=== PATIENT | female | born 1955 | race Caucasian/White ===

== ENCOUNTER 2022-03-26 10:52 | Outpatient (REF) | payer MEDICARE, SELFPAY ==
--- NOTE | ~2022-03-26 | XR_ITS ---
EXAMINATION: XR LUMBAR SPINE XR HIP, LEFT CLINICAL INFORMATION: Pain low back and left hip. COMPARISON: None TECHNIQUE: Lumbar spine is imaged in 5 views: AP, lateral, bilateral oblique, and lateral view coned to lumbosacral junction. Left hip is imaged in AP and frog-lateral projections for 2 views. FINDINGS: Lumbar spine: There is normal lumbar segmentation with 5 nonrib-bearing lumbar vertebrae of normal height and normal lumbar lordosis. There is mild dextrocurvature lower lumbar spine. There is generalized osteopenia. No destructive process. There are multilevel degenerative disc changes with variable disc narrowing, greatest L5-S1. There is vertebral spurring at all levels. There is also facet degeneration, greatest L4-S1. The oblique view show no spondylolysis. There is borderline retrolisthesis L2-L3, likely related to the degenerative changes. No anterior spondylolisthesis. The SI joints show mild degenerative changes with inferior spurring. No erosive change or subchondral sclerosis or diastases or ankylosis. Left hip: No fracture, dislocation, or destructive process. No focal joint narrowing or erosive change or definite chondrocalcinosis. Soft tissue planes are unremarkable. XR/XR lumbar spine 4V min IMPRESSION: -Multilevel degenerative disc and degenerative facet changes lumbar spine. -Borderline retrolisthesis L2-L3, likely related to the degenerative changes. -No vertebral compression or destructive process. -Unremarkable left hip.
--- NOTE | ~2022-03-26 | XR_ITS ---
EXAMINATION: XR LUMBAR SPINE XR HIP, LEFT CLINICAL INFORMATION: Pain low back and left hip. COMPARISON: None TECHNIQUE: Lumbar spine is imaged in 5 views: AP, lateral, bilateral oblique, and lateral view coned to lumbosacral junction. Left hip is imaged in AP and frog-lateral projections for 2 views. FINDINGS: Lumbar spine: There is normal lumbar segmentation with 5 nonrib-bearing lumbar vertebrae of normal height and normal lumbar lordosis. There is mild dextrocurvature lower lumbar spine. There is generalized osteopenia. No destructive process. There are multilevel degenerative disc changes with variable disc narrowing, greatest L5-S1. There is vertebral spurring at all levels. There is also facet degeneration, greatest L4-S1. The oblique view show no spondylolysis. There is borderline retrolisthesis L2-L3, likely related to the degenerative changes. No anterior spondylolisthesis. The SI joints show mild degenerative changes with inferior spurring. No erosive change or subchondral sclerosis or diastases or ankylosis. Left hip: No fracture, dislocation, or destructive process. No focal joint narrowing or erosive change or definite chondrocalcinosis. Soft tissue planes are unremarkable. XR/XR hip LT min 2V IMPRESSION: -Multilevel degenerative disc and degenerative facet changes lumbar spine. -Borderline retrolisthesis L2-L3, likely related to the degenerative changes. -No vertebral compression or destructive process. -Unremarkable left hip.
[2022-03-26 11:46] LABS: Hematocrit 36.2 % (37.0-47.0); Hemoglobin 11.3 g/dl (12.0-16.0); Mean Corpuscular HGB Conc 31.2 g/dl (31.0-35.0); Mean Corpuscular Hemoglobin 29.1 pg (27.0-33.0); Mean Corpuscular Volume 93.3 fL (80.0-98.0); Mean Platelet Volume 9.6 fL (9.4-12.3); Platelet Count 159 X10*3/uL (160-400); Red Blood Count 3.88 X10*6/uL (4.20-5.50); Red Cell Distribution Width 14.4 % (11.0-16.0); White Blood Count 5.9 X10*3/uL (4.8-10.8)
[2022-03-26 12:00] LABS: D Dimer High Sensitivity 332 NG/ML
[2022-03-26 12:13] LABS: Alanine Aminotransferase 12 U/L (0-31); Albumin Level 4.1 g/dL (3.5-5.0); Alkaline Phosphatase 61 U/L (39-117); Anion Gap 10 (12-20); Aspartate Amino Transferase 24 U/L (5-31); Bilirubin Total 0.3 mg/dL (0.0-1.0); Blood Urea Nitrogen 15 mg/dL (9-16); Carbon Dioxide 28 mmol/L (22-29); Chloride 107 mmol/L (96-108); Estimated Glomerular Filt Rate > 60; Glucose Random 88 mg/dL (60-115); Potassium 4.5 mmol/L (3.3-5.1); Sodium 140 mmol/L (135-145); Total Protein 6.4 g/dL (6.5-8.0)
[2022-03-26 12:34] LABS: TSH reflex Free T4 1.14 uIU/mL (0.32-4.0)
== END 2022-03-26 10:53 | disposition home or self-care (01) ==
LOC: HO.XRAY 10:52
PROVIDERS: PCP General Practice; Visit Provider General Practice
DX: M25.562 Pain in left knee (principal); M79.662 Pain in left lower leg; M25.552 Pain in left hip; M54.50 Low back pain, unspecified
CPT/HCPCS: 36415; 72110; 73502; 80053; 84443; 85027; 85379; 85610

== ENCOUNTER 2022-03-29 13:26 | Outpatient (REF) | payer MEDICARE, SELFPAY ==
--- NOTE | ~2022-03-29 | US_ITS ---
EXAMINATION: US VENOUS ULTRASOUND WITH DOPPLER LOWER EXTREMITY, LEFT CLINICAL INFORMATION: Calf tightness times weeks. Warm to touch. COMPARISON: None TECHNIQUE: Ultrasound of the deep veins is performed from the hip to the calf with compression sonography and color and pulse Doppler assessment. Spectral analysis with color-flow imaging is performed. FINDINGS: There is normal venous compression and respiratory variation and augmented flow. The visualized common femoral vein, superficial femoral vein, profunda femoral vein, popliteal vein, and the trifurcation region shows no evidence of deep venous thrombosis. There is a complex Kearns's cyst in the medial popliteal fossa extending to mid calf region. If the patient's symptoms persist, followup ultrasound in 5 days 7 days might be of value to exclude proximal propagation from a non-visualized calf vein. US/US venous duplex LE IMPRESSION: 1. No DVT demonstrated in the left lower extremity. 2. Complex Kearns's cyst, medial popliteal fossa.
== END 2022-03-29 13:27 | disposition home or self-care (01) ==
LOC: HO.US 13:26
PROVIDERS: Visit Provider General Practice
DX: M79.662 Pain in left lower leg (principal); R79.89 Other specified abnormal findings of blood chemistry
CPT/HCPCS: 93971

== ENCOUNTER 2022-04-14 09:11 | Outpatient (REF) | payer MEDICARE, SELFPAY ==
--- NOTE | ~2022-04-14 | MM_ITS ---
EXAMINATION: MM SCREENING DIGITAL BREAST TOMOSYNTHESIS, BILATERAL CLINICAL INFORMATION: Screening. Asymptomatic. Prior [id number] mammography currently unavailable. No known family history breast cancer. The lifetime risk of breast cancer based on the Tyrer-Cuzick Model is 7%. COMPARISON: None. TECHNIQUE: Digital breast tomosynthesis is performed in both the craniocaudal and mediolateral oblique views along with computer-aided detection (CAD). Synthesized 2D images are generated from the tomosynthesis. Additional right CC view is provided. FINDINGS: The breasts are heterogeneously dense, which may obscure small masses (ACR BI-RADS breast composition Category c). There are no significant masses, abnormal calcifications, or other abnormalities. No architectural abnormality or abnormal calcifications. There are punctate densities overlying the skin bilateral axilla consistent with deodorant artifact. No skin thickening or retraction. Radiology department staff will attempt to retrieve prior [id number] mammography to allow for comparison in an addendum report. MM/MM tomosynthesis screening BI IMPRESSION: No mammographic evidence of malignancy. ASSESSMENT: BI-RADS 2: Benign RECOMMENDATION: Routine annual mammography screening. This patient's information was entered into a reminder system with a target due date for their next mammogram.
== END 2022-04-14 09:12 | disposition home or self-care (01) ==
LOC: HO.MAMMO 09:11
PROVIDERS: Visit Provider General Practice
DX: Z12.31 Encounter for screening mammogram for malignant neoplasm of breast (principal)
CPT/HCPCS: 77063; 77067

== ENCOUNTER → 2022-04-21 13:00 | Outpatient (BNVA) | payer MEDICARE, SELFPAY | PROVIDERS: PCP General Practice; Visit Provider Nurse Practitioner Family | DX: M96.1 Postlaminectomy syndrome, not elsewhere classified (principal); M79.18 Myalgia, other site | CPT/HCPCS: 99202 ==

== ENCOUNTER 2022-05-19 14:01 | Outpatient (REF) | payer MEDICARE, SELFPAY ==
--- NOTE | ~2022-05-19 | XR_ITS ---
EXAMINATION: XR CERVICAL SPINE CLINICAL INFORMATION: Post laminectomy syndrome. COMPARISON: None TECHNIQUE: 3 views of the cervical spine were obtained. FINDINGS: There are postsurgical changes to the cervical spine. There is anterior fusion with plate and screw at C3-C4. There is anterior fusion with screws at C6-C7. There are interbody disc interspacers and fusion from C3-C4 to C6-C7. There are post laminotomy changes from C3 to C6. There is bilateral multilevel facet arthritis. Prevertebral soft tissues are normal. XR/XR cervical spine 3V IMPRESSION: Extensive postsurgical changes.
== END 2022-05-19 14:02 | disposition home or self-care (01) ==
LOC: HO.XRAY 14:01
PROVIDERS: PCP General Practice; Visit Provider Nurse Practitioner Family
DX: M96.1 Postlaminectomy syndrome, not elsewhere classified (principal); M79.18 Myalgia, other site
CPT/HCPCS: 72040; 99212

== ENCOUNTER → 2022-05-25 12:46 | Outpatient (BNVA) | payer MEDICARE, SELFPAY | PROVIDERS: PCP General Practice; Referring Provider General Practice; Visit Provider Nurse Practitioner Family | DX: R13.12 Dysphagia, oropharyngeal phase (principal); K21.9 Gastro-esophageal reflux disease without esophagitis; R14.0 Abdominal distension (gaseous); E55.9 Vitamin D deficiency, unspecified | CPT/HCPCS: 99202 ==

== ENCOUNTER 2022-06-23 13:19 | Outpatient (REF) | payer MEDICARE, OTHER, SELFPAY ==
[2022-06-23 14:33] LABS: Amylase 111 U/L (28-100); Lipase 61 U/L (8-78)
[2022-06-24 13:08] LABS: Transglutaminase Ab IgG <1.0 U/mL; Transglutaminase IgA 2.7 U/mL
[2022-06-25 11:18] LABS: H Pylori Breath Test Negative (Negative)
[2022-06-27 15:57] LABS: Vitamin D 25-OH, D2 <4 ng/mL; Vitamin D 25-OH, D3 30 ng/mL; Vitamin D 25-OH, Total 30 ng/mL (30-100)
== END 2022-06-23 13:20 | disposition home or self-care (01) ==
LOC: HO.LAB 13:19
PROVIDERS: PCP General Practice; Visit Provider Nurse Practitioner Family
DX: R13.12 Dysphagia, oropharyngeal phase (principal); K21.9 Gastro-esophageal reflux disease without esophagitis; R14.0 Abdominal distension (gaseous); R10.9 Unspecified abdominal pain; E55.9 Vitamin D deficiency, unspecified
CPT/HCPCS: 36415; 82150; 82306; 83013; 83690; 86364; 99212

== ENCOUNTER 2022-07-09 07:21 | Day surgery (SDC) | payer MEDICARE, OTHER, SELFPAY ==
[2022-07-09 07:28] VITALS: BMI 18.2
[2022-07-09 07:38] VITALS: BP 127/77; PULSE 77; RESP 16; TEMP 36.6; O2SAT 98
--- NOTE | 2022-07-09 07:58 | MHC.SHP ---
Pre-Procedural Eval Section A Date of Service: 07/09/22 The patient is an INPATIENT: No Changes since office visit: Yes Patient answered all questions; No Cold of Flu in the past 2 weeks, No New Medical Problems and No Changes in Medication The History & Physical has been completed within 30 days and I have reviewed it.: Yes Section B Chief Complaint: dysphasia,reflux,gaseous Allergies: Allergies Allergy/AdvReac Type Severity Reaction Status Date / Time bupropion Allergy Unknown Verified 07/09/22 07:48 clonidine Allergy Unknown Verified 07/09/22 07:48 gabapentin Allergy Unknown Verified 07/09/22 07:48 meloxicam Allergy Unknown Verified 07/09/22 07:48 pregabalin Allergy Unknown Verified 07/09/22 07:48 Sulfa (Sulfonamide Allergy Unknown Verified 07/09/22 07:48 Antibiotics) zolpidem Allergy Unknown Verified 07/09/22 07:48 prasozin Allergy Unknown Uncoded 05/19/22 13:10 Plan I have reviewed the history and physical and performed a pertinent physical examination on my patient. No changes have occurred unless specified.
--- NOTE | 2022-07-09 08:02 | PC.NURSE ---
right hand puffy, bruised from first iv attempt. pt does not complain of any pain. ice applied
--- NOTE | 2022-07-09 08:04 | P.BOP_ITS ---
Brief Operative Note Date of Service: 07/09/22 Pre-op diagnosis: upper abdominal pain, dysphagia abdominal bloating Post-op diagnosis: other ( dysphagia, gastritis, gastric polyps) Procedure: FLEXIBLE TRANSORAL UPPER GASTROINTESTINAL ENDOSCOPY WITH BIOPSIES AND ESOPHAGEAL BALLOON DILATION Consent: Indications for the procedure and potential complications of bleeding, perforation, reaction to medications and missed diagnosis were discussed with the patient and informed consent was obtained. Instrument: Olympus GIF H 190 mid size upper endoscope Monitoring: Vital signs and clinical assessment, continuous EKG monitoring, Pulse oximetry, Carbon Dioxide monitoring and blood pressure monitoring were done throughout the procedure. Procedure: The patient was placed in the left lateral decubitis position and pre-procedure medications were administered and a bite block was placed. The endoscope was inserted into the mouth and advanced under direct vision to the third part of duodenum. A careful inspection was made as the upper endoscope was withdrawn including a retroflexed examination of the proximal stomach; Findings and interventions are described below. Findings: Larynx: Normal Esophagus: Tortuous esophagus with increased tertiary contractions without stricture or ring - biopsies were obtained from proximal esophagus to check for EOE. GE junction at 40 cms. No esophagitis or Mejia's. Esophageal balloon dilation of LES was performed with a 19 mm (57 F) CRE balloon x 60 seconds Esophageal balloon dilation of proximal esophagus was performed with the an 18 mm (54 F) CRE balloon x 60 seconds Stomach: Multiple 5 to 10 mm benign appearing polyps in the gastric body and fundus - biopsied. Mild gastric antral erythema. Biopsies were obtained. Grade 2 flap valve on retroflexed examination of the cardia. Duodenum: Normal bulb and descending duodenum. Biopsies were obtained from 3rd part of the duodenum to check for celiac sprue Intervention: Biopsies and esophageal balloon dilation as noted above Impression and Post Procedure Diagnosis: Endoscopy Findings: ESOPHAGUS: Tortuous esophagus with increased tertiary contractions without stricture or ring - biopsies were obtained from proximal esophagus to check for EOE. GE junction at 40 cms. No esophagitis or Mejia's. Esophageal balloon dilation of LES was performed with a 19 mm (57 F) CRE balloon x 60 seconds Esophageal balloon dilation of proximal esophagus was performed with the an 18 mm (54 F) CRE balloon x 60 seconds STOMACH: Multiple 5 to 10 mm benign appearing polyps in the gastric body and fundus - biopsied. Mild gastric antral erythema. Biopsies were obtained. DUODENUM: Normal - biopsied to check for celiac sprue Plan: Await pathology results Patient has an appointment on 08/13/22 in the GI Clinic with Dyana Ramos FNP- [facility]. Above findings were reviewed with the patient and Gastric Polyps and Gas and Bloating handouts were given in the discharge area Surgeon: Ollie De León MD Anesthesia: MAC Was an Director Of Events used for this Procedure?: Yes Director Of Events: Neela Zacarias Estimated blood loss (mL): 0 Pathology: other (A. small bowel bxs, R/O celiac B. gastric antrum bxs, R/O H. pylori C. gastric polyps D. distal esophagus bxs, R/O EoE) Condition: stable Disposition: PACU
--- NOTE | 2022-07-09 08:05 | W.PM.OPN ---
Operative Note Operative Note Date of Service: 07/09/22 Narrative: Pre-op diagnosis: upper abdominal pain, dysphagia abdominal bloating Post-op diagnosis:?other ( dysphagia, gastritis, gastric polyps) Procedure: FLEXIBLE TRANSORAL UPPER GASTROINTESTINAL ENDOSCOPY WITH BIOPSIES AND ESOPHAGEAL BALLOON DILATION Consent:?Indications for the procedure and potential complications of bleeding, perforation, reaction to medications and missed diagnosis were discussed with the patient and informed consent was obtained. Instrument:?Olympus GIF H 190 mid size upper endoscope Monitoring: Vital signs and clinical assessment, continuous EKG monitoring, Pulse oximetry, Carbon Dioxide monitoring and blood pressure monitoring were done throughout the procedure. Procedure:?The patient was placed in the left lateral decubitis position and pre-procedure medications were administered and a bite block was placed. The endoscope was inserted into the mouth and advanced under direct vision to the third part of duodenum. A careful inspection was made as the upper endoscope was withdrawn including a retroflexed examination of the proximal stomach; Findings and interventions are described below. Findings: Larynx:? Normal Esophagus: Tortuous? esophagus with increased tertiary contractions without stricture or ring -? biopsies were obtained from proximal esophagus to check for EOE.? GE junction at 40 cms. No esophagitis or Mejia's. Esophageal balloon dilation of LES was performed with a 19 mm (57 F) CRE balloon x 60 seconds Esophageal balloon dilation of proximal esophagus was performed with the an 18 mm (54 F) CRE balloon x 60 seconds Stomach: Multiple 5 to 10 mm benign appearing polyps in the gastric body and fundus -? biopsied.? Mild gastric antral erythema. Biopsies were obtained. Grade 2 flap valve on retroflexed examination of the cardia. Duodenum: Normal bulb and descending duodenum.? ? Biopsies were obtained from 3rd part of the duodenum to check for celiac sprue Intervention: Biopsies? and esophageal balloon dilation as noted above Impression and Post Procedure Diagnosis: Endoscopy Findings: ESOPHAGUS: Tortuous? esophagus with increased tertiary contractions without stricture or ring -? biopsies were obtained from proximal esophagus to check for EOE.? GE junction at 40 cms. No esophagitis or Mejia's. Esophageal balloon dilation of LES was performed with a 19 mm (57 F) CRE balloon x 60 seconds Esophageal balloon dilation of proximal esophagus was performed with the an 18 mm (54 F) CRE balloon x 60 seconds STOMACH: Multiple 5 to 10 mm benign appearing polyps in the gastric body and fundus -? biopsied.? Mild gastric antral erythema. Biopsies were obtained. DUODENUM: Normal -? biopsied to check for celiac sprue Plan: Await pathology results Patient has an appointment on 08/13/22 in the GI Clinic with Dyana Ramos FNP-BC. Above findings were reviewed with the patient and Gastric Polyps and Gas and Bloating handouts were given in the discharge area Surgeon: Ollie De León MD Anesthesia:?MAC Was an Oil Well Gun Perforator Operator used for this Procedure?:?Yes Oil Well Gun Perforator Operator:?Neela Zacarias Estimated blood loss (mL):?0 Pathology:?other (A. small bowel bxs, R/O celiac? B. gastric antrum bxs, R/O H. pylori? C. gastric polyps? D. distal esophagus bxs, R/O EoE) Condition:?stable Disposition:?PACU
[2022-07-09] MEDS: Lactated Ringers 1,000 ML 100 ML IVCONT (08:06)
--- NOTE | 2022-07-09 08:08 | HO.ANESPROP2 ---
HPI - Anesthesia Eval Consult details Narrative: 67 yo female patient for EGD PMFSH Active Problems Active Problems: All Active Problems (Updated 07/09/22 @ 07:32 by Krista Weiss RN) Postlaminectomy syndrome, cervical (Acute) Myofascial pain (Acute) Pruritic erythematous rash (Acute) Frequent falls- no cause found yet Asthma- Controlled. Inhalers prn PETER- Not using CPAP. Unable to find mask that fits Past Medical History Medical History Allergies Anxiety Asthma Chronic neck pain Depression History of COVID-19 History of post traumatic stress disorder Hypothyroidism Neuropathy PETER (obstructive sleep apnea) Family History Family history of problems with anesthesia: No Surgical History Surgical History (Updated 07/09/22 @ 07:32 by Krista Weiss RN) Hx of appendectomy Hx of section Hx of colonoscopy Hx of esophagogastroduodenoscopy Hx of tonsillectomy Previous back surgery Surgical history unknown History of Problems with Anesthesia: No Social History Social History Patient Tobacco Use Status: Never used Tobacco Substance Use Type Other:: cbd smoke Are you DNR?: No Advance Directives: No Advance Directives Information Provided: Yes Meds Allergies Allergy/AdvReac Type Severity Reaction Status Date / Time bupropion Allergy Unknown Verified 07/09/22 07:48 clonidine Allergy Unknown Verified 07/09/22 07:48 gabapentin Allergy Unknown Verified 07/09/22 07:48 meloxicam Allergy Unknown Verified 07/09/22 07:48 pregabalin Allergy Unknown Verified 07/09/22 07:48 Sulfa (Sulfonamide Allergy Unknown Verified 07/09/22 07:48 Antibiotics) zolpidem Allergy Unknown Verified 07/09/22 07:48 prasozin Allergy Unknown Uncoded 05/19/22 13:10 Active Medications: Current Medications Albuterol Sulfate (Albuterol Sulfate (0.083%) 2.5 Mg/3 Ml Vial.Neb) 2.5 mg INHALE ONCE PRN PRN Reason: Shortness of Breath/Wheezing Lactated Ringer's (Lr) 1,000 mls @ 100 mls/hr IVCONT .Q10H BEATA Last Admin: 07/09/22 08:06 Dose: 100 mls/hr Home Medications Medication Instructions Recorded Confirmed Last Taken Type buprenorphine 15 mcg/hour weekly 1 patch topical QWEEK 04/21/22 07/09/22 Unknown History transdermal patch diphenhydramine HCl 25 mg capsule 25 mg PO Q8H PRN Itching 04/21/22 07/09/22 Unknown History (Banophen) docusate sodium 100 mg capsule 100 - 200 mg PO DAILY PRN 04/21/22 07/09/22 Unknown History Constipation levothyroxine 75 mcg tablet 75 mcg PO DAILY 04/21/22 07/09/22 07/09/22 06:00 History magnesium oxide 400 mg (241.3 mg 400 mg PO DAILY 04/21/22 07/09/22 Unknown History magnesium) tablet omeprazole 40 mg capsule,delayed 40 mg PO DAILY 04/21/22 07/09/22 Unknown History release sennosides 8.6 mg tablet (senna) 8.6 mg PO DAILY PRN constipation 04/21/22 07/09/22 Unknown History sertraline 100 mg tablet 200 mg PO BID 04/21/22 07/09/22 07/09/22 06:00 History trazodone 50 mg tablet 100 mg PO BEDTIME PRN Insomnia 04/21/22 07/09/22 Unknown History mupirocin 2 % topical ointment 1 appl topical BID-TID 05/19/22 07/09/22 Unknown History Exam Exam Date and Time: July 09, 2022 0808 Height,Weight and Vital Signs: Height 5 ft 8 in Weight 54.431 kg Last Vital Signs Temp 97.8 F 07/09/22 07:38 Pulse 77 07/09/22 07:38 Resp 16 07/09/22 07:38 BP 127/77 07/09/22 07:38 Pulse Ox 98 07/09/22 07:38 O2 Del Method 07/09/22 07:38 Airway Mallampati Class: II TM Dist: >3cm Neck ROM: Limited (S/p C3-7 fusion) Loose/Missing/Broken Teeth: Yes (2 teeth missing- crowns fell off) Heart: RRR Lungs: CTAB Assessment and Plan Assessment Anesthesia Assessment: Anesthesia Plan Discussed and Chart Reviewed Final Anesthetic Review Family History of Problems with Anesthesia: No History of Problems with Anesthesia: No NPO: Yes ASA Class: III Final Preanesthetic Review: No Changes in Pt Med Stat, Meds/Allgs Chart Reviewed, Consent Obtained/Reviewed and Anes Risks/Benef Reviewed Patient Risk: Intermediate Procedure Risk: Low Assessment/Block/Sedation in SS: Assess/Block/Sedation-SS Anesthetic Plan Anesthetic Plan: MAC: Disposition: Standard PACU
[2022-07-09 08:44] VITALS: BP 85/41; PULSE 71; RESP 16; TEMP 36.7; O2SAT 99
[2022-07-09 08:59] VITALS: BP 116/74; PULSE 84; RESP 18; O2SAT 99
[2022-07-09] MEDS: Mag&Al/Sim/Diphenhyd/Lidocaine 10 ML ORAL.SUSP PO (09:05)
[2022-07-09 09:14] VITALS: BP 133/74; PULSE 71; RESP 18; TEMP 36.7; O2SAT 100
== END 2022-07-09 10:38 | disposition home or self-care (01) ==
PROVIDERS: PCP General Practice; Visit Provider Internal Medicine Gastroenterology
PROC: 0DJ08ZZ Inspection of Upper Intestinal Tract, Via Natural or Artificial Opening Endoscopic (ICD-10-PCS; CPT 43235; principal; 2022-07-09 08:30)
DX: R13.12 Dysphagia, oropharyngeal phase (principal); K22.89 Other specified disease of esophagus; K21.9 Gastro-esophageal reflux disease without esophagitis; R14.0 Abdominal distension (gaseous); K29.50 Unspecified chronic gastritis without bleeding; K31.7 Polyp of stomach and duodenum; J45.909 Unspecified asthma, uncomplicated; M54.2 Cervicalgia; G62.9 Polyneuropathy, unspecified; G89.29 Other chronic pain; E03.9 Hypothyroidism, unspecified; G47.33 Obstructive sleep apnea (adult) (pediatric); F41.1 Generalized anxiety disorder; Z79.899 Other long term (current) drug therapy; Z88.2 Allergy status to sulfonamides; Z88.8 Allergy status to other drugs, medicaments and biological substances; Z98.890 Other specified postprocedural states
CPT/HCPCS: 43249; 43239; 88305; 88342; C1726

== ENCOUNTER 2022-07-23 15:05 | Emergency (ER) | payer MEDICARE, OTHER, SELFPAY ==
--- NOTE | ~2022-07-23 | XR_ITS ---
EXAMINATION: XR CHEST CLINICAL INFORMATION: Chest pain COMPARISON: None TECHNIQUE: Frontal view of the chest was obtained. FINDINGS: The lungs are clear. No airspace consolidation, pleural effusion, or pneumothorax. The cardiomediastinal silhouette is within normal limits. No acute osseous injury. Fixation screws project over the lower cervical spine. XR/XR chest 1V IMPRESSION: No acute pulmonary process.
--- NOTE | ~2022-07-23 | CT_ITS ---
EXAMINATION: CT ANGIOGRAM OF THE CHEST WITH AND WITHOUT CONTRAST (CT PULMONARY ANGIOGRAM FOR PE) CLINICAL INFORMATION: Reason for Exam chest pain elevated d-dimer rule out PE COMPARISON: Chest x-ray 08/02/2022 TECHNIQUE: Prior to contrast administration, noncontrast localization images were obtained. Subsequently, multidetector volumetric imaging was performed from the thoracic inlet to below the diaphragms following the administration of 65 mL Omnipaque 350 intravenous contrast. No contrast reaction reported Sagittal, coronal, and MIP oblique sagittal reformatted images were obtained on the CT workstation, uploaded to PACS, and reviewed. This CT examination was performed using dose optimization techniques as appropriate, variously including the following: *Automated exposure control *Adjustment of mA and/or kV according to patient size (this includes techniques or standardized protocols for targeted exams where dose is matched to indication/reason for exam; i.e. extremities or head) *Use of iterative reconstruction technique Total exam dose-length product 167 mGy-cm FINDINGS: QUALITY OF STUDY/CONTRAST BOLUS: Satisfactory. PULMONARY ARTERIES: No central or segmental pulmonary emboli. THORACIC AORTA: No aneurysm or dissection. LUNG: No focal consolidation, nodules or masses. PLEURA: No pleural effusion or pneumothorax. MEDIASTINUM: Normal heart size. No pericardial effusion. No hilar or mediastinal lymphadenopathy. No evidence of septal bowing or right heart strain. CHEST WALL/AXILLA: No axillary or internal mammary lymphadenopathy. OSSEOUS STRUCTURES: No acute or suspicious osseous abnormality. Orthopedic plate and screw at cervical spine. UPPER ABDOMEN: Unremarkable. No reflux of contrast into the hepatic veins to suggest elevated right heart pressures. CT/CT angio chest PE protocol IMPRESSION: Normal CT of chest. No evidence of pulmonary embolism. VTE: negative
[2022-07-23 15:11] VITALS: BP 115/72; PULSE 95; RESP 18; TEMP 36.2; O2SAT 96
--- NOTE | 2022-07-23 15:16 | ECG_ITS ---
Test Reason : chest pain Blood Pressure : / mmHG Vent. Rate : 082 BPM Atrial Rate : 082 BPM P-R Int : 128 ms QRS Dur : 076 ms QT Int : 348 ms P-R-T Axes : 004 023 014 degrees QTc Int : 406 ms Normal sinus rhythm Nonspecific T wave abnormality Abnormal ECG No previous ECGs available Referred By: Generic ED Physician Electronically Signed By:LIZET MUHAMMAD
[2022-07-23 15:29] LABS: MANUAL DIFF FLAG NO
[2022-07-23 15:31] LABS: Basophils Absolute Auto 0.1 X10*3/uL (0.0-0.2); Basophils Percent Auto 0.6 % (0-2); Eosinophils Percent Auto 0.1 % (0-4); Hematocrit 33.6 % (37.0-47.0); Hemoglobin 11.1 g/dl (12.0-16.0); Imm Gran Abs Auto 0.02 X10*3/uL (0.00-0.03); Imm Gran Pct Auto 0.2 % (0.0-0.4); Lymphocytes Absolute Auto 1.2 X10*3/uL (1.2-4.9); Lymphocytes Percent Auto 13.5 % (20-40); Mean Corpuscular Hemoglobin 29.5 pg (27.0-33.0); Mean Corpuscular Volume 89.4 fL (80.0-98.0); Mean Platelet Volume 9.4 fL (9.4-12.3); Monocytes Absolute Auto 1.1 X10*3/uL (0.1-1.2); Monocytes Percent Auto 12.9 % (2-11); Neutrophils Absolute Auto 6.4 x10*3/uL (2.0-8.3); Neutrophils Percent Auto 72.7 % (45-73); Platelet Count 176 X10*3/uL (160-400); Red Blood Count 3.76 X10*6/uL (4.20-5.50); Red Cell Distribution Width 13.1 % (11.0-16.0); White Blood Count 8.8 X10*3/uL (4.8-10.8)
[2022-07-23 15:51] LABS: Alanine Aminotransferase 15 U/L (0-31); Alkaline Phosphatase 63 U/L (39-117); Anion Gap 17 (12-20); Aspartate Amino Transferase 26 U/L (5-31); Bilirubin Total 0.7 mg/dL (0.0-1.0); Blood Urea Nitrogen 15 mg/dL (9-16); Calcium 8.9 mg/dL (8.4-10.2); Carbon Dioxide 23 mmol/L (22-29); Chloride 103 mmol/L (96-108); Creatinine Clr Calc Pharmacy 58.6; Estimated Glomerular Filt Rate > 60; Glucose Random 100 mg/dL (60-115); Potassium 4.2 mmol/L (3.3-5.1); Sodium 139 mmol/L (135-145); Total Protein 6.6 g/dL (6.5-8.0)
[2022-07-23 15:58] LABS: Troponin-I High Sensitivity < 3.5 ng/L (<3.5-17.0)
[2022-07-23 18:50] VITALS: BP 122/67; PULSE 90; RESP 18; TEMP 36.5; O2SAT 96
--- NOTE | 2022-07-23 21:02 | ED_ITS ---
HPI - Chest Pain General Chief Complaint: Chest Pain Stated Complaint: chest pain Time Seen by Provider: 07/23/22 21:01 Source: patient Mode of arrival: ambulatory Limitations: no limitations History of Present Illness HPI narrative: 67 yo female with hx of chronic pain, hypothyroidism, GERD, reports chest pain substernal tightness that she thinks is related to her chronic back pain since Tuesday. She notes it hurts to breathe at times. She is trying to see her spine doctor - has had xrays and appointment 08/02. She notes no recent URI. MD complaint: chest pain Onset (ago): day(s) (5) Timing of current episode: constant Prior episodes: No Onset: during rest Pain location: substernal Pain radiation: back Severity: moderate Quality: tightness Relieving factors: nothing Exacerbating factors: inspiration Context: other (chronic back pain) Associated symptoms: dyspnea Treatment prior to arrival: none Related Data Home Medications Medication Instructions Recorded Confirmed buprenorphine 15 mcg/hour weekly 1 patch topical QWEEK 04/21/22 07/09/22 transdermal patch diphenhydramine HCl 25 mg capsule 25 mg PO Q8H PRN Itching 04/21/22 07/09/22 (Banophen) docusate sodium 100 mg capsule 100 - 200 mg PO DAILY PRN 04/21/22 07/09/22 Constipation levothyroxine 75 mcg tablet 75 mcg PO DAILY 04/21/22 07/09/22 magnesium oxide 400 mg (241.3 mg 400 mg PO DAILY 04/21/22 07/09/22 magnesium) tablet omeprazole 40 mg capsule,delayed 40 mg PO DAILY 04/21/22 07/09/22 release sennosides 8.6 mg tablet (senna) 8.6 mg PO DAILY PRN constipation 04/21/22 07/09/22 sertraline 100 mg tablet 200 mg PO BID 04/21/22 07/09/22 trazodone 50 mg tablet 100 mg PO BEDTIME PRN Insomnia 04/21/22 07/09/22 mupirocin 2 % topical ointment 1 appl topical BID-TID 05/19/22 07/09/22 Previous Rx's Medication Instructions Recorded simethicone 125 mg capsule (Gas 125 mg PO TID-QID PRN abdominal 06/23/22 Relief (simethicone)) distention #120 caps cyclobenzaprine 10 mg tablet 10 mg PO TID PRN muscle spasm #15 07/23/22 tabs Allergies Allergy/AdvReac Type Severity Reaction Status Date / Time bupropion Allergy Unknown Verified 07/09/22 07:48 clonidine Allergy Unknown Verified 07/09/22 07:48 gabapentin Allergy Unknown Verified 07/09/22 07:48 meloxicam Allergy Unknown Verified 07/09/22 07:48 pregabalin Allergy Unknown Verified 07/09/22 07:48 Sulfa (Sulfonamide Allergy Unknown Verified 07/09/22 07:48 Antibiotics) zolpidem Allergy Unknown Verified 07/09/22 07:48 prasozin Allergy Unknown Uncoded 05/19/22 13:10 Review of Systems Review of Systems: Constitutional : No Weight loss, No Fever, No Chills ENT/Mouth : No sore throat, No Rhinorrhea Eyes: No Eye Pain, No Swelling Cardiovascular : pos Chest Pain, pos SOB, no Dyspnea on Exertion, No Orthopnea, No Edema, No Palpitations Respiratory : No Cough, No Sputum Gastrointestinal : no Nausea, No Vomiting, No Diarrhea, No abdominal Pain, No Hematochezia, No Melena Genitourinary : No Dysuria, No Urinary Frequency Musculoskeletal : No joint pain, No Myalgias, No Joint Swelling, pos back pain Skin : No Skin Lesions, No rash Neuro : No Weakness, No Numbness, No Dizziness, No Headache Psych : No Anxiety/Panic, No Depression Heme/Lymph: No Bruising, No Lymphadenopathy Endocrine : No Polyuria, No Polydipsia All other systems reviewed and are negative PMFSH Past Medical History Attestation statement: The following information was validated with the patient. Medical History Allergies Anxiety Asthma Chronic neck pain Depression History of COVID-19 History of post traumatic stress disorder Hypothyroidism Neuropathy PETER (obstructive sleep apnea) Surgical History Hx of appendectomy Hx of section Hx of colonoscopy Hx of esophagogastroduodenoscopy Hx of tonsillectomy Previous back surgery Surgical history unknown Social History Social History Patient Tobacco Use Status: Never used Tobacco Advance Directives: No Advance Directives Information Provided: No Physical Exam Vital Signs: Vital Signs: Last Vital Signs Temp 99.5 F 07/23/22 21:36 Pulse 82 07/23/22 21:36 Resp 17 07/23/22 21:36 BP 110/65 07/23/22 21:36 Pulse Ox 95 07/23/22 21:36 O2 Del Method 07/23/22 21:36 BMI result Body Mass Index 20.0 Appearance: Alert. Oriented X3. No acute distress. Anxious Eyes: Pupils equal, round and reactive to light. ENT: Pharynx normal. Neck: Normal inspection. Neck supple. CVS: Normal heart rate and rhythm. Pulses normal. Respiratory: No respiratory distress. Breath sounds normal. Abdomen: Soft and non-tender. Skin: Skin warm and dry. Normal skin color. Normal skin turgor. Extremities: No lower extremity edema. No calf ttp Neuro: Oriented X 3. No motor deficit. No sensory deficit. Course Course Course Narrative: ddimer above VTE threshold CTA ordered trop flat x 2, EKG negative, CTA PE negative stable for DC MDM - Chest Pain MDM Narrative Medical decision making narrative: 67 yo female with hx of chronic pain, hypothyroidism, GERD, here with c/o atypical chest pain since Tuesday at this time has nonspecific EKG changes - no sig ACS risk factors, will need EKG, troponin x 2. Given pleuritic component will obtain ddimer as well. Patient is anxious - PO ativan ordered. Possibly MSK related to her chronic back pain for which she does have a specialist. Lab Data Result diagrams: 07/23/22 15:24 07/23/22 15:24 Labs: Lab Results 07/23/22 07/23/22 07/23/22 Range/Units 15:24 15:24 15:24 WBC 8.8 (4.8-10.8) X10*3/uL RBC 3.76 L (4.20-5.50) X10*6/uL Hgb 11.1 L (12.0-16.0) g/dl Hct 33.6 L (37.0-47.0) % MCV 89.4 (80.0-98.0) fL MCH 29.5 (27.0-33.0) pg MCHC 33.0 (31.0-35.0) g/dl RDW 13.1 (11.0-16.0) % Plt Count 176 (160-400) X10*3/uL MPV 9.4 (9.4-12.3) fL Immature Gran % (Auto) 0.2 (0.0-0.4) % Neut % (Auto) 72.7 (45-73) % Lymph % (Auto) 13.5 L (20-40) % [place] % (Auto) 12.9 H (2-11) % Eos % (Auto) 0.1 (0-4) % Baso % (Auto) 0.6 (0-2) % Lymph # (Auto) 1.2 (1.2-4.9) X10*3/uL [place] # (Auto) 1.1 (0.1-1.2) X10*3/uL Eos # (Auto) 0.0 (0.0-0.4) X10*3/uL Baso # (Auto) 0.1 (0.0-0.2) X10*3/uL Abs Immat Gran (auto) 0.02 (0.00-0.03) X10*3/uL Absolute Neuts (auto) 6.4 (2.0-8.3) x10*3/uL Absolute Nucleated RBC 0.000 (0.0-0.012) X10*3/uL Nucleated RBC % (auto) 0.0 (0.0-0.2) /100WBC D-Dimer High Sensitivty NG/ML Sodium 139 (135-145) mmol/L Potassium 4.2 (3.3-5.1) mmol/L Chloride 103 (96-108) mmol/L Carbon Dioxide 23 (22-29) mmol/L Anion Gap 17 (12-20) BUN 15 (9-16) mg/dL Creatinine 0.79 (0.5-1.4) mg/dL Estim Creat Clear Calc 58.6 Estimated GFR > 60 Random Glucose 100 (60-115) mg/dL Calcium 8.9 (8.4-10.2) mg/dL Total Bilirubin 0.7 (0.0-1.0) mg/dL AST 26 (5-31) U/L ALT 15 (0-31) U/L Alkaline Phosphatase 63 (39-117) U/L Troponin I High Sens < 3.5 (<3.5-17.0) ng/L Total Protein 6.6 (6.5-8.0) g/dL Albumin 4.0 (3.5-5.0) g/dL Lipase 29 (8-78) U/L COVID-19 ([facility]) (Negative) COVID-19 Clin Com 07/23/22 07/23/22 07/23/22 Range/Units 21:34 21:34 22:13 WBC (4.8-10.8) X10*3/uL RBC (4.20-5.50) X10*6/uL Hgb (12.0-16.0) g/dl Hct (37.0-47.0) % MCV (80.0-98.0) fL MCH (27.0-33.0) pg MCHC (31.0-35.0) g/dl RDW (11.0-16.0) % Plt Count (160-400) X10*3/uL MPV (9.4-12.3) fL Immature Gran % (Auto) (0.0-0.4) % Neut % (Auto) (45-73) % Lymph % (Auto) (20-40) % [place] % (Auto) (2-11) % Eos % (Auto) (0-4) % Baso % (Auto) (0-2) % Lymph # (Auto) (1.2-4.9) X10*3/uL [place] # (Auto) (0.1-1.2) X10*3/uL Eos # (Auto) (0.0-0.4) X10*3/uL Baso # (Auto) (0.0-0.2) X10*3/uL Abs Immat Gran (auto) (0.00-0.03) X10*3/uL Absolute Neuts (auto) (2.0-8.3) x10*3/uL Absolute Nucleated RBC (0.0-0.012) X10*3/uL Nucleated RBC % (auto) (0.0-0.2) /100WBC D-Dimer High Sensitivty 387 NG/ML Sodium (135-145) mmol/L Potassium (3.3-5.1) mmol/L Chloride (96-108) mmol/L Carbon Dioxide (22-29) mmol/L Anion Gap (12-20) BUN (9-16) mg/dL Creatinine (0.5-1.4) mg/dL Estim Creat Clear Calc Estimated GFR Random Glucose (60-115) mg/dL Calcium (8.4-10.2) mg/dL Total Bilirubin (0.0-1.0) mg/dL AST (5-31) U/L ALT (0-31) U/L Alkaline Phosphatase (39-117) U/L Troponin I High Sens < 3.5 (<3.5-17.0) ng/L Total Protein (6.5-8.0) g/dL Albumin (3.5-5.0) g/dL Lipase (8-78) U/L COVID-19 ([facility]) Negative (Negative) COVID-19 Clin Com See Note ECG Data ECG #1: Attestation: I personally reviewed and interpreted this ECG as follows: ECG interpretation date: 07/23/22 ECG interpretation time: 21:03 Interpretation: Rate: 82 Rhythm: NSR [place]: normal Normal P waves. Normal CAR. Normal QRS complex. ST T wave : no KAILEY, nonspecific qTC: normal prior studies: no available The study has been interpreted contemporaneously by me. . Discharge Plan Discharge Clinical Impression: Atypical chest pain Patient Disposition: Home, Self-Care Instructions: Chest Pain (ED) Additional Instructions: return to ED for any worsening symptoms or concerns please follow up with your doctor two negative blood tests for heart EKG no acute findings CTA of chest FINDINGS: QUALITY OF STUDY/CONTRAST BOLUS: Satisfactory. PULMONARY ARTERIES: No central or segmental pulmonary emboli.? THORACIC AORTA: No aneurysm or dissection. LUNG: No focal consolidation, nodules or masses. PLEURA: No pleural effusion or pneumothorax. MEDIASTINUM: Normal heart size.? No pericardial effusion.? No hilar or mediastinal lymphadenopathy.? No evidence of septal bowing or right heart strain. CHEST WALL/AXILLA: No axillary or internal mammary lymphadenopathy. OSSEOUS STRUCTURES: No acute or suspicious osseous abnormality. Orthopedic plate and screw at cervical spine. UPPER ABDOMEN: Unremarkable.? No reflux of contrast into the hepatic veins to suggest elevated right heart pressures. CT/CT angio chest PE protocol IMPRESSION: Normal CT of chest. No evidence of pulmonary embolism. ? VTE: negative Prescriptions: New cyclobenzaprine 10 mg tablet 10 mg PO TID PRN (Reason: muscle spasm) Qty: 15 0RF No Action sertraline 100 mg tablet 200 mg PO BID omeprazole 40 mg capsule,delayed release(DR/EC) 40 mg PO DAILY levothyroxine 75 mcg tablet 75 mcg PO DAILY buprenorphine 15 mcg/hour patch weekly 1 patch topical QWEEK docusate sodium 100 mg capsule 100 - 200 mg PO DAILY PRN (Reason: Constipation) diphenhydramine HCl [Banophen] 25 mg capsule 25 mg PO Q8H PRN (Reason: Itching) sennosides [senna] 8.6 mg tablet 8.6 mg PO DAILY PRN (Reason: constipation) magnesium oxide 400 mg (241.3 mg magnesium) tablet 400 mg PO DAILY trazodone 50 mg tablet 100 mg PO BEDTIME PRN (Reason: Insomnia) mupirocin 2 % ointment 1 appl topical BID-TID simethicone [Gas Relief (simethicone)] 125 mg capsule 125 mg PO TID-QID PRN (Reason: abdominal distention) Qty: 120 2RF Referrals: Jae Rodriguez MD [Primary Care Provider] - 3 days
[2022-07-23 21:35] LABS: Lipase 29 U/L (8-78)
[2022-07-23 21:36] VITALS: BP 110/65; PULSE 82; RESP 17; TEMP 37.5; O2SAT 95
[2022-07-23 21:53] LABS: D Dimer High Sensitivity 387 NG/ML
[2022-07-23 22:05] LABS: Troponin-I High Sensitivity < 3.5 ng/L (<3.5-17.0)
[2022-07-23] MEDS: iohexoL 350 MG/ML 100 ML INFUS..BTL IV (22:33)
[2022-07-23] MEDS: LORazepam 0.5 MG TABLET PO (22:37)
[2022-07-23 22:44] LABS: COVID-19 Test Negative (Negative); IDNOW Serial# 55D5AD1C
--- NOTE | 2022-07-23 23:38 | PC.NURSE ---
I assumed nursing care of Sivan on her arrival to bed 4. SHe has remained alert, orineted x 3, flat affect but calm and cooperative. SHe state she has had epigastric area chest pain with associated back pain (unsure if it is her chronic back pain, she states) x 6 days. SHe is tearful on arrival, very soft spoken. She denies SI/HI. Respirations are spontaneous and non-labored. RR WNL. NO cyanosis. SHe speaks in full sentences. DIscharged at this time. SHe verbalized an understanding of all DC orders and ambulated out of the ED independently and with steady gait .
== END 2022-07-24 00:04 | disposition home or self-care (01) ==
PROVIDERS: Emergency Provider Emergency Medicine; PCP Internal Medicine
DX: R07.89 Other chest pain (principal); E03.9 Hypothyroidism, unspecified; Z20.822 Contact with and (suspected) exposure to COVID-19; Z79.899 Other long term (current) drug therapy
CPT/HCPCS: 36415; 71045; 71275; 80053; 83690; 84484; 85025; 85379; 87635; 93005; 99284; Q9967

== ENCOUNTER 2022-07-25 09:26 | Emergency (ER) | payer MEDICARE, OTHER, SELFPAY ==
--- NOTE | ~2022-07-25 | XR_ITS ---
EXAMINATION: XR CHEST CLINICAL INFORMATION: Fever and tachycardia COMPARISON: Chest radiograph 07/23/2022 TECHNIQUE: Frontal view of the chest was obtained. FINDINGS: Lungs are mildly hypoinflated compared to the prior study which accounts for the slightly increased size of the cardiac silhouette. No infiltrates, effusions or lung masses are seen a trace right pleural effusion is present. Cervical spine fixation hardware again noted. XR/XR chest 1V IMPRESSION: No acute intrathoracic disease. A cause for the patient's fever is not found
--- NOTE | ~2022-07-25 | CT_ITS ---
EXAMINATION: CT ABDOMEN AND PELVIS WITH CONTRAST CLINICAL INFORMATION: Severe epigastric pain COMPARISON: CT angiogram chest 07/23/2022 TECHNIQUE: Multidetector volumetric images were obtained from the superior aspect of the liver through the pubic symphysis following administration 85 mL of Omnipaque 350 intravenous contrast. Sagittal and coronal reformatted images were obtained on the technologist's workstation. Oral contrast: No This CT examination was performed using dose optimization techniques as appropriate, variously including the following: *Automated exposure control *Adjustment of mA and/or kV according to patient size (this includes techniques or standardized protocols for targeted exams where dose is matched to indication/reason for exam; i.e. extremities or head) *Use of iterative reconstruction technique DLP: 335 mGy-cm FINDINGS: LUNG BASES: There has been increase in size of a pericardial effusion with higher density fluid measuring 32 Hounsfield units, possibly blood/inflammation/pericarditis. Heart size is normal. No pleural effusions. Basilar atelectasis is seen, right greater than left. LIVER, GALLBLADDER, AND BILIARY TREE: The liver is mildly enlarged at 19 cm in cephalocaudad dimension. Periportal edema is present. No focal hepatic lesion or biliary ductal dilatation is present. The gallbladder is unremarkable with no evidence of radiopaque gallstones, gallbladder wall thickening, or obvious pericholecystic inflammatory changes. PANCREAS: Unremarkable. SPLEEN: Unremarkable. ADRENAL GLANDS: Unremarkable. KIDNEYS AND URETERS: The kidneys are normal in size, shape, and attenuation. No hydronephrosis, hydroureter, or calculi seen. No perinephric stranding. BLADDER: Unremarkable. GASTROINTESTINAL TRACT: The small and large bowel are unremarkable. The appendix is unremarkable. ABDOMINAL WALL: No significant hernia is appreciated. LYMPH NODES: No retroperitoneal lymphadenopathy. VASCULAR: Calcific aorto iliofemoral plaque is present without aneurysm. PELVIC VISCERA: Unremarkable. OSSEOUS STRUCTURES: Degenerative changes are present spine most marked at L1-L2 as well as L4-S1. No bony destructive lesions. CT/CT abdomen pelvis w IV con IMPRESSION: 1. Increased size of pericardial effusion/hemopericardium which is moderate. 2. Hepatomegaly and periportal edema may be secondary to elevated right heart pressure This critical result was discussed with Dr. Mayo at 6:30 PM on the day of the exam and it was ascertained that the content and urgency of the report was understood at the time of direct communication. Fleischner guidelines were followed.
--- NOTE | ~2022-07-25 | CT_ITS ---
EXAMINATION: CT ANGIOGRAM CHEST CLINICAL INFORMATION: Chest pain. Pericardial effusion. COMPARISON: Chest radiograph done earlier the same day and CTA of the chest dated 07/23/2022. TECHNIQUE: Multiple axial images were obtained through the chest after the administration of 70 mL of Omnipaque 350 intravenous contrast. Extensive vascular post-processing including two-dimensional and three-dimensional reformatted images were created and reviewed on an independent workstation. This CT examination was performed using dose optimization techniques as appropriate, variously including the following: *Automated exposure control *Adjustment of mA and/or kV according to patient size (this includes techniques or standardized protocols for targeted exams where dose is matched to indication/reason for exam; i.e. extremities or head) *Use of iterative reconstruction technique DLP: 217 mGy-cm FINDINGS: QUALITY OF STUDY/CONTRAST BOLUS: Intermediate. PULMONARY ARTERIES: No central or segmental pulmonary emboli. THORACIC AORTA: No thoracic aortic dilatation or dissection. Atherosclerotic calcifications. No active extravasation of contrast. LUNG: No new focal airspace consolidation. No large pulmonary nodule or mass. The central airways are patent. PLEURA: No pleural effusion or pneumothorax. MEDIASTINUM: Normal heart size. Ilhii-rm-gzwiupok pericardial effusion, slightly increased when compared to the prior CT. This measures approximately 38 Hounsfield units and could represent blood or blood products versus complex fluid. No active extravasation of contrast into the pericardium. Stable, mildly prominent right precarinal lymph node measuring 1.5 x 1.0 cm. No additional mediastinal or hilar lymphadenopathy. No evidence of septal bowing or right heart strain. CHEST WALL/AXILLA: No axillary or internal mammary lymphadenopathy. OSSEOUS STRUCTURES: No acute or suspicious osseous abnormality. UPPER ABDOMEN: Unremarkable. No reflux of contrast into the hepatic veins to suggest elevated right heart pressures. CT/CT angio chest aorta IMPRESSION: 1. No central or segmental pulmonary embolism. 2. Lmhoc-is-vcphxemm pericardial effusion, increased when compared to the CT dated 07/23/2022. The effusion measures approximately 38 Hounsfield units and could represent blood or blood products versus complex fluid. No active extravasation of contrast in the pericardium. 3. Stable, mildly prominent superior mediastinal lymph node. 4. No new airspace consolidation. VTE: negative. Fleischner guidelines were followed.
[2022-07-25 09:34] VITALS: BP 127/91; PULSE 111; RESP 22; TEMP 37.1; O2SAT 96
--- NOTE | 2022-07-25 09:36 | ECG_ITS ---
Test Reason : EPIGASTRIC PAIN Blood Pressure : / mmHG Vent. Rate : 102 BPM Atrial Rate : 102 BPM P-R Int : 124 ms QRS Dur : 070 ms QT Int : 354 ms P-R-T Axes : 032 036 020 degrees QTc Int : 461 ms Sinus tachycardia Nonspecific ST and T wave abnormality Abnormal ECG When compared with ECG of 23-JUL-2022 15:18, Nonspecific T wave abnormality now evident in Anterior leads QT has lengthened Referred By: Generic ED Physician Electronically Signed By:LIZET MUHAMMAD
[2022-07-25] MEDS: Ondansetron ODT 4 MG TAB.RAPDIS TRANSLINGU (09:49)
--- NOTE | 2022-07-25 09:50 | PC.NURSE ---
Nikoay to give Zofran per Dr Shaikh
[2022-07-25 12:33] LABS: MANUAL DIFF FLAG NO
[2022-07-25 12:34] LABS: Basophils Absolute Auto 0.1 X10*3/uL (0.0-0.2); Basophils Percent Auto 0.4 % (0-2); Hematocrit 36.3 % (37.0-47.0); Imm Gran Abs Auto 0.05 X10*3/uL (0.00-0.03); Imm Gran Pct Auto 0.4 % (0.0-0.4); Lymphocytes Absolute Auto 0.6 X10*3/uL (1.2-4.9); Lymphocytes Percent Auto 5.3 % (20-40); Mean Corpuscular HGB Conc 33.1 g/dl (31.0-35.0); Mean Corpuscular Hemoglobin 29.3 pg (27.0-33.0); Mean Corpuscular Volume 88.5 fL (80.0-98.0); Mean Platelet Volume 9.4 fL (9.4-12.3); Monocytes Absolute Auto 1.5 X10*3/uL (0.1-1.2); Monocytes Percent Auto 12.8 % (2-11); Neutrophils Absolute Auto 9.3 x10*3/uL (2.0-8.3); Neutrophils Percent Auto 81.1 % (45-73); Platelet Count 187 X10*3/uL (160-400); Red Cell Distribution Width 13.2 % (11.0-16.0); White Blood Count 11.5 X10*3/uL (4.8-10.8)
[2022-07-25 12:56] LABS: Troponin-I High Sensitivity < 3.5 ng/L (<3.5-17.0)
[2022-07-25 13:06] LABS: Alanine Aminotransferase 46 U/L (0-31); Albumin Level 4.2 g/dL (3.5-5.0); Alkaline Phosphatase 67 U/L (39-117); Anion Gap 18 (12-20); Aspartate Amino Transferase 70 U/L (5-31); Bilirubin Direct 0.5 mg/dL (0.0-0.5); Bilirubin Total 0.9 mg/dL (0.0-1.0); Blood Urea Nitrogen 16 mg/dL (9-16); Calcium 9.1 mg/dL (8.4-10.2); Carbon Dioxide 25 mmol/L (22-29); Chloride 100 mmol/L (96-108); Estimated Glomerular Filt Rate > 60; Glucose Random 108 mg/dL (60-115); Lipase 16 U/L (8-78); Potassium 4.3 mmol/L (3.3-5.1); Sodium 139 mmol/L (135-145); Total Protein 7.1 g/dL (6.5-8.0)
--- NOTE | 2022-07-25 16:04 | ED.GENADULT ---
HPI - General Adult General Chief complaint: General Medical <SULEMA Luong - Last Filed: 07/25/22 20:54> Stated complaint: Difficulty breathing/Vomiting <SULEMA Luong - Last Filed: 07/25/22 20:54> Time Seen by Provider: 07/25/22 16:03 <SULEMA Luong - Last Filed: 07/25/22 20:54> Source: patient <SULEMA Luong Last Filed: 07/25/22 20:54> Mode of arrival: ambulatory <SULEMA Luong Last Filed: 07/25/22 20:54> Limitations: no limitations <SULEMA Luong Last Filed: 07/25/22 20:54> History of Present Illness HPI narrative: 67-year-old female with a history of chronic pain, hypothyroidism, GERD presenting to the emergency department with complaints of back pain, chest pain,abdominal pain, nausea and vomiting. The patient reports that she has chronic neck and back pain and has had surgery on her cervical spine in the past. She states that this pain has been present for years and her PCP has not been able to give her an explanation for her pain. She takes Tylenol and cyclobenzaprine for pain at home, wit little to no relief. She states that for the past week her pain has been worsening and she has also developed central chest pain, non radiating, worse with deep breathing and movement better at rest. Her pain is unrelieved by her home medications. She also reports that she feels short of breath secondary to the pain and that she has been vomiting all day at home today. Also complains of severe abdominal pain in the epigasatric region with radiation to her back. The patient denies any dizziness, headaches, vision changes, abdominal pain, or additional complaints at this time. Denies red flag signs for back pain including saddle anesthesias, sensory changes, loss of urine/bowel control. <SULEMA Luong Last Filed: 07/25/22 20:54> Related Data Home medications: Home Medications Medication Instructions Recorded Confirmed buprenorphine 15 mcg/hour weekly 1 patch topical QWEEK 04/21/22 07/09/22 transdermal patch diphenhydramine HCl 25 mg capsule 25 mg PO Q8H PRN Itching 04/21/22 07/09/22 (Banophen) docusate sodium 100 mg capsule 100 - 200 mg PO DAILY PRN 04/21/22 07/09/22 Constipation levothyroxine 75 mcg tablet 75 mcg PO DAILY 04/21/22 07/09/22 magnesium oxide 400 mg (241.3 mg 400 mg PO DAILY 04/21/22 07/09/22 magnesium) tablet omeprazole 40 mg capsule,delayed 40 mg PO DAILY 04/21/22 07/09/22 release sennosides 8.6 mg tablet (senna) 8.6 mg PO DAILY PRN constipation 04/21/22 07/09/22 sertraline 100 mg tablet 200 mg PO BID 04/21/22 07/09/22 trazodone 50 mg tablet 100 mg PO BEDTIME PRN Insomnia 04/21/22 07/09/22 mupirocin 2 % topical ointment 1 appl topical BID-TID 05/19/22 07/09/22 Previous Rx's Medication Instructions Recorded simethicone 125 mg capsule (Gas 125 mg PO TID-QID PRN abdominal 06/23/22 Relief (simethicone)) distention #120 caps cyclobenzaprine 10 mg tablet 10 mg PO TID PRN muscle spasm #15 07/23/22 tabs <SULEMA Luong - Last Filed: 07/25/22 20:54> Allergies/adverse reactions: Allergies Allergy/AdvReac Type Severity Reaction Status Date / Time bupropion Allergy Unknown Verified 07/09/22 07:48 clonidine Allergy Unknown Verified 07/09/22 07:48 gabapentin Allergy Unknown Verified 07/09/22 07:48 meloxicam Allergy Unknown Verified 07/09/22 07:48 pregabalin Allergy Unknown Verified 07/09/22 07:48 Sulfa (Sulfonamide Allergy Unknown Verified 07/09/22 07:48 Antibiotics) zolpidem Allergy Unknown Verified 07/09/22 07:48 prasozin Allergy Unknown Uncoded 05/19/22 13:10 <SULEMA Luong - Last Filed: 07/25/22 20:54> Review of Systems Review of Systems: Constitutional : No Weight loss, No Fever, No Chills, + Fatigue, + Malaise ENT/Mouth : No sore throat, No Rhinorrhea Eyes: No Eye Pain, No Swelling, No Redness Cardiovascular : + Chest Pain, + SOB, No Dyspnea on Exertion, No Orthopnea, No Edema, No Palpitations Respiratory : No Cough, No Sputum, No Wheezing Gastrointestinal : + Nausea, + Vomiting, No Diarrhea, No Constipation, No abdominal Pain, No Hematochezia, No Melena Genitourinary : No Dysuria, No Urinary Frequency, No Hematuria, Musculoskeletal : + neck pain, + Myalgias, + back pain No Joint Swelling Skin : No Skin Lesions, No rash Neuro : No Weakness, No Numbness, No Dizziness, No Headache Psych : No Anxiety/Panic, No Depression All other systems reviewed and are negative <SULEMA Luong - Last Filed: 07/25/22 20:54> Yes all other systems are reviewed and are negative <SULEMA Luong - Last Filed: 07/25/22 20:54> [facility] Past Medical History Attestation statement: The following information was validated with the patient. <SULEMA Luong - Last Filed: 07/25/22 20:54> Source: old records reviewed and nursing notes reviewed <SULEMA Luong - Last Filed: 07/25/22 20:54> Medical History: Medical History Allergies Anxiety Asthma Chronic neck pain Depression History of COVID-19 History of post traumatic stress disorder Hypothyroidism Neuropathy PETER (obstructive sleep apnea) <SULEMA Luong - Last Filed: 07/25/22 20:54> Surgical History: Surgical History Hx of appendectomy Hx of section Hx of colonoscopy Hx of esophagogastroduodenoscopy Hx of tonsillectomy Previous back surgery Surgical history unknown <SULEMA Luong - Last Filed: 07/25/22 20:54> Social History Social History: Social History Alcohol intake: never Patient Tobacco Use Status: Never used Tobacco Use of substances other than those prescribed or required for medical reasons: No Advance Directives: No Advance Directives Information Provided: No <SULEMA Luong - Last Filed: 07/25/22 20:54> Physical Exam ED Vital Signs: Vital Signs - 24 hr 07/25/22 09:34 07/25/22 16:27 07/25/22 18:38 Temperature 98.8 F 100.9 F H Pulse Rate 111 H 111 H 100 Respiratory Rate 22 H 22 H 18 Blood Pressure 127/91 H 150/87 H 135/85 Pulse Oximetry 96 94 95 Oxygen Delivery Method Room Air Room Air Room Air 07/25/22 18:43 07/25/22 20:09 07/25/22 20:54 Temperature 100 F 98.7 F Pulse Rate 102 H 98 90 Respiratory Rate 24 H 24 H 20 Blood Pressure 140/80 H 125/67 110/72 Pulse Oximetry 95 96 95 Oxygen Delivery Method Room Air Room Air Room Air BMI result Body Mass Index 20.0 vss <SULEMA Luong - Last Filed: 07/25/22 20:54> Vital Signs - 24 hr 07/25/22 09:34 07/25/22 16:27 07/25/22 18:38 Temperature 98.8 F 100.9 F H Pulse Rate 111 H 111 H 100 Respiratory Rate 22 H 22 H 18 Blood Pressure 127/91 H 150/87 H 135/85 Pulse Oximetry 96 94 95 Oxygen Delivery Method Room Air Room Air Room Air 07/25/22 18:43 07/25/22 20:09 07/25/22 20:54 Temperature 100 F 98.7 F Pulse Rate 102 H 98 90 Respiratory Rate 24 H 24 H 20 Blood Pressure 140/80 H 125/67 110/72 Pulse Oximetry 95 96 95 Oxygen Delivery Method Room Air Room Air Room Air BMI result Body Mass Index 20.0 <Frank Camacho MD - Last Filed: 07/25/22 21:23> Appearance: Alert.? Oriented X3.? Uncomfortable appearing, slightly tremulous, seems anxious. No acute distress.? Slightly diaphoretic Head: Normocephalic, atraumatic, no step-offs or deformities Eyes: Pupils equal, round and reactive to light.? Neck: Normal inspection.? Neck supple.? CVS: Normal heart rate and rhythm.? Pulses normal.?Mild tenderness to palpation over the sternum. Respiratory: No respiratory distress.? Breath sounds normal.? Abdomen: Soft and nontender.?+BS Skin: Skin warm and dry.? Normal skin color.? Normal skin turgor.? Extremities: No lower extremity edema.? No calf ttp. 5/5 strength to bilateral upper and lower extremities Back: + midline tenderness around T3-T4, no midline C-spine tenderness, tender to palpation in the paraspinal musculature of the cervical and thoracic regions, full range of motion, no CVA tenderness bilaterally Neuro: Oriented X 3.? No motor deficit.? No sensory deficit. CN 2-12 intact <SULEMA Luong Last Filed: 07/25/22 20:54> Course Reevaluation(s) Reevaluation #1: Patient now noted to be febrile, diaphoretic, tachycardic and tachypneic. At this time infection is suspected sepsis protocol initiated, fluids, antibiotics, lactic acid and blood cultures have been ordered. I have also ordered inflammatory markers. <SULEMA Luong Last Filed: 07/25/22 20:54> Time: 16:42 <SULEMA Luong - Last Filed: 07/25/22 20:54> Reevaluation #2: CT of the abdomen and pelvis with an increased size of pericardial effusion/ hemopericardium, at this time concerns for dissection, dissection protocol initiated, will order coags, and type and screen. Spoke to cardiology, Dr. Loya regarding patient's pericardial effusion found on CT abd/pelvis. Suspects likely pericarditis recommending broad spectrum antibiotics and colchicine 0.6 mg BID. Sent EKG which has MA depressions, concerning again for pericarditis. Unfortunately at this time our facility has no open in intensive care unit beds. This patient is not appropriate for intermediate care as she will require frequent cardiac monitoring, and possibly further intervention if pericardial effusion turns in to tamponade. At this time I do not feel comfortable keeping this patient in our facility, also reached out to the hospitalist who agrees that patient needs higher level of care. At this time [facility] is being reached out to. <SULEMA Luong Last Filed: 07/25/22 20:54> Time: 18:49 <Basilio Mayo PA - Last Filed: 07/25/22 20:54> Reevaluation #3: at [facility] reqesting to speak to Dr. Potts. <Basilio Mayo PA - Last Filed: 07/25/22 20:54> Time: 19:00 <Basilio Mayo PA - Last Filed: 07/25/22 20:54> Additional Reevaluation(s): 1938 Call out to [place] for STAT read of CTA - no answer. Patient now complaing of 05/23 substernal CP- Morphine ordered. Dr. Camacho to take over this case. <SULEMA Luong - Last Filed: 07/25/22 20:54> Consultations Consultation #1: Bedside echo done and images sent to Dr. Potts flag signalman patient has moderate size of pericardial effusion without any tamponade at this time Dr. potts will come and evaluate the patient in the ER <Frank Camacho MD - Last Filed: 07/25/22 21:23> Time: 20:16 <Frank Camacho MD - Last Filed: 07/25/22 21:23> Consultation #2: Case discussed Dr. Potts again advised Tums patient to [facility] as we do not have high IR tonight in case we needed case discussed with Dr. Pearson at [facility] who accepted the patient, patient with stable vitals at this time CTA chest negative for fistula or dissection CT/CT angio chest aorta IMPRESSION: 1. No central or segmental pulmonary embolism. ? 2. [id number] pericardial effusion, increased when compared to the CT dated 07/23/2022. The effusion measures approximately 38 Hounsfield units and could represent blood or blood products versus complex fluid. No active extravasation of contrast in the pericardium. ? 3. Stable, mildly prominent superior mediastinal lymph node. ? 4. No new airspace consolidation. ? VTE: negative. ? <Basilio Mayo PA - Last Filed: 07/25/22 20:54> Case discussed Dr. Potts again advised Tums patient to [facility] as we do not have high IR tonight in case we needed case discussed with Dr. Pearson at [facility] who accepted the patient, patient with stable vitals at this time CTA chest negative for fistula or dissection CT/CT angio chest aorta IMPRESSION: 1. No central or segmental pulmonary embolism. ? 2. Hjbsn-qx-[id number] pericardial effusion, increased when compared to the CT dated 07/23/2022. The effusion measures approximately 38 Hounsfield units and could represent blood or blood products versus complex fluid. No active extravasation of contrast in the pericardium. ? 3. Stable, mildly prominent superior mediastinal lymph node. ? 4. No new airspace consolidation. ? VTE: negative. ? <Frank Camacho MD - Last Filed: 07/25/22 21:23> Time: 20:57 <Frank Camacho MD - Last Filed: 07/25/22 21:23> Consultation #3: EMS here to take the patient patient blood pressure 110/70 pulse rate 94 beats per minute saturating 95% at room air denies any chest pain at this time <Frank Camacho MD - Last Filed: 07/25/22 21:23> Medical Decision Making [facility] Narrative Medical decision making narrative: [id number] 67-year-old female with a PMHx of chronic pain, hypothyroidism, and myofascial pain syndrome presenting with vomiting, chest pain, neck pain, and back pain. Chronic pain increased over the past week. Not responsive to home tylenol & cyclobenzaprine. Upon chart review it is noted that patient was seen here on 07/23/2022 where she presented with substernal chest tightness which she contributed to her chronic back pain, she reported that the pain it is increased with breathing. She is trying to get in with her spine doctor at the time, she reports that she has x-rays and an appointment on 08/02/2022. And denied any respiratory symptoms at that time. Her cardiac workup and CTA chest were negative for any acute pathology at that time. PE remarkable for paraspinal tenderness of the c-spine, thoracic spine, and TTP over the sternum/anterior chest wall. Some midline tenderness to thoracic spine. Patient slightly tremulous, appears anxious. Hemodynamically stable at this time. Plan to obtain basic labs, d-dimer, EKG, troponin. Likely exacerbation of chronic musculoskeletal pain. Concerns for pericarditis. Less likley endocarditis, myocarditis, or disection. Low suspicion for ACS, or PE due to patient's presentation, low risk factors, and recent negative workup. <SULEMA Luong - Last Filed: 07/25/22 20:54> Medical Records Medical records reviewed: Yes I reviewed the patient's medical records. <SULEMA Luong - Last Filed: 07/25/22 20:54> Lab Data Lab results reviewed: Yes I reviewed the patient's lab results. <SULEMA Luong - Last Filed: 07/25/22 20:54> Result diagrams: : 07/25/22 12:30 07/25/22 12:30 <SULEMA Luong - Last Filed: 07/25/22 20:54> Labs: Lab Results 07/25/22 07/25/22 07/25/22 Range/Units 11:36 12:30 12:30 WBC 11.5 H (4.8-10.8) X10*3/uL RBC 4.10 L (4.20-5.50) X10*6/uL Hgb 12.0 (12.0-16.0) g/dl Hct 36.3 L (37.0-47.0) % MCV 88.5 (80.0-98.0) fL MCH 29.3 (27.0-33.0) pg MCHC 33.1 (31.0-35.0) g/dl RDW 13.2 (11.0-16.0) % Plt Count 187 (160-400) X10*3/uL MPV 9.4 (9.4-12.3) fL Immature Gran % (Auto) 0.4 (0.0-0.4) % Neut % (Auto) 81.1 H (45-73) % Lymph % (Auto) 5.3 L (20-40) % [place] % (Auto) 12.8 H (2-11) % Eos % (Auto) 0.0 (0-4) % Baso % (Auto) 0.4 (0-2) % Lymph # (Auto) 0.6 L (1.2-4.9) X10*3/uL [place] # (Auto) 1.5 H (0.1-1.2) X10*3/uL Eos # (Auto) 0.0 (0.0-0.4) X10*3/uL Baso # (Auto) 0.1 (0.0-0.2) X10*3/uL Abs Immat Gran (auto) 0.05 H (0.00-0.03) X10*3/uL Absolute Neuts (auto) 9.3 H (2.0-8.3) x10*3/uL Absolute Nucleated RBC 0.000 (0.0-0.012) X10*3/uL Nucleated RBC % (auto) 0.0 (0.0-0.2) /100WBC ESR 72 H (0-20) MM/HR PT (10.0-13.1) SEC INR (0.9-1.1) D-Dimer High Sensitivty NG/ML Sodium 139 (135-145) mmol/L Potassium 4.3 (3.3-5.1) mmol/L Chloride 100 (96-108) mmol/L Carbon Dioxide 25 (22-29) mmol/L Anion Gap 18 (12-20) BUN 16 (9-16) mg/dL Creatinine 0.77 (0.5-1.4) mg/dL Estim Creat Clear Calc 60.0 Estimated GFR > 60 Random Glucose 108 (60-115) mg/dL Lactic Acid (0.5-2.0) mmol/L Calcium 9.1 (8.4-10.2) mg/dL Total Bilirubin 0.9 (0.0-1.0) mg/dL Direct Bilirubin 0.5 (0.0-0.5) mg/dL AST 70 H (5-31) U/L ALT 46 H (0-31) U/L Alkaline Phosphatase 67 (39-117) U/L Troponin I High Sens (<3.5-17.0) ng/L C-Reactive Protein 20.32 H (< or = 0.50) mg/dL Total Protein 7.1 (6.5-8.0) g/dL Albumin 4.2 (3.5-5.0) g/dL Lipase 16 (8-78) U/L TSH 1.39 (0.32-4.0) uIU/mL Urine Color Urine Appearance Urine pH (5.0-9.0) Ur Specific [place] (1.005-1.025) Urine Protein (Neg-Trace) mg/dL Urine Glucose (UA) (Negative) mg/dL Urine Ketones (Negative) mg/dL Urine Blood (Negative) Urine Nitrite (Negative) Ur Leukocyte Esterase (Negative) COVID-19 ([facility]) (Negative) COVID-19 Clin Com Blood Type Antibody Screen 07/25/22 07/25/22 07/25/22 Range/Units 12:30 12:30 16:42 WBC (4.8-10.8) X10*3/uL RBC (4.20-5.50) X10*6/uL Hgb (12.0-16.0) g/dl Hct (37.0-47.0) % MCV (80.0-98.0) fL MCH (27.0-33.0) pg MCHC (31.0-35.0) g/dl RDW (11.0-16.0) % Plt Count (160-400) X10*3/uL MPV (9.4-12.3) fL Immature Gran % (Auto) (0.0-0.4) % Neut % (Auto) (45-73) % Lymph % (Auto) (20-40) % [place] % (Auto) (2-11) % Eos % (Auto) (0-4) % Baso % (Auto) (0-2) % Lymph # (Auto) (1.2-4.9) X10*3/uL [place] # (Auto) (0.1-1.2) X10*3/uL Eos # (Auto) (0.0-0.4) X10*3/uL Baso # (Auto) (0.0-0.2) X10*3/uL Abs Immat Gran (auto) (0.00-0.03) X10*3/uL Absolute Neuts (auto) (2.0-8.3) x10*3/uL Absolute Nucleated RBC (0.0-0.012) X10*3/uL Nucleated RBC % (auto) (0.0-0.2) /100WBC ESR (0-20) MM/HR PT (10.0-13.1) SEC INR (0.9-1.1) D-Dimer High Sensitivty 538 NG/ML Sodium (135-145) mmol/L Potassium (3.3-5.1) mmol/L Chloride (96-108) mmol/L Carbon Dioxide (22-29) mmol/L Anion Gap (12-20) BUN (9-16) mg/dL Creatinine (0.5-1.4) mg/dL Estim Creat Clear Calc Estimated GFR Random Glucose (60-115) mg/dL Lactic Acid (0.5-2.0) mmol/L Calcium (8.4-10.2) mg/dL Total Bilirubin (0.0-1.0) mg/dL Direct Bilirubin (0.0-0.5) mg/dL AST (5-31) U/L ALT (0-31) U/L Alkaline Phosphatase (39-117) U/L Troponin I High Sens < 3.5 < 3.5 (<3.5-17.0) ng/L C-Reactive Protein (< or = 0.50) mg/dL Total Protein (6.5-8.0) g/dL Albumin (3.5-5.0) g/dL Lipase (8-78) U/L TSH (0.32-4.0) uIU/mL Urine Color Urine Appearance Urine pH (5.0-9.0) Ur Specific [place] (1.005-1.025) Urine Protein (Neg-Trace) mg/dL Urine Glucose (UA) (Negative) mg/dL Urine Ketones (Negative) mg/dL Urine Blood (Negative) Urine Nitrite (Negative) Ur Leukocyte Esterase (Negative) COVID-19 ([facility]) (Negative) COVID-19 Clin Com Blood Type Antibody Screen 07/25/22 07/25/22 07/25/22 Range/Units 16:59 16:59 17:39 WBC (4.8-10.8) X10*3/uL RBC (4.20-5.50) X10*6/uL Hgb (12.0-16.0) g/dl Hct (37.0-47.0) % MCV (80.0-98.0) fL MCH (27.0-33.0) pg MCHC (31.0-35.0) g/dl RDW (11.0-16.0) % Plt Count (160-400) X10*3/uL MPV (9.4-12.3) fL Immature Gran % (Auto) (0.0-0.4) % Neut % (Auto) (45-73) % Lymph % (Auto) (20-40) % [place] % (Auto) (2-11) % Eos % (Auto) (0-4) % Baso % (Auto) (0-2) % Lymph # (Auto) (1.2-4.9) X10*3/uL [place] # (Auto) (0.1-1.2) X10*3/uL Eos # (Auto) (0.0-0.4) X10*3/uL Baso # (Auto) (0.0-0.2) X10*3/uL Abs Immat Gran (auto) (0.00-0.03) X10*3/uL Absolute Neuts (auto) (2.0-8.3) x10*3/uL Absolute Nucleated RBC (0.0-0.012) X10*3/uL Nucleated RBC % (auto) (0.0-0.2) /100WBC ESR (0-20) MM/HR PT (10.0-13.1) SEC INR (0.9-1.1) D-Dimer High Sensitivty NG/ML Sodium (135-145) mmol/L Potassium (3.3-5.1) mmol/L Chloride (96-108) mmol/L Carbon Dioxide (22-29) mmol/L Anion Gap (12-20) BUN (9-16) mg/dL Creatinine (0.5-1.4) mg/dL Estim Creat Clear Calc Estimated GFR Random Glucose (60-115) mg/dL Lactic Acid 1.1 (0.5-2.0) mmol/L Calcium (8.4-10.2) mg/dL Total Bilirubin (0.0-1.0) mg/dL Direct Bilirubin (0.0-0.5) mg/dL AST (5-31) U/L ALT (0-31) U/L Alkaline Phosphatase (39-117) U/L Troponin I High Sens (<3.5-17.0) ng/L C-Reactive Protein (< or = 0.50) mg/dL Total Protein (6.5-8.0) g/dL Albumin (3.5-5.0) g/dL Lipase (8-78) U/L TSH (0.32-4.0) uIU/mL Urine Color Yellow Urine Appearance Clear Urine pH 5.5 (5.0-9.0) Ur Specific [place] >= 1.030 H (1.005-1.025) Urine Protein Negative (Neg-Trace) mg/dL Urine Glucose (UA) Negative (Negative) mg/dL Urine Ketones 15 (Negative) mg/dL Urine Blood Negative (Negative) Urine Nitrite Negative (Negative) Ur Leukocyte Esterase Negative (Negative) COVID-19 ([facility]) Negative (Negative) COVID-19 Clin Com See Note Blood Type Antibody Screen 07/25/22 07/25/22 Range/Units 19:40 19:40 WBC (4.8-10.8) X10*3/uL RBC (4.20-5.50) X10*6/uL Hgb (12.0-16.0) g/dl Hct (37.0-47.0) % MCV (80.0-98.0) fL MCH (27.0-33.0) pg MCHC (31.0-35.0) g/dl RDW (11.0-16.0) % Plt Count (160-400) X10*3/uL MPV (9.4-12.3) fL Immature Gran % (Auto) (0.0-0.4) % Neut % (Auto) (45-73) % Lymph % (Auto) (20-40) % [place] % (Auto) (2-11) % Eos % (Auto) (0-4) % Baso % (Auto) (0-2) % Lymph # (Auto) (1.2-4.9) X10*3/uL [place] # (Auto) (0.1-1.2) X10*3/uL Eos # (Auto) (0.0-0.4) X10*3/uL Baso # (Auto) (0.0-0.2) X10*3/uL Abs Immat Gran (auto) (0.00-0.03) X10*3/uL Absolute Neuts (auto) (2.0-8.3) x10*3/uL Absolute Nucleated RBC (0.0-0.012) X10*3/uL Nucleated RBC % (auto) (0.0-0.2) /100WBC ESR (0-20) MM/HR PT 14.4 H (10.0-13.1) SEC INR 1.2 H (0.9-1.1) D-Dimer High Sensitivty NG/ML Sodium (135-145) mmol/L Potassium (3.3-5.1) mmol/L Chloride (96-108) mmol/L Carbon Dioxide (22-29) mmol/L Anion Gap (12-20) BUN (9-16) mg/dL Creatinine (0.5-1.4) mg/dL Estim Creat Clear Calc Estimated GFR Random Glucose (60-115) mg/dL Lactic Acid (0.5-2.0) mmol/L Calcium (8.4-10.2) mg/dL Total Bilirubin (0.0-1.0) mg/dL Direct Bilirubin (0.0-0.5) mg/dL AST (5-31) U/L ALT (0-31) U/L Alkaline Phosphatase (39-117) U/L Troponin I High Sens (<3.5-17.0) ng/L C-Reactive Protein (< or = 0.50) mg/dL Total Protein (6.5-8.0) g/dL Albumin (3.5-5.0) g/dL Lipase (8-78) U/L TSH (0.32-4.0) uIU/mL Urine Color Urine Appearance Urine pH (5.0-9.0) Ur Specific [place] (1.005-1.025) Urine Protein (Neg-Trace) mg/dL Urine Glucose (UA) (Negative) mg/dL Urine Ketones (Negative) mg/dL Urine Blood (Negative) Urine Nitrite (Negative) Ur Leukocyte Esterase (Negative) COVID-19 ([facility]) (Negative) COVID-19 Clin Com Blood Type A Positive Antibody Screen NEGATIVE <SULEMA Luong - Last Filed: 07/25/22 20:54> Lab Results 09/11/22 09/11/22 09/11/22 Range/Units 11:36 12:30 12:30 WBC 11.5 H (4.8-10.8) X10*3/uL RBC 4.10 L (4.20-5.50) X10*6/uL Hgb 12.0 (12.0-16.0) g/dl Hct 36.3 L (37.0-47.0) % MCV 88.5 (80.0-98.0) fL MCH 29.3 (27.0-33.0) pg MCHC 33.1 (31.0-35.0) g/dl RDW 13.2 (11.0-16.0) % Plt Count 187 (160-400) X10*3/uL MPV 9.4 (9.4-12.3) fL Immature Gran % (Auto) 0.4 (0.0-0.4) % Neut % (Auto) 81.1 H (45-73) % Lymph % (Auto) 5.3 L (20-40) % [place] % (Auto) 12.8 H (2-11) % Eos % (Auto) 0.0 (0-4) % Baso % (Auto) 0.4 (0-2) % Lymph # (Auto) 0.6 L (1.2-4.9) X10*3/uL [place] # (Auto) 1.5 H (0.1-1.2) X10*3/uL Eos # (Auto) 0.0 (0.0-0.4) X10*3/uL Baso # (Auto) 0.1 (0.0-0.2) X10*3/uL Abs Immat Gran (auto) 0.05 H (0.00-0.03) X10*3/uL Absolute Neuts (auto) 9.3 H (2.0-8.3) x10*3/uL Absolute Nucleated RBC 0.000 (0.0-0.012) X10*3/uL Nucleated RBC % (auto) 0.0 (0.0-0.2) /100WBC ESR 72 H (0-20) MM/HR PT (10.0-13.1) SEC INR (0.9-1.1) D-Dimer High Sensitivty NG/ML Sodium 139 (135-145) mmol/L Potassium 4.3 (3.3-5.1) mmol/L Chloride 100 (96-108) mmol/L Carbon Dioxide 25 (22-29) mmol/L Anion Gap 18 (12-20) BUN 16 (9-16) mg/dL Creatinine 0.77 (0.5-1.4) mg/dL Estim Creat Clear Calc 60.0 Estimated GFR > 60 Random Glucose 108 (60-115) mg/dL Lactic Acid (0.5-2.0) mmol/L Calcium 9.1 (8.4-10.2) mg/dL Total Bilirubin 0.9 (0.0-1.0) mg/dL Direct Bilirubin 0.5 (0.0-0.5) mg/dL AST 70 H (5-31) U/L ALT 46 H (0-31) U/L Alkaline Phosphatase 67 (39-117) U/L Troponin I High Sens (<3.5-17.0) ng/L C-Reactive Protein 20.32 H (< or = 0.50) mg/dL Total Protein 7.1 (6.5-8.0) g/dL Albumin 4.2 (3.5-5.0) g/dL Lipase 16 (8-78) U/L TSH 1.39 (0.32-4.0) uIU/mL Urine Color Urine Appearance Urine pH (5.0-9.0) Ur Specific [place] (1.005-1.025) Urine Protein (Neg-Trace) mg/dL Urine Glucose (UA) (Negative) mg/dL Urine Ketones (Negative) mg/dL Urine Blood (Negative) Urine Nitrite (Negative) Ur Leukocyte Esterase (Negative) COVID-19 ([facility]) (Negative) COVID-19 Clin Com Blood Type Antibody Screen 07/25/22 07/25/22 07/25/22 Range/Units 12:30 12:30 16:42 WBC (4.8-10.8) X10*3/uL RBC (4.20-5.50) X10*6/uL Hgb (12.0-16.0) g/dl Hct (37.0-47.0) % MCV (80.0-98.0) fL MCH (27.0-33.0) pg MCHC (31.0-35.0) g/dl RDW (11.0-16.0) % Plt Count (160-400) X10*3/uL MPV (9.4-12.3) fL Immature Gran % (Auto) (0.0-0.4) % Neut % (Auto) (45-73) % Lymph % (Auto) (20-40) % [place] % (Auto) (2-11) % Eos % (Auto) (0-4) % Baso % (Auto) (0-2) % Lymph # (Auto) (1.2-4.9) X10*3/uL [place] # (Auto) (0.1-1.2) X10*3/uL Eos # (Auto) (0.0-0.4) X10*3/uL Baso # (Auto) (0.0-0.2) X10*3/uL Abs Immat Gran (auto) (0.00-0.03) X10*3/uL Absolute Neuts (auto) (2.0-8.3) x10*3/uL Absolute Nucleated RBC (0.0-0.012) X10*3/uL Nucleated RBC % (auto) (0.0-0.2) /100WBC ESR (0-20) MM/HR PT (10.0-13.1) SEC INR (0.9-1.1) D-Dimer High Sensitivty 538 NG/ML Sodium (135-145) mmol/L Potassium (3.3-5.1) mmol/L Chloride (96-108) mmol/L Carbon Dioxide (22-29) mmol/L Anion Gap (12-20) BUN (9-16) mg/dL Creatinine (0.5-1.4) mg/dL Estim Creat Clear Calc Estimated GFR Random Glucose (60-115) mg/dL Lactic Acid (0.5-2.0) mmol/L Calcium (8.4-10.2) mg/dL Total Bilirubin (0.0-1.0) mg/dL Direct Bilirubin (0.0-0.5) mg/dL AST (5-31) U/L ALT (0-31) U/L Alkaline Phosphatase (39-117) U/L Troponin I High Sens < 3.5 < 3.5 (<3.5-17.0) ng/L C-Reactive Protein (< or = 0.50) mg/dL Total Protein (6.5-8.0) g/dL Albumin (3.5-5.0) g/dL Lipase (8-78) U/L TSH (0.32-4.0) uIU/mL Urine Color Urine Appearance Urine pH (5.0-9.0) Ur Specific [place] (1.005-1.025) Urine Protein (Neg-Trace) mg/dL Urine Glucose (UA) (Negative) mg/dL Urine Ketones (Negative) mg/dL Urine Blood (Negative) Urine Nitrite (Negative) Ur Leukocyte Esterase (Negative) COVID-19 ([facility]) (Negative) COVID-19 Clin Com Blood Type Antibody Screen 07/25/22 07/25/22 07/25/22 Range/Units 16:59 16:59 17:39 WBC (4.8-10.8) X10*3/uL RBC (4.20-5.50) X10*6/uL Hgb (12.0-16.0) g/dl Hct (37.0-47.0) % MCV (80.0-98.0) fL MCH (27.0-33.0) pg MCHC (31.0-35.0) g/dl RDW (11.0-16.0) % Plt Count (160-400) X10*3/uL MPV (9.4-12.3) fL Immature Gran % (Auto) (0.0-0.4) % Neut % (Auto) (45-73) % Lymph % (Auto) (20-40) % [place] % (Auto) (2-11) % Eos % (Auto) (0-4) % Baso % (Auto) (0-2) % Lymph # (Auto) (1.2-4.9) X10*3/uL [place] # (Auto) (0.1-1.2) X10*3/uL Eos # (Auto) (0.0-0.4) X10*3/uL Baso # (Auto) (0.0-0.2) X10*3/uL Abs Immat Gran (auto) (0.00-0.03) X10*3/uL Absolute Neuts (auto) (2.0-8.3) x10*3/uL Absolute Nucleated RBC (0.0-0.012) X10*3/uL Nucleated RBC % (auto) (0.0-0.2) /100WBC ESR (0-20) MM/HR PT (10.0-13.1) SEC INR (0.9-1.1) D-Dimer High Sensitivty NG/ML Sodium (135-145) mmol/L Potassium (3.3-5.1) mmol/L Chloride (96-108) mmol/L Carbon Dioxide (22-29) mmol/L Anion Gap (12-20) BUN (9-16) mg/dL Creatinine (0.5-1.4) mg/dL Estim Creat Clear Calc Estimated GFR Random Glucose (60-115) mg/dL Lactic Acid 1.1 (0.5-2.0) mmol/L Calcium (8.4-10.2) mg/dL Total Bilirubin (0.0-1.0) mg/dL Direct Bilirubin (0.0-0.5) mg/dL AST (5-31) U/L ALT (0-31) U/L Alkaline Phosphatase (39-117) U/L Troponin I High Sens (<3.5-17.0) ng/L C-Reactive Protein (< or = 0.50) mg/dL Total Protein (6.5-8.0) g/dL Albumin (3.5-5.0) g/dL Lipase (8-78) U/L TSH (0.32-4.0) uIU/mL Urine Color Yellow Urine Appearance Clear Urine pH 5.5 (5.0-9.0) Ur Specific [place] >= 1.030 H (1.005-1.025) Urine Protein Negative (Neg-Trace) mg/dL Urine Glucose (UA) Negative (Negative) mg/dL Urine Ketones 15 (Negative) mg/dL Urine Blood Negative (Negative) Urine Nitrite Negative (Negative) Ur Leukocyte Esterase Negative (Negative) COVID-19 ([facility]) Negative (Negative) COVID-19 Clin Com See Note Blood Type Antibody Screen 07/25/22 07/25/22 Range/Units 19:40 19:40 WBC (4.8-10.8) X10*3/uL RBC (4.20-5.50) X10*6/uL Hgb (12.0-16.0) g/dl Hct (37.0-47.0) % MCV (80.0-98.0) fL MCH (27.0-33.0) pg MCHC (31.0-35.0) g/dl RDW (11.0-16.0) % Plt Count (160-400) X10*3/uL MPV (9.4-12.3) fL Immature Gran % (Auto) (0.0-0.4) % Neut % (Auto) (45-73) % Lymph % (Auto) (20-40) % [place] % (Auto) (2-11) % Eos % (Auto) (0-4) % Baso % (Auto) (0-2) % Lymph # (Auto) (1.2-4.9) X10*3/uL [place] # (Auto) (0.1-1.2) X10*3/uL Eos # (Auto) (0.0-0.4) X10*3/uL Baso # (Auto) (0.0-0.2) X10*3/uL Abs Immat Gran (auto) (0.00-0.03) X10*3/uL Absolute Neuts (auto) (2.0-8.3) x10*3/uL Absolute Nucleated RBC (0.0-0.012) X10*3/uL Nucleated RBC % (auto) (0.0-0.2) /100WBC ESR (0-20) MM/HR PT 14.4 H (10.0-13.1) SEC INR 1.2 H (0.9-1.1) D-Dimer High Sensitivty NG/ML Sodium (135-145) mmol/L Potassium (3.3-5.1) mmol/L Chloride (96-108) mmol/L Carbon Dioxide (22-29) mmol/L Anion Gap (12-20) BUN (9-16) mg/dL Creatinine (0.5-1.4) mg/dL Estim Creat Clear Calc Estimated GFR Random Glucose (60-115) mg/dL Lactic Acid (0.5-2.0) mmol/L Calcium (8.4-10.2) mg/dL Total Bilirubin (0.0-1.0) mg/dL Direct Bilirubin (0.0-0.5) mg/dL AST (5-31) U/L ALT (0-31) U/L Alkaline Phosphatase (39-117) U/L Troponin I High Sens (<3.5-17.0) ng/L C-Reactive Protein (< or = 0.50) mg/dL Total Protein (6.5-8.0) g/dL Albumin (3.5-5.0) g/dL Lipase (8-78) U/L TSH (0.32-4.0) uIU/mL Urine Color Urine Appearance Urine pH (5.0-9.0) Ur Specific [place] (1.005-1.025) Urine Protein (Neg-Trace) mg/dL Urine Glucose (UA) (Negative) mg/dL Urine Ketones (Negative) mg/dL Urine Blood (Negative) Urine Nitrite (Negative) Ur Leukocyte Esterase (Negative) COVID-19 ([facility]) (Negative) COVID-19 Clin Com Blood Type A Positive Antibody Screen NEGATIVE <Frank Camacho MD - Last Filed: 07/25/22 21:23> Critical Care Time Critical Care Time Critical Care Time: Yes <SULEMA Luong - Last Filed: 07/25/22 20:54> Total Critical Care Time: 90 <SULEMA Luong - Last Filed: 07/25/22 20:54> Attestation: I attest to this time spent taking care of the patient, obtaining history, physical, reviewing labs, imaging, speaking to my attending, speaking to specialist. <SULEMA Luong - Last Filed: 07/25/22 20:54> Discharge Plan Discharge Clinical Impression: Pericardial effusion, Chest pain, Shortness of breath, Fever <SULEMA Luong - Last Filed: 07/25/22 20:54> Patient Disposition: [facility] <SULEMA Luong - Last Filed: 07/25/22 20:54> [facility] <SULEMA Luong - Last Filed: 07/25/22 20:54> Dr. [facility] Bed 1 <Frank Camacho MD - Last Filed: 07/25/22 21:23> Prescriptions: No Action cyclobenzaprine 10 mg tablet 10 mg PO TID PRN (Reason: muscle spasm) Qty: 15 0RF sertraline 100 mg tablet 200 mg PO BID omeprazole 40 mg capsule,delayed release(DR/EC) 40 mg PO DAILY levothyroxine 75 mcg tablet 75 mcg PO DAILY buprenorphine 15 mcg/hour patch weekly 1 patch topical QWEEK docusate sodium 100 mg capsule 100 - 200 mg PO DAILY PRN (Reason: Constipation) diphenhydramine HCl [Banophen] 25 mg capsule 25 mg PO Q8H PRN (Reason: Itching) sennosides [senna] 8.6 mg tablet 8.6 mg PO DAILY PRN (Reason: constipation) magnesium oxide 400 mg (241.3 mg magnesium) tablet 400 mg PO DAILY trazodone 50 mg tablet 100 mg PO BEDTIME PRN (Reason: Insomnia) mupirocin 2 % ointment 1 appl topical BID-TID simethicone [Gas Relief (simethicone)] 125 mg capsule 125 mg PO TID-QID PRN (Reason: abdominal distention) Qty: 120 2RF <SULEMA Luong - Last Filed: 07/25/22 20:54>
[2022-07-25 16:27] VITALS: BP 150/87; PULSE 111; RESP 22; TEMP 38.3; O2SAT 94
[2022-07-25] MEDS: ondansetron HCL 4 MG/2 ML VIAL IVPUSH (16:49)
[2022-07-25] MEDS: Acetaminophen 325 MG TABLET 650 MG PO (16:49)
[2022-07-25 16:55] LABS: D Dimer High Sensitivity 538 NG/ML
[2022-07-25] MEDS: 0.9 % Sodium Chloride 1,000 ML 999 ML IV (16:55)
[2022-07-25] MEDS: cefTRIAXone sodium 1 GM in 0.9 % Sodium Chloride 50 ML IV (17:11)
[2022-07-25 17:17] LABS: Lactic Acid 1.1 mmol/L (0.5-2.0)
[2022-07-25 17:22] LABS: IDNOW Serial# 9DB6401D
[2022-07-25 17:23] LABS: COVID-19 Test Negative (Negative)
[2022-07-25 17:30] LABS: C Reactive Protein 20.32 mg/dL (< or = 0.50)
[2022-07-25 17:46] LABS: Appearance Urine Clear; Color Urine Yellow; Glucose Urine UA Negative (Negative); Leukocyte Esterase Urine Negative (Negative); Nitrite Urine Negative (Negative); PH 5.5 (5.0-9.0); Specific Gravity - Urine >= 1.030 (1.005-1.025); Urine Blood Negative (Negative); Urine Ketones 15 mg/dL (Negative); Urine Protein Negative (Neg-Trace)
[2022-07-25] MEDS: iohexoL 350 MG/ML 100 ML INFUS..BTL IV ×2 (18:01→19:28)
[2022-07-25 18:03] LABS: Erythrocyte Sedimentation Rate 72 MM/HR (0-20)
--- NOTE | 2022-07-25 18:36 | ECG_ITS ---
Test Reason : REPEAT Blood Pressure : / mmHG Vent. Rate : 094 BPM Atrial Rate : 094 BPM P-R Int : 148 ms QRS Dur : 076 ms QT Int : 326 ms P-R-T Axes : 040 027 015 degrees QTc Int : 407 ms Normal sinus rhythm Nonspecific ST and T wave abnormality Abnormal ECG When compared with ECG of 25-JUL-2022 09:41, T wave inversion more evident in Anterior leads Referred By: Basilio Mayo Electronically Signed By:LIZET MUHAMMAD
[2022-07-25 18:38] VITALS: BP 135/85; PULSE 100; RESP 18; O2SAT 95
[2022-07-25 18:43] VITALS: BP 140/80; PULSE 102; RESP 24; TEMP 37.7; O2SAT 95
--- NOTE | 2022-07-25 19:10 | PM.EVENT ---
Event Note Date of Service: 07/25/22 Event Note: I received a call in regards to this pt admission to the floor. CT pelvis/abdomen shows that pt has a moderate size hemopericadium/pericardial effusion. Pti s tachycardic, tachypneic, Given the significant risk of this pt developing further copmplications including temponade, pt is not appropriate for medical floor level care and reuires higher level of care. this was discussed with ED PA
[2022-07-25 19:32] LABS: Troponin-I High Sensitivity < 3.5 ng/L (<3.5-17.0)
--- NOTE | 2022-07-25 19:48 | PC.NURSE ---
pt returned from CT still endorsing mid sternal chest heaviness adding that it hurts. PA made aware nad new orders obtained. 2nd IV line initiated, MD Duron to bedside for US with imaging sent/shared with cards. Pt appears NSR on the quality assurance monitor with HR in the high 90s, BP stable. Pt with call santos in reach, RN to medicate per JAN. Per PA staff to hold off on additional zofran for nausea due to prolonged QTc
[2022-07-25 19:59] LABS: Thyroid Stimulating Hormone 1.39 uIU/mL (0.32-4.0)
[2022-07-25 20:06] LABS: INTERNATIONAL NORM RATIO 1.2 (0.9-1.1); Prothrombin Time 14.4 SEC (10.0-13.1)
[2022-07-25] MEDS: Morphine Sulfate 4 MG/ML CARTRIDGE IVPUSH (20:07)
[2022-07-25] MEDS: Colchicine 0.6 MG TABLET PO (20:08)
[2022-07-25 20:09] VITALS: BP 125/67; PULSE 98; RESP 24; TEMP 37.1; O2SAT 96
--- NOTE | 2022-07-25 20:21 | PC.NURSE ---
Pt medicated per MAR, aware of plan for transfer to [facility] due to required higher level of care (CICU vs ER transfer). PA made aware and to bedside to provide additional education and rationale as pt is concerned as to whether or not [facility] is in network . RN will continue to monitor. Updates to be provided once received
--- NOTE | 2022-07-25 20:52 | PC.NURSE ---
pt aware and agreeable to plan for transport to [facility] 5th floor bed 1 with nurse to nurse report to be called to [phone]
[2022-07-25 20:54] VITALS: BP 110/72; PULSE 90; RESP 20; O2SAT 95
--- NOTE | 2022-07-25 20:59 | PC.NURSE ---
This [place] called [facility] Transfer line at 1910 for a transfer per Ankita LEONE. At 2008 [facility] accepted patient,awaiting a room assignment.At 2024 accepted patient to [place] [address] Bed 1. Action called at 2026 for a stat ALS transfer per , spoke to Clive from dispatch ETA 30mins. RN and aware.
--- NOTE | 2022-07-25 21:05 | PC.NURSE ---
EMS arrived at 2056 for transport.
--- NOTE | 2022-07-25 21:15 | PC.NURSE ---
RN provided verbal report to EMS team, pt conversing on phone with family to provide updates. Pt reports that she feels some improvement in pain s/p previous medical field representative.
--- NOTE | 2022-07-25 22:01 | PC.NURSE ---
Nurse to Nurse report provided to Kerwin from [facility] [employer] 5th floor.
== END 2022-07-25 21:20 | disposition short-term general hospital (02) ==
PROVIDERS: Physician Assistant; Emergency Provider Internal Medicine; PCP General Practice
DX: I31.3 Pericardial effusion (noninflammatory) (principal); R07.89 Other chest pain; R50.9 Fever, unspecified; R06.02 Shortness of breath; R00.0 Tachycardia, unspecified; R11.10 Vomiting, unspecified; Z20.822 Contact with and (suspected) exposure to COVID-19; Z79.899 Other long term (current) drug therapy
CPT/HCPCS: 36415; 71045; 71275; 74177; 80053; 81003; 82248; 83605; 83690; 84443; 84484; 85025; 85379; 85610; 85652; 86140; 86850; 86900; 86901; 87040; 87635; 93005; 99285; J0696; J2270; J2405; Q9967

== ENCOUNTER 2022-10-20 11:59 | Outpatient (REF) | payer MEDICARE, OTHER, SELFPAY ==
--- NOTE | ~2022-10-20 | XR_ITS ---
EXAMINATION: XR CHEST CLINICAL INFORMATION: Cough. COMPARISON: Chest 07/25/[address] chest 07/25/2022. TECHNIQUE: 2 views of the chest were obtained. FINDINGS: The lungs are well expanded with minimal atelectatic changes in the right middle lobe. There is a small lucency overlying the right lower lobe which could be within the right breast or chest wall. The rest of the lungs are clear. The heart size and pulmonary vascularity is normal. No gross bony abnormality is seen. XR/XR chest 2V IMPRESSION: Suspect atelectasis right lung base. Small lucency in the right lung base could represent artifact or gas within the right chest wall/breast. Correlate with clinical exam. Consolidation is considered less likely as no abnormality is seen on the lateral view.
== END 2022-10-20 12:00 | disposition home or self-care (01) ==
LOC: HO.XRAY 11:59
PROVIDERS: PCP General Practice; Visit Provider Registered Nurse
DX: R05.9 Cough, unspecified (principal)
CPT/HCPCS: 71046

== ENCOUNTER 2023-01-25 14:49 | Outpatient (REF) | payer MEDICARE, OTHER, SELFPAY ==
--- NOTE | ~2023-01-25 | XR_ITS ---
EXAMINATION: XR HIP, LEFT CLINICAL INFORMATION: Left hip pain. COMPARISON: None available. TECHNIQUE: Two views of the left hip. AP pelvis. FINDINGS: AP Pelvis: There is normal symmetry of bilateral hip joints and SI joints. No visible acute fracture, dislocation or subluxation seen. The soft tissues are normal. AP and frog-leg views left hip reveal no acute fracture or dislocation. The hip joint space is maintained normal. No lytic or sclerotic process seen. There is small osteochondromatosis along the greater trochanter. XR/XR hip LT min 2V IMPRESSION: Unremarkable AP pelvis exam. There is a small osteochondroma along the inferior greater trochanter. No visible acute fracture or dislocation seen.
== END 2023-01-25 14:50 | disposition home or self-care (01) ==
LOC: HO.XRAY 14:49
PROVIDERS: PCP General Practice; Visit Provider General Practice
DX: M25.552 Pain in left hip (principal)
CPT/HCPCS: 73502

== ENCOUNTER → 2023-03-07 14:01 | Outpatient (BNVA) | payer MEDICARE, OTHER, SELFPAY | PROVIDERS: PCP General Practice; Visit Provider Physician Assistant | DX: M54.16 Radiculopathy, lumbar region (principal) | CPT/HCPCS: 99202 ==

== ENCOUNTER → 2023-03-14 09:48 | Outpatient (BNVA) | payer MEDICARE, OTHER, SELFPAY | PROVIDERS: PCP General Practice; Visit Provider Internal Medicine | DX: M54.16 Radiculopathy, lumbar region (principal); M96.1 Postlaminectomy syndrome, not elsewhere classified | CPT/HCPCS: 99212 ==

== ENCOUNTER 2023-04-20 12:46 | Outpatient (REF) | payer MEDICARE, SELFPAY ==
--- NOTE | ~2023-04-20 | XR_ITS ---
EXAMINATION: XR FINGER, RIGHT CLINICAL INFORMATION: Fall, trauma, pain right thumb. COMPARISON: None available. TECHNIQUE: Right thumb is imaged in 3 views. FINDINGS: There is no visible fracture or dislocation. Prominent osteoarthritic changes involve the first carpometacarpal joint and there are also degenerative changes of lesser severity involving the triscaphe joint. There is hardware in the distal radius extending beyond field of view. XR/XR finger RT min 2V IMPRESSION: - No visible fracture or dislocation. - Osteoarthritis first carpometacarpal joint and triscaphe joint.
== END 2023-04-20 12:47 | disposition home or self-care (01) ==
LOC: HO.HHCX 12:46
PROVIDERS: Visit Provider General Practice
DX: M79.644 Pain in right finger(s) (principal)
CPT/HCPCS: 73140

== ENCOUNTER 2023-05-05 14:09 | Outpatient (REF) | payer MEDICARE, SELFPAY ==
--- NOTE | ~2023-05-05 | MM_ITS ---
EXAMINATION: MM SCREENING DIGITAL BREAST TOMOSYNTHESIS, BILATERAL CLINICAL INFORMATION: Screening. Asymptomatic. The lifetime risk of breast cancer based on the Tyrer-Cuzick Model is 5%. COMPARISON: Mammography: 04/14/2022; outside mammography (2D images):11/12/2020, 10/25/2020 ([facility], [place], [place]). TECHNIQUE: Digital breast tomosynthesis is performed in both the craniocaudal and mediolateral oblique views along with computer-aided detection (CAD). Synthesized 2D images are generated from the tomosynthesis. FINDINGS: The breasts are heterogeneously dense, which may obscure small masses (ACR BI-RADS breast composition Category c). Right breast parenchymal pattern is similar to prior studies. No developing density or architectural abnormality. Neither breast shows abnormal calcifications. The axilla and skin contours are unremarkable. Left MLO view has oval asymmetric density just inferior to posterior nipple line 7 cm from nipple, suspect shifting fibroglandular tissue related to positioning and compression. Patient will be recalled for additional imaging. MM/MM tomosynthesis screening BI IMPRESSION: Left: -Parenchymal asymmetry 7 cm from nipple inferior to posterior nipple line on MLO view. Suspect shifting fibroglandular tissue related to positioning and compression. Right: -No mammographic evidence of malignancy. ASSESSMENT: BI-RADS 0: Incomplete - Need Additional Imaging Evaluation RECOMMENDATION: 1. Additional views left breast: MLO, greater depth; spot MLO. 2. Targeted ultrasound if warranted after review of the additional views. 3. Radiology department staff will contact the patient for additional imaging. This patient's information was entered into a reminder system with a target due date for their next mammogram.
--- NOTE | ~2023-05-05 | MM_ITS ---
EXAMINATION: BONE DENSITOMETRY CLINICAL INDICATION: Screening for osteoporosis. COMPARISON: This is the patient's baseline examination. TECHNIQUE: Using a [employer] DXA System (software version: 13.1) manufactured by [employer], dual-energy x-ray absorptiometry was performed of the lumbar spine and left hip. The images are of good technical quality. Summary results are attached. FINDINGS: AP SPINE L1-L4: BMD 1.035 g/cm2, Z-score 0.9, T-score -1.2, osteopenia. LEFT FEMUR, NECK: BMD 0.734 g/cm2, Z-score -0.3, T-score -2.2, osteopenia. LEFT FEMUR, TOTAL: BMD 0.686 g/cm2, Z-score -0.8, T-score -2.6, osteoporosis. IDENTIFIED RISK FACTORS: Menopause, height loss, history of fracture (adult), low body weight, low calcium intake, recurrent falls, secondary osteoporosis. HISTORY OF FRACTURE: Wrist. MEDICATIONS: None listed. MM/XR DEXA axial skeleton IMPRESSION: 1. DIAGNOSIS: Severe osteoporosis based on the lowest T-score value of -2.6 in the total femur and history of fracture wrist applying World Health Organization criteria. 2. 10-YEAR FRACTURE RISK PREDICTION, FRAX: According to the guidelines, FRAX calculation should only be performed on patients in the osteopenia bone density category. Therefore, FRAX was not performed on this patient. 3. Treatment Recommendations: NOF guidelines recommend consideration for treatment in postmenopausal women and men age 50 and older presenting with the following: -A hip or vertebral (clinical or morphometric) fracture. -T-score less than or equal to -2.5 at the femoral neck or spine after appropriate evaluation to exclude secondary causes. -Low bone mass at the hip or spine and a 10-year fracture probability by FRAX of greater than or equal to 3% for hip fracture or greater than or equal to 20% for major osteoporotic fracture based on the [place] adapted WHO algorithm. 4. Other Recommendations: All treatment decisions require clinical judgment and consideration of individual patient factors, including patient preferences, comorbidities, previous drug use, risk factors not captured in the FRAX model (e.g. frailty, falls, vitamin D deficiency, increased bone turnover, interval significant decline in bone density) and possible under or overestimation of fracture risk by FRAX. Additional medical evaluation for secondary cause of low bone mineral density may be appropriate. FUTURE SCAN RECOMMENDATION: People with diagnosed cases of osteoporosis or at high risk for fracture should have regular bone mineral density tests. For patients eligible for Medicare, routine testing is allowed once every 2 years. The testing frequency can be increased to one year for patients who have rapidly progressing disease, those who are receiving or discontinuing medical therapy to restore bone mass, or have additional risk factors.
== END 2023-05-05 14:10 | disposition home or self-care (01) ==
LOC: HO.MAMMO 14:09
PROVIDERS: PCP General Practice; Visit Provider General Practice
DX: Z12.31 Encounter for screening mammogram for malignant neoplasm of breast (principal); Z13.820 Encounter for screening for osteoporosis; Z78.0 Asymptomatic menopausal state
CPT/HCPCS: 77063; 77067; 77080

== ENCOUNTER 2023-05-31 13:00 | Outpatient (AMB) | payer MEDICARE, SELFPAY ==
--- NOTE | 2023-05-31 13:04 | MHC.OFFVIS ---
Intake Intake Visit Reasons: Stress & Urge Urinary Incontinence Intake Note: Patient presents for initial visit stress and urge urinary incontinence Urology Medications: none Blood Thinner: none PVR: 0ml's Drug Room Clerk Required: No Accompanied by: Self / Same As Patient Allergies bupropion Allergy (Verified 06/02/23 07:30) Unknown clonidine Allergy (Verified 06/02/23 07:30) Unknown gabapentin Allergy (Verified 06/02/23 07:30) Unknown meloxicam Allergy (Verified 06/02/23 07:30) Unknown pregabalin Allergy (Verified 06/02/23 07:30) Unknown Sulfa (Sulfonamide Antibiotics) Allergy (Verified 06/02/23 07:30) Unknown zolpidem Allergy (Verified 06/02/23 07:30) Unknown prasozin Allergy (Uncoded 06/02/23 07:30) Unknown Medication List - Last Reconciled 06/02/23 by VAZQUEZ Aiken buprenorphine 20 mcg/hour (Butrans) 1 patch transdermal Q7D docusate sodium 100 - 200 mg PO DAILY PRN levothyroxine 75 mcg PO DAILY magnesium oxide 400 mg PO DAILY mupirocin 2% 1 appl topical BID-TID omeprazole 40 mg PO DAILY sertraline 200 mg PO BID tolterodine ER 2 mg PO DAILY 30 days trazodone 100 mg PO BEDTIME PRN HPI HPI Comments History of Present Illness Details Sivan Meza is a very pleasant 68-year-old female patient of Dr. Sigala. She has a past medical history of anxiety, asthma, chronic neck/back pain, depression, PTSD, hypothyroidism, neuropathy, and obstructive sleep apnea. She presents to the office today as a new patient for stress incontinence. When asked patient reports to be doing and feeling well. She reports noting stress incontinence to have started within the last few months. She reports experiencing urinary urgency and frequency with episodes of incontinence if not near a bathroom. She reports wearing 1-2 pads daily. When asked she does report having had one child via with no complicating issues She reports her son to have been a smaller sized baby at and undergoing fertility treatments. Her son is 17 years old. She otherwise denies nocturia, hematuria, dysuria, foul smelling urine, changes to urinary stream, flank pain, fever, and or chills. In office urinalysis results reviewed with the patient today. PVR 0 mL. Discussed at length potential causes for stress incontinence. Discussed obtaining retroperitoneal ultrasound for further assessment evaluation. Discussed pelvic floor therapy and or medications. Discussed the many treatment options of stress incontinence. 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 Review of Systems Const All systems reviewed & are unremarkable except as noted in HPI and below Reports as per HPI Eyes Reports no additional complaints ENT Reports no additional complaints Card Reports no additional complaints Resp Reports as per HPI GI Reports no additional complaints Reports as per HPI Musc Reports as per HPI Neuro Reports as per HPI Psych Reports as per HPI Endo Reports no additional complaints Physical Exam Const General: cooperative, healthy appearing, comfortable, no acute distress, well developed, alert and awake Orientation/consciousness: patient oriented x3 Limitations: no limitations HEENT Head: Yes normal to inspection, Yes normocephalic and Yes atraumatic Ears: hearing grossly normal bilaterally Eyes General: appearance normal, both eyes and all related structures Neck Neck: Yes normal visual inspection and Yes trachea midline Chest Chest palpation & inspection: normal inspection of the chest Resp Effort & Inspection: normal respiratory effort and able to speak in complete sentences Cardio Rate: regular rate GI Inspection: Yes normal to inspection General: Yes no CVA tenderness Back/Spine/Pelvis Back: no CVA tenderness Skin General skin exam: no rashes or lesions noted Neuro General: patient oriented x3 Extrem General: Yes normal to inspection Psych Appearance: grossly normal and well kempt Mental Status: mental status grossly normal Speech and movement: Normal speech and movement present and Clear speech present Affect: normal affect Attitude: cooperative Thought process: Normal thought process present Thought content: Normal thought content present Insight: Fair insight present (Psych) Judgement: Fair judgement present (Psych) Office Procedures Post Void Residual Post Residual Void Post Void Residual (PVR): 0 [id number] Void Residual by ultrasound Results AMB Urinalysis, Automated UA Leukoctes 0 Jeaneth/uL Last Edit by Ortiz Thomas on 05/31/23 13:23 UA Nitrite Last Edit by Ortiz Thomas on 05/31/23 13:23 UA Urobilinogen 0.2 mg/dL Last Edit by Ortiz Thomas on 05/31/23 13:23 UA Protein 15 mg/dL Last Edit by Ortiz Thomas on 05/31/23 13:23 UA pH 5.5 Last Edit by Ortiz Thomas on 05/31/23 13:23 UA Blood 0 Dk/uL Last Edit by Ortiz Thomas on 05/31/23 13:23 UA Specific Jenks 1.025 Last Edit by Ortiz Thomas on 05/31/23 13:23 UA Ketone Negative Last Edit by Ortiz Thomas on 05/31/23 13:23 UA Bilirubin 0 mg/dL Last Edit by Ortiz Thomas on 05/31/23 13:23 UA Glucose 0 mg/dL Last Edit by Ortiz Thomas on 05/31/23 13:23 Results Reviewed Results Reviewed: Laboratory Last Values Urine pH (Auto) 5.5 05/31/23 13:11 Specific Jenks (Auto) 1.025 05/31/23 13:11 Urine Protein (Auto) 15 mg/dL 05/31/23 13:11 Glucose (UA)(Auto) 0 mg/dL 05/31/23 13:11 Urine Ketones (Auto) Negative 05/31/23 13:11 Urine Blood (Auto) 0 Dk/uL 05/31/23 13:11 Urine Bilirubin (Auto) 0 mg/dL 05/31/23 13:11 Urine Urobilinogen (Auto) 0.2 mg/dL 05/31/23 13:11 Leukocyte Esterase (Auto) 0 Jeaneth/uL 05/31/23 13:11 Assessment & Plan Assessment & Plan (1) Urinary incontinence: Code(s): R32 - Unspecified urinary incontinence Plan In office urinalysis results reviewed with the patient today; as noted above. PVR 0 mL. Discussed bladder triggers/irritants. Discuss treatment options for stress incontinence. Start tolterodine 2 mg daily as discussed and prescribed. Will obtain retroperitoneal ultrasound for further assessment evaluation. Discussed near future in office cystoscopy if symptoms persist and/or worsen. Discussed, educated, and encouraged on the importance of drinking plenty of water daily. Follow-up in 6-8 weeks with imaging to be completed prior; or sooner with any issues, concerns, and or questions for Orders: Orders US retroperitoneal comp 05/31/23 R32 - Unspecified urinary incontinence AMB Urinalysis Automated 05/31/23 Z13.9 - Encounter for screening, unspecified AMB Post Void Residual by ultrasound 05/31/23 Z13.9 - Encounter for screening, unspecified Medications: New tolterodine ER 2 mg PO DAILY 30 days 30 caps 1RF R39.15 - Urgency of urination Patient Instructions: The patient had an opportunity to ask questions regarding the treatment plan. All questions were answered. Physical exam, labs, and imaging were discussed and reviewed in detail. As well as risks, benefits, and discussion of treatment choices. No major barriers to understanding were identified. The patient expressed understanding and agreement with the above treatment plan. The patient was made aware they should contact our office by phone for worsening of their current condition, the appearance of new symptoms, or with any questions or concerns. Compliance is encouraged with any medications and follow up testing that is ordered. It is a privilege to be allowed the opportunity to participate in? your urological care.? Again, if you have any questions or concerns If you have any questions or concerns please do not hesitate to contact me. The office is [phone]. This note is constructed using voice recognition software. While every effort has been made to ensure accuracy [employer] errors may have been included. Yours sincerely, NILE Aiken-ELE Coding Level of Care Code New Pt Level 4 (32452) Diagnoses Urinary incontinence R32 CPT Codes Post Residual Void - PVR CPT Code: 15525-Dbcu Void Residual by ultrasound ([id number])
== END 2023-05-31 13:55 | disposition home or self-care (01) ==
PROVIDERS: PCP General Practice; Visit Provider Nurse Practitioner Family
DX: R32 Unspecified urinary incontinence (principal)
CPT/HCPCS: 99204

== ENCOUNTER → 2023-05-31 13:00 | Outpatient (BNVA) | payer MEDICARE, SELFPAY | PROVIDERS: PCP General Practice; Visit Provider Nurse Practitioner Family | DX: R32 Unspecified urinary incontinence (principal) | CPT/HCPCS: 51798; 99202 ==

== ENCOUNTER 2023-06-23 10:59 | Outpatient (REF) | payer MEDICARE, SELFPAY ==
[2023-06-23 12:48] LABS: Anion Gap 9 (12-20); Blood Urea Nitrogen 11 mg/dL (9-16); Carbon Dioxide 27 mmol/L (22-29); Chloride 109 mmol/L (96-108); Estimated Glomerular Filt Rate > 60; Glucose Random 94 mg/dL (60-115); Phosphorus 3.2 mg/dL (2.7-4.5); Potassium 4.4 mmol/L (3.3-5.1); Sodium 141 mmol/L (135-145)
== END 2023-06-23 11:00 | disposition home or self-care (01) ==
LOC: HO.LAB 10:59
PROVIDERS: Visit Provider General Practice
DX: R89.2 Abnormal level of other drugs, medicaments and biological substances in specimens from other organs, systems and tissues (principal)
CPT/HCPCS: 36415; 80048; 84100

== ENCOUNTER 2023-07-04 12:56 | Outpatient (AMB) | payer MEDICARE, SELFPAY ==
--- NOTE | 2023-07-04 13:01 | A.OFFVIS_ITS ---
Intake Vital Signs 07/04/23 13:04 Height 5 ft 5 in Weight 114 lb 10.246 oz BMI 19.1 BP 132/66 Blood Pressure Location Lt brachial Position Sitting Pulse 69 Intake Visit Reasons: pt req appointment for colon screening Intake Note: Sivan presents in the office as a follow up requested for a screening. CC: She never feels empty and states that she feels like she can always push some out but she always feels like there is something left inside. Emergency Medicine Medical Director Required: No Allergies bupropion Allergy (Verified 07/04/23 13:04) Unknown clonidine Allergy (Verified 07/04/23 13:04) Unknown gabapentin Allergy (Verified 07/04/23 13:04) Unknown meloxicam Allergy (Verified 07/04/23 13:04) Unknown pregabalin Allergy (Verified 07/04/23 13:04) Unknown Sulfa (Sulfonamide Antibiotics) Allergy (Verified 07/04/23 13:04) Unknown zolpidem Allergy (Verified 07/04/23 13:04) Unknown prasozin Allergy (Uncoded 07/04/23 13:04) Unknown Medication List - Last Reconciled 07/04/23 by Dyana Ramos, [employer]PERATIONS SUPERINTENDENT-BC apixaban (Eliquis) 5 mg PO BID buprenorphine 20 mcg/hour (Butrans) 1 patch transdermal Q7D docusate sodium 100 - 200 mg PO DAILY PRN levothyroxine 75 mcg PO DAILY magnesium oxide 400 mg PO DAILY mupirocin 2% 1 appl topical BID-TID omeprazole 40 mg PO DAILY sertraline 100 mg PO BID tolterodine ER 2 mg PO DAILY 30 days trazodone 100 mg PO BEDTIME PRN HPI pt req appointment for colon screening HPI Details LAST VISIT Dysphagia No change, awaiting to go for barium swallow. Discussed with patient avoiding large meals. Patient will be eating small bites. GERD (gastroesophageal reflux disease) One episode of severe epigastric discomfort. Patient reports that it was crampy like pain. Patient also feels very gassy. Will do H pylori testing in the office today. Patient unable to come sooner for the testing. Discussed with patient avoiding dietary triggers in late night snacking caring staying upright for minimum 3 hours after meals. Abdominal bloating Postprandial abdominal bloating with almost any meal that she has. Discussed with patient FODMAP diet. List of food to avoid and food recommended given to her. Will give patient simethicone so she can take it 3 to 4 times a day. Blood work will be done today. Will add transglutaminase. I will see her after the procedure. Patient is agreeable to this plan and verbalizes understanding of instructions. She was given the opportunity to ask questions all questions answered. ? Thank you for allowing me to participate in her care Plan Orders Orders Transglutaminase Ab IgG Today R10.9 Transglutaminase IgA Today R10.9 Medications New simethicone (Gas Relief (simethicone)) 125 mg PO TID-QID PRN 120 caps 2RF abdominal distention UPPER ENDOSCOPY Findings: Larynx:? Normal Esophagus: Tortuous? esophagus with increased tertiary contractions without stricture or ring -? biopsies were obtained from proximal esophagus to check for EOE.? GE junction at 40 cms. No esophagitis or Mejia's. Esophageal balloon dilation of LES was performed with a 19 mm (57 F) CRE balloon x 60 seconds Esophageal balloon dilation of proximal esophagus was performed with the an 18 mm (54 F) CRE balloon x 60 seconds Stomach: Multiple 5 to 10 mm benign appearing polyps in the gastric body and fundus -? biopsied.? Mild gastric antral erythema. Biopsies were obtained. Grade 2 flap valve on retroflexed examination of the cardia. Duodenum: Normal bulb and descending duodenum.? ? Biopsies were obtained from 3rd part of the duodenum to check for celiac sprue Intervention: Biopsies? and esophageal balloon dilation as noted above Impression and Post Procedure Diagnosis: Endoscopy Findings: ESOPHAGUS: Tortuous? esophagus with increased tertiary contractions without stricture or ring -? biopsies were obtained from proximal esophagus to check for EOE.? GE junction at 40 cms. No esophagitis or Mejia's. Esophageal balloon dilation of LES was performed with a 19 mm (57 F) CRE balloon x 60 seconds Esophageal balloon dilation of proximal esophagus was performed with the an 18 mm (54 F) CRE balloon x 60 seconds STOMACH: Multiple 5 to 10 mm benign appearing polyps in the gastric body and fundus -? biopsied.? Mild gastric antral erythema. Biopsies were obtained. DUODENUM: Normal -? biopsied to check for celiac sprue Plan: Above findings were reviewed with the patient and Gastric Polyps and Gas and Bloating handouts were given in the discharge area PATHOLOGY RESULTS Diagnosis A.? Small bowel, biopsy:? Small intestinal mucosa within normal limits; negative for celiac disease. B.? Stomach, antrum, biopsy:? Antral-type mucosa with mild chronic inactive inflammation; no Helicobacter organisms seen. C.? Stomach, polyps:? Fundic gland polyps with background mild chronic inactive inflammation; no Helicobacter organisms seen. D.? Esophagus, distal, biopsy:? Squamous epithelium within normal limits; no inflammation seen; negative for eosinophilic esophagitis. TODAY'S VISIT Patient is here today for requested visit to discuss going for colonoscopy. Patient reports that she had a colonoscopy about 5 years ago or so in [place]. Patient has a positive family history of colorectal cancer. Patient believes that her mother had colon cancer as well as as her cousins on her mother side. Patient was seen last year and sent for upper endoscopy. History of dysphagia in the past and epigastric discomfort. Last seen in this of his back in June of 2022. Patient had upper endoscopy in June. Esophageal balloon dilation was performed and patient has been feeling better since then. No dysphagia, dyspepsia, odynophagia. Patient denies any issues with anesthesia in the past. States that she has a sleep apnea, however unable to wear CPAP machine. Patient had chest pain, diagnosed with pericardial effusion back in July. After patient had PE. Under care of a thoracic surgeon at [facility]. Patient will be going back to see him and of this month and will ask him for risk stratification before going for procedure. Patient is currently on Eliquis. Patient reports occasional constipation. States that she takes stool softeners, however she still continues to be constipated. Patient diagnosed with osteoarthritis of her spine awaiting to see neurosurgery. Patient is also going to see a neurologist due to her frequent falls. Patient will get MRI of her brain. Patient denies dizziness, presyncope or syncope. Patient denies any cardiac or respiratory symptoms at this time. Denies any shortness of breath with or without exertion. 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 Review of Systems Const Denies weight gain and Denies weight loss ENT Reports no additional complaints, Denies dysphagia and Denies odynophagia Card Reports no additional complaints Resp Reports no additional complaints GI Denies abdominal pain, Denies belching, Denies melena, Denies bloating, Denies change in bowel habits, Reports constipation, Denies dysphagia, Denies excessive flatus, Denies dyspepsia, Denies heartburn, Denies diarrhea, Denies loose stools, Denies nausea, Denies odynophagia and Denies vomiting Reports no additional complaints Musc Reports no additional complaints Neuro Reports no additional complaints Psych Reports no additional complaints Endo Reports no additional complaints Physical Exam Vital Signs: Last Vital Signs Pulse 69 07/04/23 13:04 BP 132/66 07/04/23 13:04 BMI result Body Mass Index 19.1 Const General: healthy appearing, no acute distress and well developed Nutritional Appearance: well nourished Orientation/consciousness: patient oriented x3 HEENT Head: Yes normal to inspection, Yes normocephalic and Yes atraumatic Face and sinus: Yes normal facial exam Mouth: Normal oral and palatal mucosa present Throat: Yes posterior oropharynx normal, Yes tonsils normal and Yes uvula midline Eyes General: appearance normal, both eyes and all related structures Neck Neck: Yes normal visual inspection, Yes full ROM and Yes trachea midline Thyroid: Thyroid normal Resp Effort & Inspection: normal respiratory effort, able to speak in complete sentences, no tracheal deviation and symmetric chest movement Auscultation: clear to auscultation bilaterally Cardio Jugular venous distension: no JVD Rate: regular rate Heart sounds: S1 normal heart sound present, S2 normal heart sound present, no gallops and no murmurs GI Inspection: Yes normal to inspection and No distended Palpation (GI): Soft to palpation, not firm, nontender and No hepatosplenomegaly present Auscultation: normal bowel sounds General: Yes no CVA tenderness Back/Spine/Pelvis Back: no CVA tenderness Skin General skin exam: elasticity normal, turgor normal and dry skin Neuro General: patient oriented x3 Psych Appearance: grossly normal Mental Status: mental status grossly normal Speech and movement: Normal speech and movement present Affect: normal affect Assessment & Plan Assessment & Plan (1) Screen for colon cancer: Code(s): Z12.11 - Encounter for screening for malignant neoplasm of colon Plan: Patient denies any melena, hematochezia, unintentional weight loss or ribbon like stools. As mentioned above in HPI patient does have a history of sleep apnea, however unable to use CPAP machine as the mask that she was sent home with was not fitting well and was uncomfortable. Patient is on Eliquis for history of PE. Patient will be going to see her thoracic surgeon and will have pulmonary thromboendarterectomy end of this month. Will ask to clear the patient for the procedure. Patient denies any issues with anesthesia in the past. (2) Constipation: Code(s): K59.00 - Constipation, unspecified Qualifiers: Constipation type: slow transit constipation Qualified Code(s): K59.01 - Slow transit constipation Plan: Patient can continue take Colace daily. Patient will start taking MiraLax on a daily basis to help her move her bowels better. I will see her in 5-6 weeks, sooner on as needed basis. Patient is agreeable to this plan and verbalizes understanding of instructions. She was given the opportunity to ask questions and all questions answered. Thank you for allowing me to participate in her care Medications: New bisacodyl (Dulcolax (bisacodyl)) take 2 tabs at noon the day before your colonoscopy 10 mg (2 x 5 mg) PO ONCE 1 day 2 tabs 0RF Z12.11 - Encounter for screening for malignant neoplasm of colon polyethylene glycol 3350 (Miralax) As directed by gastroenterology department at [facility] 238 grams PO ONCE 238 grams 0RF Z12.11 - Encounter for screening for malignant neoplasm of colon polyethylene glycol 3350 (Miralax) 17 grams PO DAILY 510 grams 2RF Coding Level of Care Code Est Pt Level 4 (63724) Diagnoses Screen for colon cancer Z12.11 Constipation K59.01 Constipation type: slow transit constipation Time Spent (min) 40 Comment 25 minutes spent with patient and additional 15 minutes spent reviewing her records
[2023-07-04 13:04] VITALS: BP 132/66; PULSE 69; BMI 19.1
== END 2023-07-04 13:46 | disposition home or self-care (01) ==
PROVIDERS: PCP General Practice; Visit Provider Nurse Practitioner Family
DX: Z01.818 Encounter for other preprocedural examination (principal); Z12.11 Encounter for screening for malignant neoplasm of colon; K59.01 Slow transit constipation
CPT/HCPCS: 99214

== ENCOUNTER → 2023-07-04 12:56 | Outpatient (BNVA) | payer MEDICARE, SELFPAY | PROVIDERS: PCP General Practice; Visit Provider Nurse Practitioner Family | DX: Z12.11 Encounter for screening for malignant neoplasm of colon (principal); K59.01 Slow transit constipation | CPT/HCPCS: 99212 ==

== ENCOUNTER 2023-07-13 13:49 | Outpatient (REF) | payer MEDICARE, SELFPAY ==
--- NOTE | ~2023-07-13 | MM_ITS ---
EXAMINATION: MM DIAGNOSTIC DIGITAL BREAST TOMOSYNTHESIS, LEFT US BREAST LIMITED, LEFT MAMMOGRAPHY: CLINICAL INFORMATION: 6 month follow-up for one view parenchymal asymmetry without ultrasonographic correlate (felt to represent shifting glandular tissue) previously seen on left MLO projection only, 05/05/2023 screening exam. Assess for stability. COMPARISON: Mammography: 05/05/2023, 04/14/2022. Dating back to 2019. TECHNIQUE: Digital breast tomosynthesis is performed utilizing left full-field 3-D digital mediolateral view, as well as 3-D left spot MLO compression view along with computer-aided detection (CAD). Synthesized 2D images are generated from the tomosynthesis. FINDINGS: The breasts are heterogeneously dense, which may obscure small masses (ACR BI-RADS breast composition Category c). There are few stable benign scattered calcifications in the left breast. There is no persistent focal asymmetry on diagnostic views within the left breast. Only normal appearing islands of breast parenchyma are identified. No suspicious masses, suspicious calcifications, or regions of architectural distortion are identified on today's examination. The previously seen 1 view asymmetry is again noted on the MLO and ML projections although has a more classic appearance of a normal island of dense glandular tissue. ULTRASOUND: CLINICAL INFORMATION: 6 month follow-up for one view parenchymal asymmetry without ultrasonographic correlate is seen on left MLO projection only. Assess stability. COMPARISON: None TECHNIQUE: Targeted sonographic evaluation was performed of the left breast spanning the 3:00 to 6:00 axes, using a high frequency linear transducer. Selected archived documentation. FINDINGS: LEFT BREAST: There is a mixture of fatty and fibroglandular tissue. No suspicious mass is seen. There is no pathologic acoustic shadowing. There is no ultrasonographic correlate to the previously seen 1 view asymmetry in the slightly inferior left breast. MM/MM tomosynthesis diagnostic LT IMPRESSION: No persistent findings suspicious for malignancy. One view asymmetry does not persist on today's examinations, and is consistent with normal islands of dense glandular tissue. Recommend the patient resume routine annual screening to include both breasts. OVERALL ASSESSMENT: Mammography: BI-RADS 1 - Negative Ultrasound: BI-RADS 1 - Negative RECOMMENDATION: 1 year F/U Results were provided to the patient at time of visit by the technologist. This patient's information was entered into a reminder system with a target due date for their next mammogram.
== END 2023-07-13 13:50 | disposition home or self-care (01) ==
LOC: HO.MAMMO 13:49
PROVIDERS: PCP General Practice; Visit Provider General Practice
DX: R92.2 Inconclusive mammogram (principal)
CPT/HCPCS: 76642; 77061; 77065

== ENCOUNTER → 2023-07-13 14:00 | Outpatient (BNV) | payer MEDICARE, SELFPAY | PROVIDERS: PCP General Practice; Visit Provider Radiology Diagnostic Radiology | DX: N64.1 Fat necrosis of breast (principal) | CPT/HCPCS: 76642; 77061; 77065 ==

== ENCOUNTER 2023-07-28 12:10 | Outpatient (REF) | payer MEDICARE, SELFPAY ==
--- NOTE | ~2023-07-28 | US_ITS ---
EXAMINATION: US RETROPERITONEAL COMPLETE (RENAL) CLINICAL INFORMATION: Unspecified urinary incontinence. COMPARISON: CT abdomen and pelvis with contrast 07/25/2022. TECHNIQUE: Real-time imaging of the kidneys and bladder. FINDINGS: RIGHT KIDNEY: 9.6 x 3.1 x 4.8 cm (SAG x AP x TRV). The kidney is normal in size, contour, and echogenicity. Renal cortical thickness is normal. No calculi or focal parenchymal lesions. No hydronephrosis. LEFT KIDNEY: 9.4 x 3.9 x 4.1 cm (SAG x AP x TRV). The kidney is normal in size, contour, and echogenicity. Renal cortical thickness is normal. No calculi or focal parenchymal lesions. No hydronephrosis. BLADDER: Well distended and normal. Bilateral ureteral jets are demonstrated. Prevoid bladder volume is 285 mL. Postvoid bladder volume is 11 mL. US/US retroperitoneal comp IMPRESSION: Unremarkable examination..
== END 2023-07-28 12:11 | disposition home or self-care (01) ==
LOC: HO.US 12:10
PROVIDERS: PCP General Practice; Visit Provider Nurse Practitioner Family
DX: R32 Unspecified urinary incontinence (principal)
CPT/HCPCS: 76770

== ENCOUNTER 2023-08-08 13:11 | Outpatient (AMB) | payer MEDICARE, SELFPAY ==
--- NOTE | 2023-08-08 13:19 | MHC.OFFVIS ---
Intake Vital Signs 08/08/23 13:20 Height 5 ft 5 in Weight 112 lb 6.972 oz BMI 18.7 BP 128/63 Blood Pressure Location Lt brachial Position Sitting Intake Visit Reasons: 5 week follow up Intake Note: Patient presents to in office visit today in 5 weeks follow up of constipation. CC: Patient reports she continues working on that referring to constipation. Patient brought her medications today as she is confused about medications received for bowel prep for colonoscopy. Mixing Machine Feeder Required: No Accompanied by: Self / Same As Patient Allergies bupropion Allergy (Verified 08/16/23 22:53) Unknown clonidine Allergy (Verified 08/16/23 22:53) Unknown gabapentin Allergy (Verified 08/16/23 22:53) Unknown meloxicam Allergy (Verified 08/16/23 22:53) Unknown pregabalin Allergy (Verified 08/16/23 22:53) Unknown Sulfa (Sulfonamide Antibiotics) Allergy (Verified 08/16/23 22:53) Unknown zolpidem Allergy (Verified 08/16/23 22:53) Unknown prasozin Allergy (Uncoded 08/16/23 22:53) Unknown HPI 5 week follow up HPI Details LAST VISIT Screen for colon cancer Patient denies any melena, hematochezia, unintentional weight loss or ribbon like stools. As mentioned above in HPI patient does have a history of sleep apnea, however unable to use CPAP machine as the mask that she was sent home with was not fitting well and was uncomfortable. Patient is on Eliquis for history of PE. Patient will be going to see her thoracic surgeon and will have pulmonary thromboendarterectomy end of this month. Will ask to clear the patient for the procedure. Patient denies any issues with anesthesia in the past. Constipation Patient can continue take Colace daily. Patient will start taking MiraLax on a daily basis to help her move her bowels better. I will see her in 5-6 weeks, sooner on as needed basis. Patient is agreeable to this plan and verbalizes understanding of instructions. She was given the opportunity to ask questions and all questions answered. ? TODAY'S VISIT Patient is here today for follow-up and to go over colonoscopy prep and what to expect before during and after the procedure. Patient is not taking her MiraLax as she is confused on which 1 she should be taking. Patient received 2 different bottles from the pharmacy, however both bottles are large and not appropriate for the prep. Patient continues to have constipation, occasional diarrhea. Patient reports that she has been seen by thoracic surgeon. Patient also has been seeing chip loft worker. Patient is developing multiple skin abscesses. Unsure what is causing that. Patient reports that the rash is on her back and her upper arms and it is weeping. Patient denies any changes in her diet detergent or soap. Patient reports frequent abdominal bloating, constipation and cramping. Patient is not having any appetite. Has been losing weight. Tried protein shakes. Patient feels discouraged. Patient has good family support. 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 Review of Systems Const Denies weight gain and Denies weight loss ENT Reports no additional complaints, Denies dysphagia and Denies odynophagia Card Reports no additional complaints Resp Reports no additional complaints GI Denies abdominal pain, Denies belching, Denies melena, Denies bloating, Denies change in bowel habits, Reports constipation, Denies dysphagia, Denies excessive flatus, Denies dyspepsia, Denies heartburn, Denies diarrhea, Denies loose stools, Denies nausea, Denies odynophagia and Denies vomiting Reports no additional complaints Musc Reports no additional complaints Neuro Reports no additional complaints Psych Reports anxiety Endo Reports no additional complaints Physical Exam Vital Signs: Last Vital Signs BP 128/63 08/08/23 13:20 BMI result Body Mass Index 18.7 Const General: no acute distress, anxious and well groomed Nutritional Appearance: underweight Orientation/consciousness: patient oriented x3 HEENT Head: Yes normal to inspection, Yes normocephalic and Yes atraumatic Face and sinus: Yes normal facial exam Mouth: Normal oral and palatal mucosa present Throat: Yes posterior oropharynx normal, Yes tonsils normal and Yes uvula midline Eyes General: appearance normal, both eyes and all related structures Neck Neck: Yes normal visual inspection, Yes full ROM and Yes trachea midline Thyroid: Thyroid normal Resp Effort & Inspection: normal respiratory effort, able to speak in complete sentences, no tracheal deviation and symmetric chest movement Auscultation: clear to auscultation bilaterally Cardio Rate: regular rate Heart sounds: S1 normal heart sound present and S2 normal heart sound present GI Inspection: Yes normal to inspection and No distended Palpation (GI): Soft to palpation, not firm, nontender and No hepatosplenomegaly present Auscultation: normal bowel sounds General: Yes no CVA tenderness Back/Spine/Pelvis Back: no CVA tenderness Neuro General: patient oriented x3 Psych Appearance: grossly normal Mental Status: mental status grossly normal Speech and movement: Normal speech and movement present Affect: Anxious affect present Assessment & Plan Assessment & Plan (1) Constipation: Code(s): K59.00 - Constipation, unspecified Qualifiers: Constipation type: drug induced constipation Qualified Code(s): K59.03 - Drug induced constipation (2) IBS (irritable bowel syndrome): Code(s): K58.9 - Irritable bowel syndrome without diarrhea Qualifiers: Irritable bowel syndrome type: with constipation Qualified Code(s): K58.1 - Irritable bowel syndrome with constipation (3) Abdominal pain: Code(s): R10.9 - Unspecified abdominal pain Qualifiers: Abdominal location: generalized Qualified Code(s): R10.84 - Generalized abdominal pain (4) Postprandial abdominal bloating: Code(s): R14.0 - Abdominal distension (gaseous) Plan Patient was encouraged to take MiraLax daily. Patient can also take senna if she continues to have constipation. Low FODMAP diet discussed with patient. Will check lipase, thyroid study, vitamin-D, B12 and folate. Patient will return in 5 weeks so we can discuss colonoscopy. Patient is very frustrated today. Has multiple appointments with chip loft worker, urologist and thoracic surgeon. Patient is agreeable to this plan and verbalizes understanding of instructions. She was given the opportunity to ask questions all questions answered. We will schedule patient for colonoscopy today Thank you for allowing me to participate in her care Orders: Orders Lipase 08/08/23 R10.9 - Unspecified abdominal pain TSH reflex Free T4 08/08/23 K59.00 - Constipation, unspecified Vitamin D 25-OH (D2 and D3) 08/08/23 E55.9 - Vitamin D deficiency, unspecified Vitamin B12 and Folate 08/08/23 R19.7 - Diarrhea, unspecified Medications: Changed From polyethylene glycol 3350 As directed by gastroenterology department at [facility] 238 grams PO ONCE 238 grams 0RF Z12.11 - Encounter for screening for malignant neoplasm of colon To polyethylene glycol 3350 (Miralax) As directed by gastroenterology department at [facility] 238 grams PO ONCE 238 grams 0RF Z12.11 - Encounter for screening for malignant neoplasm of colon Coding Level of Care Code Est Pt Level 4 (67888) Diagnoses Drug-induced constipation K59.03 Constipation type: drug induced constipation Irritable bowel syndrome with constipation K58.1 Irritable bowel syndrome type: with constipation Generalized abdominal pain R10.84 Abdominal location: generalized Postprandial abdominal bloating R14.0 Time Spent (min) 35 Comment 25 minutes spent with patient and additional 10 minutes spent reviewing her records.
[2023-08-08 13:20] VITALS: BP 128/63; BMI 18.7
== END 2023-08-08 14:14 | disposition home or self-care (01) ==
PROVIDERS: PCP General Practice; Visit Provider Nurse Practitioner Family
DX: K59.03 Drug induced constipation (principal); K58.1 Irritable bowel syndrome with constipation; R10.84 Generalized abdominal pain; R14.0 Abdominal distension (gaseous)
CPT/HCPCS: 99214

== ENCOUNTER 2023-08-08 13:11 | Outpatient (REF) | payer MEDICARE, SELFPAY ==
[2023-08-08 16:08] LABS: Lipase 27 U/L (8-78)
[2023-08-08 16:40] LABS: Folate 7.7 ng/mL (> or = 4.0); Vitamin B12 496 pg/mL (200-900)
[2023-08-12 16:38] LABS: Vitamin D 25-OH, D2 <4 ng/mL; Vitamin D 25-OH, D3 21 ng/mL; Vitamin D 25-OH, Total 21 ng/mL (30-100)
== END 2023-08-08 13:12 | disposition home or self-care (01) ==
LOC: HO.LAB 13:11
PROVIDERS: PCP General Practice; Visit Provider Nurse Practitioner Family
DX: E55.9 Vitamin D deficiency, unspecified (principal); R19.7 Diarrhea, unspecified; K59.03 Drug induced constipation; K58.1 Irritable bowel syndrome with constipation; R10.84 Generalized abdominal pain
CPT/HCPCS: 36415; 82306; 82607; 82746; 83690; 84443; 99212

== ENCOUNTER 2023-08-16 13:44 | Outpatient (AMB) | payer MEDICARE, SELFPAY ==
--- NOTE | 2023-08-16 13:49 | MHC.OFFVIS ---
Intake Intake Visit Reasons: 6w/PVR/US(set) Intake Note: Patient presents for initial visit stress and urge urinary incontinence Urology Medications: Tolterodine (patient stated that she was taking prescribed medication incorrect and d/c) Blood Thinner: Eliquis PVR: 0ml's Transmitter Engineer In Charge Required: No Accompanied by: Self / Same As Patient Allergies bupropion Allergy (Verified 08/16/23 22:53) Unknown clonidine Allergy (Verified 08/16/23 22:53) Unknown gabapentin Allergy (Verified 08/16/23 22:53) Unknown meloxicam Allergy (Verified 08/16/23 22:53) Unknown pregabalin Allergy (Verified 08/16/23 22:53) Unknown Sulfa (Sulfonamide Antibiotics) Allergy (Verified 08/16/23 22:53) Unknown zolpidem Allergy (Verified 08/16/23 22:53) Unknown prasozin Allergy (Uncoded 08/16/23 22:53) Unknown Medication List - Last Reconciled 08/16/23 by NILE Aiken-ELE apixaban (Eliquis) 5 mg PO BID bisacodyl (Dulcolax (bisacodyl)) 10 mg (2 x 5 mg) PO ONCE 1 day buprenorphine 20 mcg/hour (Butrans) 1 patch transdermal Q7D calcium carbonate 500 mg PO cholecalciferol (vitamin D3) 50 mcg PO DAILY docusate sodium 100 - 200 mg PO DAILY PRN levothyroxine 75 mcg PO DAILY magnesium oxide 400 mg PO DAILY mirabegron ER (Myrbetriq) 25 mg PO DAILY 30 days mupirocin 2% 1 appl topical BID-TID omeprazole 40 mg PO DAILY polyethylene glycol 3350 (Miralax) 17 grams PO DAILY polyethylene glycol 3350 (Miralax) 238 grams PO ONCE sertraline 100 mg PO BID trazodone 100 mg PO BEDTIME PRN HPI HPI Comments History of Present Illness Details Sivan Meza is a very pleasant 68-year-old female patient of Dr. Sigala. She has a past medical history of anxiety, asthma, chronic neck/back pain, depression, PTSD, hypothyroidism, neuropathy, and obstructive sleep apnea. She presents to the office today for follow-up. Of note, patient was seen approximately 6 weeks ago as a new patient for stress incontinence at which time a retroperitoneal ultrasound was ordered for further assessment evaluation in the patient was started on tolterodine 2 mg daily. Recent retroperitoneal ultrasound results reviewed with the patient today. Bilateral kidneys with no calculi, lesions, and or hydronephrosis noted. The bladder is well distended and normal. Bilateral ureteral jets are demonstrated. Pre void bladder volume is approximately 285 mL. Postvoid bladder volume is approximately 11 mLs. Unremarkable examination. When asked patient reports noting no improvement in lower urinary tract symptoms of urinary urgency, frequency, and episodes of incontinence if not near a bathroom on tolterodine 2 mg daily. Discussed at length potential causes for these urinary symptoms. Patient reports having had one child via with no complicating issues. She reports her son to have been a smaller sized baby at and undergoing fertility treatments. Her son is currently 17 years old. She otherwise denies nocturia, hematuria, dysuria, foul smelling urine, changes to urinary stream, flank pain, fever, and or chills. In office urinalysis results reviewed with the patient today. PVR 0 mL. Discussed pelvic floor therapy at length. Discussed the many treatment options of stress incontinence. 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 Review of Systems Const All systems reviewed & are unremarkable except as noted in HPI and below Reports as per HPI Eyes Reports no additional complaints ENT Reports no additional complaints Card Reports no additional complaints Resp Reports as per HPI GI Reports no additional complaints Reports as per HPI Musc Reports as per HPI Neuro Reports as per HPI Psych Reports as per HPI Endo Reports no additional complaints Physical Exam Const General: cooperative, healthy appearing, comfortable, no acute distress, well developed, alert and awake Orientation/consciousness: patient oriented x3 Limitations: no limitations HEENT Head: Yes normal to inspection, Yes normocephalic and Yes atraumatic Ears: hearing grossly normal bilaterally Eyes General: appearance normal, both eyes and all related structures Neck Neck: Yes normal visual inspection and Yes trachea midline Chest Chest palpation & inspection: normal inspection of the chest Resp Effort & Inspection: normal respiratory effort and able to speak in complete sentences Cardio Rate: regular rate GI Inspection: Yes normal to inspection General: Yes no CVA tenderness Back/Spine/Pelvis Back: no CVA tenderness Skin General skin exam: no rashes or lesions noted Neuro General: patient oriented x3 Extrem General: Yes normal to inspection Psych Appearance: grossly normal and well kempt Mental Status: mental status grossly normal Speech and movement: Normal speech and movement present and Clear speech present Affect: normal affect Attitude: cooperative Thought process: Normal thought process present Thought content: Normal thought content present Insight: Fair insight present (Psych) Judgement: Fair judgement present (Psych) Office Procedures Post Void Residual Post Residual Void Post Void Residual (PVR): 0 [id number] Void Residual by ultrasound Results AMB Urinalysis, Automated UA Leukoctes 0 Jeaneth/uL Last Edit by [employer] on 08/16/23 14:15 UA Nitrite Negative Last Edit by [employer] on 08/16/23 14:15 UA Urobilinogen 0.2 mg/dL Last Edit by [employer] on 08/16/23 14:15 UA Protein 15 mg/dL Last Edit by [employer] on 08/16/23 14:15 UA pH 5.5 Last Edit by [employer] on 08/16/23 14:15 UA Blood 0 Dk/uL Last Edit by [employer] on 08/16/23 14:15 UA Specific [place] 1.025 Last Edit by [employer] on 08/16/23 14:15 UA Ketone Negative Last Edit by [employer] on 08/16/23 14:15 UA Bilirubin 0 mg/dL Last Edit by [employer] on 08/16/23 14:15 UA Glucose 0 mg/dL Last Edit by [employer] on 08/16/23 14:15 Results Reviewed Results Reviewed: Laboratory Last Values Urine pH (Auto) 5.5 08/16/23 13:51 Specific [place] (Auto) 1.025 08/16/23 13:51 Urine Protein (Auto) 15 mg/dL 08/16/23 13:51 Glucose (UA)(Auto) 0 mg/dL 08/16/23 13:51 Urine Ketones (Auto) Negative 08/16/23 13:51 Urine Blood (Auto) 0 Dk/uL 08/16/23 13:51 Urine Nitrite (Auto) Negative 08/16/23 13:51 Urine Bilirubin (Auto) 0 mg/dL 08/16/23 13:51 Urine Urobilinogen (Auto) 0.2 mg/dL 08/16/23 13:51 Leukocyte Esterase (Auto) 0 Jeaneth/uL 08/16/23 13:51 Date of Service: 07/28/23 EXAMINATION: US RETROPERITONEAL COMPLETE (RENAL) FINDINGS: RIGHT KIDNEY: 9.6 x 3.1 x 4.8 cm (SAG x AP x TRV). The kidney is normal in size, contour, and echogenicity. Renal cortical thickness is normal. No calculi or focal parenchymal lesions. No hydronephrosis. LEFT KIDNEY: 9.4 x 3.9 x 4.1 cm (SAG x AP x TRV). The kidney is normal in size, contour, and echogenicity. Renal cortical thickness is normal. No calculi or focal parenchymal lesions. No hydronephrosis. BLADDER: Well distended and normal. Bilateral ureteral jets are demonstrated. Prevoid bladder volume is 285 mL. Postvoid bladder volume is 11 mL. IMPRESSION: Unremarkable examination. Assessment & Plan Assessment & Plan (1) Urinary incontinence: Code(s): R32 - Unspecified urinary incontinence (2) Urinary frequency: Code(s): R35.0 - Frequency of micturition (3) Urinary urgency: Code(s): R39.15 - Urgency of urination Plan In office urinalysis results reviewed with the patient today; as noted above. PVR 0 mL. Discussed recent retroperitoneal ultrasound results with the patient today; as noted above. Stop tolterodine 2 mg as discussed. Start Myrbetriq 25 mg daily as discussed and prescribed. Discussed at length pelvic floor therapy and vaginal weight to assist with urinary symptoms. Discussed possible near future in office cystoscopy versus urodynamics if symptoms persist and/or worsen Follow-up in 6 weeks with PVR; or sooner with any issues, concerns, and or questions. Orders: Orders AMB Urinalysis Automated Today Z13.9 - Encounter for screening, unspecified AMB Post Void Residual by ultrasound Today R32 - Unspecified urinary incontinence Medications: New mirabegron ER (Myrbetriq) 25 mg PO DAILY 30 days 30 tabs 1RF N30.10 - Interstitial cystitis (chronic) without hematuria, N32.81 - Overactive bladder, R35.1 - Nocturia, R39.15 - Urgency of urination Patient Instructions: The patient had an opportunity to ask questions regarding the treatment plan. All questions were answered. Physical exam, labs, and imaging were discussed and reviewed in detail. As well as risks, benefits, and discussion of treatment choices. No major barriers to understanding were identified. The patient expressed understanding and agreement with the above treatment plan. The patient was made aware they should contact our office by phone for worsening of their current condition, the appearance of new symptoms, or with any questions or concerns. Compliance is encouraged with any medications and follow up testing that is ordered. It is a privilege to be allowed the opportunity to participate in? your urological care.? Again, if you have any questions or concerns If you have any questions or concerns please do not hesitate to contact me. The office is [phone]. This note is constructed using voice recognition software. While every effort has been made to ensure accuracy equipment operator/laborer/supervisor errors may have been included. Yours sincerely, VAZQUEZ Aiken Coding Level of Care Code Est Pt Level 4 (30804) Diagnoses Urinary incontinence R32 Urinary frequency R35.0 Urinary urgency R39.15 CPT Codes Post Residual Void - PVR CPT Code: 85181-Codm Void Residual by ultrasound ([id number])
== END 2023-08-16 14:47 | disposition home or self-care (01) ==
PROVIDERS: PCP General Practice; Visit Provider Nurse Practitioner Family
DX: R32 Unspecified urinary incontinence (principal); R35.0 Frequency of micturition; R39.15 Urgency of urination
CPT/HCPCS: 99214

== ENCOUNTER → 2023-08-16 13:44 | Outpatient (BNVA) | payer MEDICARE, SELFPAY | PROVIDERS: PCP General Practice; Visit Provider Nurse Practitioner Family | DX: R32 Unspecified urinary incontinence (principal); R35.0 Frequency of micturition; R39.15 Urgency of urination | CPT/HCPCS: 51798; 81003; 99212 ==

== ENCOUNTER 2023-09-15 13:43 | Outpatient (AMB) | payer MEDICARE, MEDICAID, SELFPAY ==
--- NOTE | 2023-09-15 13:57 | A.OFFVIS_ITS ---
Intake Vital Signs 09/15/23 13:58 Height 5 ft 5 in Weight 121 lb 4.068 oz BMI 20.2 BP 125/65 Blood Pressure Location Rt brachial Position Sitting Pulse 64 Pulse Source Pulse Oximeter Pulse Oximetry (%) 95 Oxygen Delivery Method Room Air Intake Visit Reasons: 4 week follow up Intake Note: Pt presents to the office today for a 4 week follow up. Pt states she is feeling well and believes the medications are helping to make the stools more regular. Pt denies any N/V/D. Allergies bupropion Allergy (Verified 09/27/23 21:32) Unknown clonidine Allergy (Verified 09/27/23 21:32) Unknown gabapentin Allergy (Verified 09/27/23 21:32) Unknown meloxicam Allergy (Verified 09/27/23 21:32) Unknown pregabalin Allergy (Verified 09/27/23 21:32) Unknown Sulfa (Sulfonamide Antibiotics) Allergy (Verified 09/27/23 21:32) Unknown zolpidem Allergy (Verified 09/27/23 21:32) Unknown prasozin Allergy (Uncoded 09/27/23 21:32) Unknown HPI 4 week follow up HPI Details LAST VISIT; Constipation IBS (irritable bowel syndrome) Abdominal pain Postprandial abdominal bloating Plan Patient was encouraged to take MiraLax daily. Patient can also take senna if she continues to have constipation. Low FODMAP diet discussed with patient. Will check lipase, thyroid study, vitamin-D, B12 and folate. Patient will return in 5 weeks so we can discuss colonoscopy. Patient is very frustrated today. Has multiple appointments with netsuite developer, urologist and thoracic surgeon. Patient is agreeable to this plan and verbalizes understanding of instructions. She was given the opportunity to ask questions all questions answered. We will schedule patient for colonoscopy today ? Thank you for allowing me to participate in her care Orders Orders Lipase 08/08/23 R10.9 TSH reflex Free T4 08/08/23 K59.00 Vitamin D 25-OH (D2 and D3) 08/08/23 E55.9 Vitamin B12 and Folate 08/08/23 R19.7 Medications Changed Changed From polyethylene glycol 3350 As directed by gastroenterology department at [facility] 238 grams PO ONCE 238 grams 0RF Z12.11 Changed To polyethylene glycol 3350 (Miralax) As directed by gastroenterology department at [facility] 238 grams PO ONCE 238 grams 0RF Z12.11 TODAY'S VISIT Patient is here today for follow-up. Patient reports that she has been moving her bowels better now that she is taking MiraLax daily. Patient denies any melena, hematochezia, unintentional weight loss or ribbon like stools. Patient reports that her acid reflux is controlled right now patient has colonoscopy scheduled for October 24 and follow-up appointment in the office in November. We discussed the importance of good bowel prep last visit patient denies any chest pain or shortness of breath. Denies any issues with anesthesia in the past. Patient reports that she has chronic neck pain and might have issues with laying on her left side. 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 Review of Systems Const Denies weight gain and Denies weight loss ENT Reports no additional complaints, Denies dysphagia and Denies odynophagia Card Reports no additional complaints Resp Reports no additional complaints GI Denies abdominal pain, Denies belching, Denies melena, Denies bloating, Denies change in bowel habits, Denies dysphagia, Denies excessive flatus, Denies dyspepsia, Denies heartburn, Denies diarrhea, Denies loose stools, Denies nausea, Denies odynophagia and Denies vomiting Musc Reports no additional complaints Neuro Reports no additional complaints Psych Reports no additional complaints Endo Reports no additional complaints Physical Exam Vital Signs: Last Vital Signs Pulse 64 09/15/23 13:58 BP 125/65 09/15/23 13:58 Pulse Ox 95 09/15/23 13:58 Oxygen Delivery Method Room Air 09/15/23 13:58 BMI result Body Mass Index 20.2 Const General: healthy appearing, no acute distress and well developed Nutritional Appearance: well nourished Orientation/consciousness: patient oriented x3 HEENT Head: Yes normal to inspection, Yes normocephalic and Yes atraumatic Face and sinus: Yes normal facial exam Mouth: Normal oral and palatal mucosa present Throat: Yes posterior oropharynx normal, Yes tonsils normal and Yes uvula midline Eyes General: appearance normal, both eyes and all related structures Neck Neck: Yes normal visual inspection, Yes full ROM and Yes trachea midline Thyroid: Thyroid normal Resp Effort & Inspection: normal respiratory effort, able to speak in complete sentences, no tracheal deviation and symmetric chest movement Auscultation: clear to auscultation bilaterally Cardio Rate: regular rate Heart sounds: S1 normal heart sound present and S2 normal heart sound present GI Inspection: Yes normal to inspection and No distended Palpation (GI): Soft to palpation, not firm, nontender and No hepatosplenomegaly present Auscultation: normal bowel sounds General: Yes no CVA tenderness Back/Spine/Pelvis Back: no CVA tenderness Neuro General: patient oriented x3 Psych Appearance: grossly normal Mental Status: mental status grossly normal Thought process: Normal thought process present Assessment & Plan Assessment & Plan (1) Constipation: Code(s): K59.00 - Constipation, unspecified Qualifiers: Constipation type: slow transit constipation Qualified Code(s): K59.01 - Slow transit constipation (2) IBS (irritable bowel syndrome): Code(s): K58.9 - Irritable bowel syndrome without diarrhea Qualifiers: Irritable bowel syndrome type: with constipation Qualified Code(s): K58.1 - Irritable bowel syndrome with constipation (3) Screen for colon cancer: Code(s): Z12.11 - Encounter for screening for malignant neoplasm of colon Plan Patient will go for colonoscopy on October 24. What to expect before during and after procedure discussed with patient. Stressed the importance of good bowel prep as well as clear liquid diet day before procedure. Patient is moving her bowels better now that she is taking MiraLax daily. Patient is status post cervical laminectomy and reports pain when laying on her left side. Patient believes that she will be okay if we can wedge pillow under her neck when laying on her side. I will see patient after the procedure, sooner on as needed basis. Patient is agreeable to this plan and verbalizes understanding of instructions. She was given the opportunity to ask questions and all questions answered. Thank you for allowing me to participate in her care Coding Level of Care Code Est Pt Level 3 (20278) Diagnoses Slow transit constipation K59.01 Constipation type: slow transit constipation Irritable bowel syndrome with constipation K58.1 Irritable bowel syndrome type: with constipation Screen for colon cancer Z12.11 Time Spent (min) 25 Comment 15 minutes spent with patient and additional 10 minutes spent reviewing her records
[2023-09-15 13:58] VITALS: BP 125/65; PULSE 64; O2SAT 95; BMI 20.2
== END 2023-09-15 14:38 | disposition home or self-care (01) ==
PROVIDERS: PCP General Practice; Visit Provider Nurse Practitioner Family
DX: K59.01 Slow transit constipation (principal); K58.1 Irritable bowel syndrome with constipation; Z12.11 Encounter for screening for malignant neoplasm of colon
CPT/HCPCS: 99213

== ENCOUNTER → 2023-09-15 13:43 | Outpatient (BNVA) | payer MEDICARE, SELFPAY | PROVIDERS: PCP General Practice; Visit Provider Nurse Practitioner Family | DX: Z12.11 Encounter for screening for malignant neoplasm of colon (principal); K58.1 Irritable bowel syndrome with constipation | CPT/HCPCS: 99212 ==

== ENCOUNTER 2023-09-27 12:49 | Outpatient (AMB) | payer MEDICARE, MEDICAID, SELFPAY ==
--- NOTE | 2023-09-27 13:28 | MHC.OFFVIS ---
Intake Intake Visit Reasons: 6w/PVR Intake Note: Patient presents for follow up visit stress and urge urinary incontinence Urology Medications: myrbetriq Blood Thinner: none PVR: 0ml's Pipe Straightener Required: No Accompanied by: Self / Same As Patient Allergies bupropion Allergy (Verified 09/27/23 21:32) Unknown clonidine Allergy (Verified 09/27/23 21:32) Unknown gabapentin Allergy (Verified 09/27/23 21:32) Unknown meloxicam Allergy (Verified 09/27/23 21:32) Unknown pregabalin Allergy (Verified 09/27/23 21:32) Unknown Sulfa (Sulfonamide Antibiotics) Allergy (Verified 09/27/23 21:32) Unknown zolpidem Allergy (Verified 09/27/23 21:32) Unknown prasozin Allergy (Uncoded 09/27/23 21:32) Unknown Medication List - Last Reconciled 09/27/23 by NILE Aiken- alendronate 70 mg PO QWEEK apixaban (Eliquis) 5 mg PO BID bisacodyl (Dulcolax (bisacodyl)) 10 mg (2 x 5 mg) PO ONCE 1 day buprenorphine 20 mcg/hour (Butrans) 1 patch transdermal Q7D calcium carbonate 500 mg PO cholecalciferol (vitamin D3) 50 mcg PO DAILY docusate sodium 100 - 200 mg PO DAILY PRN levothyroxine 75 mcg PO DAILY magnesium oxide 400 mg PO DAILY mirabegron ER (Myrbetriq) 25 mg PO DAILY 90 days mupirocin 2% 1 appl topical BID-TID omeprazole 40 mg PO DAILY polyethylene glycol 3350 (Miralax) 17 grams PO DAILY polyethylene glycol 3350 (Miralax) 238 grams PO ONCE sertraline 100 mg PO BID trazodone 100 mg PO BEDTIME PRN HPI HPI Comments History of Present Illness Details Sivan Meza is a very pleasant 68-year-old female patient of Dr. Sigala. She has a past medical history of anxiety, asthma, chronic neck/back pain, depression, PTSD, hypothyroidism, neuropathy, and obstructive sleep apnea. She presents to the office today for follow-up of her stress incontinence. In discussion with the patient today she reports noting a significant improvement in her urinary symptoms (urinary urgency, frequency, and episodes of incontinence if not near a bathroom) since being on Myrbertriq 25 mg daily. Previous workup has included a retroperitoneal ultrasound noting bilateral kidneys with no calculi, lesions, and or hydronephrosis noted. The bladder is well distended and normal. Bilateral ureteral jets are demonstrated. Pre void bladder volume is approximately 285 mL. Postvoid bladder volume is approximately 11 mLs. Unremarkable examination. She had previously trialed tolterodine with no improvement. Discussed at length potential causes for these urinary symptoms. In office urinalysis results reviewed with the patient today. PVR 0 mL. Discussed pelvic floor therapy at length. Discussed the many treatment options of stress incontinence. She reports being happy with current voiding parameters on 25 mg of Myrbetriq. She otherwise denies any bothersome urinary issues or concerns at this time. 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 Review of Systems Const All systems reviewed & are unremarkable except as noted in HPI and below Reports as per HPI Eyes Reports no additional complaints ENT Reports no additional complaints Card Reports no additional complaints Resp Reports as per HPI GI Reports no additional complaints Reports as per HPI Musc Reports as per HPI Neuro Reports as per HPI Psych Reports as per HPI Endo Reports no additional complaints Physical Exam Const General: cooperative, healthy appearing, comfortable, no acute distress, well developed, alert and awake Orientation/consciousness: patient oriented x3 Limitations: no limitations HEENT Head: Yes normal to inspection, Yes normocephalic and Yes atraumatic Ears: hearing grossly normal bilaterally Eyes General: appearance normal, both eyes and all related structures Neck Neck: Yes normal visual inspection and Yes trachea midline Chest Chest palpation & inspection: normal inspection of the chest Resp Effort & Inspection: normal respiratory effort and able to speak in complete sentences Cardio Rate: regular rate GI Inspection: Yes normal to inspection General: Yes no CVA tenderness Back/Spine/Pelvis Back: no CVA tenderness Skin General skin exam: no rashes or lesions noted Neuro General: patient oriented x3 Extrem General: Yes normal to inspection Psych Appearance: grossly normal and well kempt Mental Status: mental status grossly normal Speech and movement: Normal speech and movement present and Clear speech present Affect: normal affect Attitude: cooperative Thought process: Normal thought process present Thought content: Normal thought content present Insight: Fair insight present (Psych) Judgement: Fair judgement present (Psych) Office Procedures Post Void Residual Post Residual Void Post Void Residual (PVR): 0 [id number] Void Residual by ultrasound Results AMB Urinalysis, Automated UA Leukoctes 0 Jeaneth/uL Last Edit by [email or web address] on 09/27/23 14:00 UA Nitrite Negative Last Edit by [email or web address] on 09/27/23 14:00 UA Urobilinogen 0.2 mg/dL Last Edit by [email or web address] on 09/27/23 14:00 UA Protein 0 mg/dL Last Edit by [email or web address] on 09/27/23 14:00 UA pH 6.0 Last Edit by [email or web address] on 09/27/23 14:00 UA Blood 0 Dk/uL Last Edit by [email or web address] on 09/27/23 14:00 UA Specific [place] 1.025 Last Edit by [email or web address] on 09/27/23 14:00 UA Ketone Negative Last Edit by [email or web address] on 09/27/23 14:00 UA Bilirubin 0 mg/dL Last Edit by [email or web address] on 09/27/23 14:00 UA Glucose 0 mg/dL Last Edit by [email or web address] on 09/27/23 14:00 Results Reviewed Results Reviewed: Laboratory Last Values Urine pH (Auto) 6.0 09/27/23 13:59 Specific [place] (Auto) 1.025 09/27/23 13:59 Urine Protein (Auto) 0 mg/dL 09/27/23 13:59 Glucose (UA)(Auto) 0 mg/dL 09/27/23 13:59 Urine Ketones (Auto) Negative 09/27/23 13:59 Urine Blood (Auto) 0 Dk/uL 09/27/23 13:59 Urine Nitrite (Auto) Negative 09/27/23 13:59 Urine Bilirubin (Auto) 0 mg/dL 09/27/23 13:59 Urine Urobilinogen (Auto) 0.2 mg/dL 09/27/23 13:59 Leukocyte Esterase (Auto) 0 Jeaneth/uL 09/27/23 13:59 Assessment & Plan Assessment & Plan (1) Urinary urgency: Code(s): R39.15 - Urgency of urination (2) Urinary frequency: Code(s): R35.0 - Frequency of micturition (3) Urinary incontinence: Code(s): R32 - Unspecified urinary incontinence Plan In office urinalysis results reviewed with the patient today; as noted above. PVR 0 mL. Patient reports be happy with current voiding parameters on 25 mg of Myrbetriq daily. Continue with Myrbetriq as discussed and prescribed; refill provided. Discussed at length potential causes for lower urinary tract symptoms patient is experiencing. Discussed pelvic floor therapy at length. Patient otherwise denies any bothersome urinary issues or concerns at this time. Follow-up in 1 year with PVR; or sooner with any issues, concerns, and or questions. Orders: Orders AMB Urinalysis Automated Today Z13.9 - Encounter for screening, unspecified AMB Post Void Residual by ultrasound Today R39.15 - Urgency of urination Medications: Changed From mirabegron ER (Myrbetriq) 25 mg PO DAILY 30 days 30 tabs 1RF N30.10 - Interstitial cystitis (chronic) without hematuria, N32.81 - Overactive bladder, R35.1 - Nocturia, R39.15 - Urgency of urination To mirabegron ER (Myrbetriq) 25 mg PO DAILY 90 days 90 tabs 4RF N30.10 - Interstitial cystitis (chronic) without hematuria, N32.81 - Overactive bladder, R35.1 - Nocturia, R39.15 - Urgency of urination Patient Instructions: The patient had an opportunity to ask questions regarding the treatment plan. All questions were answered. Physical exam, labs, and imaging were discussed and reviewed in detail. As well as risks, benefits, and discussion of treatment choices. No major barriers to understanding were identified. The patient expressed understanding and agreement with the above treatment plan. The patient was made aware they should contact our office by phone for worsening of their current condition, the appearance of new symptoms, or with any questions or concerns. Compliance is encouraged with any medications and follow up testing that is ordered. It is a privilege to be allowed the opportunity to participate in? your urological care.? Again, if you have any questions or concerns If you have any questions or concerns please do not hesitate to contact me. The office is [phone]. This note is constructed using voice recognition software. While every effort has been made to ensure accuracy punching machine operator errors may have been included. Yours sincerely, VAZQUEZ Aiken Coding Level of Care Code Est Pt Level 3 (38965) Diagnoses Urinary urgency R39.15 Urinary frequency R35.0 Urinary incontinence R32 CPT Codes Post Residual Void - PVR CPT Code: 90159-Soye Void Residual by ultrasound ([id number])
== END 2023-09-27 14:21 | disposition home or self-care (01) ==
PROVIDERS: PCP General Practice; Visit Provider Nurse Practitioner Family
DX: R39.15 Urgency of urination (principal); R35.0 Frequency of micturition; R32 Unspecified urinary incontinence
CPT/HCPCS: 99213

== ENCOUNTER → 2023-09-27 12:49 | Outpatient (BNVA) | payer MEDICARE, SELFPAY | PROVIDERS: PCP General Practice; Visit Provider Nurse Practitioner Family | DX: R39.15 Urgency of urination (principal); R35.0 Frequency of micturition; R32 Unspecified urinary incontinence | CPT/HCPCS: 51798; 81003; 99212 ==

== ENCOUNTER 2023-10-24 11:11 | Day surgery (SDC) | payer MEDICARE, MEDICAID, SELFPAY ==
[2023-10-20 14:56] VITALS: BMI 20.1
--- NOTE | 2023-10-21 09:57 | HO.ANESPROP2 ---
Documented by User: Cece Van NP 10/21/23 09:59 HPI - Anesthesia Eval Consult details Narrative: 68yo F for Colonoscopy Buprenorphine patch for back pain PMFSH Active Problems Active Problems: All Active Problems (Updated 08/16/23 @ 23:00 by Margarita Oviedo [facility]) Urinary urgency (Acute) Urinary frequency (Acute) Urinary incontinence (Acute) Lumbar radiculopathy (Acute) Pruritic erythematous rash (Acute) Myofascial pain (Acute) Postlaminectomy syndrome, cervical (Acute) Past Medical History Medical History Allergies History of COVID-19 PETER (obstructive sleep apnea) Neuropathy Hypothyroidism Chronic neck pain History of post traumatic stress disorder Depression Anxiety Asthma Family History Family History Mother Colon cancer Family/Other Colon cancer Family history of problems with anesthesia: No Surgical History Surgical History Hx of colonoscopy Hx of esophagogastroduodenoscopy Hx of appendectomy Hx of section Hx of tonsillectomy Previous back surgery History of Problems with Anesthesia: No Social History Social History Alcohol intake: current Alcohol intake frequency: a few times a week Patient Tobacco Use Status: Never used 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 Meds Allergies Allergy/AdvReac Type Severity Reaction Status Date / Time bupropion Allergy Unknown Verified 10/24/23 11:30 clonidine Allergy Unknown Verified 10/24/23 11:30 gabapentin Allergy Unknown Verified 10/24/23 11:30 meloxicam Allergy Unknown Verified 10/24/23 11:30 pregabalin Allergy Unknown Verified 10/24/23 11:30 Sulfa (Sulfonamide Allergy Unknown Verified 10/24/23 11:30 Antibiotics) zolpidem Allergy Unknown Verified 10/24/23 11:30 prasozin Allergy Unknown Uncoded 10/24/23 11:30 Home Medications Medication Instructions Recorded Confirmed Last Taken Type docusate sodium 100 mg capsule 100 - 200 mg PO DAILY PRN 04/21/22 10/20/23 Unknown History Constipation levothyroxine 75 mcg tablet 75 mcg PO DAILY 0610/20/23 10/24/23 07:30 History magnesium oxide 400 mg (241.3 mg 400 mg PO DAILY 04/21/22 10/20/23 Unknown History magnesium) tablet omeprazole 40 mg capsule,delayed 40 mg PO DAILY 04/21/22 10/20/23 Unknown History release trazodone 50 mg tablet 100 mg PO BEDTIME PRN Insomnia 04/21/22 10/20/23 Unknown History mupirocin 2 % topical ointment 1 appl topical BID-TID 05/19/22 10/20/23 Unknown History buprenorphine 20 mcg/hour weekly 1 patch transdermal Q7D 03/14/23 10/20/23 Unknown History transdermal patch (Butrans) sertraline 100 mg tablet 100 mg PO BID 07/04/23 10/20/23 10/24/23 07:30 History calcium carbonate 500 mg calcium 500 mg PO DAILY 08/08/23 10/20/23 Unknown History (1,250 mg) tablet alendronate 70 mg tablet 70 mg PO QWEEK 09/27/23 10/20/23 Unknown History Exam Height,Weight and Vital Signs: Height 5 ft 5 in Weight 54.885 kg Pertinent Lab Results Pertinent Lab Results: Laboratory Tests 07/25/22 07/25/22 06/23/23 12:30 12:30 11:21 WBC 11.5 H Hgb 12.0 Hct 36.3 L Plt Count 187 Sodium 141 Potassium 4.4 Chloride 109 H Carbon Dioxide BUN 11 Creatinine 0.77 06/23/23 11:21 WBC Hgb Hct Plt Count Sodium Potassium Chloride Carbon Dioxide 27 BUN Creatinine Assessment and Plan Assessment Anesthesia Assessment: Chart Reviewed Final Anesthetic Review Family History of Problems with Anesthesia: No History of Problems with Anesthesia: No Documented by User: Jeanna Veliz MD 10/24/23 13:26 PMFSH Active Problems Active Problems: All Active Problems (Updated 10/24/23 @ 12:07 by Jeanna Veliz MD) Urinary urgency (Acute) Urinary frequency (Acute) Urinary incontinence (Acute) Lumbar radiculopathy (Acute) Pruritic erythematous rash (Acute) Myofascial pain (Acute) Postlaminectomy syndrome, cervical (Acute) PETER- not using CPAP machine. States mask does not fit C/o pain all over Past Medical History Medical History Allergies History of COVID-19 PETER (obstructive sleep apnea) Neuropathy Hypothyroidism Chronic neck pain History of post traumatic stress disorder Depression Anxiety Asthma Family History Family History Mother Colon cancer Family/Other Colon cancer Surgical History Surgical History Hx of colonoscopy Hx of esophagogastroduodenoscopy Hx of appendectomy Hx of section Hx of tonsillectomy Previous back surgery Social History Social History Alcohol intake: current Alcohol intake frequency: a few times a week Patient Tobacco Use Status: Never used 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 Meds Allergies Allergy/AdvReac Type Severity Reaction Status Date / Time bupropion Allergy Unknown Verified 10/24/23 11:30 clonidine Allergy Unknown Verified 10/24/23 11:30 gabapentin Allergy Unknown Verified 10/24/23 11:30 meloxicam Allergy Unknown Verified 10/24/23 11:30 pregabalin Allergy Unknown Verified 10/24/23 11:30 Sulfa (Sulfonamide Allergy Unknown Verified 10/24/23 11:30 Antibiotics) zolpidem Allergy Unknown Verified 10/24/23 11:30 prasozin Allergy Unknown Uncoded 10/24/23 11:30 Home Medications Medication Instructions Recorded Confirmed Last Taken Type docusate sodium 100 mg capsule 100 - 200 mg PO DAILY PRN 04/21/22 10/20/23 Unknown History Constipation levothyroxine 75 mcg tablet 75 mcg PO DAILY 04/21/22 10/20/23 10/24/23 07:30 History magnesium oxide 400 mg (241.3 mg 400 mg PO DAILY 04/21/22 10/20/23 Unknown History magnesium) tablet omeprazole 40 mg capsule,delayed 40 mg PO DAILY 04/21/22 10/20/23 Unknown History release trazodone 50 mg tablet 100 mg PO BEDTIME PRN Insomnia 04/21/22 10/20/23 Unknown History mupirocin 2 % topical ointment 1 appl topical BID-TID 05/19/22 10/20/23 Unknown History buprenorphine 20 mcg/hour weekly 1 patch transdermal Q7D 03/14/23 10/20/23 Unknown History transdermal patch (Butrans) sertraline 100 mg tablet 100 mg PO BID 07/04/23 10/20/23 10/24/23 07:30 History calcium carbonate 500 mg calcium 500 mg PO DAILY 08/08/23 10/20/23 Unknown History (1,250 mg) tablet alendronate 70 mg tablet 70 mg PO QWEEK 09/27/23 10/20/23 Unknown History Exam Height,Weight and Vital Signs: Height 5 ft 5 in Weight 54.885 kg Vital Signs Temp Pulse Resp BP Pulse Ox O2 Del Method 98.3 F 63 16 130/63 97 Room Air 10/24/23 11:43 10/24/23 11:43 10/24/23 11:43 10/24/23 11:43 10/24/23 11:43 10/24/23 11:43 Airway Mallampati Class: III (small mouth opening) TM Dist: >3cm Neck ROM: Limited (H/o cervical disc surgery) Loose/Missing/Broken Teeth: No (Denies broken, loose, missing teeth) Heart: RRR Lungs: CTAB Assessment and Plan Assessment Anesthesia Assessment: Anesthesia Plan Discussed Final Anesthetic Review NPO: Yes ASA Class: III Final Preanesthetic Review: No Changes in Pt Med Stat, Meds/Allgs Chart Reviewed, Consent Obtained/Reviewed and Anes Risks/Benef Reviewed Patient Risk: Intermediate Procedure Risk: Low Assessment/Block/Sedation in SS: Assess/Block/Sedation-SS Anesthetic Plan Anesthetic Plan: MAC: Disposition: Standard PACU
[2023-10-24 11:33] VITALS: BMI 19.6
[2023-10-24 11:43] VITALS: BP 130/63; PULSE 63; RESP 16; TEMP 36.8; O2SAT 97
[2023-10-24] MEDS: Lactated Ringers 1,000 ML 100 ML IVCONT (12:04)
--- NOTE | 2023-10-24 12:08 | MHC.SHP ---
Pre-Procedural Eval Section A Date of Service: 10/24/23 Section B Chief Complaint: Surveillance for colon polyps, constipation Relevant Family History (Specify if Yes): Yes Relevant Social History: None Present Medications: see Short Stay Collaborative assessment Medical History: Significant History (History of COVID-19 PETER (obstructive sleep apnea) Neuropathy Hypothyroidism Chronic neck pain History of post traumatic stress disorder Depression Anxiety Asthma) History of Previous Operations: Relevant previous surgery/procedure and date(s) (Hx of colonoscopy Hx of esophagogastroduodenoscopy Hx of appendectomy Hx of section Hx of tonsillectomy Previous back surgery Surgical history unknown) Allergies: Allergies Allergy/AdvReac Type Severity Reaction Status Date / Time bupropion Allergy Unknown Verified 10/24/23 11:30 clonidine Allergy Unknown Verified 10/24/23 11:30 gabapentin Allergy Unknown Verified 10/24/23 11:30 meloxicam Allergy Unknown Verified 10/24/23 11:30 pregabalin Allergy Unknown Verified 10/24/23 11:30 Sulfa (Sulfonamide Allergy Unknown Verified 10/24/23 11:30 Antibiotics) zolpidem Allergy Unknown Verified 10/24/23 11:30 prasozin Allergy Unknown Uncoded 10/24/23 11:30 Review of Systems Sugical H&P ROS: Negative: Constitution, Cardiovascular and Respiratory and Yes, Specify: Gastrointestinal (constipation) Exam Surgical H&P Exam: Normal: Heart, Normal: Lungs, Normal: Extremities and Normal: Abdomen Plan Diagnosis/Plan: Unchanged I have reviewed the history and physical and performed a pertinent physical examination on my patient. No changes have occurred unless specified. Time Spent With Patient Time: Total time managing care of this patient today ____ minutes.
--- NOTE | 2023-10-24 12:15 | P.OP_ITS ---
Operative Note Operative Note Date of Service: 10/24/23 Narrative: COLONOSCOPY TILL CECUM WITH SNARE POLYPECTOMY Pre-op diagnosis: Surveillance for colon polyps Post-op diagnosis:? Colon polyps, diverticulosis Endoscopist:? Ollie De León MD Anesthesia:?MAC Consent: Indications for the procedure and potential complications of bleeding, perforation, reaction to medications and missed diagnosis were discussed with the patient and informed consent was obtained. Instrument: Olympus PCF H 190 L variable stiffness pediatric colonoscope Monitoring: Vital signs and clinical assessment, intermittent blood pressure monitoring, continuous EKG monitoring, Pulse oximetry and Carbon Dioxide monitoring were done throughout the procedure. Please see anesthesia flowsheet. Colon withdrawl time was 34 minutes. Procedure: The patient was placed in the left lateral decubitis position and pre-procedure medications were administered. After a digital rectal examination of the ano-rectum, the video colonoscope was inserted into the rectum and advanced through the colon to the cecum. The colonoscope was slowly withdrawn in a retrograde panoramic fashion and the colon mucosa was carefully examined including a retroflexed view of the rectum. Findings and interventions are described below. Procedure Difficulty: Colon was long and tortuous and there was excessive spasm. Findings: Terminal Ileum: Not evaluated Cecum: Normal Ascending Colon: A 9-10 mm sessile polyp (overlying a fold) in mid AC - removed with a hot snare Scattered moderate diverticulosis throughout the entire colon Transverse Colon: A 7-8 mm sessile polyp - removed with a cold snare. Scattered moderate diverticulosis throughout the entire colon Descending Colon: Moderate diverticulosis Sigmoid Colon: A 10-12 mm sessile polyp - removed with a hot snare Severe diverticulosis with luminal narrowing. Rectum: Normal Ano-rectum: Normal Colon preparation: Good after copious irrigation Impression and Post Procedure Diagnosis: Colonoscopy Findings: One small and two medium sized polyps removed Moderate diverticulosis seen in the entire colon Plan: Await pathology results Patient has an appointment on 11/18/22 in the [facility] with Dyana Ramos FNP- [facility]. Repeat Colonoscopy interval based on path results - in 3-5 years if polyps are adenomatous and due to a history of adenomatous colon polyps. (needs extra laxatives for colon prep prior to next colonoscopy) Above findings were reviewed with the patient and colon polyps and diverticulosi s handouts were given in the discharge area
[2023-10-24 13:11] VITALS: BP 146/56; PULSE 65; RESP 18; TEMP 36.9; O2SAT 100
[2023-10-24 13:26] VITALS: BP 151/72; PULSE 60; RESP 18; O2SAT 99
[2023-10-24] MEDS: ondansetron HCL 4 MG/2 ML VIAL IVPUSH (13:35)
[2023-10-24 13:41] VITALS: BP 165/51; PULSE 60; RESP 18; TEMP 37.1; O2SAT 99
== END 2023-10-24 14:22 | disposition home or self-care (01) ==
PROVIDERS: PCP Internal Medicine; Visit Provider Internal Medicine Gastroenterology
PROC: 0DJD8ZZ Inspection of Lower Intestinal Tract, Via Natural or Artificial Opening Endoscopic (ICD-10-PCS; CPT 45378; principal; 2023-10-24 13:20)
DX: Z12.11 Encounter for screening for malignant neoplasm of colon (principal); D12.2 Benign neoplasm of ascending colon; D12.3 Benign neoplasm of transverse colon; K56.2 Volvulus; K57.30 Diverticulosis of large intestine without perforation or abscess without bleeding; K58.9 Irritable bowel syndrome, unspecified; K59.00 Constipation, unspecified; G47.33 Obstructive sleep apnea (adult) (pediatric); Z79.899 Other long term (current) drug therapy
CPT/HCPCS: 45385; 88305; J2405; J2704; J2765

== ENCOUNTER → 2023-10-24 11:11 | Outpatient (BNV) | payer MEDICARE, MEDICAID, SELFPAY | PROVIDERS: PCP Internal Medicine; Visit Provider Internal Medicine Gastroenterology | DX: Z12.11 Encounter for screening for malignant neoplasm of colon (principal); K57.30 Diverticulosis of large intestine without perforation or abscess without bleeding; D12.2 Benign neoplasm of ascending colon; D12.3 Benign neoplasm of transverse colon; D12.5 Benign neoplasm of sigmoid colon | CPT/HCPCS: 45385 ==

== ENCOUNTER 2023-11-18 14:49 | Outpatient (AMB) | payer MEDICARE, SELFPAY ==
--- NOTE | 2023-11-18 14:58 | MHC.OFFVIS ---
Intake Vital Signs 11/18/23 15:01 Height 5 ft 5 in Weight 117 lb BMI 19.5 BP 132/85 Blood Pressure Location Lt brachial Position Sitting Pulse 66 Intake Visit Reasons: s/p colon Sarthak Intake Note: Patient follow up for Constipation and colonoscopy results Patient cc: Upper abdominal pain, no a good appetite and she is doing much better with her BM. 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: No Accompanied by: Self / Same As Patient Allergies bupropion Allergy (Verified 11/18/23 14:56) Unknown clonidine Allergy (Verified 11/18/23 14:56) Unknown gabapentin Allergy (Verified 11/18/23 14:56) Unknown meloxicam Allergy (Verified 11/18/23 14:56) Unknown pregabalin Allergy (Verified 11/18/23 14:56) Unknown Sulfa (Sulfonamide Antibiotics) Allergy (Verified 11/18/23 14:56) Unknown zolpidem Allergy (Verified 11/18/23 14:56) Unknown prasozin Allergy (Uncoded 10/24/23 11:30) Unknown HPI s/p colon Sarthak HPI Details LAST VISIT: Constipation IBS (irritable bowel syndrome) Screen for colon cancer Plan Patient will go for colonoscopy on October 24. What to expect before during and after procedure discussed with patient. Stressed the importance of good bowel prep as well as clear liquid diet day before procedure. Patient is moving her bowels better now that she is taking MiraLax daily. Patient is status post cervical laminectomy and reports pain when laying on her left side. Patient believes that she will be okay if we can wedge pillow under her neck when laying on her side. I will see patient after the procedure, sooner on as needed basis. Patient is agreeable to this plan and verbalizes understanding of instructions. She was given the opportunity to ask questions and all questions answered. COLONOSCOPY: Findings: Terminal Ileum: Not evaluated Cecum: Normal Ascending Colon: A 9-10 mm sessile polyp (overlying a fold) in mid AC - removed with a hot snare Scattered moderate diverticulosis throughout the entire colon Transverse Colon: A 7-8 mm sessile polyp - removed with a cold snare. Scattered moderate diverticulosis throughout the entire colon Descending Colon: Moderate diverticulosis Sigmoid Colon: A 10-12 mm sessile polyp - removed with a hot snare Severe diverticulosis with luminal narrowing. Rectum: Normal Ano-rectum: Normal Colon preparation: Good after copious irrigation Impression and Post Procedure Diagnosis: Colonoscopy Findings: One small and two medium sized polyps removed Moderate diverticulosis seen in the entire colon Plan: Repeat Colonoscopy interval based on path results - in 3-5 years if polyps are adenomatous and due to a history of adenomatous colon polyps. (needs extra laxatives for colon prep prior to next colonoscopy) PATHOLOGY Diagnosis A. Colon, ascending, polypectomy: Tubular adenoma; negative for high-grade dysplasia or carcinoma. B. Colon, transverse, polypectomy: Fragments of tubular adenoma; negative for high-grade dysplasia or carcinoma. C. Colon, sigmoid, polypectomy: Hyperplastic mucosal polyp TODAY'S VISIT Patient is here today for follow-up and to discuss colonoscopy results. Patient denies any ill effects from the prep, anesthesia or procedure itself patient however had suboptimal prep and will need to return for colonoscopy in 3 years. Ascending colon and transfer colon tubular adenoma found. Patient denies any abdominal pain or discomfort. Reports of epigastric discomfort postprandially. Feels like omeprazole is not really working. Patient states that she took Nexium before and that was helpful. Patient reports occasional dyspepsia without dysphagia or odynophagia. Reports to have fair appetite but she believes that is because of the epigastric discomfort. Patient denies any nausea or vomiting. Denies any other GI concerning symptoms. Reports to be moving her bowels better now, taking MiraLax daily ? [facility] Medical History (Updated 11/26/23 @ 21:12 by Dyana Ramos, [facility]-) Tubular adenoma of colon Allergies History of COVID-19 PETER (obstructive sleep apnea) Neuropathy Hypothyroidism Chronic neck pain History of post traumatic stress disorder Depression Anxiety Asthma Surgical History Hx of colonoscopy Hx of esophagogastroduodenoscopy Hx of appendectomy Hx of section Hx of tonsillectomy Previous back surgery Family History Mother Colon cancer Family/Other Colon cancer Social History Alcohol intake: current Alcohol intake frequency: a few times a week Patient Tobacco Use Status: Never used 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 Review of Systems Const Denies weight gain and Denies weight loss ENT Reports no additional complaints, Denies dysphagia and Denies odynophagia Card Reports no additional complaints Resp Reports no additional complaints GI Denies abdominal pain, Denies belching, Denies melena, Denies bloating, Denies change in bowel habits, Denies dysphagia, Denies excessive flatus, Denies dyspepsia, Denies heartburn, Denies diarrhea, Denies loose stools, Denies nausea, Denies odynophagia and Denies vomiting Reports no additional complaints Musc Reports no additional complaints Neuro Reports no additional complaints Psych Reports no additional complaints Endo Reports no additional complaints Physical Exam Vital Signs: Last Vital Signs Pulse 66 11/18/23 15:01 BP 132/85 11/18/23 15:01 BMI result Body Mass Index 19.5 Const General: healthy appearing and no acute distress Nutritional Appearance: underweight Orientation/consciousness: patient oriented x3 HEENT Head: Yes normal to inspection, Yes normocephalic and Yes atraumatic Face and sinus: Yes normal facial exam Mouth: Normal oral and palatal mucosa present Throat: Yes posterior oropharynx normal, Yes tonsils normal and Yes uvula midline Eyes General: appearance normal, both eyes and all related structures Neck Neck: Yes normal visual inspection, Yes full ROM and Yes trachea midline Thyroid: Thyroid normal Resp Effort & Inspection: normal respiratory effort, able to speak in complete sentences, no tracheal deviation and symmetric chest movement Auscultation: clear to auscultation bilaterally Cardio Rate: regular rate GI Inspection: Yes normal to inspection and No distended Palpation (GI): Soft to palpation, not firm, nontender and No hepatosplenomegaly present Auscultation: normal bowel sounds General: Yes no CVA tenderness Back/Spine/Pelvis Back: no CVA tenderness Skin General skin exam: elasticity normal, turgor normal and dry skin Neuro General: patient oriented x3 Psych Appearance: grossly normal Mental Status: mental status grossly normal Assessment & Plan Assessment & Plan (1) Tubular adenoma of colon: Code(s): D12.6 - Benign neoplasm of colon, unspecified (2) IBS (irritable bowel syndrome): Code(s): K58.9 - Irritable bowel syndrome without diarrhea Qualifiers: Irritable bowel syndrome type: without diarrhea Qualified Code(s): K58.9 - Irritable bowel syndrome without diarrhea (3) Constipation: Code(s): K59.00 - Constipation, unspecified Qualifiers: Constipation type: slow transit constipation Qualified Code(s): K59.01 - Slow transit constipation Plan Patient can continue taking MiraLax daily. Patient will return for colonoscopy in 3 years, sooner if clinically necessary. Patient reports to have epigastric discomfort postprandially, will change PPI to Nexium. Patient will eat smaller meals and more often. Discussed with her avoiding dietary triggers and late night snacking. Staying upright for minimum 3 hours after meals discussed with patient. Patient will return in 3 months, sooner on as needed basis. She is agreeable to this plan and verbalizes understanding of instructions. She was given the opportunity to ask questions and all questions answered. Thank you for allowing me to participate in her care Medications: New esomeprazole magnesium (Nexium) 40 mg PO DAILY 30 caps 5RF K21.9 - Gastro-esophageal reflux disease without esophagitis Coding Level of Care Code Est Pt Level 3 (90133) Diagnoses Tubular adenoma of colon D12.6 Irritable bowel syndrome without diarrhea K58.9 Irritable bowel syndrome type: without diarrhea Slow transit constipation K59.01 Constipation type: slow transit constipation Time Spent (min) 30 Comment 20 minutes spent with patient and additional 10 minutes spent reviewing her records
[2023-11-18 15:01] VITALS: BP 132/85; PULSE 66; BMI 19.5
== END 2023-11-18 15:33 | disposition home or self-care (01) ==
PROVIDERS: PCP General Practice; Visit Provider Nurse Practitioner Family
DX: D12.6 Benign neoplasm of colon, unspecified (principal); K58.9 Irritable bowel syndrome, unspecified; K59.01 Slow transit constipation
CPT/HCPCS: 99213

== ENCOUNTER → 2023-11-18 14:49 | Outpatient (BNVA) | payer MEDICARE, SELFPAY | PROVIDERS: PCP General Practice; Visit Provider Nurse Practitioner Family | DX: K59.01 Slow transit constipation (principal); K58.9 Irritable bowel syndrome, unspecified; D12.6 Benign neoplasm of colon, unspecified | CPT/HCPCS: 99212 ==

== ENCOUNTER 2024-02-24 14:42 | Outpatient (AMB) | payer MEDICARE, SELFPAY ==
[2024-02-24 14:49] VITALS: BP 131/70; PULSE 64; BMI 19.1
--- NOTE | 2024-02-24 14:49 | A.OFFVIS_ITS ---
Vital Signs 02/24/24 14:49 Height 5 ft 5 in Weight 114 lb 10.246 oz BMI 19.1 BP 131/70 Blood Pressure Location Lt brachial Position Sitting Pulse 64 Intake Visit Reasons: 3 month follow up Intake Note: Patient in office today in 3 months follow up of abdominal pain. CC: Patient states she does not have much of an appetite. Denies other GI symptoms. She mentions that she recently had a fall and feels like her right sided ribs are bruised. Nurse Case Management Required: No Accompanied by: Self / Same As Patient Allergies bupropion Allergy (Verified 02/24/24 15:03) Unknown clonidine Allergy (Verified 02/24/24 15:03) Unknown gabapentin Allergy (Verified 02/24/24 15:03) Unknown meloxicam Allergy (Verified 02/24/24 15:03) Unknown pregabalin Allergy (Verified 02/24/24 15:03) Unknown Sulfa (Sulfonamide Antibiotics) Allergy (Verified 02/24/24 15:03) Unknown zolpidem Allergy (Verified 02/24/24 15:03) Unknown prasozin Allergy (Uncoded 10/24/23 11:30) Unknown HPI HPI 3 month follow up: Details: LAST VISIT Tubular adenoma of colon IBS (irritable bowel syndrome) Constipation Plan Patient can continue taking MiraLax daily. Patient will return for colonoscopy in 3 years, sooner if clinically necessary. Patient reports to have epigastric discomfort postprandially, will change PPI to Nexium. Patient will eat smaller meals and more often. Discussed with her avoiding dietary triggers and late night snacking. Staying upright for minimum 3 hours after meals discussed with patient. Patient will return in 3 months, sooner on as needed basis. She is agreeable to this plan and verbalizes understanding of instructions. She was given the opportunity to ask questions and all questions answered. ? Thank you for allowing me to participate in her care Medications New esomeprazole magnesium (Nexium) 40 mg PO DAILY 30 caps 5RF K21.9 TODAY'S VISIT Patient is here today for follow-up. Patient reports that she has been taking Nexium and has been helpful. Patient denies any epigastric pain, dyspepsia, dysphagia or odynophagia. Patient reports that she does not have a appetite. Patient reports feeling dizzy lately and reports that she has fallen couple times. Patient is on buprenorphine patch and reports that she was without it for 3 days as her pharmacy did not have refills [facility] Patient reports that she fell just couple weeks ago and bruised her ribs. Patient has not gone to the hospital to get x-rays. Patient denies any shortness of breath or chest pain. Patient reports that she did not notice any bruising. Patient reports that she is moving her bowels well now, taking MiraLax daily [facility] Medical History (Updated 11/26/23 @ 21:12 by Dyana Ramos, [facility]) Tubular adenoma of colon Allergies History of COVID-19 PETER (obstructive sleep apnea) Neuropathy Hypothyroidism Chronic neck pain History of post traumatic stress disorder Depression Anxiety Asthma Surgical History Hx of colonoscopy Hx of esophagogastroduodenoscopy Hx of appendectomy Hx of section Hx of tonsillectomy Previous back surgery Family History Mother Colon cancer Family/Other Colon cancer Social History Alcohol intake: current Alcohol intake frequency: a few times a week Patient Tobacco Use Status: Never used 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 Review of Systems Const Denies weight gain and Denies weight loss ENT Reports no additional complaints, Denies dysphagia and Denies odynophagia Card Reports no additional complaints Resp Reports no additional complaints GI Details: Decreased appetite Denies abdominal pain, Denies belching, Denies melena, Denies bloating, Denies change in bowel habits, Denies dysphagia, Denies excessive flatus, Denies dyspepsia, Denies heartburn, Denies diarrhea, Denies loose stools, Denies nausea, Denies odynophagia and Denies vomiting Reports no additional complaints Musc Reports no additional complaints Neuro Reports no additional complaints Psych Reports no additional complaints Endo Reports no additional complaints Physical Exam Vital Signs: Last Vital Signs Pulse 64 02/24/24 14:49 BP 131/70 02/24/24 14:49 BMI result Body Mass Index 19.1 Const General: healthy appearing and no acute distress Nutritional Appearance: underweight Orientation/consciousness: patient oriented x3 Resp Effort & Inspection: normal respiratory effort, able to speak in complete sentences, no tracheal deviation and symmetric chest movement Auscultation: clear to auscultation bilaterally Cardio Rate: regular rate GI Inspection: Yes normal to inspection and No distended Palpation (GI): Soft to palpation, not firm, nontender and No hepatosplenomegaly present Auscultation: normal bowel sounds General: Yes no CVA tenderness Back/Spine/Pelvis Back: no CVA tenderness Skin General skin exam: elasticity normal, turgor normal and dry skin Neuro General: patient oriented x3 Psych Appearance: grossly normal Mental Status: mental status grossly normal Assessment & Plan Assessment & Plan (1) IBS (irritable bowel syndrome): Code(s): K58.9 - Irritable bowel syndrome without diarrhea Qualifiers: Irritable bowel syndrome type: without diarrhea Qualified Code(s): K58.9 - Irritable bowel syndrome without diarrhea (2) Constipation: Code(s): K59.00 - Constipation, unspecified Qualifiers: Constipation type: drug induced constipation Qualified Code(s): K59.03 - Drug induced constipation (3) GERD (gastroesophageal reflux disease): Code(s): K21.9 - Gastro-esophageal reflux disease without esophagitis Qualifiers: Esophagitis presence: esophagitis presence not specified Qualified Code(s): K21.9 - Gastro-esophageal reflux disease without esophagitis (4) History of fall: Code(s): Z91.81 - History of falling (5) Dizziness: Code(s): R42 - Dizziness and giddiness Plan We will refer patient to dietitian. Patient reports poor appetite. Patient was encouraged to try protein shakes couple times a day. Increase her calorie intake. Eat more frequent meals. Referal to neurology, patient reports dizziness. Patient denies any chest pain or shortness of breath with or without activity. Continue MiraLax daily. Increase fluid intake and activity to promote better bowel motility. Continue Nexium in the morning half an hour before breakfast. I will see patient in 4 months, sooner on as needed basis. Patient is agreeable to this plan and verbalizes understanding of instructions. She was given the opportunity to ask questions and all questions answered. Thank you for allowing me to participate in her care Orders: Referrals [employer] Nutrition Referral R63.4 - Abnormal weight loss Neurology Referral R42 - Dizziness and giddiness, R29.6 - Repeated falls Medications: Refilled esomeprazole magnesium (Nexium) 40 mg PO DAILY 30 caps 5RF K21.9 - Gastro- esophageal reflux disease without esophagitis Coding Level of Care Code Est Pt Level 4 (38705) Diagnoses Irritable bowel syndrome without diarrhea K58.9 Irritable bowel syndrome type: without diarrhea Drug-induced constipation K59.03 Constipation type: drug induced constipation Gastroesophageal reflux disease, unspecified whether esophagitis present K21.9 Esophagitis presence: esophagitis presence not specified History of fall Z91.81 Dizziness R42 Time Spent (min) 35 Comment 25 minutes spent with patient and additional 10 minutes spent reviewing her records
== END 2024-02-24 15:38 | disposition home or self-care (01) ==
PROVIDERS: PCP General Practice; Visit Provider Nurse Practitioner Family
DX: K58.9 Irritable bowel syndrome, unspecified (principal); K59.03 Drug induced constipation; K21.9 Gastro-esophageal reflux disease without esophagitis; Z91.81 History of falling; R42 Dizziness and giddiness
CPT/HCPCS: 99214

== ENCOUNTER → 2024-02-24 14:42 | Outpatient (BNVA) | payer MEDICARE, SELFPAY | PROVIDERS: PCP General Practice; Visit Provider Nurse Practitioner Family | DX: K58.9 Irritable bowel syndrome, unspecified (principal); K59.03 Drug induced constipation; K21.9 Gastro-esophageal reflux disease without esophagitis; R42 Dizziness and giddiness; Z91.81 History of falling | CPT/HCPCS: 99212 ==

== ENCOUNTER 2024-05-09 08:38 | Outpatient (REF) | payer MEDICARE, OTHER, SELFPAY ==
--- NOTE | ~2024-05-09 | MR_ITS ---
EXAMINATION: MR BRAIN WITHOUT CONTRAST CLINICAL INFORMATION: Encephalopathy. COMPARISON: None available. TECHNIQUE: MRI of the brain was obtained using routine sequences without contrast. FINDINGS: No focal restricted diffusion is demonstrated to suggest acute or subacute cerebral ischemia. No evidence of acute or chronic hemorrhagic products on heme-sensitive imaging. Scattered and partially confluent periventricular, deep white matter, and brainstem T2 FLAIR hyperintensities consistent with moderate underlying microangiopathy. Proportional prominence of the ventricles and sulcal spaces without evidence of obstructive hydrocephalus. No abnormal mass effect. No midline shift. Normal appearance of the pituitary gland. Normal positioning of the cerebellar tonsils. Normal arterial and venous vascular flow voids are present. Normal, homogeneous marrow signal. Instrumented anterior fusion of the cervical spine. Mild mucosal thickening of the paranasal sinuses. Atelectasis of the right maxillary sinus. No signal abnormalities within the mastoids. MR/MR head/brain wo con IMPRESSION: 1. No acute intracranial abnormalities. 2. Moderate underlying microangiopathy and generalized cerebral volume loss.
== END 2024-05-09 08:39 | disposition home or self-care (01) ==
LOC: HO.MRI 08:38
PROVIDERS: PCP General Practice; Visit Provider Psychiatry & Neurology Neurology
DX: G93.40 Encephalopathy, unspecified (principal)
CPT/HCPCS: 70551

== ENCOUNTER 2024-05-10 14:14 | Outpatient (REF) | payer MEDICARE, MEDICAID, SELFPAY | END 2024-05-10 14:15 | disposition home or self-care (01) | LOC: HO.MAMMO 14:14 | PROVIDERS: PCP General Practice; Visit Provider General Practice | DX: Z12.31 Encounter for screening mammogram for malignant neoplasm of breast (principal) | CPT/HCPCS: 77063; 77067 ==

== ENCOUNTER → 2024-05-10 14:30 | Outpatient (BNV) | payer MEDICARE, MEDICAID, SELFPAY | PROVIDERS: PCP General Practice; Visit Provider Radiology Diagnostic Radiology | DX: Z12.31 Encounter for screening mammogram for malignant neoplasm of breast (principal) | CPT/HCPCS: 77063; 77067 ==

== ENCOUNTER 2024-06-18 14:55 | Outpatient (REF) | payer MEDICARE, MEDICAID, SELFPAY ==
[2024-06-18 16:41] LABS: D Dimer High Sensitivity < 150 NG/ML
== END 2024-06-18 14:56 | disposition home or self-care (01) ==
LOC: HO.HHCL 14:55
PROVIDERS: Visit Provider General Practice
DX: Z13.89 Encounter for screening for other disorder (principal)
CPT/HCPCS: 36415; 85379

== ENCOUNTER 2024-06-26 11:36 | Outpatient (AMB) | payer MEDICARE, SELFPAY ==
--- NOTE | 2024-06-26 11:47 | A.OFFVIS_ITS ---
Vital Signs 06/26/24 11:49 Height 5 ft 5 in Weight 122 lb 9.232 oz BMI 20.4 BP 150/74 H Blood Pressure Location Lt brachial Position Sitting Pulse 66 Pulse Source Pulse Oximeter Pulse Oximetry (%) 97 Oxygen Delivery Method Room Air Intake Visit Reasons: 4 month follow up Intake Note: Susana presents in office today for a scheduled 4 mos FUV. CC; Pt reports that they have been doing well with their sx management since their last visit. Pt has been having some cardiovascular issues which they are being seen for. Pt is concerned regarding their ability to be able to be seen here in the future due to the cost of the specialist copays. Pt would also like to revisit the results of their most recent colo s/p. Pt cannot recall the details. Supervisor Personnel Clerks Required: No Allergies bupropion Allergy (Verified 06/26/24 11:48) Unknown clonidine Allergy (Verified 06/26/24 11:48) Unknown gabapentin Allergy (Verified 06/26/24 11:48) Unknown meloxicam Allergy (Verified 06/26/24 11:48) Unknown pregabalin Allergy (Verified 06/26/24 11:48) Unknown Sulfa (Sulfonamide Antibiotics) Allergy (Verified 06/26/24 11:48) Unknown zolpidem Allergy (Verified 06/26/24 11:48) Unknown prasozin Allergy (Uncoded 10/24/23 11:30) Unknown HPI HPI 4 month follow up: Details: LAST VISIT: IBS (irritable bowel syndrome) Constipation GERD (gastroesophageal reflux disease) History of fall Dizziness Plan We will refer patient to dietitian. Patient reports poor appetite. Patient was encouraged to try protein shakes couple times a day. Increase her calorie intake. Eat more frequent meals. Referal to neurology, patient reports dizziness. Patient denies any chest pain or shortness of breath with or without activity. Continue MiraLax daily. Increase fluid intake and activity to promote better bowel motility. Continue Nexium in the morning half an hour before breakfast. I will see patient in 4 months, sooner on as needed basis. Patient is agreeable to this plan and verbalizes understanding of instructions. She was given the opportunity to ask questions and all questions answered. ? Thank you for allowing me to participate in her care Orders Referrals Lift Team Technician Nutrition Referral R63.4 Neurology Referral R42, R29.6 Medications Refilled esomeprazole magnesium (Nexium) 40 mg PO DAILY 30 caps 5RF K21.9 TODAY'S VISIT: Patient is here today for follow-up. Patient son urologist and was told that she has many strokes. Still dealing with balance. Currently has seen erisa attorney in [place]. Patient reports that her GI symptoms has got much better. She is taking Nexium daily and her symptoms of acid reflux has suppres sed. Patient is also moving her bowels daily. Occasionally using MiraLax. Denies melena, hematochezia, unintentional weight loss or ribbon like stools. Denies dyspepsia, dysphagia or odynophagia. Last colonoscopy in October of 2023 and recommendation was made for repeat colonoscopy in 3 years. Patient is worry about her health and she is quite upset that she has to have frequent appointments at different specialists and pay high co-pay. 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 Review of Systems Const Denies weight gain and Denies weight loss ENT Reports no additional complaints, Denies dysphagia and Denies odynophagia Card Reports no additional complaints Resp Reports no additional complaints GI Denies abdominal pain, Denies belching, Denies melena, Denies bloating, Denies change in bowel habits, Denies dysphagia, Denies excessive flatus, Denies dyspepsia, Denies heartburn, Denies diarrhea, Denies loose stools, Denies nausea, Denies odynophagia and Denies vomiting Reports no additional complaints Musc Reports no additional complaints Neuro Reports no additional complaints Psych Reports no additional complaints Endo Reports no additional complaints Physical Exam Vital Signs: Last Vital Signs Pulse 66 06/26/24 11:49 BP 150/74 H 06/26/24 11:49 Pulse Ox 97 06/26/24 11:49 Oxygen Delivery Method Room Air 06/26/24 11:49 BMI result Body Mass Index 20.4 Const General: healthy appearing and no acute distress Nutritional Appearance: underweight Orientation/consciousness: patient oriented x3 Resp Effort & Inspection: normal respiratory effort, able to speak in complete sentences, no tracheal deviation and symmetric chest movement Auscultation: clear to auscultation bilaterally Cardio Rate: regular rate GI Inspection: Yes normal to inspection and No distended Palpation (GI): Soft to palpation, not firm, nontender and No hepatosplenomegaly present Auscultation: normal bowel sounds General: Yes no CVA tenderness Back/Spine/Pelvis Back: no CVA tenderness Skin General skin exam: elasticity normal, turgor normal and dry skin Neuro General: patient oriented x3 Psych Appearance: grossly normal Mental Status: mental status grossly normal Assessment & Plan Assessment & Plan (1) Tubular adenoma of colon: Code(s): D12.6 - Benign neoplasm of colon, unspecified Category: Medical (2) IBS (irritable bowel syndrome): Code(s): K58.9 - Irritable bowel syndrome without diarrhea Qualifiers: Irritable bowel syndrome type: without diarrhea Qualified Code(s): K58.9 - Irritable bowel syndrome without diarrhea (3) Constipation: Code(s): K59.00 - Constipation, unspecified Qualifiers: Constipation type: slow transit constipation Qualified Code(s): K59.01 - Slow transit constipation (4) GERD (gastroesophageal reflux disease): Code(s): K21.9 - Gastro-esophageal reflux disease without esophagitis Qualifiers: Esophagitis presence: without esophagitis Qualified Code(s): K21.9 - Gastro-esophageal reflux disease without esophagitis (5) History of fall: Code(s): Z91.81 - History of falling (6) Dizziness: Code(s): R42 - Dizziness and giddiness Plan Continue Nexium. Patient will follow-up in this office on as-needed basis. Currently her symptoms are suppressed patient can continue avoiding dietary triggers and late night snacking. May use MiraLax on as needed basis. Next colonoscopy in October of 2026, sooner if clinically necessary. Patient is agreeable to current plan of care and verbalizes understanding of instructions. She was given the opportunity to ask questions and all questions answered. Thank you for allowing me to care Medications: Refilled esomeprazole magnesium (Nexium) 40 mg PO DAILY 30 caps 5RF K21.9 - Gastro- esophageal reflux disease without esophagitis Coding Level of Care Code Est Pt Level 3 (77238) Diagnoses Tubular adenoma of colon D12.6 Irritable bowel syndrome without diarrhea K58.9 Irritable bowel syndrome type: without diarrhea Slow transit constipation K59.01 Constipation type: slow transit constipation Gastroesophageal reflux disease without esophagitis K21.9 Esophagitis presence: without esophagitis History of fall Z91.81 Dizziness R42 Time Spent (min) 25 Comment 15 minutes spent with patient and additional 10 minutes spent reviewing her records
[2024-06-26 11:49] VITALS: BP 150/74; PULSE 66; O2SAT 97; BMI 20.4
== END 2024-06-26 13:11 | disposition home or self-care (01) ==
PROVIDERS: PCP General Practice; Visit Provider Nurse Practitioner Family
DX: D12.6 Benign neoplasm of colon, unspecified (principal); K58.9 Irritable bowel syndrome, unspecified; K59.01 Slow transit constipation; K21.9 Gastro-esophageal reflux disease without esophagitis; Z91.81 History of falling; R42 Dizziness and giddiness
CPT/HCPCS: 99213

== ENCOUNTER → 2024-06-26 11:36 | Outpatient (BNVA) | payer MEDICARE, SELFPAY | PROVIDERS: PCP General Practice; Visit Provider Nurse Practitioner Family | DX: D12.6 Benign neoplasm of colon, unspecified (principal); K58.9 Irritable bowel syndrome, unspecified; K59.01 Slow transit constipation; K21.9 Gastro-esophageal reflux disease without esophagitis; R42 Dizziness and giddiness; Z91.81 History of falling | CPT/HCPCS: 99212 ==

== ENCOUNTER 2024-08-07 16:21 | Outpatient (REF) | payer MEDICARE, SELFPAY ==
--- NOTE | ~2024-08-07 | MR_ITS ---
EXAMINATION: MR LUMBAR SPINE WITHOUT CONTRAST CLINICAL INFORMATION: Chronic low back pain. Recent fall. COMPARISON: No priors. Correlated to x-ray dated March 26, 2022. TECHNIQUE: MRI of the lumbar spine was obtained using routine sequences without contrast. FINDINGS: Last rib-bearing vertebra labeled T12. Bone marrow in homogeneity. Multilevel marginal osteophyte formation and disc desiccation, T12-L1 to L5-S1. Bone marrow STIR signal within the endplates of L1 to, T12-L1 and T11-12. Multilevel Schmorl nodes. Grade 1 retrolisthesis, L1-2, L3-4 and to a lesser extent L4-5 and L5-S1 on a degenerative basis. Conus medullaris ends at the pedicle of L1 with normal signal. T12-L1: Central and right subarticular disc herniation resulting in ventral deformity of the thecal sac. No neuroforamina stenosis. L1-2: Broad-based disc bulging. Facet joint and ligamentum flavum hypertrophy. Reduced AP diameter of the thecal sac and the neural foramen encroaching the neural elements. L2-3: Broad-based disc bulging. Facet joint and ligamentum flavum hypertrophy. Reduced AP diameter of the thecal sac and the neuroforamina. L3-4: Broad-based disc bulging. Facet joint and ligamentum flavum hypertrophy. Reduced AP diameter of the thecal sac and the neural foramen encroaching the neural elements. L4-5: Broad-based disc bulging. Facet joint and ligamentum flavum hypertrophy. Reduced AP diameter of the thecal sac and the neural foramen encroaching the neural elements more conspicuous on the left neuroforamen. L5-S1: Broad-based disc bulging. Facet joint hypertrophy. Bilateral neuroforamina stenosis encroaching the exiting nerve roots. No gross central spinal canal stenosis. Fatty atrophy of the lower lumbar muscles. No prevertebral compartment hematoma, mass or fluid collection. MR/MR lumbar spine wo con IMPRESSION: Multilevel spondylosis, T12-L1 to L5-S1 more conspicuous at L1-2 compressing the neural elements of the thecal sac and to a lesser extent L3-4-2 L4-5 levels and encroaching the exiting nerve roots at multiple levels. Electronically signed by: Pasquale Bergeron MD 09/10/2024 10:58 AM EDT
== END 2024-08-07 16:22 | disposition home or self-care (01) ==
LOC: HO.MRI 16:21
PROVIDERS: PCP General Practice; Visit Provider General Practice
DX: M54.50 Low back pain, unspecified (principal)
CPT/HCPCS: 72148

== ENCOUNTER → 2024-08-07 16:31 | Outpatient (BNV) | payer MEDICARE, SELFPAY | PROVIDERS: PCP General Practice; Visit Provider Radiology Diagnostic Radiology | DX: M54.50 Low back pain, unspecified (principal) | CPT/HCPCS: 72148 ==

== ENCOUNTER 2025-01-10 09:30 | Outpatient (REF) | payer MEDICARE, SELFPAY ==
--- OUTSIDE RECORDS SUMMARY | 2025-01-10 10:44 | XMS_ITS | Encounter Summary ---
Author Organization [employer] Address [address] [facility] 7t [place] [address] Care Team Providers Care Rustic Terrazzo Setter Name Role Phone Izzy Sigala MD Primary Care Provider [phone] Encounter Details Date Type Department Care Team ([facility] st Contact Info) Description 12/17/2024 Telephone [facility] [address] [place], [place] [phone] Izzy Sigala MD [address] [place], [place] [phone] Social History Tobacco Use Types Packs/Day Years Used Date Smoking Tobacco: Former Cigarettes Passive Smoke Exposure: Past Smokeless Tobacco: Never Alcohol Use Standard Drinks/Week Comments Never 0 (1 standard drink = 0.6 oz pur e alcohol) Depression Answer Date Recorded Patient Health Questionnaire-9 Score 16 11/20/2024 Patient Health Questionnaire-9 Score 16 11/20/2024 Last PHQ-9: Questionnaire Data Not on file 0 11/20/2024 Housing Stability Answer Date Recorded What is your housing situation today? I have kalpana jeff 03/16/[address] you li ve. Do you have problems with any of the following? Oven or stove not working 03/16/2024 Food Insecurity Answer Date Recorded Within the past 12 months, y ou worried that your food would run out before you got money to buy more: Sometimes True 2023 Within the past 12 months,th e food you bought just didn't last and you didn't have enough money to get more: Never True 03/16/2024 Transportation Answer Date Recorded In the past 12 months, has l ack of transportation kept you from medical appts, meetings, work or from getting things needed for daily living? No 03/16/2024 Utilities Answer Date Recorded In the past 12 months, has t he electric, gas, oil or water company threatened to shut off services in your home? No 03/16/2024 Depression Answer Date Recorded Patient Health Questionnaire-2 Score 2 11/20/2024 Internet Access Answer Date Recorded Internet Access Q1 Yes 08/13/2024 Internet Access Q2 Not on file 08/13/2024 Comments Unknown Sex and Gender Information Value Date Recorded Sex Assigned at Female 09/13/2022 10:39 AM EDT Legal Sex Female 10:39 AM EDT Gender Identity Female 09/13/2022 10:39 AM EDT Sexual Orientation Straight 09/13/2022 10 :39 AM EDT documented as of this encounter Miscellaneous Notes * Telephone Encounter - Merline Staton - 12/18/2024 1:42 PM EST PA was sent to [facility] and denied. Review questionnaire was sent along with denial. Provider reviewed and answered, form was sent via faxed back to [facility] for reply and decision. Fax confirmation was uploaded into Media. * Telephone Encounter - Ruma Boles - 12/17/2024 3:18 PM EST TC from pt calling stating still need a PA for medication buprenorphine (Butrans) 20 MCG/HR . Pt is been waiting for a PA since 12/11 want to see if PCP can send a alternative until PA is done. Pt calling crying due to her pain. PCP DR. Sigala documented in this encounter Plan of Treatment Upcoming Encounters Date Type Department Care Team (Late st Contact Info) Description 02/01/2025 11:00 AM EDT Telemedicine [facility] [address] [place] [address] Divya Neil RN 02/05/2025 9:45 AM EDT Office Visit [facility] [address] [place] [address] 02/22/2025 4:00 PM EDT Office Visit [facility] [address] [place] [address] Izzy Sigala MD [address] [place] [address] documented as of this encounter Visit Diagnoses Not on filedocumented in this encounter Additional Health Concerns Assessment Noted Time PHQ-9 Depression Total Score: 16 025 9:39 AM EST documented as of this encounter Care Teams Rustic Terrazzo Setter Relationship Specialty Start Date End Date Izzy Sigala MD [address] [place], [place] [phone] PCP - General Family Medicine 10/30/21 documented as of this encounter
--- OUTSIDE RECORDS SUMMARY | 2025-01-10 10:44 | XMS_ITS | Encounter Summary ---
Author Organization [employer] Address [address] [facility] 7t [place] [address] Care Team Providers Care Fisher Lampara Net Name Role Phone Izzy Sigala MD Primary Care Provider [phone] Encounter Details Date Type Department Care Team (Late Contact Info) Description 02/02/2023 Orders Only [facility] [address] [place], [place] [phone] Izzy Sigala MD [address] [place] [address] Left hip pain (Primary Dx) Social History Tobacco Use Types Packs/Day Years Used Date Smoking Tobacco: Never Smokeless Tobacco: Never Alcohol Use Standard Drinks/Week Comments Never 0 (1 standard drink = 0.6 oz pur e alcohol) PHQ-2 Answer Date Recorded Patient Health Questionnaire-2 Score 0 11/19/2022 Depression Answer Date Recorded Patient Health Questionnaire-2 Score 0 11/19/2022 Comments Unknown Sex and Gender Information Value Date Recorded Sex Assigned at Female 09/13/2022 10:39 AM EDT Legal Sex Female 10:39 AM EDT Gender Identity Female 09/13/2022 10:39 AM EDT Sexual Orientation Straight 09/13/2022 10 :39 AM EDT COVID-19 Exposure Response Date Recorded In the last 10 days, have yo u been in contact with someone who was confirmed or suspected to have Coronavirus/COVID-19? No / Unsure 01/24/2023 3:45 PM EDT documented as of this encounter Plan of Treatment Upcoming Encounters Date Type Department Care Team (Late Contact Info) Description 02/01/2025 11:00 AM EDT Telemedicine [address] [address] Divya Neil, RN 02/05/2025 9:45 AM EDT Office Visit [address] [address] 02/22/2025 4:00 PM EDT Office Visit [address] [address] Izzy Sigala MD [address] [place] [address] documented as of this encounter Visit Diagnoses Diagnosis Left hip pain- Primary Pain in joint, pelvic region and thigh documented in this encounter Care Teams Fisher Lampara Net Relationship Specialty Start Date End Date Izzy Sigala MD [address] [place] [address] PCP - General Family Medicine 10/30/21 documented as of this encounter
--- OUTSIDE RECORDS SUMMARY | 2025-01-10 10:44 | XMS_ITS | Encounter Summary ---
Author Organization [employer] Address [address] [facility] 7t [place] [address] Care Team Providers Care Winder Tender Name Role Phone Izzy Sigala MD Primary Care Provider [phone] Reason for Referral * Consultation (Routine) - Closed Specialty Diagnoses / Procedures Referred By Contac t Referred To Contact Behavioral Health Diagnoses Anxiety Izzy Sigala MD [address] [place] [address] Phone: tel: fax: Referral ID Status Reason Start Date Expiration Date V isits Requested Visits Authorized [id number] Closed Specialty Services Required 11/20/2024 11/20/2025 1 1 Encounter Details Date Type Department Care Team (Late st Contact Info) Description 11/20/2024 Orders Only [facility] [address] [place], [place] [phone] Izzy Sigala MD [address] [place], [place] [phone] Anxiety (Primary Dx) Social History Tobacco Use Types [...] AM EDT documented as of this encounter Plan of Treatment Upcoming Encounters Date Type Department Care Team (Late st Contact Info) Description 02/01/2025 11:00 AM EDT Telemedicine [facility] [address] [place] [address] Divya Neil RN 02/05/2025 9:45 AM EDT Office Visit [address] [address] 02/22/2025 4:00 PM EDT Office Visit [address] [address] Izzy Sigala MD [address] [place] [address] Scheduled Referrals Name Type Priority Associated Diagnoses Order Schedule Referral to Behavioral Health Outpatient Referral Routine Anxiety Expected: 11/20/2024 (Approximate), Expires: 11/20/2025 documented as of this encounter Visit Diagnoses Diagnosis Anxiety- Primary Anxiety state, unspecified documented in this encounter Additional Health Concerns Assessment Noted Time PHQ-9 Depression Total Score: 16 025 9:39 AM EST documented as of this encounter Care Teams Winder Tender Relationship Specialty Start Date End Date Izzy Sigala MD [address] [place] [address] PCP - General Family Medicine 10/30/21 documented as of this encounter
--- OUTSIDE RECORDS SUMMARY | 2025-01-10 10:44 | XMS_ITS | Encounter Summary ---
Author Organization [employer] Address [address] [facility] 7 [place] [address] Care Team Providers Care Fairing Worker Name Role Phone Izzy Sigala MD Primary Care Provider [phone] Reason for Visit * Reason Onset Date Comments Nurse Triage 12/26/2024 Encounter Details Date Type Department Care Team ([facility] st Contact Info) Description 12/26/2024 Telephone [facility] [address] [place], [place] [phone] Izzy Sigala MD [address] [place], [place] [phone] Nurse Triage Social History Tobacco Use Types Packs/Day Years [...] your housing situation today? I have kalpana sing 03/16/[address] you li [...] encounter Miscellaneous Notes * Telephone Encounter - Ayla Wahl RN - 12/26/2024 12:47 PM EST Call returned to Sivan Orosco to triage below. Spoke with son who is Emergency Contact. Person onset of lump on right shoulder blade 2 days ago. No injury or fall. Denies any redness, bruising or rash. Area is tender to touch. Not warm. About the size of a tennis ball. Having difficulty with ROM. Advised of disposition, agrees to sick on site tomorrow for exam. Reviewed home care advise,ER precautions and reasons to call back. Protocol Used: Skin Lump or Localized Swelling (Adult) Protocol-Based Disposition: See in Office or Video Visit Today Override (Final) Disposition: See in Office or Video Visit Today or Tomorrow Override Reason: No appointments available Future Appointments Date Time Provider Department Center 12/27/2024 9:15 AM MARCE Amaya [facility] 02/01/2025 11:00 AM Divya Neil RN [facility] 02/05/2025 9:45 AM [facility] 02/22/2025 4:00 PM Izzy Sigala MD [facility] Insurance verified as active per Real Time Eligibility in [facility]. Video visit offer not recorded Positive Triage Question: * Swelling is painful to touch and no fever * All higher-acuity triage questions were negative Care Advice Discussed: * Reasons To Call Back - Fever occurs - Spreading redness occurs - Swelling becomes painful - You become worse * Telephone Encounter - Flako Becerra - 12/26/2024 12:38 PM EST Symptom: Back Pain - Not From Injury Outcome: Transfer to a nurse or provider NOW! Reason: Age over 30: sudden AND severe upper back pain The caller accepted this outcome. documented in this encounter Plan of Treatment Upcoming Encounters Date Type Department Care Team (Late st Contact Info) Description 02/01/2025 11:00 AM EDT Telemedicine [address] [address] Divya Neil RN 02/05/2025 9:45 AM EDT Office Visit [address] [address] 02/22/2025 4:00 PM EDT Office Visit [address] [address] Izzy Sigala MD [address] [place] [address] documented as of this encounter Visit Diagnoses Not on filedocumented in this encounter Additional Health Concerns Assessment Noted Time PHQ-9 Depression Total Score: 16 025 9:39 AM EST documented as of this encounter Care Teams Fairing Worker Relationship Specialty Start Date End Date Izzy Sigala MD [address] [place] [address] PCP - General Family Medicine 10/30/21 documented as of this encounter
--- OUTSIDE RECORDS SUMMARY | 2025-01-10 10:44 | XMS_ITS | Encounter Summary ---
Author Organization [employer] Address [address] [facility] 7t [place] [address] Care Team Providers Care Mass Spectrometry Specialist Name Role Phone Izzy Sigala MD Primary Care Provider [phone] Encounter Details Date Type Department Care Team ([facility] st Contact Info) Description 11/04/2023 Orders Only [facility] [address] [place], [place] [phone] Izzy Sigala MD [address] [place] [address] Other cervical disc degeneration, unspecified cervical region Social History Tobacco Use Types Packs/Day Years Used Date Smoking Tobacco: Former Cigarettes Passive Smoke Exposure: Past Smokeless Tobacco: Never Alcohol Use Standard Drinks/Week Comments Never 0 (1 standard drink = 0.6 oz pur e alcohol) PHQ-2 Answer Date Recorded Patient Health Questionnaire-2 Score 0 11/19/2022 Housing Stability Answer Date Recorded What is your housing situation today? I have kalpana jeff 08/31/[address] you li ve. Do you have problems with any of the following? None of the above 08/31/2023 Food Insecurity Answer Date Recorded Within the past 12 months, y ou worried that your food would run out before you got money to buy more: Never True 08/31/2023 Within the past 12 months,th e food you bought just didn't last and you didn't have enough money to get more: Never True Transportation Answer Date Recorded In the past 12 months, has l ack of transportation kept you from medical appts, meetings, work or from getting things needed for daily living? Yes, it has kept me from medical appointments or getting medications. 08/25/2023 Utilities Answer Date Recorded In the past 12 months, has t he electric, gas, oil or water company threatened to shut off services in your home? No 08/31/2023 Depression Answer Date Recorded Patient Health Questionnaire-2 [...] Info) Description 02/01/2025 11:00 AM EDT Telemedicine [facility] [address] [place] [address] Divya Neil RN 02/05/2025 9:45 AM EDT Office Visit [address] [address] 02/22/2025 4:00 PM EDT Office Visit [address] [address] Izzy Sigala MD [address] [place] [address] documented as of this encounter Visit Diagnoses Diagnosis Other cervical disc degeneration, unspecified cervical region documented in this encounter Care Teams Mass Spectrometry Specialist Relationship Specialty Start Date End Date Izzy Sigala MD [address] [place] [address] PCP - General Family Medicine 10/30/21 documented as of this encounter
--- OUTSIDE RECORDS SUMMARY | 2025-01-10 10:44 | XMS_ITS | Clinical Summary ---
Author Organization [employer] Address [address] [address] 7 [place] [address] Care Team Providers Care Calendar Control Clerk Blood Bank Name Role Phone Izzy Sigala MD Primary Care Provider [phone] Allergies Active Allergy Reactions Criticality Noted Date Comments Bupropion 12/16/2021 Clonidine 12/16/2021 Clonidine Hcl Dizziness 03/18/2021 Falls Gabapentin 12/16/2021 Meloxicam 12/16/2021 Prazosin 12/16/2021 Pregabalin 12/16/2021 Sulfa Antibiotics Unknown 03/18/2021 Zolpidem Hallucinations High 03/18/2021 Auditory Medications * This document contains information received from the source organization and may not represent a complete record from that organization. sennosides (Senokot) 8.6 MG tablet Take 1 tablet by mouth 1 (one) time each day. 12/21/19 22 Active Emollient (CeraVe Moisturizing) cream APPLY TO ENTIRE BODY 2-4 TIMES A DAY 12/03/19 23 Active hydrocortisone 2.5 % cream 01/06/20 23 Active triamcinolone (Kenalog) 0.1 % creamIndications :Impetigo Apply topically every 12 (twelve) hours. apply by topical route 2 times every day a thin layer to the affected area(s) 80 g 1 04/20/20 23 Active mometasone (Elocon) 0.1 % cream APPLY TO ITCHY AREAS ON UPPER BACK TWICE DAILY, THEN ONCE DAILY, THEN EVERY OTHER UPON IMPROVEMENT 05/10/20 23 Active triamcinolone (Kenalog) 0.025 % cream APPLY TO ITCHY AREA ON RIGHT EYEBROW TWICE DAILY FOR FLARES. DECREASE USE SYMPTOMS IMPROVE 05/10/20 23 Active tacrolimus (Protopic) 0.1 % ointment APPLY TO THE ITCHIEST AREAS TWICE A DAY WHEN NEEDED 06/27/20 23 Active GaviLAX 17 GM/SCOOP powder TAKE 17 GRAMS (1 CAPFUL) MIXED IN LIQUID AND TAKE DAILY 07/04/20 23 Active Myrbetriq 25 MG 24 hr tablet TAKE 1 TABLET BY MOUTH EVERY DAY FOR 30 DAYS 08/18/20 23 Active betamethasone, augmented, (Diprolene AF) 0.05 % cream APPLY TO ITCHY AREAS ON UPPER BACK 2 TIMES DAILY NEEDED FOR FLARES 09/29/20 23 Active calcium 500 MG tablet Take 1 tablet (500 mg) by mouth with breakfast and with evening meal. 180 tablet 3 10/14/20 23 Active magnesium oxide (Mag-Ox) 400 (240 Mg) MG tablet TAKE 1 TABLET BY MOUTH EVERY DAY 90 tablet 3 01/31/20 24 Active esomeprazole (NexIUM) [address] capsule Take 40 mg by mouth Once per day. 01/31/20 24 Active Oyster Shell Calcium 500 MG tablet TAKE 1 TABLET (500 MG) BY MOUTH WITH BREAKFAST AND WITH EVENING MEAL 10/31/20 23 Active levothyroxine (Synthroid, Levoxyl) 75 MCG tablet Take 1 tablet (75 mcg) by mouth Once per day. 90 tablet 3 03/16/20 24 025 Active sertraline (Zoloft) 100 MG tablet TAKE 2 TABLETS BY MOUTH EVERY DAY 180 tablet 3 03/16/20 24 Active docusate sodium (Colace) 100 MG capsule TAKE 1-2 CAPSULES BY MOUTH EVERY DAY NEEDED 180 capsule 3 04/23/20 24 Active memantine (Namenda) 5 MG tablet Take 5 mg by mouth 2 times daily. 06/12/20 24 Active buPROPion (Wellbutrin) 75 MG tablet 08/14/20 24 Active naloxone (Narcan) 4 mg/0.1 mL nasal sprayIndications :Chronic neck pain with history of 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 Administer 1 spray (4 mg) into affected nostril(s) if needed for opioid reversal. May repeat every 2-3 minutes if needed, alternating nostrils, until medical assistance becomes available. 2 each 3 08/23/20 24 025 Active alendronate (Fosamax) 70 MG tabletIndication s:Localized osteoporosis without current pathological fracture TAKE 1 TABLET BY MOUTH EVERY 7 DAYS. TAKE IN THE MORNING WITH A FULL GLASS OF WATER ON AN EMPTY STOMACH AND DO NOT TAKE ANYTHING ELSE BY MOUTH OR LIE DOWN FOR THE NEXT 30 MINUTES. 12 tablet 3 09/11/20 24 Active traZODone (Desyrel) 50 MG tablet TAKE 1 TABLET BY MOUTH AT BEDTIME 90 tablet 3 09/28/20 24 Active buprenorphine (Butrans) 20 MCG/HRIndication s:Cervicalgia Place 1 patch on the skin 1 (one) time per week. Do not start before December 11, 2024. 4 patch 5 12/11/19 25 Active clindamycin (Clindagel) 1 % gelIndications:F olliculitis Apply topically Once per day. 60 g 2 01/09/20 25 026 Active Chlorhexidine Gluconate (Hibiclens) 4 % solution Apply 1 Application topically Once per day. 118 mL 01/09/20 25 Active sodium chloride (Broncho Saline) 0.9 % aerosol solution Inhale 1 spray every 4 (four) hours if needed for wheezing. 90 mL 01/09/20 25 026 Active omeprazole (PriLOSEC) [address] capsuleIndicatio ns:Gastroesophag eal reflux disease without esophagitis TAKE 1 CAPSULE BY MOUTH EVERY DAY BEFORE A MEAL 90 capsule 3 01/18/20 23 025 Discontin ued(Ineff ective) Active Problems Problem Noted Date Diagnosed Date Vitreous hemorrhage, unspecified laterality 11/14 Moderately severe major depression 11/28/2024 Cortical senile cataract 11/28/2024 Tear film insufficiency 11/28/2024 Protein-calorie malnutrition, unspecified severi ty 08/23/2024 Assessment & Plan (11/28/2024 10:13 AM EST): Start Ensure supplementation 1can/day per GI and nylon mender recommendations Single subsegmental thrombot ic pulmonary embolism without acute cor pulmonale 08/23/2024 jail (current) use of opiate analgesic 08/14 Overview (08/23/2024): Dx: chronic neck pain Tx: butrans patch 20mcg/hr Tier II (q 3 months screening) Additional considerations: > 3 neck fusion surgeries Low back pain at multiple sites 06/22/2024 Assessment & Plan (06/22/2024 8:34 AM EDT): Patient has not improved with 3 months of physician directed therapy, including Tylenol/Butrans, heating pads, stretching, and chair exercise Concern with falls/lower extremity weakness/decreased muscle tone for cord compression MRI lumbar spine ordered Assessment & Plan (06/22/2024 8:18 AM EDT): Unclear if frequent falls is related to worsening back pain and instability. Will continue Butrans for pain as less sedating than other opioids - Tylenol prn up to 3 times daily - heat compresses - recommend gentle stretching and chair exercises - aqua therapy if possible - followup in 8-12 weeks to evaluate efficacy of these therapies and impact on falls Social isolation 10/17/2023 Assessment & Plan (10/17/2023 6:34 AM EST): Consider ways to create community or connection Vertigo 07/14/2023 Nasal discharge 07/14/2023 Age-related osteoporosis wit hout current pathological fracture 05/11/2023 Assessment & Plan (09/01/2023 6:00 AM EDT): DEXA done 05/05/23 Lowest T score -2.6 at L hip Continue Alendronate WEEKLY, stay upright for two hours afterwards Repeat DEXA in 2-3 years Assessment & Plan (07/14/2023 2:59 PM EDT): DEXA done 05/05/23 Lowest T score -2.6 at L hip Re-start Alendronate WEEKLY, stay upright for two hours afterwards Assessment & Plan (05/31/2023 8:49 PM EDT): DEXA done 05/05/23 Lowest T score -2.6 at L hip Start Alendronate weekly, stay upright for two hours afterwards followup with me in 6 weeks to see if she can tolerate it (has had problems with swallowing in the past) and if not we will consider other therapeutic options Pain of right thumb 04/20/2023 Assessment & Plan (04/20/2023 11:32 AM EDT): Fell on her hand in the garage two weeks ago, landed on concrete Mild swelling, pain with ROM Encounter for osteoporosis s creening in asymptomatic postmenopausal patient 04/20/2023 Assessment & Plan (04/20/2023 11:51 AM EDT): Pt does not think she has had a DEXA scan ever Needs this as high risk for fragility fracture Mixed stress and urge urinary incontinence 04/20 Assessment & Plan (04/20/2023 11:53 AM EDT): This has been occurring for many years Doing Kegels and limiting fluid intake Anemia 04/20/2023 Chronic tension-type headache, not intractable 0 04/20/2023 Assessment & Plan (04/20/2023 1:02 PM EDT): Will re-refer to neurology, Dr Oseguera regarding BALBUENA, + mini-cog, possible MS dx Chronic neck pain with history of cervical spina l surgery 01/27/2023 Assessment & Plan (06/22/2024 8:30 AM EDT): Discussed her recent Butrans withdrawal, 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, also she wants to switch pickup of patches to [facility] - called pharmacy to confirm that they continue to stock SOPHIE patches, and 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 Assessment & Plan (06/22/2024 8:23 AM EDT): Discussed her recent Butrans withdrawal, 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, also she wants to switch pickup of patches to [facility] - called pharmacy to confirm that they continue to stock SOPHIE patches, and that she will pick them up here Assessment & Plan (04/20/2023 1:00 PM EDT): Continue Butran 20mcg every 72 hours, refills placed for next due date 05/02/23 at [facility] in [place], [place] Dronabinol [facility]MA submitted to help with both neck pain and neurogeneic prutitis, continue OTC gummies for now Decide about spinal stimulator with pain mgmt Assessment & Plan (01/27/2023 2:46 PM EDT): Continue Butran 20mcg every 72 hours Dronabinol [facility]LEMA submitted to help with both neck pain and neurogeneic prutitis Acute idiopathic pericarditis 11/23/2022 Assessment & Plan (01/27/2023 2:46 PM EDT): Presumed viral Resolving, breathing is returning to baseline Impetigo 11/23/2022 Degenerative disc disease, cervical 11/18/2022 Insomnia 11/18/2022 Overview (11/18/2022): 03/2021 - Managed on Trazodone 50mg QHS PRN. Last Assessment & Plan: Stable on current regimen. Constipation 11/18/2022 History of pulmonary embolus (PE) 10/19/2022 Assessment & Plan (06/22/2024 8:31 AM EDT): Normal D dimer today Assessment & Plan (04/20/2023 1:01 PM EDT): continue Eliquis 5mg Pericardial effusion 08/09/2022 Assessment & Plan (09/01/2023 5:59 AM EDT): Resolved Has f/u with cardiology Took colchicine and long steroid taper Most recent Echo 08/19/23 with EF 55-60% and no effusion CB, relaxation, continue to monitor her symtpoms Assessment & Plan (01/27/2023 2:46 PM EDT): Resolved Has f/u with cardiology Took colchicine and long steroid taper History of falling 08/09/2022 Assessment & Plan (06/22/2024 8:32 AM EDT): Saw Dr Oseguera for neuro follow-up, MRI with global volume loss and microangiopathic disease Trial Memantine Also recommend exercise for brain and light muscular exercise that does not involve falling risk Assessment & Plan (06/22/2024 8:21 AM EDT): Home PT ordered 10/2023, not implemented yet Meds for sedating culprits- Butrans, Atarax, Benadryl, Trazodone. Discontinued Atarax and Benadryl Neuro consult for dizziness Gentle seated exercise Safety precautions in the home Possibly related to lower extremity weakness/nerve compression Assessment & Plan (10/17/2023 6:36 AM EST): Home PT ordered Review meds for sedating culprits- Butrans, Atarax, Benadryl, Trazodone 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 03/29/2022 Assessment & Plan (05/31/2023 8:48 PM EDT): Dermatology [facility] [place] evaluated the patient with me in the past Recommended chronic antihistamine for neurogenic pruritis continue with marijuana gummies if helpful Saw derm INSTRUCTION ASSISTANT PRINCIPAL at [facility] few weeks ago, they recommend mometasone, eucerin, added hydroxyzine after we called today Assessment & Plan (04/20/2023 12:59 PM EDT): Dermatology [facility] [place] evaluated the patient with me in the past Recommended chronic antihistamine for neurogenic pruritis continue with marijuana gummies if helpful Assessment & Plan (01/27/2023 2:47 PM EDT): Dermatology [facility] [place] evaluated the patient with me, Recommended chronic antihistamine for neurogenic pruritis and agrees with Dronabinol PA Asthma 12/21/2021 Acquired hypothyroidism 12/16/2021 Chronic anxiety 12/16/2021 Chronic thoracic back pain 12/16/2021 Chronic post-traumatic stress disorder Depressive disorder 12/16/2021 Neuropathy 12/16/2021 Assessment & Plan (04/20/2023 12:58 PM EDT): Cannot tolerate Gabapentin or Lyrica Obstructive sleep apnea of adult 12/16/2021 Assessment & Plan (04/20/2023 12:58 PM EDT): Cannot tolerate masks Gastroesophageal reflux disease without esophagi tis 07/21/2021 Overview (11/18/2022): 07/2021 - Managed on Omeprazole 40mg daily. Last Assessment & Plan: Stable on current regimen. Left-sided low back pain with left-sided sciatic a 06/12/2015 Resolved Problems Problem Noted Date Diagnosed Date Resolved Date Anxiety 11/18/2022 11/28/2024 Overview (06/22/2024): 03/2021 - Managed on Sertraline 200mg daily. Assessment & Plan (06/22/2024 8:31 AM EDT): Declines BH referral for therapy, will continue to offer and would benefit from increased coping strategies Encounters * This document contains information received from the source organization and may not represent a complete record from that organization. Date Type Department Care Team Description 01/10/[address] [address] Izzy Sigala MD 01/09/2025 11:30 AM EST Office Visit [address] [address] Izzy Sigala MD Chest pain, unspecified type (Primary Dx); Cervicalgia; Folliculitis 01/09/2025 Travel 12/27/2024 9:15 AM EST Office Visit [address] [address] Sania Cruz ANP Chronic right shoulder pain (Primary Dx); Chronic bilateral thoracic back pain; jail (current) use of opiate analgesic 12/27/2024 Travel 12/26/[address] [address] Izzy Sigala MD Nurse Triage 12/18/[address] [address] Gisselle Gutierrez, FREDO Robbins 12/18/[address] [address] Izzy Sigala MD telephone call 12/17/[address] [address] Izzy Sigala MD 12/12/[address] [address] Izzy Sigala MD Nurse Triage 12/11/[address] [address] Izzy Sigala MD Prior Authorization 12/03/[address] [address] Izzy Sigala MD Cervicalgia 11/29/2024 Telephone [facility] [address] [place] [address] Ryanne Bradley RN 11/29/2024 Travel 11/27/2024 9:00 AM EST Office Visit [address] [address] Izzy Sigala MD Moderately severe major depression (CMS/HCC) (Primary Dx); Encounter for immunization; Vitreous hemorrhage, unspecified laterality (CMS/HCC); Protein-calorie malnutrition, unspecified severity (CMS/HCC); Single subsegmental thrombotic pulmonary embolism without acute cor pulmonale (CMS/HCC); 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; Chronic neck pain with history of 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; Chronic anxiety; Chronic post-traumatic stress disorder; History of falling; jail (current) use of opiate analgesic; Social isolation; Acquired hypothyroidism 11/27/2024 Travel 11/20/2024 Orders Only [address] [address] Izzy Sigala MD Anxiety (Primary Dx) 11/16/2024 1:30 PM EST Telemedicine [address] [address] 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 of 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 11/16/[address] [address] Divya Neil, RN BH referral 11/16/2024 Travel 11/16/2024 Telephone [facility] [address] [place] [address] Divya Neil RN Recommend LOAD CHECKER Tele Tier 2 11/15/[address] [address] Adilia Mishra [place] recall 10/25/2024 Patient Outreach [address] [phone] Izzy Sigala MD Pre-visit Planning ([facility] screening completed on 03/16/2024) from Last 3 Months Immunizations Name Administration Dates Next Due Influenza High-dose Quadriva lent Preservative Free 08/26/2023,08/05/2022,10/26/2021 Influenza, High Dose Seasona l, Preservative Free 11/27/2024 Moderna Covid-19 Vaccine 12+ 12/16/2021, 04/29/2021,04/19/2021,2020,03/28/2021 Pneumococcal Conjugate PCV 20 04/20/2023 Tdap 11/27/2024 Zoster, Recombinant 06/23/2023,04/20/2023 Social History Tobacco Use Types Packs/Day Years Used Date Smoking Tobacco: Former Cigarettes Passive Smoke Exposure: Past Smokeless Tobacco: Never Tobacco Cessation:Counseling Given: Not Answered Alcohol Use Standard Drinks/Week Comments Never 0 (1 standard drink = 0.6 oz pur e alcohol) Depression Answer Date Recorded Patient Health Questionnaire-9 Score 16 11/20/2024 Patient Health Questionnaire-9 Score 16 11/20/2024 Last PHQ-9: Questionnaire Data Not on file 0 11/20/2024 Housing Stability Answer Date Recorded What is your housing situation today? I have [place]al[place] jeff 03/16/[address] you [...] Orientation Straight 09/13/2022 10 :39 AM EDT Last Filed Vital Signs Vital Sign Reading Time Taken Comments Blood Pressure 161/92 01/09/2025 11:30 AM EST Pulse 72 01/09/2025 11:30 AM EST Temperature 36.9 ??C (98.4 ??F) 01/09/2025 11:[address] Respiratory Rate 15 01/09/2025 11:30 AM EST Oxygen Saturation 98% 01/09/2025 11:30 AM EST Inhaled Oxygen Concentration - - Weight 54.4 kg (120 lb) 01/09/2025 11:30 AM EST Height 165.1 cm (5' 5 ) 01/09/2025 11:30 AM EST Body Mass Index 19.97 01/09/2025 11:30 AM EST Plan of Treatment Upcoming Encounters Date Type Department Care Team (Late st Contact Info) Description 02/01/2025 11:00 AM EDT Telemedicine [facility] [address] [place] [id number] Divya Neil RN 02/05/2025 9:45 AM EDT Office Visit [facility] [address] [place] [phone] 02/22/2025 4:00 PM EDT Office Visit [facility] [address] [facility] [place] [address] Izzy Sigala MD [address] [facility] [place] [address] Health Maintenance Due Date Last Done Comments CT Colonography 1955 FIT DNA/Cologuard 1955 FIT 1955 FOBT 1955 Sigmoidoscopy 1955 Alcohol/Substance Use Screening 1966 Hepatitis C Screening 01/14/1972 RSV Patients and Patients Aged 60 years or older (1 - Risk 60-74 years 1-dose series) 2014 COVID-19 Vaccine ( season) 2024 12/16/2021, 04/29/2021, 04/19/2021, Additional history exists SDOH Screening 03/16/2025 03/16/2024 Mammogram 05/10/2025 05/10/2024, 08, 07/13/2023, Additional history exists Depression Monitoring (PHQ-9) 05/20/2025 11/20/2024, 11/20/2024 Depression Screening 11/20/2025 11/20/2024, 11/20/19 25 Tobacco Screening 01/09/2026 01/09/2025 Colonoscopy 11/14/2026 Colorectal Cancer Screening 11/14/2026 DTaP/Tdap/Td Vaccines (2 - Td or Tdap) 11/27/2034 11/27/2024 Pneumococcal Vaccine: 50+ Years Completed 04/20/2023 Zoster Vaccines Completed 06/23/2023, 04/20/2023 Influenza Vaccine Completed 11/27/2024, , 08/05/2022, Additional history exists HIB Vaccines Aged Out No longer eligi ble based on patient's age to complete this topic HPV Vaccines Aged Out No longer eligi ble based on patient's age to complete this topic Hepatitis A Vaccines Aged Out No long er eligible based on patient's age to complete this topic Hepatitis B Vaccines Aged Out No long er eligible based on patient's age to complete this topic IPV Vaccines Aged Out No longer eligi ble based on patient's age to complete this topic Meningococcal Vaccine Aged Out No dakota sarmad eligible based on patient's age to complete this topic RSV under 20 months Aged Out No longe r eligible based on patient's age to complete this topic Rotavirus Vaccines Aged Out No longer eligible based on patient's age to complete this topic Procedures Procedure Name Priority Date/Time Associated Diagnosis Comments BI MAMMOGRAM SCREENING TOMOSYNTHESIS BILATERAL Routine 05/10/2024 2:55 PM EDT from Last 3 Months or Most Recently Relevant to Health Maintenance Results * BI Mammogram Screening Tomosynthesis Bilateral (05/10/2024 2:55 PM EDT) Anatomical Region Laterality Modality Breast Bilateral Mammography 05/10/2024 2:55 PM EDT Narrative 06/08/2024 9:16 AM EDT ? [facility] [place] ? [address] ?[place] [address] ? Mammography Report ? Signed ? Patient: Kwesi,Sivan Meza ?MR#: MM ?? [id number] ? : 1955 ?Acct:[id number] ? Age/Sex: 69 / F ?ADM Date: //24 ? Loc: HO.MAMMO ? Attending Dr: Izzy Sigala MD ? Ordering Physician: Izzy Sigala ?Results: 1Negative ? Date of Service: //24 ?Follow Up: 1 Year From Orig ?? inal Mammogram ? Procedure(s): MM tomosynthesis screening BI ?? Accession Number(s): [id number] ? cc: Izzy Sigala ? EXAMINATION: ?? MM SCREENING DIGITAL BREAST TOMOSYNTHESIS, BILATERAL ? CLINICAL INFORMATION: ? Screening. Asymptomatic. ? COMPARISON: ?? Mammography: This study is compared with prior exams dating back to ?? 2019. ? TECHNIQUE: ?? Digital breast tomosynthesis is performed in both the craniocaudal and ?? mediolateral oblique views along with computer-aided detection (CAD). ?? Synthesized 2D images are generated from the tomosynthesis. ? FINDINGS: ?? The breasts are heterogeneously dense, which may obscure small masses ?? (ACR BI-RADS breast composition Category c). ? There are no significant masses, abnormal calcifications, or other ?? abnormalities. ? MM/MM tomosynthesis screening BI ?? IMPRESSION: ?? No mammographic evidence of malignancy. ? ASSESSMENT: ? BI-RADS BI-RADS 1 - Negative ? RECOMMENDATION: ?? Routine annual mammography screening. ? 1 year F/U ? This examination should not preclude the clinical evaluation of a ?? suspicious palpable abnormality. ? This patient's information was entered into a reminder system with a ?? target due date for their next mammogram. ? Dictated By: ?Marion Parsons MD ? Signed By: ?<Electronically signed by Marion Parsons MD in OV> ? 06/08/24 0912 ? DD/ 1455 ? TD/TT: ? Irrigationist Designer: ? Procedure Note Abhilash, Image - 06/08/2024 [facility] [address] [place] [address] [place] [address] Mammography Report Signed Patient: Sivan Orosco#: [id number] : 4Acct:[id number] Age/Sex: 69 / FADM Date: 05/10/24 Loc: ANTIONE Attending Dr: Izzy Sigala MD Ordering Physician: Caitie Sigalaults: 1Negative Date of Service: 05/10/24Follow Up: 1 Year From Orig inal Mammogram Procedure(s): MM tomosynthesis screening BI Accession Number(s): [id number] cc: Izzy Sigala EXAMINATION: MM SCREENING DIGITAL BREAST TOMOSYNTHESIS, BILATERAL CLINICAL INFORMATION: Screening. Asymptomatic. COMPARISON: Mammography: This study is compared with prior exams dating back to 2019. TECHNIQUE: Digital breast tomosynthesis is performed in both the craniocaudal and mediolateral oblique views along with computer-aided detection (CAD). Synthesized 2D images are generated from the tomosynthesis. FINDINGS: The breasts are heterogeneously dense, which may obscure small masses (ACR BI-RADS breast composition Category c). There are no significant masses, abnormal calcifications, or other abnormalities. MM/MM tomosynthesis screening BI IMPRESSION: No mammographic evidence of malignancy. ASSESSMENT: BI-RADS BI-RADS 1 - Negative RECOMMENDATION: Routine annual mammography screening. 1 year F/U This examination should not preclude the clinical evaluation of a suspicious palpable abnormality. This patient's information was entered into a reminder system with a target due date for their next mammogram. Dictated By: Marion Parsons MD Signed By: <Electronically signed by Marion Parsons MD in OV> 06/08/24 0912 DD/ 1455 TD/TT: Irrigationist Designer: Izzy Sigala MD IMG BI PROCEDURES Final Result from Last 3 Months or Most Recently Relevant to Health Maintenance Insurance [employer] MEDICARE REPLACEMENT HSN PARTIAL Care Teams Calendar Control Clerk Blood Bank Relationship Specialty Start Date End Date Izzy Sigala MD [address] [place] [id number] PCP - General Family Medicine 10/30/21
--- OUTSIDE RECORDS SUMMARY | 2025-01-10 10:44 | XMS_ITS | Encounter Summary ---
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 [address] [place], [place] [phone] Brionna Locke MD 230 [place] [address] Appointment Request Social History Tobacco Use Types Packs/Day Years [...] Date Recorded Patient Health Questionnaire-2 Score 2 03/16/2024 Internet Access Answer Date Recorded Internet Access [...] encounter Miscellaneous Notes * Telephone Encounter - Reymundo Elizalde - 08/29/2024 12:06 PM EDT TC from pt canceled 08/31 Derm Visit due to being sick . Advised pt if cancels provider is booking far . Pt understood . documented in this encounter Plan of Treatment Upcoming Encounters Date Type Department Care Team (Late st Contact Info) Description 02/01/2025 11:[address] [facility] [address] [place] [address] Divya Neil RN 02/05/2025 9:45 AM EDT Office Visit [facility] [address] [place] [address] 02/22/2025 4:00 PM EDT Office Visit [facility] [address] [place] [address] Izzy Sigala MD [address] [place] [address] documented as of this encounter Visit Diagnoses Not on filedocumented in this encounter Care Teams High Lift Mule Operator Relationship Specialty Start Date End Date Izzy Sigala MD [address] [place] [address] PCP - General Family Medicine 10/30/21 documented as of this encounter
--- OUTSIDE RECORDS SUMMARY | 2025-01-10 10:44 | XMS_ITS | Encounter Summary ---
Author Organization [employer] Address 75 [facility] 7 [place] [address] Care Team Providers Care Rn Psych Name Role Phone Izzy Sigala MD Primary Care Provider [phone] Reason for Visit * Reason Onset Date Comments telephone call 12/18/2024 Encounter Details Date Type Department Care Team ([facility] st Contact Info) Description 12/18/2024 Telephone [facility] MEDICINE 230 [place], [place] [phone] Izzy Sigala MD 230 [place], [place] [phone] telephone call Social History Tobacco Use Types Packs/Day Years [...] Telephone Encounter - Merline Staton - 12/18/2024 1:08 PM EST PA was sent to [facility] and denied. Review questionnaire was sent along with denial. Provider reviewed and answered, form was sent via faxed back to [facility] for reply and decision. Fax confirmation was uploaded into Media. * Telephone Encounter - Malika Mcdonald - 12/18/2024 12:46 PM EST TC from pt calling stating still need a PA for medication buprenorphine (Butrans) 20 MCG/HR . Pt is been waiting for a PA since 12/11 want to see if PCP can send a alternative until PA is done. Pt calling crying due to her pain. PCP DR. Sigala Pt son walked in today requesting a update on it. documented in this encounter Plan of Treatment Upcoming Encounters Date Type Department Care Team (Late st Contact Info) Description 02/01/2025 11:00 AM EDT Telemedicine [address] [address] Divya Neil, RN 02/05/2025 9:45 AM EDT Office Visit [facility] [address] [place] [address] [phone] 02/22/2025 4:00 PM EDT Office Visit [address] [address] Izzy Sigala MD [address] [place] [address] [phone] documented as of this encounter Visit Diagnoses Not on filedocumented in this encounter Additional Health Concerns Assessment Noted Time PHQ-9 Depression Total Score: 16 025 9:39 AM EST documented as of this encounter Care Teams Rn Psych Relationship Specialty Start Date End Date Izzy Sigala MD [address] [place] [address] PCP - General Family Medicine 10/30/21 documented as of this encounter
--- OUTSIDE RECORDS SUMMARY | 2025-01-10 10:44 | XMS_ITS | Encounter Summary ---
Author Organization [employer] Address 75 [facility] 7 [place] [address] Care Team Providers Care Senior Software Project Manager Name Role Phone Izzy Sigala MD Primary Care Provider [phone] Reason for Visit * Reason Comments Pain All over Encounter Details Date Type Department Care Team (Late st Contact Info) Description 01/09/2025 11:30 AM EST Office Visit [facility] MED[facility]INE 230 [place], [place] [phone] Izzy Sigala MD 230 [place], [place] [phone] Chest pain, unspecified type (Primary Dx); Cervicalgia; Folliculitis Social History Tobacco Use Types Packs/Day Years [...] AM EDT documented as of this encounter Last Filed Vital Signs Vital Sign Reading [...] Mass Index 19.97 01/09/2025 11:30 AM EST documented in this encounter Plan of Treatment Upcoming Encounters Date Type Department Care Team (Late st Contact Info) Description 02/01/2025 11:00 AM EDT Telemedicine [facility] [address] [place] [address] Divya Neil RN 02/05/2025 9:45 AM EDT Office Visit [address] [address] 02/22/2025 4:00 PM EDT Office Visit [address] [place] [address] Izzy Sigala MD 230 [place] [address] Scheduled Orders Name Type Priority Associated Diagnoses Orde r Schedule D-Dimer, Quantitative Lab Routine Chest pain, unspecified type Expected: 01/09/2025 (Approximate), Expires: 01/09/2026 documented as of this encounter Visit Diagnoses Diagnosis Chest pain, unspecified type- Primary Cervicalgia Folliculitis Other specified disease of hair and hair follicles documented in this encounter Additional Health Concerns Assessment Noted Time PHQ-9 Depression Total Score: 16 025 9:39 AM EST documented as of this encounter Care Teams Senior Software Project Manager Relationship Specialty Start Date End Date Izzy Sigala MD [address] [place] [address] PCP - General Family Medicine 10/30/21 documented as of this encounter
--- OUTSIDE RECORDS SUMMARY | 2025-01-10 10:44 | XMS_ITS | Encounter Summary ---
Author Organization [employer] Address 75 [facility] 7t [place] [address] Care Team Providers Care Barrel Inspector Tight Name Role Phone Izzy Sigala MD Primary Care Provider [phone] Reason for Referral * Medications - Closed Specialty Diagnoses / Procedures Referred By Contac t Referred To Contact Diagnoses Degenerative disc disease, cervical Chronic bilateral thoracic back pain Izzy Sigala MD 230 [place] [address] Phone: tel: fax: Referral ID Status Reason Start Date Expiration Date Visits Re quested Visits Authorized [id number] Closed 1 1 Encounter Details Date Type Department Care Team (Late st Contact Info) Description 12/03/2022 Orders Only [facility] MEDICINE 230 [place], [place] [phone] Izzy Sigala MD 230 [place], [place] [phone] Degenerative disc disease, cervical (Primary Dx); Chronic bilateral thoracic back pain Social History Tobacco Use Types Packs/Day Years [...] Recorded In the last 10 days, have lizzette u been in contact with someone who was confirmed or suspected to have Coronavirus/COVID-19? No / Unsure 11/19/2022 1:12 PM EST documented as of this encounter Plan of Treatment Upcoming Encounters Date Type Department Care Team (Late st Contact Info) Description 02/01/2025 11:00 AM EDT Telemedicine [facility] MEDICINE [address] [place] [address] Divya Neil RN 02/05/2025 9:45 AM EDT Office Visit [address] [address] 02/22/2025 4:00 PM EDT Office Visit [address] [address] Izzy Sigala MD [address] [place] [address] documented as of this encounter Visit Diagnoses Diagnosis Degenerative disc disease, cervical- Primary Chronic bilateral thoracic back pain documented in this encounter Care Teams Barrel Inspector Tight Relationship Specialty Start Date End Date Izzy Sigala MD [address] [place] [address] PCP - General Family Medicine 10/30/21 documented as of this encounter
--- OUTSIDE RECORDS SUMMARY | 2025-01-10 10:44 | XMS_ITS | Encounter Summary ---
Author Organization [employer] Address 75 [facility] 7 [place] [address] Care Team Providers Care District Branch Manager Name Role Phone Izzy Sigala MD Primary Care Provider [phone] Reason for Visit * Reason Onset Date Comments SULEMA Robbins 12/18/2024 Encounter Details Date Type Department Care Team ([facility] st Contact Info) Description 12/18/2024 Telephone [facility] MEDICINE 230 [place], [place] [phone] Gisselle Gutierrez, RN 230 [place] [address] SULEMA Robbins Social History Tobacco Use Types Packs/Day Years [...] * Telephone Encounter - Merline Staton - 12/19/2024 9:22 AM EST [facility] [place] was received today and completed by provider and sent back via Fax. Fax Confirmation was uploaded to Media. Provider will be reaching out to [facility] for additional Peer to Peer. * Telephone Encounter - Gisselle Gutierrez RN - 12/18/2024 4:06 PM EST Patients sister walked into red team in regards to butrans PA. Sister reports the patient urgently needs the butrans patches. RN called Merline to inquire on PA status. RN was informed [facility] requesting further information from PCP. Merline reports the PCP completed the questionnaire today and the documents were faxed to [facility] at 12:53pm (in social media assistant) however they take about 72 hours to review documents. RN inquired if there is a way to call them to expedite request however RN was informed the patient/family can call the back of the insurance card to the prescription drug number and inform them of the situation to see if they can expedite it. Sister called insurance company in the waiting room and was provided with the PA claim number however was informed the PA is still pending. RN called [facility] pharmacy to inquire on out of pocket cost for butrans patches for family to receive acouple while we await PA approval. RN was informed a box of 4 (cannot be broken up) is $19 OOP. RN was informed this can only be completed ONCE and pharmacy needs PCP approval. RN was able to speak to PCP who provided approval. Padmini ([place] manager of manufacturing) will continue to f/u with PA process. documented in this encounter Plan of Treatment Upcoming Encounters Date Type Department Care Team (Late st Contact Info) Description 02/01/2025 11:00 AM EDT Telemedicine [address] [address] Divya Neil RN 02/05/2025 9:45 AM EDT Office Visit [address] [address] 02/22/2025 4:00 PM EDT Office Visit [address] [address] Izzy Sigala MD [address] [place] [address] documented as of this encounter Visit Diagnoses Not on filedocumented in this encounter Additional Health Concerns Assessment Noted Time PHQ-9 Depression Total Score: 16 11/20/ 025 9:39 AM EST documented as of this encounter Care Teams District Branch Manager Relationship Specialty Start Date End Date Izzy Sigala MD [address] [place] [address] PCP - General Family Medicine 10/30/21 documented as of this encounter
--- OUTSIDE RECORDS SUMMARY | 2025-01-10 10:44 | XMS_ITS | Encounter Summary ---
Author Organization [employer] Address 75 [facility] 7 [place] [address] Care Team Providers Care Salesperson Floor Coverings Name Role Phone Izzy Sigala MD Primary Care Provider [phone] Reason for Visit * Reason Comments Med Refill Encounter Details Date Type Department Care Team (Late st Contact Info) Description 06/30/2023 Refill [facility] MED[facility]INE [address] [place] [address] [phone] Izzy Sigala MD [address] [place] [address] [phone] History of pulmonary embolus (PE) Social History Tobacco Use Types Packs/Day Years [...] 02/01/2025 11:00 AM EDT Telemedicine [facility] MED[facility]INE [address] [place] [address] [phone] Divya Neil RN 02/05/2025 9:45 AM EDT Office Visit [facility] [address] [place] [address] 02/22/2025 4:00 PM EDT Office Visit [facility] [address] [place] [address] Izzy Sigala MD 230 [place] [address] documented as of this encounter Visit Diagnoses Diagnosis History of pulmonary embolus (PE) documented in this encounter Care Teams Salesperson Floor Coverings Relationship Specialty Start Date End Date Izzy Sigala MD 230 [place] [address] PCP - General Family Medicine 10/30/21 documented as of this encounter
--- OUTSIDE RECORDS SUMMARY | 2025-01-10 10:44 | XMS_ITS | Encounter Summary ---
Author Organization [employer] Address 75 [facility] 7 [place] [address] Care Team Providers Care Propeller Layout Worker Name Role Phone Izzy Sigala MD Primary Care Provider [phone] Reason for Visit * Reason Comments Back Pain Encounter Details Date Type Department Care Team ([facility] st Contact Info) Description 12/27/2024 9:15 AM EST Office Visit [facility] MED[facility] 230 [place], [place] [phone] Sania Cruz, ANP 230 [place] [address] Chronic right shoulder pain (Primary Dx); Chronic bilateral thoracic back pain; 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 Social History Tobacco Use Types Packs/Day Years [...] Sign Reading Time Taken Comments Blood Pressure 150/80 12/27/2024 9:17 AM EST Pulse 68 12/27/2024 9:17 AM EST Temperature 36.9 ??C (98.4 ??F) 12/27/2024 9:17 AM ES T Respiratory Rate 21 12/27/2024 9:17 AM EST Oxygen Saturation - - Inhaled Oxygen Concentration - - Weight 53.1 kg (117 lb 2 oz) 12/27/2024 9:17 AM EST Height 165.1 cm (5' 5 ) 12/27/2024 9:17 AM EST Body Mass Index 19.49 12/27/2024 9:17 AM EST documented in this encounter Plan of Treatment Upcoming Encounters Date Type Department Care Team (Late st Contact Info) Description 02/01/2025 11:00 AM EDT Telemedicine [facility] MEDICINE [address] [place] [address] Divya Neil RN 02/05/2025 9:45 AM EDT Office Visit [facility] MEDICINE [address] [place] [address] 02/22/2025 4:00 PM EDT Office Visit [address] [address] Izzy Sigala MD 230 [place] [address] documented as of this encounter Visit Diagnoses Diagnosis Chronic right shoulder pain- Primary Pain in joint, shoulder region Chronic bilateral thoracic back pain 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
--- OUTSIDE RECORDS SUMMARY | 2025-01-10 10:44 | XMS_ITS | Encounter Summary ---
Author Organization [employer] Address 75 [facility] 7t [place] [address] Care Team Providers Care Sales Assoc Name Role Phone Izzy Sigala MD Primary Care Provider [phone] Encounter Details Date Type Department Care Team (Late st Contact Info) Description 04/08/2023 [facility] [employer] Information Management [address] [place] [address] Izzy Sigala MD [address] [place] [address] Social History Tobacco Use Types Packs/Day Years [...] Info) Description 02/01/2025 11:00 AM EDT Telemedicine [address] [address] Divya Neil RN 02/05/2025 9:45 AM EDT Office Visit [facility] MEDICINE [address] [place] [address] 02/22/2025 4:00 PM EDT Office Visit [facility] MEDICINE 230 [place], [place] [phone] Izzy Sigala MD 230 [place] [address] documented as of this encounter Visit Diagnoses Not on filedocumented in this encounter Care Teams Sales Assoc Relationship Specialty Start Date End Date Izzy Sigala MD [address] [place] [address] PCP - General Family Medicine 10/30/21 documented as of this encounter
--- OUTSIDE RECORDS SUMMARY | 2025-01-10 10:44 | XMS_ITS | Encounter Summary ---
Author Organization [employer] Address 75 [facility] 7t [place] [address] Care Team Providers Care Typewriter Mechanic Name Role Phone Izzy Sigala MD Primary Care Provider [phone] Encounter Details Date Type Department Care Team ([facility] st Contact Info) Description 01/10/2025 Telephone [facility] MEDICINE 230 [place], [place] [phone] Izzy Sigala MD 230 [place], [place] [phone] Social History Tobacco Use Types Packs/Day Years [...] encounter Miscellaneous Notes * Telephone Encounter - Malika Mcdonald - 01/10/2025 9:41 AM EST Error documented in this encounter Plan of Treatment Upcoming Encounters Date Type Department Care Team (Late st Contact Info) Description 02/01/2025 11:00 AM EDT Telemedicine [facility] MEDICINE [address] [place] [address] Divya Neil RN 02/05/2025 9:45 AM EDT Office Visit [address] [address] 02/22/2025 4:00 PM EDT Office Visit [address] [address] Izzy Sigala MD [address] [place] [address] documented as of this encounter Visit Diagnoses Not on filedocumented in this encounter Additional Health Concerns Assessment Noted Time PHQ-9 Depression Total Score: 16 025 9:39 AM EST documented as of this encounter Care Teams Typewriter Mechanic Relationship Specialty Start Date End Date Izzy Sigala MD [address] [place] [address] PCP - General Family Medicine 10/30/21 documented as of this encounter
--- OUTSIDE RECORDS SUMMARY | 2025-01-10 10:44 | XMS_ITS | Encounter Summary ---
Author Organization [employer] Address 75 [facility] 7 [place] [address] Care Team Providers Care Commercial Credit Officer Name Role Phone Izzy Sigala MD Primary Care Provider [phone] Reason for Visit * Reason Onset Date Comments Nurse Triage 12/12/2024 Encounter Details Date Type Department Care Team ([facility] st Contact Info) Description 12/12/2024 Telephone [facility] MEDICINE 230 [place], [place] [phone] Izzy Sigala MD 230 [place], [place] [phone] Nurse Triage Social History Tobacco Use Types [...] encounter Miscellaneous Notes * Telephone Encounter - Kandace Knapp LPN - 12/12/2024 4:16 PM EST Triage call returned to patient and spoke with patient Son Darnell. Per Son and conversations for med request for buprenorphine patch. Medication is still not available as it is pending prior authorization from Insurance company. Patient has been on medication for some time and is running into issue with refills each time. Pharmacy Rep checked this morning and PA not completed and called again now at time of call and is still not available. RX contacted and suggests family contact Insurance company to have them approve PA and fax it to RX now for med to be made available. Explained to Son Darnell who is in agreement with plan. FAx number to RX given at time of call. Protocol Used: Medication Question Call (Adult) Protocol-Based Disposition: Discuss with PCP and Callback by Nurse within 1 Hour Override (Final) Disposition: Go to ED Now Override Reason: Other Override Notes: Son advised if medication not available to seek ED for pain control. Video visit not offered Positive Triage Question: * Caller has URGENT medicine question about med that PCP or specialist prescribed and triager unable to answer question * All higher-acuity triage questions were negative * Telephone Encounter - Tcvivien CampRodríguez - 12/12/2024 4:00 PM EST Tc from pt returning call regarding prior message. Contact pt at [phone] * Telephone Encounter - Ramiro Shemar - 12/12/2024 1:44 PM EST Symptom: Pain - Severe Outcome: Talk to a nurse or provider within 15 minutes Reason: Abdominal pain Please contact pt at [phone] documented in this encounter Plan of Treatment Upcoming Encounters Date Type Department Care Team (Late st Contact Info) Description 02/01/2025 11:00 AM EDT Telemedicine [address] [address] Divya Neil RN 02/05/2025 9:45 AM EDT Office Visit [address] [address] 02/22/2025 4:00 PM EDT Office Visit [address] [address] Izzy Sigala MD [address] [place] [address] documented as of this encounter Visit Diagnoses Not on filedocumented in this encounter Additional Health Concerns Assessment Noted Time PHQ-9 Depression Total Score: 16 025 9:39 AM EST documented as of this encounter Care Teams Commercial Credit Officer Relationship Specialty Start Date End Date Izzy Sigala MD [address] [place] [address] PCP - General Family Medicine 10/30/21 documented as of this encounter
--- OUTSIDE RECORDS SUMMARY | 2025-01-10 10:44 | XMS_ITS | Encounter Summary ---
Author Organization [employer] Address 75 [facility] 7t [place] [address] Care Team Providers Care Undercover Cop Name Role Phone Izzy Sigala MD Primary Care Provider [phone] Encounter Details Date Type Department Care Team (Late st Contact Info) Description 10/22/2022 Orders Only [facility] MEDICINE [address] [place] [address] [phone] Izzy Sigala MD [address] [place] [address] [phone] Skin infection (Primary Dx); Bronchitis Social History Tobacco Use Types Packs/Day Years Used Date Smoking Tobacco: Never Assessed Comments Unknown Sex and Gender Information Value [...] suspected to have Coronavirus/COVID-19? No / Unsure 10/19/2022 2:33 PM EST documented as of this encounter Plan of Treatment Upcoming Encounters Date Type Department Care Team (Late st Contact Info) Description 02/01/2025 11:00 AM EDT Telemedicine [facility] MEDICINE [address] [place] [address] [phone] Divya Neil RN 02/05/2025 9:45 AM EDT Office Visit [address] [address] 02/22/2025 4:00 PM EDT Office Visit [facility] MEDICINE 230 [facility] [place] [address] Izzy Sigala MD 230 [place] [address] documented as of this encounter Visit Diagnoses Diagnosis Skin infection- Primary Unspecified local infection of skin and subcutaneous tissue Bronchitis Bronchitis, not specified as acute or chronic documented in this encounter Care Teams Undercover Cop Relationship Specialty Start Date End Date Izzy Sigala MD 230 [place] [address] PCP - General Family Medicine 10/30/21 documented as of this encounter
--- OUTSIDE RECORDS SUMMARY | 2025-01-10 10:44 | XMS_ITS | Encounter Summary ---
Author Organization [employer] Address [address] [facility] 7t [place] [address] Care Team Providers Care Four H Agent Name Role Phone Izzy Sigala MD Primary Care Provider [phone] Encounter Details Date Type Department Care Team ([facility] st Contact Info) Description 12/22/2023 Orders Only [facility] [address] [place], [place] [phone] Izzy Sigala MD [address] [place], [place] [phone] Chronic neck pain with history of 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 (Primary Dx) Social History Tobacco Use Types [...] Info) Description 02/01/2025 11:00 AM EDT Telemedicine [address] [address] Divya Neil RN 02/05/2025 9:45 AM EDT Office Visit [address] [address] 02/22/2025 4:00 PM EDT Office Visit [address] [address] Izzy Sigala MD [address] [place] [phone] documented as of this encounter Visit Diagnoses Diagnosis Chronic neck pain with history of 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- Primary documented in this encounter Care Teams Four H Agent Relationship Specialty Start Date End Date Izzy Sigala MD [address] [place] [phone] PCP - General Family Medicine 10/30/21 documented as of this encounter
--- OUTSIDE RECORDS SUMMARY | 2025-01-10 10:44 | XMS_ITS | Encounter Summary ---
Author Organization [employer] Address [address] [facility] 7t [place] [address] Care Team Providers Care Machine Cage Maker Name Role Phone Izzy Sigala MD Primary Care Provider Encounter Details Date Type Department Care Team (Latest Contact Info) Description 01/09/2025 Travel Social History Tobacco Use Types Packs/Day Years [...] Info) Description 02/01/2025 11:00 AM EDT Telemedicine [address] [address] Divya Neil, RN 02/05/2025 9:45 AM EDT Office Visit [address] [address] 02/22/2025 4:00 PM EDT Office Visit [address] [address] Izzy Sigala MD [address] [place] [phone] documented as of this encounter Visit Diagnoses Not on filedocumented in this encounter Additional Health Concerns Assessment Noted Time PHQ-9 Depression Total Score: 16 025 9:39 AM EST documented as of this encounter Care Teams Machine Cage Maker Relationship Specialty Start Date End Date Izzy Sigala MD [address] [place] [phone] PCP - General Family Medicine 10/30/21 documented as of this encounter
--- OUTSIDE RECORDS SUMMARY | 2025-01-10 10:44 | XMS_ITS | Encounter Summary ---
Author Organization [email or web address] Address [address] [facility] 7t [place] [address] Care Team Providers Care National Sales Director Name Role Phone Izzy Sigala MD Primary Care Provider [phone] Encounter Details Date Type Department Care Team (Latest Contact Info) Description 12/27/2024 Travel Social History Tobacco Use Types Packs/Day [...] Info) Description 02/01/2025 11:00 AM EDT Telemedicine [address] [address] Divya Neil, RN 02/05/2025 9:45 AM EDT Office Visit [address] [address] 02/22/2025 4:00 PM EDT Office Visit [address] [address] Izzy Sigala MD [address] [place] [address] documented as of this encounter Visit Diagnoses Not on filedocumented in this encounter Additional Health Concerns Assessment Noted Time PHQ-9 Depression Total Score: 16 025 9:39 AM EST documented as of this encounter Care Teams National Sales Director Relationship Specialty Start Date End Date Izzy Sigala MD [address] [place] [phone] PCP - General Family Medicine 10/30/21 documented as of this encounter
--- OUTSIDE RECORDS SUMMARY | 2025-01-10 10:44 | XMS_ITS | Encounter Summary ---
Author Organization [employer] Address [address] [facility] 7 [place] [address] Care Team Providers Care Extracorporeal Technician Name Role Phone Izzy Sigala MD Primary Care Provider [phone] Reason for Visit * Reason Onset Date Comments Prior Authorization 12/11/2024 Encounter Details Date Type Department Care Team ([facility] st Contact Info) Description 12/11/2024 Telephone [facility] MED[facility]INE [address] [place], [place] [phone] Izzy Sigala MD [address] [place] [address] Prior Authorization Social History Tobacco Use Types Packs/Day Years [...] Telephone Encounter - Merline Staton - 12/18/2024 1:40 PM EST PA was sent to [facility] and denied. Review questionnaire was sent along with denial. Provider reviewed and answered, form was sent via faxed back to [facility] for reply and decision. Fax confirmation was uploaded into Media. * Telephone Encounter - Reymundo Elizalde - 12/17/2024 9:21 AM EST TC from pt checking on status of PA for buprenorphine (Butrans) 20 MCG . Pt states needs ilana . * Telephone Encounter - Flako Becerra - 12/11/2024 11:46 AM EST Pt calling in to request a PA for buprenorphine (Butrans) 20 MCG/HR because pharmacy is asking for PA for medication to be released to pt. documented in this encounter Plan of Treatment Upcoming Encounters Date Type Department Care Team (Late st Contact Info) Description 02/01/2025 11:00 AM EDT Telemedicine [facility] [address] [place] [address] Divya Neil, RN 02/05/2025 9:45 AM EDT Office Visit [address] [address] 02/22/2025 4:00 PM EDT Office Visit [address] [address] Izzy Sigala MD [address] [place] [address] documented as of this encounter Visit Diagnoses Not on filedocumented in this encounter Additional Health Concerns Assessment Noted Time PHQ-9 Depression Total Score: 16 11/20/ 025 9:39 AM EST documented as of this encounter Care Teams Extracorporeal Technician Relationship Specialty Start Date End Date Izzy Sigala MD [address] [place] [phone] PCP - General Family Medicine 10/30/21 documented as of this encounter
--- OUTSIDE RECORDS SUMMARY | 2025-01-10 10:44 | XMS_ITS | Encounter Summary ---
Author Organization [employer] Address [address] [facility] 7 [place] [address] Care Team Providers Care Documentation Improvement Specialist Name Role Phone Izzy Sigala MD Primary Care Provider Encounter Details Date Type Department Care Team (Late st Contact Info) Description 06/08/2023 Orders Only [facility] [address] [place], [place] [phone] Izzy Sigala MD [address] [place], [place] [phone] Drug toxicity (Primary Dx) Social History Tobacco Use Types [...] as of this encounter Miscellaneous Notes * Result Encounter Note - Izzy Sigala MD - 06/08/2023 6:54 PM EDT Please let patient know that her electrolytes, namely sodium, potassium, and phosphorus were not affected by taking the every day dosing of Fosamax. To continue to hold the medication until we see each other 07/11/23 for followup. documented in this encounter Plan of Treatment Upcoming Encounters Date Type Department Care Team (Late st Contact Info) Description 02/01/2025 11:00 AM EDT Telemedicine [address] [address] Divya Neil RN 02/05/2025 9:45 AM EDT Office Visit [address] [address] 02/22/2025 4:00 PM EDT Office Visit [address] [phone] Izzy Sigala MD [address] [place] [address] documented as of this encounter Procedures Procedure Name Priority Date/Time Associated Diagnosis Comments PHOSPHATE ( PHOSPHORUS) Routine 06/23/2023 11:21 AM EDT Drug toxicity BASIC METABOLIC PANEL Routine 06/23/2023 11:21 AM EDT Drug toxicity documented in this encounter Results * Phosphate (As Phosphorus) (06/23/2023 11:21 AM EDT) Phosphorus 3.2 2.7 - 4.5 mg/dL [facility] Blood Venous blood specimen / Unknown 06/23/2023 11:21 AM EDT 06/23/2023 11:21 AM EDT us Izzy Sigala MD LAB BLOOD ORDERABLES Final Res ult [facility] [address] [place] [phone] [phone] * (ABNORMAL) Basic Metabolic Panel (06/23/2023 11:21 AM EDT) Sodium 141 135 - 145 mmol/L [facility] Potassium 4.4 3.3 - 5.1 mmol/L [facility] Chloride 109(H) 96 - 108 mmol/L [facility] Carbon Dioxide 27 22 - 29 mmol/L [facility] Anion Gap 9(L) 12 - 20 [facility] Urea Nitrogen (BUN) 11 9 - 16 mg/dL [facility] Creatinine, Serum 0.77 0.5 - 1.4 mg/dL [facility] Estimated Glomerular Filt Rate >60 [facility] Comment:NOTE: For -Am erican individuals, multiply the result by 1.210.Chronic Kidney Disease: Estimated GFR < 60 mL/min/[id number] Kidney Disease: Estimated GFR < 15 mL/min/1.73m2 Glucose 94 60 - 115 mg/dL [facility] Calcium 9.0 8.4 - 10.2 mg/dL [facility] Blood Venous blood specimen / Unknown 06/23/2023 11:21 AM EDT 06/23/2023 11:21 AM EDT us Izzy Sigala MD LAB BLOOD ORDERABLES Final Res ult [facility] [address] [place] [phone] documented in this encounter Visit Diagnoses Diagnosis Drug toxicity- Primary Nonspecific abnormal toxicological findings documented in this encounter Care Teams Documentation Improvement Specialist Relationship Specialty Start Date End Date Izzy Sigala MD [address] [place] [phone] PCP - General Family Medicine 10/30/21 documented as of this encounter
[2025-01-10 12:13] LABS: D Dimer High Sensitivity < 150 NG/ML
== END 2025-01-10 09:31 | disposition home or self-care (01) ==
LOC: HO.HHCL 09:30
PROVIDERS: Visit Provider General Practice
DX: R07.9 Chest pain, unspecified (principal)
CPT/HCPCS: 36415; 85379

== ENCOUNTER 2025-03-26 15:14 | Outpatient (AMB) | payer MEDICARE, MEDICAID, SELFPAY ==
--- NOTE | 2025-03-26 15:15 | A.OFFVIS_ITS ---
Vital Signs 03/26/25 15:25 Height 5 ft 5 in Weight 115 lb BMI 19.1 BP 150/86 H Blood Pressure Location Rt brachial Position Sitting Pulse 82 Pulse Source Pulse Oximeter Pulse Oximetry (%) 96 Oxygen Delivery Method Room Air Intake Visit Reasons: Esophageal Stricture, having trouble swallowing Intake Note: ESTABLISHED PATIENT for mgmt of dysphagia. CC; CO dysphagia persistence as well as intermittent reflux. Pt would like to discuss possible repeat egd/dilation as well as any concerns revolving around hiatal hernia mgmt. 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: No Accompanied by: Self / Same As Patient Allergies bupropion Allergy (Verified 03/26/25 15:30) Unknown clonidine Allergy (Verified 03/26/25 15:30) Unknown gabapentin Allergy (Verified 03/26/25 15:30) Unknown meloxicam Allergy (Verified 03/26/25 15:30) Unknown pregabalin Allergy (Verified 03/26/25 15:30) Unknown Sulfa (Sulfonamide Antibiotics) Allergy (Verified 03/26/25 15:30) Unknown zolpidem Allergy (Verified 03/26/25 15:30) Unknown prasozin Allergy (Uncoded 03/26/25 15:30) Unknown HPI HPI Esophageal Stricture, having trouble swallowing: Details: LAST VISIT Tubular adenoma of colon IBS (irritable bowel syndrome) Constipation GERD (gastroesophageal reflux disease) History of fall Dizziness Plan Continue Nexium. Patient will follow-up in this office on as-needed basis. Currently her symptoms are suppressed patient can continue avoiding dietary triggers and late night snacking. May use MiraLax on as needed basis. Next colonoscopy in October of 2026, sooner if clinically necessary. Patient is agreeable to current plan of care and verbalizes understanding of instructions. She was given the opportunity to ask questions and all questions answered. ? Thank you for allowing me to care Medications Refilled esomeprazole magnesium (Nexium) 40 mg PO DAILY 30 caps 5RF K21.9 TODAY'S VISIT Patient is here today for requested visit. Patient was sent to us by her PCP. Patient recently started with trouble swallowing. Patient was hospitalized in February. Patient was having trouble swallowing, unable to tolerate liquids or solids. Throughout the hospital course patient had upper endoscopy which per hospital notes were normal and patient did not show any etiology suggesting the cause of dysphagia. No need for dilation at that time. Patient had barium esophagram that showed mild esophageal dysmotility and patient was recommended to change her diet. Prior to admission patient had 10 days when she was unable to tolerate food or water patient right upper quadrant ultrasound was negative. Towards the end of discharge patient was able to tolerate solids. Since discharge patient reports that she has been having worsening symptoms. Sometimes she feels like she can not even swallow water. Reports like she feels that there is something on the L side of her throat that is stopping her from swallowing normal. Also patient reports lower esophagus feeling like food gets stuck there. Patient was previously dilated in 2 areas of her the if esophagus on her last endoscopy. Currently is taking Nexium and states that her symptoms of acid reflux are suppressed. Her main concern is swallowing. Patient denies any nausea or vomiting. Reports odynophagia with swallowing. Patient admits that she has ongoing postnasal drip. Currently not taking anything. Patient reports that she is constipated for the most part. Denies melena, hematochezia. 7 lb weight loss since June of last year [facility] Medical History (Updated 03/27/25 @ 13:21 by Dyana Ramos [facility]) Dysphagia Tubular adenoma of colon Allergies History of COVID-19 PETER (obstructive sleep apnea) Neuropathy Hypothyroidism Chronic neck pain History of post traumatic stress disorder Depression Anxiety Asthma Surgical History Hx of colonoscopy Hx of esophagogastroduodenoscopy Hx of appendectomy Hx of section Hx of tonsillectomy Previous back surgery Family History Mother Colon cancer Family/Other Colon cancer Social History Alcohol intake: current Alcohol intake frequency: a few times a week Patient Tobacco Use Status: Never used 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 Review of Systems Const Denies weight gain and Denies weight loss ENT Reports no additional complaints, Reports dysphagia and Denies odynophagia Card Reports no additional complaints Resp Reports no additional complaints GI Denies abdominal pain, Denies belching, Denies melena, Reports bloating, Denies change in bowel habits, Reports constipation, Reports dysphagia, Denies excessive flatus, Denies dyspepsia, Reports heartburn, Denies diarrhea, Denies loose stools, Denies nausea, Denies odynophagia and Denies vomiting Reports no additional complaints Musc Reports no additional complaints Neuro Reports no additional complaints Psych Reports no additional complaints Endo Reports no additional complaints Physical Exam Vital Signs: Last Vital Signs Pulse 82 03/26/25 15:25 BP 150/86 H 03/26/25 15:25 Pulse Ox 96 03/26/25 15:25 Oxygen Delivery Method Room Air 03/26/25 15:25 BMI result Body Mass Index 19.1 Const General: healthy appearing and no acute distress Nutritional Appearance: underweight Orientation/consciousness: patient oriented x3 HEENT Mouth: Normal oral and palatal mucosa present, tongue normal, oropharynx abnormals (Redness) and other (Streaky redness in her posterior throat from postnasal drip) Resp Effort & Inspection: normal respiratory effort, able to speak in complete sentences, no tracheal deviation and symmetric chest movement Auscultation: clear to auscultation bilaterally Cardio Rate: regular rate GI Inspection: Yes normal to inspection and No distended Palpation (GI): Soft to palpation, not firm, nontender and No hepatosplenomegaly present Auscultation: normal bowel sounds General: Yes no CVA tenderness Back/Spine/Pelvis Back: no CVA tenderness Skin General skin exam: elasticity normal, turgor normal and dry skin Neuro General: patient oriented x3 Psych Appearance: grossly normal Mental Status: mental status grossly normal Assessment & Plan Assessment & Plan (1) Dysphagia: Code(s): R13.10 - Dysphagia, unspecified Category: Medical Qualifiers: Dysphagia type: oropharyngeal phase Qualified Code(s): R13.12 - Dysphagia, oropharyngeal phase (2) IBS (irritable bowel syndrome): Code(s): K58.9 - Irritable bowel syndrome, unspecified Qualifiers: Irritable bowel syndrome type: without diarrhea Qualified Code(s): K58.9 - Irritable bowel syndrome, unspecified (3) Constipation: Code(s): K59.00 - Constipation, unspecified Qualifiers: Constipation type: slow transit constipation Qualified Code(s): K59.01 - Slow transit constipation (4) GERD (gastroesophageal reflux disease): Code(s): K21.9 - Gastro-esophageal reflux disease without esophagitis Qualifiers: Esophagitis presence: esophagitis presence not specified Qualified Code(s): K21.9 - Gastro-esophageal reflux disease without esophagitis (5) History of fall: Code(s): Z91.81 - History of falling (6) Dizziness: Code(s): R42 - Dizziness and giddiness Plan Patient will go for upper endoscopy for possible dilation. We were able to schedule at for next week Tuesday with Dr. Tyler. Patient just hospitalized last month and dilation not performed, however patient is complaining of significant trouble swallowing. Significant postnasal drip will send her script for Zyrtec for now. Patient will be sent for CT soft tissue neck without IV contrast as patient is not eating or drinking much. Her kidney might be compromised and we want to do this without the contrast if possible. I will give her script for sucralfate she can take it at bedtime. Continue taking her PPI as ordered. Patient will start taking Dulcolax as she is complaining of constipation. Patient was encouraged to increase fluid intake and activity. Both patient and her friend are agreeable to plan of care and verbalizes understanding of instructions. They were given the opportunity to ask questions and all questions answered. Patient will call our office if she will have worsening symptoms. She is agreeable to this plan and verbalizes understanding of instructions. She was given the opportunity to ask questions and all questions answered. Thank you for allowing me to participate in her care Orders: Orders CT soft tissue neck wo IV con 03/26/25 M54.2 - Cervicalgia, R13.10 - Dysphagia, unspecified Medications: New cetirizine (Zyrtec) 10 mg PO DAILY PRN 20 tabs 0RF allergy symptoms bisacodyl (Dulcolax (bisacodyl)) 10 mg (2 x 5 mg) PO BEDTIME 180 tabs 4RF sucralfate Please take it at noon time and at bedtime 10 mL PO BID 400 mL 3RF K21.9 - Gastro-esophageal reflux disease without esophagitis Coding Level of Care Code Est Pt Level 5 (33728) Complex EM visit Add On G2211 Diagnoses Oropharyngeal dysphagia R13.12 Dysphagia type: oropharyngeal phase Irritable bowel syndrome without diarrhea K58.9 Irritable bowel syndrome type: without diarrhea Slow transit constipation K59.01 Constipation type: slow transit constipation Gastroesophageal reflux disease, unspecified whether esophagitis present K21.9 Esophagitis presence: esophagitis presence not specified History of fall Z91.81 Dizziness R42 Time Spent (min) 55 Comment 35 minutes spent with patient and additional 20 minutes spent reviewing her records
[2025-03-26 15:25] VITALS: BP 150/86; PULSE 82; O2SAT 96; BMI 19.1
--- OUTSIDE RECORDS SUMMARY | 2025-03-26 16:09 | XMS_ITS | Clinical Summary ---
Author Organization Unknown Care Team Providers Care Horse Farm Manager Name Role Phone LOLITA MALCOLM, FRANCISCO Unavailable Unavailable NAYANA RN, SHANNON Unavailable Unavailab celestina ASHLEY PT, SANDEEP Unavailable Unavailable YENI SHEETMETAL WORKER, ASHLY Unavailable Unavailable [facility] [address], AIME Unavailable Unavailable LAURI VASQUEZN, CYNTHIA Unavailable Unavailable Payers Payer Name Policy Type Policy Number Effective Date Expira tion Date LIGIALATONIA.BETHEL.[facility]NOAUT [id number] Problems Condition Name Condition Details Condition Category Status Onset Date Resolution Date Last Treatment Date Treating Clinician Comments ESSENTIAL (PRIMARY) HYPERTENSION Active 02-21 00:00: 00 OTHER CHRONIC PAIN Active 02-21 00:00: 00 SPONDYLOSIS, UNSPECIFIED Active 02-21 00:00: 00 UNSPECIFIED SEVERE PROTEIN-FRANK RIANNA MALNUTRITION Active 02-21 00:00: 00 HYPOMAGNESEM IA Active 02-21 00:00: 00 ANEMIA, UNSPECIFIED Active 02-21 00:00: 00 HYPOTHYROIDI SM, UNSPECIFIED Active 02-21 00:00: 00 AGE-RELATED OSTEOPOROSIS W/O CURRENT PATHOLOGICAL FRACTURE Active 02-21 00:00: 00 DEPRESSION, UNSPECIFIED Active 02-21 00:00: 00 CONSTIPATION , UNSPECIFIED Active 02-21 00:00: 00 PERSONAL HISTORY OF PULMONARY EMBOLISM Active 02-21 00:00: 00 PERSONAL HISTORY OF OTHER DISEASES OF THE DIGESTIVE SYSTEM Active 02-21 00:00: 00 Allergies, Adverse Reactions, Alerts Allergy Name Allergy Type Status Severity Reaction(s) Onset Date Inactive Date Treating Clinician Comments BUPROPION Propensity to adverse reactions Active 03-02 09:08: 59 DRUG SULFA Propensity to adverse reactions Active 03-02 09:09: 41 CLONIDINE Propensity to adverse reactions Active 03-02 09:09: 49 GABAPENTIN Propensity to adverse reactions Active 03-02 09:09: 57 ZOLPIDEM Propensity to adverse reactions Active 03-02 09:10: 05 MELOXICAM Propensity to adverse reactions Active 03-02 09:10: 14 PRAZOSIN Propensity to adverse reactions Active 03-02 09:10: 23 PREGABALIN Propensity to adverse reactions Active 03-02 09:10: 32 Medications Ordered Medication Name Filled Medication Name Start Date Stop Date Current Medication? Ordering Clinician Indication Dosage Frequency Signature (SIG) Comments Components colchicine 0.6 mg tablet 07-30 00:00: 00 02-26 23:59 :00 No [id number] TREAT GOUT FLARES 1 tablet DAILY 1 tablet DAILY (route: oral) Med Classific ation: Gout and Hyperuric emia Therapy morphine 15 mg immediate release tablet 07-30 00:00: 00 02-26 23:59 :00 No [id number] PAIN Per instruc tions EVERY 6 HOURS NEEDED Per instructio ns EVERY 6 HOURS NEEDED (route: oral) Med Classific ation: Analgesic , Anti-infl ammatory or Antipyret ic cyclobenzap rine 10 mg tablet 07-24 00:00: 00 02-26 23:59 :00 No [id number] MUSCLE SPASM 1 tablet 3 TIMES DAILY 1 tablet 3 TIMES DAILY (route: oral) Med Classific ation: Locomotor System buprenorphi ne 15 mcg/hour weekly transdermal patch 07-23 00:00: 00 09-21 23:59 :00 No [id number] PAIN Per instruc tions WEEKLY Per instructio ns WEEKLY (route: transderma l) Med Classific ation: Analgesic , Anti-infl ammatory or Antipyret ic Benadryl Allergy 25 mg tablet 08-09 00:00: 00 02-26 23:59 :00 No [id number] ITCHINESS 25 mg EVERY 8 HOURS 25 mg EVERY 8 HOURS (route: oral) Med Classific ation: Respirato ry Therapy Agents Eliquis 5 mg tablet 08-09 00:00: 00 08-14 23:59 :00 No [id number] DVT Per instruc tions DIRECTED Per instructio ns DIRECTED (route: oral) Med Classific ation: Hematolog ical Agents levothyroxi ne 75 mcg tablet 08-09 00:00: 00 02-26 23:59 :00 No [id number] HYPOTHYROID ISM 1 tablet DAILY 1 tablet DAILY (route: oral) Med Classific ation: Endocrine lidocaine 5 % topical patch 08-09 00:00: 00 02-26 23:59 :00 No [id number] PAIN Per instruc tions DIRECTED Per instructio ns DIRECTED (route: topical) Med Classific ation: Dermatolo gical magnesium 400 mg (as magnesium oxide) tablet 08-09 00:00: 00 02-26 23:59 :00 No [id number] SUPPLEMENT 1 tablet DAILY 1 tablet DAILY (route: oral) Med Classific ation: Electroly te Balance-N utritiona l Products omeprazole 40 mg capsule,del ayed release 08-09 00:00: 00 02-26 23:59 :00 No [id number] ACID REFLUX 40 capsule DAILY 40 capsule DAILY (route: oral) Med Classific ation: Gastroint estinal Therapy Agents prednisone 20 mg tablet 08-09 00:00: 00 02-26 23:59 :00 No [id number] . 1.5 tablet DAILY 1.5 tablet DAILY (route: oral) Med Classific ation: Endocrine sertraline 100 mg tablet 08-09 00:00: 00 02-26 23:59 :00 No [id number] DEPRESSION 2 tablet DAILY 2 tablet DAILY (route: oral) Med Classific ation: Central Nervous System Agents trazodone 50 mg tablet 08-09 00:00: 00 02-26 23:59 :00 No [id number] INSOMNIA 1-2 tablet BEDTIME 1-2 tablet BEDTIME (route: oral) Med Classific ation: Central Nervous System Agents Eliquis 5 mg tablet 2021-11 00:00: 00 02-26 23:59 :00 No [id number] blood thinner 2 tablet DAILY 2 tablet DAILY (route: oral) Med Classific ation: Hematolog ical Agents buprenorphi ne 20 mcg/hour weekly transdermal patch 2021-11 1-08 00:00: 00 02-26 23:59 :00 No [id number] PAIN 1 patch, transde rmal weekly WEEKLY 1 patch, transderma l weekly WEEKLY (route: transderma l) Med Classific ation: Analgesic , Anti-infl ammatory or Antipyret ic amoxicillin 500 mg capsule 02-13 00:00: 00 03-01 00:00 :00 No [id number] Per instruc tions EVERY 8 HOURS FOR 7 DAYS Per instructio ns EVERY 8 HOURS FOR 7 DAYS (route: oral) Med Classific ation: Anti-Infe ctive Agents buprenorphi ne 20 mcg/hour weekly transdermal patch - 00:00: 00 03-01 00:00 :00 No [id number] Unavailable Per instruc tions ONCE A WEEK Per instructio ns ONCE A WEEK (route: transderma l) Med Classific ation: Analgesic , Anti-infl ammatory or Antipyret ic alendronate 70 mg tablet 02-01 00:00: 00 03-01 00:00 :00 No [id number] Per instruc tions Per instructio ns (route: oral) Med Classific ation: Endocrine Advanced Antacid-Ant igas 200 mg-200 mg-20 mg/5 mL oral suspension 03-01 00:00: 00 Yes [id number] DYSPEPSIA 10 mL EVERY 2 HOURS 10 mL EVERY 2 HOURS (route: oral) Med Classific ation: Gastroint estinal Therapy Agents alendronate 70 mg tablet 03-04 00:00: 00 Yes [id number] OSTEOPOROSI S 1 tablet WEEKLY 1 tablet WEEKLY (route: oral) Med Classific ation: Endocrine amlodipine 5 mg tablet 03-01 00:00: 00 Yes [id number] HIGH BLOOD PRESSURE 1 tablet DAILY 1 tablet DAILY (route: oral) Med Classific ation: Cardiovas cular Therapy Agents buprenorphi ne 20 mcg/hour weekly transdermal patch 03-05 00:00: 00 Yes [id number] CHRONIC BACK PAIN 1 patch, transde rmal weekly WEEKLY 1 patch, transderma l weekly WEEKLY (route: transderma l) Med Classific ation: Analgesic , Anti-infl ammatory or Antipyret ic Clotrimazol e 3 Day 2 % vaginal cream 03-01 00:00: 00 03-04 23:59 :00 No [id number] YEAST INFECTION Per instruc tions BEDTIME Per instructio ns BEDTIME (route: vaginal) Med Classific ation: Vaginal Products cyclobenzap rine 5 mg tablet 03-01 00:00: 00 Yes [id number] MUSCLE SPASMS 2 tablet 3 TIMES DAILY 2 tablet 3 TIMES DAILY (route: oral) Med Classific ation: Locomotor System levothyroxi ne 75 mcg tablet 03-01 00:00: 00 Yes [id number] HYPOTHYROID 1 tablet DAILY 1 tablet DAILY (route: oral) Med Classific ation: Endocrine lidocaine 5 % topical patch 03-01 00:00: 00 Yes [id number] BACK PAIN 1 adhesiv e patch, medicat ed DAILY 1 adhesive patch, medicated DAILY (route: topical) Med Classific ation: Dermatolo gical magnesium oxide 400 mg (241.3 mg magnesium) tablet 03-01 00:00: 00 Yes [id number] CONSTIPATIO N 1 tablet BEDTIME 1 tablet BEDTIME (route: oral) Med Classific ation: Electroly te Balance-N utritiona l Products metoclopram paulo 10 mg tablet 03-01 00:00: 00 Yes [id number] NAUSEA/VOMI TING 1 tablet 2 TIMES DAILY 1 tablet 2 TIMES DAILY (route: oral) Med Classific ation: Gastroint estinal Therapy Agents morphine 15 mg immediate release tablet 03-01 00:00: 00 03-04 23:59 :00 No [id number] SEVERE PAIN 1 tablet EVERY 6 HOURS 1 tablet EVERY 6 HOURS (route: oral) Med Classific ation: Analgesic , Anti-infl ammatory or Antipyret ic omeprazole 40 mg capsule,del ayed release 03-01 00:00: 00 Yes [id number] GERD 1 capsule DAILY 1 capsule DAILY (route: oral) Med Classific ation: Gastroint estinal Therapy Agents Senna Lax 8.6 mg tablet 18 00:00: 00 Yes [id number] CONSTIPATIO N 1 tablet BEDTIME 1 tablet BEDTIME (route: oral) Med Classific ation: Gastroint estinal Therapy Agents sertraline 100 mg tablet 03-01 00:00: 00 Yes [id number] DEPRESSION 2 tablet BEDTIME 2 tablet BEDTIME (route: oral) Med Classific ation: Central Nervous System Agents simethicone 125 mg capsule 03-01 00:00: 00 Yes [id number] ABDOMINAL DISTENTION 1 capsule 4 TIMES DAILY 1 capsule 4 TIMES DAILY (route: oral) Med Classific ation: Gastroint estinal Therapy Agents trazodone 50 mg tablet 03-01 00:00: 00 Yes [id number] ANXIOUSNESS , RACING THOUGHTS 1 tablet BEDTIME 1 tablet BEDTIME (route: oral) Med Classific ation: Central Nervous System Agents Vital Signs Vital Name Observation Time Observation Value Commen ts Temperature 2025-03-25 11:16:00.000 97.6 [degF] Temperature 2025-03-22 10:04:00.000 98.3 [degF] Temperature 2025-03-19 11:14:00.000 98 [degF] Temperature 2025-03-18 10:58:00.000 97.5 [degF] Temperature 2025-03-14 11:29:00.000 97.6 [degF] Temperature 2025-03-12 12:57:00.000 97.8 [degF] Temperature 2025-03-11 13:38:00.000 97.5 [degF] Temperature 2025-03-08 11:02:00.000 97.6 [degF] Temperature 2025-03-07 14:32:00.000 97.9 [degF] Temperature 2025-03-06 12:14:00.000 97.6 [degF] Temperature 2025-03-04 11:57:00.000 97.9 [degF] Temperature 2025-03-01 14:45:00.000 97.8 [degF] BMI (%) 2025-03-02 08:50:13.000 20 kg/m2 Height 2025-03-02 08:49:23.000 64 [in_us] Pulse 2025-03-25 11:16:00.000 79 /min Pulse 2025-03-22 10:04:00.000 72 /min Pulse 2025-03-19 11:14:00.000 70 /min Pulse 2025-03-18 10:58:00.000 72 /min Pulse 2025-03-14 11:29:00.000 70 /min Pulse 2025-03-12 12:57:00.000 72 /min Pulse 2025-03-11 13:38:00.000 76 /min Pulse 2025-03-08 11:02:00.000 74 /min Pulse 2025-03-07 14:32:00.000 68 /min Pulse 2025-03-06 12:14:00.000 73 /min Pulse 2025-03-04 11:57:00.000 80 /min Pulse 2025-03-01 14:45:00.000 78 /min O2 Saturation (%) 2025-03-25 11:16:00.000 96 % O2 Saturation (%) 2025-03-19 11:14:00.000 96 % O2 Saturation (%) 2025-03-18 10:58:00.000 98 % O2 Saturation (%) 2025-03-12 13:04:00.000 95 % O2 Saturation (%) 2025-03-12 12:57:00.000 97 % O2 Saturation (%) 2025-03-11 13:38:00.000 96 % O2 Saturation (%) 2025-03-07 14:32:00.000 99 % O2 Saturation (%) 2025-03-06 12:14:00.000 97 % O2 Saturation (%) 2025-03-04 11:57:00.000 98 % O2 Saturation (%) 2025-03-01 14:45:00.000 95 % Respirations 2025-03-25 11:16:00.000 18 /min Respirations 2025-03-22 10:04:00.000 18 /min Respirations 2025-03-19 11:14:00.000 18 /min Respirations 2025-03-18 10:58:00.000 18 /min Respirations 2025-03-14 11:29:00.000 18 /min Respirations 2025-03-12 12:57:00.000 18 /min Respirations 2025-03-11 13:38:00.000 18 /min Respirations 2025-03-08 11:02:00.000 18 /min Respirations 2025-03-07 14:32:00.000 18 /min Respirations 2025-03-06 12:14:00.000 18 /min Respirations 2025-03-04 11:57:00.000 18 /min Respirations 2025-03-01 14:45:00.000 18 /min Weight (lbs) 2025-03-02 08:50:13.000 119.9 [lb_av] Systolic Blood Pressure 2025-03-25 11:16:00.000 102 mm [Hg] Systolic Blood Pressure 2025-03-22 10:04:00.000 112 mm [Hg] Systolic Blood Pressure 2025-03-19 11:14:00.000 110 mm [Hg] Systolic Blood Pressure 2025-03-18 10:58:00.000 116 mm [Hg] Systolic Blood Pressure 2025-03-14 11:29:00.000 118 mm [Hg] Systolic Blood Pressure 2025-03-12 12:57:00.000 100 mm [Hg] Systolic Blood Pressure 2025-03-11 13:38:00.000 110 mm [Hg] Systolic Blood Pressure 2025-03-08 11:02:00.000 122 mm [Hg] Systolic Blood Pressure 2025-03-07 14:32:00.000 122 mm [Hg] Systolic Blood Pressure 2025-03-06 12:14:00.000 100 mm [Hg] Systolic Blood Pressure 2025-03-04 11:57:00.000 118 mm [Hg] Systolic Blood Pressure 2025-03-01 14:45:00.000 118 mm [Hg] Diastolic Blood Pressure 2025-03-25 11:16:00.000 66 mm [Hg] Diastolic Blood Pressure 2025-03-22 10:04:00.000 70 mm [Hg] Diastolic Blood Pressure 2025-03-19 11:14:00.000 70 mm [Hg] Diastolic Blood Pressure 2025-03-18 10:58:00.000 68 mm [Hg] Diastolic Blood Pressure 2025-03-14 11:29:00.000 58 mm [Hg] Diastolic Blood Pressure 2025-03-12 12:57:00.000 75 mm [Hg] Diastolic Blood Pressure 2025-03-11 13:38:00.000 56 mm [Hg] Diastolic Blood Pressure 2025-03-08 11:02:00.000 78 mm [Hg] Diastolic Blood Pressure 2025-03-07 14:32:00.000 60 mm [Hg] Diastolic Blood Pressure 2025-03-06 12:14:00.000 56 mm [Hg] Diastolic Blood Pressure 2025-03-04 11:57:00.000 76 mm [Hg] Diastolic Blood Pressure 2025-03-01 14:45:00.000 64 mm [Hg] Plan of Treatment Planned Activity Planned Date Details Comments Future Scheduled Test RN TO OBSE RVE, ASSESS, EVALUATE, AND DEVELOP AN INDIVIDUALIZED PLAN OF CARE. AGENCY MAY ACCEPT ORDERS FROM CONSULTING PHYSICIANS. RN TO OBSERVE AND ASSESS, BOAT MECHANIC/WATER MECHANIC TO OBSERVE FOR RISK FOR FALLS AND INSTRUCT IN FALL PREVENTION, HOME SAFETY, MEDICATION MANAGEMENT, INFECTION PREVENTION, AND NUTRITION MANAGEMENT. RN/BOAT MECHANIC/WATER MECHANIC NURSE MAY PERFORM O2 SATURATION LEVEL ON ADMISSION AND PRN FOR RN TO ASSESS/BOAT MECHANIC TO OBSERVE PATIENT, WITH NOTIFICATION TO THE PHYSICIAN IF SATURATION IS 90% IN THE ABSENCE OF MORE SPECIFIC PARAMETERS FROM THE PHYSICIAN. AGENCY MAY PERFORM A RESUMPTION OF CARE VISIT FOLLOWING ANY HOSPITAL ADMISSION. RN/BOAT MECHANIC/WATER MECHANIC TO MONITOR CO-MORBID CONDITIONS LISTED ON THE PLAN OF CARE AND ANY NEW CONDITIONS THAT PRESENT THEMSELVES DURING THIS EPISODE TO IDENTIFY CHANGES AND INTERVENE TO MINIMIZE COMPLICATIONS. [code = RN TO OBSERVE, ASSESS, EVALUATE, AND DEVELOP AN INDIVIDUALIZED PLAN OF CARE. AGENCY MAY ACCEPT ORDERS FROM CONSULTING PHYSICIANS. RN TO OBSERVE AND ASSESS, BOAT MECHANIC/WATER MECHANIC TO OBSERVE FOR RISK FOR FALLS AND INSTRUCT IN FALL PREVENTION, HOME SAFETY, MEDICATION MANAGEMENT, INFECTION PREVENTION, AND NUTRITION MANAGEMENT. RN/BOAT MECHANIC/WATER MECHANIC NURSE MAY PERFORM O2 SATURATION LEVEL ON ADMISSION AND PRN FOR RN TO ASSESS/BOAT MECHANIC TO OBSERVE PATIENT, WITH NOTIFICATION TO THE PHYSICIAN IF SATURATION IS 90% IN THE ABSENCE OF MORE SPECIFIC PARAMETERS FROM THE PHYSICIAN. AGENCY MAY PERFORM A RESUMPTION OF CARE VISIT FOLLOWING ANY HOSPITAL ADMISSION. RN/BOAT MECHANIC/WATER MECHANIC TO MONITOR CO-MORBID CONDITIONS LISTED ON THE PLAN OF CARE AND ANY NEW CONDITIONS THAT PRESENT THEMSELVES DURING THIS EPISODE TO IDENTIFY CHANGES AND INTERVENE TO MINIMIZE COMPLICATIONS.] Future Scheduled Test MEDICATION MANAGEMENT; RN/BOAT MECHANIC/WATER MECHANIC TO REVIEW MEDICATIONS FOR INTERACTIONS, EFFECTIVENESS OF DRUG THERAPY, AND SIGNS/SYMPTOMS OF ADVERSE REACTIONS. MAY INSTRUCT AND REINFORCE MEDICATION TEACHING RELATED TO THE USE OF MEDICATIONS, DOSAGE, FREQUENCY, PURPOSE, SIDE EFFECTS, AND TO REPORT COMPLICATIONS. [code = MEDICATION MANAGEMENT; RN/BOAT MECHANIC/WATER MECHANIC TO REVIEW MEDICATIONS FOR INTERACTIONS, EFFECTIVENESS OF DRUG THERAPY, AND SIGNS/SYMPTOMS OF ADVERSE REACTIONS. MAY INSTRUCT AND REINFORCE MEDICATION TEACHING RELATED TO THE USE OF MEDICATIONS, DOSAGE, FREQUENCY, PURPOSE, SIDE EFFECTS, AND TO REPORT COMPLICATIONS.] Future Scheduled Test RISK FOR H OSPITALIZATION; RN TO ASSESS/TEACH, WATER MECHANIC/BOAT MECHANIC TO OBSERVE/TEACH PATIENT/CAREGIVER ON RISK FOR HOSPITALIZATION/EMERGENCY ROOM VISITS, TEACH SIGNS AND SYMPTOMS THAT PUT PATIENT AT RISK, WHEN TO NOTIFY NURSE/PHYSICIAN OF COMPLICATIONS/DECLINE, AND WHEN TO CALL 911. [code = RISK FOR HOSPITALIZATION; RN TO ASSESS/TEACH, WATER MECHANIC/BOAT MECHANIC TO OBSERVE/TEACH PATIENT/CAREGIVER ON RISK FOR HOSPITALIZATION/EMERGENCY ROOM VISITS, TEACH SIGNS AND SYMPTOMS THAT PUT PATIENT AT RISK, WHEN TO NOTIFY NURSE/PHYSICIAN OF COMPLICATIONS/DECLINE, AND WHEN TO CALL 911.] Future Scheduled Test CARDIOVASC ULAR SYSTEM; RN TO ASSESS/TEACH, BOAT MECHANIC/WATER MECHANIC TO OBSERVE/TEACH RELATED TO ALTERED CARDIOVASCULAR STATUS TO MINIMIZE COMPLICATIONS AND REDUCE HOSPITALIZATION. [code = CARDIOVASCULAR SYSTEM; RN TO ASSESS/TEACH, BOAT MECHANIC/WATER MECHANIC TO OBSERVE/TEACH RELATED TO ALTERED CARDIOVASCULAR STATUS TO MINIMIZE COMPLICATIONS AND REDUCE HOSPITALIZATION.] Future Scheduled Test HYPERTENSI ON MANAGEMENT; RN TO ASSESS AND TEACH, BOAT MECHANIC/WATER MECHANIC TO OBSERVE AND TEACH WARNING SIGNS AND SYMPTOMS TO AVOID HOSPITALIZATION. [code = HYPERTENSION MANAGEMENT; RN TO ASSESS AND TEACH, BOAT MECHANIC/WATER MECHANIC TO OBSERVE AND TEACH WARNING SIGNS AND SYMPTOMS TO AVOID HOSPITALIZATION.] Future Scheduled Test SKIN INTEG RITY RN TO ASSESS AND TEACH, BOAT MECHANIC/WATER MECHANIC TO OBSERVE AND TEACH INTEGUMENTARY STATUS TO IDENTIFY CHANGES AND INTERVENE TO MINIMIZE COMPLICATIONS. PROVIDE SKILLED TEACHING OF GENERAL WOUND AND SKIN CARE AND PREVENTION RELATED TO ACTUAL ALTERED SKIN INTEGRITY [code = SKIN INTEGRITY RN TO ASSESS AND TEACH, BOAT MECHANIC/WATER MECHANIC TO OBSERVE AND TEACH INTEGUMENTARY STATUS TO IDENTIFY CHANGES AND INTERVENE TO MINIMIZE COMPLICATIONS. PROVIDE SKILLED TEACHING OF GENERAL WOUND AND SKIN CARE AND PREVENTION RELATED TO ACTUAL ALTERED SKIN INTEGRITY ] Future Scheduled Test PAIN MANAG EMENT; RN TO ASSESS AND TEACH, WATER MECHANIC/BOAT MECHANIC TO OBSERVE AND TEACH AND PROVIDE EDUCATION ON PAIN MANAGEMENT TECHNIQUES. [code = PAIN MANAGEMENT; RN TO ASSESS AND TEACH, WATER MECHANIC/BOAT MECHANIC TO OBSERVE AND TEACH AND PROVIDE EDUCATION ON PAIN MANAGEMENT TECHNIQUES.] Future Scheduled Test MALNUTRITI ON MANAGEMENT; RN TO ASSESS AND TEACH, WATER MECHANIC/BOAT MECHANIC TO OBSERVE AND TEACH AND INSTRUCT PATIENT / CAREGIVER ON INTERVENTIONS TO IMPROVE NUTRITIONAL INTAKE AND PATIENT WELLBEING. [code = MALNUTRITION MANAGEMENT; RN TO ASSESS AND TEACH, WATER MECHANIC/BOAT MECHANIC TO OBSERVE AND TEACH AND INSTRUCT PATIENT / CAREGIVER ON INTERVENTIONS TO IMPROVE NUTRITIONAL INTAKE AND PATIENT WELLBEING.] Future Scheduled Test FALL REDUC TION MANAGEMENT; RN TO ASSESS AND OBSERVE, BOAT MECHANIC/WATER MECHANIC TO OBSERVE FALL RISK FACTORS AND EDUCATE PATIENT/CAREGIVER ON STRATEGIES TO MINIMIZE THE RISK OF FALLING. [code = FALL REDUCTION MANAGEMENT; RN TO ASSESS AND OBSERVE, BOAT MECHANIC/WATER MECHANIC TO OBSERVE FALL RISK FACTORS AND EDUCATE PATIENT/CAREGIVER ON STRATEGIES TO MINIMIZE THE RISK OF FALLING.] Future Scheduled Test SPEECH THE RAPIST TO EVALUATE FOR SWALLOWING [code = SPEECH THERAPIST TO EVALUATE FOR SWALLOWING] Future Scheduled Test AGENCY MAY PERFORM A RESUMPTION OF CARE VISIT FOLLOWING ANY HOSPITAL ADMISSION. PT TO EVALUATE, OBSERVE / ASSESS, AND MONITOR, SHEETMETAL WORKER TO OBSERVE AND MONITOR, PROVIDE SKILLED THERAPEUTIC INTERVENTION, ACTIVITY, EDUCATION, AND TRAINING TO ADDRESS; PT/SHEETMETAL WORKER TO PROVIDE GAIT TRAINING FOR IMPROVED MOBILITY AND /OR TO NORMALIZE GAIT PATTERN THERAPEUTIC EXERCISES AND ESTABLISHING A HOME EXERCISE PROGRAM (PT/SHEETMETAL WORKER) PT/SHEETMETAL WORKER TO PROVIDE STAIR TRAINING SIT TO/FROM STAND TRANSFERS (PT/SHEETMETAL WORKER) PT / SHEETMETAL WORKER TO MONITOR AND EDUCATE ON OXYGEN SATURATION DURING ADLS/IADLS, NOTIFY PHYSICIAN AND/OR THE RN CLINICAL RESEARCH HOME ECONOMIST FOR PHYSICIAN NOTIFICATION AND IF O2 SATS BELOW PHYSICIAN ORDERED PARAMETERS AFTER 10 MIN OF REST PT/SHEETMETAL WORKER TO IDENTIFY FALL RISK FACTORS; EDUCATE THE PATIENT/CAREGIVER ON WAYS TO REDUCE FALL RISK FACTORS AND ESTABLISH HOME EXERCISE PROGRAM TO MINIMIZE FALL RISK. MAY TEACH THE PATIENT FLOOR RECOVERY WHEN CLINICALLY APPROPRIATE PT / SHEETMETAL WORKER MAY EDUCATE ON PAIN MANAGEMENT CLINICALLY INDICATED, INCLUDING NON-PHARMACOLOGICAL PAIN REDUCTION TECHNIQUES PT / SHEETMETAL WORKER TO EDUCATE ON HYPERTENSION SELF-MANAGEMENT [code = AGENCY MAY PERFORM A RESUMPTION OF CARE VISIT FOLLOWING ANY HOSPITAL ADMISSION. PT TO EVALUATE, OBSERVE / ASSESS, AND MONITOR, SHEETMETAL WORKER TO OBSERVE AND MONITOR, PROVIDE SKILLED THERAPEUTIC INTERVENTION, ACTIVITY, EDUCATION, AND TRAINING TO ADDRESS; PT/SHEETMETAL WORKER TO PROVIDE GAIT TRAINING FOR IMPROVED MOBILITY AND /OR TO NORMALIZE GAIT PATTERN THERAPEUTIC EXERCISES AND ESTABLISHING A HOME EXERCISE PROGRAM (PT/SHEETMETAL WORKER) PT/SHEETMETAL WORKER TO PROVIDE STAIR TRAINING SIT TO/FROM STAND TRANSFERS (PT/SHEETMETAL WORKER) PT / SHEETMETAL WORKER TO MONITOR AND EDUCATE ON OXYGEN SATURATION DURING ADLS/IADLS, NOTIFY PHYSICIAN AND/OR THE RN CLINICAL RESEARCH HOME ECONOMIST FOR PHYSICIAN NOTIFICATION AND IF O2 SATS BELOW PHYSICIAN ORDERED PARAMETERS AFTER 10 MIN OF REST PT/SHEETMETAL WORKER TO IDENTIFY FALL RISK FACTORS; EDUCATE THE PATIENT/CAREGIVER ON WAYS TO REDUCE FALL RISK FACTORS AND ESTABLISH HOME EXERCISE PROGRAM TO MINIMIZE FALL RISK. MAY TEACH THE PATIENT FLOOR RECOVERY WHEN CLINICALLY APPROPRIATE PT / SHEETMETAL WORKER MAY EDUCATE ON PAIN MANAGEMENT CLINICALLY INDICATED, INCLUDING NON-PHARMACOLOGICAL PAIN REDUCTION TECHNIQUES PT / SHEETMETAL WORKER TO EDUCATE ON HYPERTENSION SELF-MANAGEMENT ] Future Scheduled Test AGENCY MAY PERFORM A RESUMPTION OF CARE VISIT FOLLOWING ANY HOSPITAL ADMISSION. ST TO EVALUATE, ASSESS AND MONITOR, PROVIDE SKILLED THERAPEUTIC INTERVENTION, ACTIVITY, EDUCATION, AND TRAINING TO ADDRESS: ST TO ASSESS AND PROVIDE DIET MODIFICATION AND DIET TOLERANCE/TRIALS ST TO EDUCATE ON COMPENSATORY STRATEGIES FOR SAFE ORAL INTAKE ST TO EDUCATE ON ORAL HYGIENE ST TO EDUCATE ON THERAPEUTIC EXERCISES ST TO IDENTIFY FALL RISK FACTORS; EDUCATE THE PATIENT/CAREGIVER ON WAYS TO REDUCE FALL RISK FACTORS. ST TO EDUCATE ON HYPERTENSION SELF-MANAGEMENT ST TO MONITOR CARDIO/RESPIRATORY SYSTEM; OBSERVE / ASSESS AND NOTIFY THE PHYSICIAN AND/OR THE RN CLINICAL RESEARCH HOME ECONOMIST FOR PHYSICIAN NOTIFICATION FOR EARLY SIGNS AND SYMPTOMS OF EXACERBATION OR DETERIORATION. ST MAY EDUCATE ON PAIN MANAGEMENT CLINICALLY INDICATED, INCLUDING NON-PHARMACOLOGICAL PAIN REDUCTION TECHNIQUES (RELAXATION/DISTRACTION/REPOSITIONING/BIO FEEDBACK) FOR PAIN MANAGEMENT [code = AGENCY MAY PERFORM A RESUMPTION OF CARE VISIT FOLLOWING ANY HOSPITAL ADMISSION. ST TO EVALUATE, ASSESS AND MONITOR, PROVIDE SKILLED THERAPEUTIC INTERVENTION, ACTIVITY, EDUCATION, AND TRAINING TO ADDRESS: ST TO ASSESS AND PROVIDE DIET MODIFICATION AND DIET TOLERANCE/TRIALS ST TO EDUCATE ON COMPENSATORY STRATEGIES FOR SAFE ORAL INTAKE ST TO EDUCATE ON ORAL HYGIENE ST TO EDUCATE ON THERAPEUTIC EXERCISES ST TO IDENTIFY FALL RISK FACTORS; EDUCATE THE PATIENT/CAREGIVER ON WAYS TO REDUCE FALL RISK FACTORS. ST TO EDUCATE ON HYPERTENSION SELF-MANAGEMENT ST TO MONITOR CARDIO/RESPIRATORY SYSTEM; OBSERVE / ASSESS AND NOTIFY THE PHYSICIAN AND/OR THE RN CLINICAL RESEARCH HOME ECONOMIST FOR PHYSICIAN NOTIFICATION FOR EARLY SIGNS AND SYMPTOMS OF EXACERBATION OR DETERIORATION. ST MAY EDUCATE ON PAIN MANAGEMENT CLINICALLY INDICATED, INCLUDING NON-PHARMACOLOGICAL PAIN REDUCTION TECHNIQUES (RELAXATION/DISTRACTION/REPOSITIONING/BIO FEEDBACK) FOR PAIN MANAGEMENT] Future Scheduled Test AGENCY MAY PERFORM A RESUMPTION OF CARE VISIT FOLLOWING ANY HOSPITAL ADMISSION. OT TO EVALUATE, OBSERVE / ASSESS, AND MONITOR, KERLINE TO OBSERVE AND MONITOR, PROVIDE SKILLED THERAPEUTIC INTERVENTION, ACTIVITY, EDUCATION, AND TRAINING TO ADDRESS; BATHING/SHOWERING (OT/KERLINE) DRESSING (OT/INSTRUCTIONAL DESIGNER) ACTIVITIES OF DAILY LIVING (OT/INSTRUCTIONAL DESIGNER) BED TRANSFERS (OT/INSTRUCTIONAL DESIGNER) POSTURAL CONTROL/BALANCE (OT/KERLINE) THERAPEUTIC EXERCISE (OT/INSTRUCTIONAL DESIGNER) OT/KERLINE TO MONITOR AND EDUCATE ON OXYGEN SATURATION DURING ADLS/IADLS, NOTIFY PHYSICIAN AND/OR THE RN CLINICAL RESEARCH HOME ECONOMIST FOR PHYSICIAN NOTIFICATION AND IF O2 SATS BELOW 90% AFTER 10 MIN OF REST. OT/INSTRUCTIONAL DESIGNER MAY EDUCATE ON PAIN MANAGEMENT CLINICALLY INDICATED. OT/INSTRUCTIONAL DESIGNER TO EDUCATE ON HYPERTENSION SELF-MANAGEMENT [code = AGENCY MAY PERFORM A RESUMPTION OF CARE VISIT FOLLOWING ANY HOSPITAL ADMISSION. OT TO EVALUATE, OBSERVE / ASSESS, AND MONITOR, INSTRUCTIONAL DESIGNER TO OBSERVE AND MONITOR, PROVIDE SKILLED THERAPEUTIC INTERVENTION, ACTIVITY, EDUCATION, AND TRAINING TO ADDRESS; BATHING/SHOWERING (OT/INSTRUCTIONAL DESIGNER) DRESSING (OT/INSTRUCTIONAL DESIGNER) ACTIVITIES OF DAILY LIVING (OT/INSTRUCTIONAL DESIGNER) BED TRANSFERS (OT/KERLINE) POSTURAL CONTROL/BALANCE (OT/INSTRUCTIONAL DESIGNER) THERAPEUTIC EXERCISE (OT/INSTRUCTIONAL DESIGNER) OT/KERLINE TO MONITOR AND EDUCATE ON OXYGEN SATURATION DURING ADLS/IADLS, NOTIFY PHYSICIAN AND/OR THE RN CLINICAL RESEARCH HOME ECONOMIST FOR PHYSICIAN NOTIFICATION AND IF O2 SATS BELOW 90% AFTER 10 MIN OF REST. OT/INSTRUCTIONAL DESIGNER MAY EDUCATE ON PAIN MANAGEMENT CLINICALLY INDICATED. OT/KERLINE TO EDUCATE ON HYPERTENSION SELF-MANAGEMENT ] Goal Patient Goal - T O GET BACK WALKING WITH NO DEVICE, TO NOT GO BAVK TO THE HOSPITAL Goal Provider Goal - A PLAN OF CARE WILL BE ESTABLISHED THAT MEETS THE PATIENTS NEEDS. PATIENT WILL DEMONSTRATE OXYGEN SATURATION WITHIN NORMAL LIMITS OR PATIENTS OPTIMAL LEVEL ESTABLISHED BY THE PHYSICIAN THROUGHOUT CARE. CHANGES TO CO-MORBID CONDITIONS AND ANY NEW CONDITIONS WILL BE IDENTIFIED AND REPORTED TO THE PHYSICIAN. Goal Provider Goal - PATIENT/CAREGIVER TO VERBALIZE, AND CONSISTENTLY DEMONSTRATE EFFECTIVE, SAFE MANAGEMENT OF MEDICATION INCLUDING KNOWLEDGE OF EFFECTIVENESS, POTENTIAL SIDE EFFECTS AND DRUG REACTIONS AND WHEN TO CONTACT THE APPROPRIATE CARE PROVIDER. PATIENT/CAREGIVER WILL BE ABLE TO VERBALIZE UNDERSTANDING OF MEDICATION REGIMEN AND ACCURATELY TAKE MEDICATIONS PRESCRIBED WITHOUT ADVERSE EFFECTS BY EOE Goal Provider Goal - PATIENT/CAREGIVER WILL VERBALIZE UNDERSTANDING OF SIGNS AND SYMPTOMS THAT PUT THE PATIENT AT RISK FOR HOSPITALIZATION /EMERGENCY ROOM VISITS, WHEN TO NOTIFY NURSE/PHYSICIAN OF COMPLICATIONS/DECLINE AND WHEN TO CALL 911. Goal Provider Goal - PATIENT / CAREGIVER WILL VERBALIZE/DEMONSTRATE UNDERSTANDING OF MEASURES TO MANAGE ALTERED CARDIOVASCULAR STATUS BY EOE Goal Provider Goal - PATIENT / CAREGIVER WILL VERBALIZE/DEMONSTRATE AN ABILITY TO ADHERE TO SELF-MANAGEMENT OF HTN TO MINIMIZE COMPLICATIONS AND AVOID HOSPITALIZATION BY END OF EPISODE. Goal Provider Goal - CHANGES IN SKIN INTEGRITY STATUS WILL BE IDENTIFIED AND REPORTED TO THE PHYSICIAN FOR PROMPT INTERVENTION. PATIENT / CAREGIVER WILL VERBALIZE/DEMONSTRATE ADEQUATE KNOWLEDGE OF INTEGUMENTARY STATUS AND APPROPRIATE MEASURES TO PROMOTE SKIN INTEGRITY AND PREVENT INJURY BY EOE Goal Provider Goal - PATIENT / CAREGIVER WILL VERBALIZE / DEMONSTRATE UNDERSTANDING OF PAIN CONTROL MEASURES BY EOE Goal Provider Goal - PATIENT / CAREGIVER WILL VERBALIZE/DEMONSTRATE APPROPRIATE METHODS TO IMPROVE NUTRITIONAL STATUS BY END OF EPISODE. Goal Provider Goal - PATIENT/CAREGIVER WILL VERBALIZE/DEMONSTRATE UNDERSTANDING OF FALL RISK FACTORS AND IMPLEMENT STRATEGIES TO MINIMIZE FALL RISK. PATIENT/CAREGIVER WILL VERBALIZE/DEMONSTRATE AN ABILITY TO ADHERE TO FALL REDUCTION SELF-MANAGEMENT AND LIFE-STYLE CHANGES BY EOE Goal Provider Goal - Goal Provider Goal - PT LTG: PATIENT WILL DEMONSTRATE REDUCED FALL RISK EVIDENCED BY IMPROVED SELF- SELECTED WALKING SPEED (SSWS CUT SCORE 0.6 TO 0.9 INDICATES MODERATE FALL RISK, 0.6 M/S INDICATES HIGH FALL RISK) FROM 0.5 TO 0.7 M/S WITHIN 4 WEEKS PT LTG: PATIENT WILL DEMONSTRATE IMPROVED FUNCTIONAL STRENGTH EVIDENCED BY FIVE TIMES SIT TO STAND TEST (CUT SCORE >12 SECONDS INDICATES AN INCREASED FALL RISK) IMPROVING FROM 61 TO 40 SECONDS WITHIN 4 WEEKS IN ORDER TO INCREASE INDEPENDENCE WITH TRANSFERS AND STAIRS PT LTG: PATIENT WILL DEMONSTRATE IMPROVED ABILITY TO SAFELY NEGOTIATE STAIRS FROM MIN ASSIST TO SUPERVISION USING RAILING IN ORDER TO ACCESS ALL AREAS OF HER HOME WITHIN 4 WEEKS PT STG: PATIENT WILL DEMONSTRATE IMPROVED ABILITY TO PERFORM SIT TO/FROM STAND TRANSFERS TO REDUCE THE RISK OF SKIN BREAKDOWN AND REDUCE FALL RISK FROM MIN ASSIST TO INDEPENDENT WITHIN 4 WEEKS PT LTG: PATIENT WILL MAINTAIN OXYGEN SATURATION WITHIN PHYSICIAN ORDERED PARAMETERS THROUGHOUT EPISODE OF CARE. PT LTG: PATIENT/CAREGIVER WILL DEMONSTRATE ADHERENCE TO FALL REDUCTION SELF-MANAGEMENT AND REDUCING FALL RISK FACTORS TO MINIMIZE FALL RISK BY END OF EPISODE . PT LTG: PATIENT WILL BE INDEPENDENT WITH IMPLEMENTATION OF HEP WITHIN 4 WEEKS PT GOAL: PATIENT WILL DEMONSTRATE UNDERSTANDING OF PAIN MANAGEMENT TECHNIQUES EVIDENCED BY REDUCED PAIN PT GOAL: PATIENT/CAREGIVER WILL BE ABLE TO IDENTIFY SIGNS OF EXACERBATION OF HYPERTENSION AND WILL VERBALIZE/DEMONSTRATE AN ABILITY TO ADHERE TO HYPERTENSION SELF-MANAGEMENT AND LIFE-STYLE CHANGES BY END OF EPISODE Goal Provider Goal - ST LTG: PATIENT WILL HAVE IMPROVED SAFE ORAL INTAKE EVIDENCED BY INCREASE IDDSI FOOD LEVEL FROM SOFT AND BITE SIZED TEXTURE TO REGULAR WITHIN [address] LTG: PATIENT WILL DEMONSTRATE INCREASED USE OF COMPENSATORY STRATEGIES FROM 50% TO 100% IN ORDER TO IMPROVE SWALLOW SAFETY WITHIN [address] LTG: PATIENT/CAREGIVER WILL BE ABLE TO RETURN DEMONSTRATE ABILITY TO PERFORM ORAL HYGIENE TO MINIMIZE THE RISK OF ASPIRATION PNEUMONIA / HEART DISEASE / DM FROM MOD TO MIN WITHIN [address] LTG: PATIENT WILL BE ABLE TO RETURN DEMONSTRATE THERAPEUTIC EXERCISES FOR IMPROVED SWALLOW FUNCTION FROM MIN TO MOD I WITHIN [address] LTG: PATIENT/CAREGIVER WILL DEMONSTRATE ADHERENCE TO FALL REDUCTION SELF-MANAGEMENT AND REDUCING FALL RISK FACTORS TO MINIMIZE FALL RISK BY END OF EPISODE . ST GOAL: PATIENT/CAREGIVER WILL BE ABLE TO IDENTIFY SIGNS OF EXACERBATION OF HYPERTENSION AND WILL VERBALIZE/DEMONSTRATE AN ABILITY TO ADHERE TO HYPERTENSION SELF-MANAGEMENT AND LIFE-STYLE CHANGES BY END OF EPISODE . ST LTG: PATIENT WILL NOT EXPERIENCE CARDIAC OR RESPIRATORY COMPLICATIONS THROUGHOUT THE EPISODE OF CARE. ST LTG: PATIENT WILL DEMONSTRATE UNDERSTANDING OF PAIN MANAGEMENT TECHNIQUES EVIDENCED BY REDUCED PAIN IN BACK. Goal Provider Goal - OT LTG: PATIENT WILL DEMONSTRATE IMPROVED ABILITY TO PERFORM BATHING/SHOWERING AND REDUCE CAREGIVER BURDEN FROM MIN A TO MOD INDEPENDENT WITHIN 6 WEEKS OT LTG: PATIENT WILL DEMONSTRATE IMPROVED ABILITY TO PERFORM LOWER BODY DRESSING TO REDUCE CAREGIVER BURDEN FROM MIN A TO IND WITHIN 6 WEEKS OT LTG: PATIENT WILL DEMONSTRATE IMPROVEMENT IN MODIFIED PAM INDEX SCORE TO 90 /100 INDICATING DECREASED DEPENDENCY ON CAREGIVER ASSISTANCE WITH ACTIVITIES OF DAILY LIVING WITHIN 6 WEEKS OT LTG: PATIENT WILL DEMONSTRATE IMPROVED ABILITY TO PERFORM BED TRANSFERS BY REMOVING CLUTTER FROM WALKWAYS TO ALLOW FOR SAFE USE OF ROLLATOR IN ORDER TO DECREASE RISK OF FALLING WITHIN 6 WEEKS. OT LTG: PATIENT WILL DEMONSTRATE IMPROVED POSTURAL CONTROL AND DECREASED FALL RISK EVIDENCED BY AN IMPROVEMENT IN FUNCTIONAL REACH SCORE FROM 2 INCHES TO 6 INCHES WITHIN 6 IN ORDER TO DECREASE RISK FOR FALLS. T LTG: PATIENT WILL DEMONSTRATE IMPROVED BUE MUSCLE STRENGTH EVIDENCED BY AN IMPROVEMENT IN MMT/FUNCTIONAL STRENGTH TO 4+/5 BY INDEPENDENTLY FOLLOWING A BUE HEP WITHIN 6 IN ORDER TO INCREASE INDEPENDENCE AND SAFETY WITH TRANSFERS OT LTG: PATIENT WILL MAINTAIN OXYGEN SATURATION WITHIN PHYSICIAN ORDERED PARAMETERS THROUGHOUT THE EPISODE OF CARE. OT LTG: PATIENT WILL DEMONSTRATE UNDERSTANDING OF PAIN MANAGEMENT TECHNIQUES NEEDED DURING EPISODE OF CARE OT GOAL: PATIENT/CAREGIVER WILL BE ABLE TO IDENTIFY SIGNS OF EXACERBATION OF HYPERTENSION AND WILL VERBALIZE/DEMONSTRATE AN ABILITY TO ADHERE TO HYPERTENSION SELF-MANAGEMENT AND LIFE-STYLE CHANGES BY END OF EPISODE Encounters Start Date/Time End Date/Time Encounter Type Admission Type Attending [facility] Care Department Encounter ID Discharge Date Discharge Status Discharge Condition Discharge Reason Percent Goals Met 2025-03-01 00:00:00 2025-04-29 00:00:00 Outpatient [facility] [id number] 40.54
== END 2025-03-26 15:51 | disposition home or self-care (01) ==
PROVIDERS: PCP General Practice; Visit Provider Nurse Practitioner Family
DX: R13.12 Dysphagia, oropharyngeal phase (principal); K58.1 Irritable bowel syndrome with constipation; K21.9 Gastro-esophageal reflux disease without esophagitis; Z91.81 History of falling; R42 Dizziness and giddiness
CPT/HCPCS: 99215; G2211

== ENCOUNTER → 2025-03-26 15:14 | Outpatient (BNVA) | payer MEDICARE, SELFPAY | PROVIDERS: PCP General Practice; Visit Provider Nurse Practitioner Family | DX: K58.9 Irritable bowel syndrome, unspecified (principal); K59.01 Slow transit constipation; K21.9 Gastro-esophageal reflux disease without esophagitis; R13.12 Dysphagia, oropharyngeal phase; R42 Dizziness and giddiness; Z91.81 History of falling | CPT/HCPCS: 99212 ==

== ENCOUNTER 2025-04-03 12:08 | Day surgery (SDC) | payer MEDICARE, MEDICAID, SELFPAY ==
--- OUTSIDE RECORDS SUMMARY | 2025-03-29 12:44 | XMS_ITS | Encounter Summary ---
Author Organization [employer] Address [address] [facility] 7t [place] [address] Care Team Providers Care Software Support Specialist Name Role Phone Izzy Sigala MD Primary Care Provider [phone] Encounter Details Date Type Department Care Team (Late st Contact Info) Description 10/22/2022 Orders Only [facility] [address] [place], [place] [phone] Izzy Sigala MD [address] [place], [place] [phone] Skin infection (Primary Dx); Bronchitis Social History [...] as of this encounter Plan of Treatment Not on file documented as of this encounter Visit Diagnoses Diagnosis Skin infection- Primary Unspecified local infection of skin and subcutaneous tissue Bronchitis Bronchitis, not specified as acute or chronic documented in this encounter Care Teams Software Support Specialist Relationship Specialty Start Date End Date Izzy Sigala MD [address] [place] [address] [phone] PCP - General Family Medicine 10/30/21 [facility] 03/01/25 documented as of this encounter
--- OUTSIDE RECORDS SUMMARY | 2025-03-29 12:45 | XMS_ITS | Encounter Summary ---
Author Organization [employer] Address [address] [facility] 7t [place] [address] Care Team Providers Care Restrictive Preparation Operator Name Role Phone Izzy Sigala MD Primary Care Provider [phone] Encounter Details Date Type Department Care Team (Late st Contact Info) Description 11/04/2023 Orders Only [facility] [address] [place], [place] [phone] Izzy Sigala MD [address] [place], [place] [phone] Other cervical disc degeneration, unspecified cervical region [...] region documented in this encounter Care Teams Restrictive Preparation Operator Relationship Specialty Start Date End Date Izzy Sigala MD [address] [place] [address] PCP - General Family Medicine 10/30/21 [facility] 03/01/25 documented as of this encounter
--- OUTSIDE RECORDS SUMMARY | 2025-03-29 12:45 | XMS_ITS | Encounter Summary ---
Author Organization [employer] Address [address] [facility] 7t [place] [address] Care Team Providers Care Hydro Sprayer Operator Name Role Phone Izzy Sigala MD Primary Care Provider [phone] Encounter Details Date Type Department Care Team (Latest Contact Info) Description 03/28/2025 Travel Social History Tobacco Use Types Packs/Day [...] housing situation today? I have kalpana jeff 03/11/[address] you li ve. Do you have problems with any of the following? None of the above 03/11/2025 Food Insecurity Answer Date Recorded Within the past 12 months, y ou worried that your food would run out before you got money to buy more: Never True 03/11/2025 Within the past 12 months,th e food [...] documented as of this encounter Care Teams Hydro Sprayer Operator Relationship Specialty Start Date End Date Izzy Sigala MD [address] [place] [address] PCP - General Family Medicine 10/30/21 [facility] 03/01/25 documented as of this encounter
--- OUTSIDE RECORDS SUMMARY | 2025-03-29 12:45 | XMS_ITS | Encounter Summary ---
Author Organization [employer] Address [address] [facility] 7t [place] [address] Care Team Providers Care Sandwich Peddler Name Role Phone Izzy Sigala MD Primary Care Provider [phone] Encounter Details Date Type Department Care Team (Late st Contact Info) Description 12/22/2023 Orders Only [facility] [address] [place], [place] [phone] Izzy Sigala MD [address] [place], [place] [phone] Chronic neck pain with history of cervical [...] Primary documented in this encounter Care Teams Sandwich Peddler Relationship Specialty Start Date End Date Izzy Sigala MD [address] [place] [id number] PCP - General Family Medicine 10/30/21 [facility] 03/01/25 documented as of this encounter
--- OUTSIDE RECORDS SUMMARY | 2025-03-29 12:45 | XMS_ITS | Encounter Summary ---
Author Organization [employer] Address [address] [facility] 7 [place] [address] Care Team Providers Care Family Program Specialist Name Role Phone Izzy Sigala MD Primary Care Provider [phone] Encounter Details Date Type Department Care Team (Late st Contact Info) Description 06/08/2023 Orders Only [facility] [address] [place], [place] [phone] Izzy Sigala MD [address] [place], [place] [phone] Drug toxicity (Primary Dx) Social History Tobacco [...] documented in this encounter Plan of Treatment Not on file documented as of this encounter Procedures Procedure Name Priority Date/Time Associated Diagnosis Comments PHOSPHATE ( PHOSPHORUS) Routine 06/23/2023 11:21 AM EDT Drug toxicity BASIC METABOLIC PANEL Routine 06/23/2023 11:21 AM EDT Drug toxicity documented in this encounter Results * Phosphate (As Phosphorus) (06/23/2023 11:21 AM EDT) Phosphorus 3.2 2.7 - 4.5 mg/dL [facility] Blood Venous blood specimen / Unknown 06/23/2023 11:21 AM EDT 06/23/2023 11:21 AM EDT us Izzy Sigala MD LAB BLOOD ORDERABLES Final Res ult [facility] [address] [place] [address] [phone] * (ABNORMAL) Basic Metabolic Panel (06/23/2023 11:21 AM EDT) Sodium 141 135 - 145 mmol/L [facility] Potassium 4.4 3.3 - 5.1 mmol/L [facility] Chloride 109(H) 96 - 108 mmol/L [facility] Carbon Dioxide 27 22 - 29 mmol/L [facility] Anion Gap 9(L) 12 - 20 [facility] Urea Nitrogen (BUN) 11 9 - 16 mg/dL [facility] Creatinine, Serum 0.77 0.5 - 1.4 mg/dL [facility] Estimated Glomerular Filt Rate >60 [facility] Comment:NOTE: For -Am erican individuals, multiply the result by 1.210.Chronic Kidney Disease: Estimated GFR < 60 mL/min/1.71m4Kfdejf Kidney Disease: Estimated GFR < 15 mL/min/1.73m2 Glucose 94 60 - 115 mg/dL [facility] Calcium 9.0 8.4 - 10.2 mg/dL [facility] Blood Venous blood specimen / Unknown 06/23/2023 11:21 AM EDT 06/23/2023 11:21 AM EDT us Izzy Sigala MD LAB BLOOD ORDERABLES Final Res ult Performing Organization Address City/State/[facility] Co de Phone Number [facility] [address] [place] [phone] documented in this encounter Visit Diagnoses Diagnosis Drug toxicity- Primary Nonspecific abnormal toxicological findings documented in this encounter Care Teams Family Program Specialist Relationship Specialty Start Date End Date Izzy Sigala MD [address] [place] [id number] PCP - General Family Medicine 10/30/21 [facility] 03/01/25 documented as of this encounter
--- OUTSIDE RECORDS SUMMARY | 2025-03-29 12:45 | XMS_ITS | Encounter Summary ---
Author Organization [employer] Address [address] [facility] 7t [place] [address] Care Team Providers Care Jewelry Store Manager Name Role Phone Izzy Sigala MD Primary Care Provider [phone] Reason for Referral * Consultation (Routine) - Closed Specialty Diagnoses / Procedures Referred By Contac t Referred To Contact Behavioral Health Diagnoses Anxiety Izzy Sigala MD [address] [place] [address] Phone: tel: fax: Referral ID Status Reason Start Date Expiration Date V isits Requested Visits Authorized [id number] Closed Specialty Services Required 11/20/2024 11/20/2025 1 1 Encounter Details Date Type Department Care Team (Late st Contact Info) Description 11/20/2024 Orders Only [facility] [address] [place], [place] [phone] Izzy Sigala MD [address] [place], [place] [phone] Anxiety (Primary Dx) Social History Tobacco Use [...] AM EDT documented as of this encounter Functional Status * Over the past 2 weeks, how often have you been bothered by any of the following problems? Question Answer Date of Assessment Author Patient Health Questionnaire-2 Score 2 11/20/2024 9:39 AM Angus Carbone LICSW * Little interest or pleasure in doing things Answer Date of Assessment Author Several days 11/20/2024 9:39 AM Krista Carbone LICSW * Feeling down, depressed, or hopeless Answer Date of Assessment Author Several days 11/20/2024 9:39 AM Krista Carbone LICSW * Trouble falling or staying asleep, or sleeping too much Answer Date of Assessment Author Nearly every day 11/20/2024 9:39 AM Krista Carbone LICSW * Feeling tired or having little energy Answer Date of Assessment Author Nearly every day 11/20/2024 9:39 AM Krista Carbone LICSW * Poor appetite or overeating Answer Date of Assessment Author Nearly every day 11/20/2024 9:39 AM Krista Carbone LICSW * Feeling bad about yourself - or that you are a failure or have let yourself or your family down Answer Date of Assessment Author Nearly every day 11/20/2024 9:39 AM Krista Carbone LICSW * Trouble concentrating on things, such as reading the newspaper or watching television Answer Date of Assessment Author More than half the days 11/20/2024 9:39 AM Krista Rhoades LICSW * Moving or speaking so slowly that other people could have noticed? Or the opposite - being so fidgety or restless that you have been moving around a lot more than usual. Answer Date of Assessment Author Not at all 11/20/2024 9:39 AM Krista Carbone LICSW * Thoughts that you would be better off or hurting yourself in some way Answer Date of Assessment Author Not at all 11/20/2024 9:39 AM Krista Carbone LICSW * Patient Health Questionnaire-9 Score Answer Date of Assessment Author 16 11/20/2024 9:39 AM Krista Carbone LICSW * How difficult have these problems made it for you to do your work, take care of things at home, or get along with other people? Answer Date of Assessment Author Very difficult 11/20/2024 9:39 AM Krista Carbone LICSW * Over the last 2 weeks, how often have you been bothered by any of the following problems? Question Answer Date of Assessment Author Feeling nervous, anxious, or on edge 0 11/20/2024 9:39 AM Domonique Carbone LICSW Not being able to stop or control worrying 3 11/20/2024 9:39 AM Domonique Carbone LICSW Worrying too much about different things 3 11/20/2024 9:39 AM Domonique Carbone LICSW Trouble relaxing 3 11/20/2024 9:39 AM Krista Rhoades LICSW Being so restless that it is hard to sit still 0 11/20/2024 9:39 AM EST Domonique Vitale LICSW Becoming easily annoyed or irritable 2 11/20/2024 9:39 AM EST Domonique Vitale LICSW Feeling afraid as if something awful might happen 3 11/20/2024 9:39 AM EST Krista Vitale LICSW LASHONDA-7 Total Score 14 11/20/2024 9:39 AM EST Krista Vitale LICSW documented as of this encounter Plan of Treatment Scheduled Referrals Name Type Priority Associated Diagnoses Order Schedule Referral to Behavioral Health Outpatient Referral Routine Anxiety Expected: 11/20/2024 (Approximate), Expires: 11/20/2025 documented as of this encounter Visit Diagnoses Diagnosis Anxiety- Primary Anxiety state, unspecified documented in this encounter Additional Health Concerns Assessment Noted Time PHQ-9 Depression Total Score: 16 025 9:39 AM EST documented as of this encounter Care Teams Jewelry Store Manager Relationship Specialty Start Date End Date Izzy Sigala MD [address] [place] [phone] PCP - General Family Medicine 10/30/21 [facility] 03/01/25 documented as of this encounter
--- OUTSIDE RECORDS SUMMARY | 2025-03-29 12:45 | XMS_ITS | Clinical Summary ---
Author Organization [employer] Address [address] [place] [address] 7 [place] [address] Care Team Providers Care Television Parts Tester Name Role Phone Izzy Sigala MD Primary Care Provider [phone] Allergies Active Allergy Reactions Criticality Noted Date [...] 2-4 TIMES A DAY 12/03/19 23 Active GaviLAX 17 GM/SCOOP powder TAKE 17 GRAMS (1 CAPFUL) MIXED IN LIQUID AND TAKE DAILY 07/04/20 23 Active magnesium oxide (Mag-Ox) 400 (240 Mg) MG tablet TAKE 1 TABLET BY MOUTH EVERY DAY 90 tablet 3 01/31/20 24 Active esomeprazole (NexIUM) [address] capsule Take 40 mg by mouth Once per day. 01/31/20 24 Active levothyroxine (Synthroid, Levoxyl) 75 MCG tablet Take 1 tablet (75 mcg) by mouth Once per day. 90 tablet 3 03/16/20 24 Active sertraline (Zoloft) 100 MG tablet TAKE 2 TABLETS BY MOUTH EVERY DAY 180 tablet 3 03/16/20 24 Active docusate sodium (Colace) 100 MG capsule TAKE 1-2 CAPSULES BY MOUTH EVERY DAY NEEDED 180 capsule 3 04/23/20 24 Active memantine (Namenda) 5 MG tablet Take 5 mg by mouth 2 times daily. 06/12/20 24 Active naloxone (Narcan) 4 mg/0.1 mL nasal sprayIndication s:Chronic neck pain with history of 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 Administer 1 spray (4 mg) into affected nostril(s) if needed for opioid reversal. May repeat every 2-3 minutes if needed, alternating nostrils, until medical assistance becomes available. 2 each 3 08/23/20 24 2024 Active alendronate (Fosamax) 70 MG tabletIndicatio ns:Localized osteoporosis without current pathological fracture TAKE 1 [...] BEDTIME 90 tablet 3 09/28/20 24 Active clindamycin (Clindagel) 1 % gelIndications: Folliculitis Apply topically Once per day. 60 g 2 01/09/20 25 2025 Active buprenorphine (Butrans) 20 MCG/HRIndicatio ns:Cervicalgia Place 1 patch on the skin 1 (one) time per week. 4 patch 5 02/06/20 25 Active amLODIPine (Norvasc) 5 MG tabletIndicatio ns:Primary hypertension Take 1 tablet (5 mg) by mouth Once per day. 90 tablet 03/28/20 25 Active Clindamycin Phos, Once-Daily, (Clindagel) 1 % gelIndications: Folliculitis Apply 1 Application topically Once per day. 75 mL 03/28/20 25 Active metoclopramide (Reglan) 10 MG tabletIndicatio ns:Esophageal dysmotility Take 1 tablet (10 mg) by mouth if needed in the morning, at noon, in the evening, and at bedtime (nausea, vomiting). 28 tablet 1 03/28/20 25 Active hydrocortisone 2.5 % cream 01/06/202024 Discontinued(M ed list cleanup (will not trigger notification to Pharmacy)) triamcinolone (Kenalog) 0.1 % creamIndication s:Impetigo Apply topically every 12 (twelve) hours. apply by topical route 2 times every day a thin layer to the affected area(s) 80 g 1 04/20/202024 Discontinued(M ed list cleanup (will not trigger notification to Pharmacy)) mometasone (Elocon) 0.1 % cream APPLY TO ITCHY AREAS ON UPPER BACK TWICE DAILY, THEN ONCE DAILY, THEN EVERY OTHER UPON IMPROVEMENT 05/10/202024 Discontinued(M ed list cleanup (will not trigger notification to Pharmacy)) triamcinolone (Kenalog) 0.025 % cream APPLY TO ITCHY AREA ON RIGHT EYEBROW TWICE DAILY FOR FLARES. DECREASE USE SYMPTOMS IMPROVE 05/10/202024 Discontinued(M ed list cleanup (will not trigger notification to Pharmacy)) tacrolimus (Protopic) 0.1 % ointment APPLY TO THE ITCHIEST AREAS TWICE A DAY WHEN NEEDED 06/27/202024 Discontinued(M ed list cleanup (will not trigger notification to Pharmacy)) Myrbetriq 25 MG 24 hr tablet TAKE 1 TABLET BY MOUTH EVERY DAY FOR 30 DAYS 08/18/202024 Discontinued(M ed list cleanup (will not trigger notification to Pharmacy)) betamethasone, augmented, (Diprolene AF) 0.05 % cream APPLY TO ITCHY AREAS ON UPPER BACK 2 TIMES DAILY NEEDED FOR FLARES 09/29/202024 Discontinued(M ed list cleanup (will not trigger notification to Pharmacy)) calcium 500 MG tablet Take 1 tablet (500 mg) by mouth with breakfast and with evening meal. 180 tablet 3 10/14/202024 Discontinued(M ed list cleanup (will not trigger notification to Pharmacy)) Oyster Shell Calcium 500 MG tablet TAKE 1 TABLET (500 MG) BY MOUTH WITH BREAKFAST AND WITH EVENING MEAL 10/31/202024 Discontinued(M ed list cleanup (will not trigger notification to Pharmacy)) buPROPion (Wellbutrin) 75 MG tablet 08/14/20 24 2024 Discontinued(M ed list cleanup (will not trigger notification to Pharmacy)) Chlorhexidine Gluconate (Hibiclens) 4 % solution Apply 1 Application topically Once per day. 118 mL 01/09/20 25 2024 Discontinued(M ed list cleanup (will not trigger notification to Pharmacy)) sodium chloride (Broncho Saline) 0.9 % aerosol solution Inhale 1 spray every 4 (four) hours if needed for wheezing. 90 mL 01/09/20 25 2024 Discontinued(M ed list cleanup (will not trigger notification to Pharmacy)) amLODIPine (Norvasc) 5 MG tablet Take 1 tablet by mouth Once per day. 02/29/202024 Discontinued(R eorder (will not trigger notification to Pharmacy)) metoclopramide (Reglan) 10 MG tablet Take 1 tablet by mouth if needed in the morning, at noon, in the evening, and at bedtime (nausea, vomiting). 02/29/202024 Discontinued(R eorder (will not trigger notification to Pharmacy)) Active Problems Problem Noted Date Diagnosed Date Esophageal dysmotility 03/28/2025 Assessment & Plan (03/28/2025 4:48 PM EDT): I advised not to miss her appointments with GI and not to miss her appointments for the imaging that she needs Primary hypertension 03/28/2025 Assessment & Plan (03/28/2025 4:48 PM EDT): Blood pressure seems to be under control now, advised to continue with amlodipine 5 mg daily and a low-sodium diet continue to follow-up with PCP Moderately severe major depression 11/28/2024 Protein-calorie malnutrition, unspecified severi ty 08/23/2024 Assessment & Plan (11/28/2024 10:13 AM EST): Start Ensure supplementation 1can/day per GI and pbx teacher recommendations Single subsegmental thrombot ic pulmonary embolism without acute cor pulmonale 08/23/2024 [facility] (current) use of opiate analgesic 08/14 Overview (08/23/2024): Dx: chronic neck pain Tx: butrans patch 20mcg/hr Tier II (q 3 months screening) Additional considerations: > 3 neck fusion surgeries Assessment & Plan (02/05/2025 8:29 PM EDT): Timeline: - 02/05/25: Initial group visit - utox as expected (forgot patches, but expected zero) Low back pain at multiple sites 06/22/2024 Assessment & Plan (02/05/2025 8:27 PM EDT): MRI lumbar spine Jul 2024: IMPRESSION: Multilevel spondylosis, T12-L1 to L5-S1 more conspicuous at L1-2 compressing the neural elements of the thecal sac and to a lesser extent L3-4-2 L4-5 levels and encroaching the exiting nerve roots at multiple levels. 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 Assessment & Plan (06/22/2024 8:31 AM EDT): Declines [facility] referral for therapy, will continue to offer and would benefit from increased coping strategies Encounters Date Type Department Care Team Description 03/28/2025 2:00 PM EDT Office Visit [facility] MEDICINE [address] [place] [id number] Lyly Rocha MD Esophageal dysmotility (Primary Dx); Folliculitis; Primary hypertension 03/28/2025 Travel 03/18/2025 1:00 PM EDT Office Visit [facility] OPTOMETRY [address] [place] [address] Sulema Turk, OD Presbyopia (Primary Dx); Combined forms of age-related cataract of both eyes; Dry eyes, bilateral; Posterior vitreous detachment, bilateral 03/18/2025 Travel 03/11/[address] [facility]INE [address] [place] [phone] Izzy Sigala MD Transition Of Care (Tcm) (HDF scheduled and SDOH screening negative and Tobacco screening negative) 03/11/2025 Patient Outreach [address] [address] Izzy Sigala MD Transition Of Care (Tcm) (HDF unscheduled LVM ) 03/11/[address] [facility] MEDICINE [address] [place] [phone] Izzy Sigala MD Hospital Follow-up 03/06/2025 Telephone [facility] [address] [place], [place] [phone] Ryanne Bradley RN 02/13/2025 Patient Outreach [address] [address] Izzy Sigala MD Pre-visit Planning ((Unable to reach for PVP screening, LVM)) 02/06/2025 Travel 02/05/2025 9:45 AM EDT Office Visit 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; Degenerative disc disease, cervical 02/05/2025 Refill [facility] [address] [place], [place] [phone] Ryanne Bradley RN Cervicalgia 02/05/2025 Travel 01/29/[address] [address] Divya Neil RN Reschedule DELIMER appt 02/01/25 01/11/[address] [address] Izzy Sigala MD Results 01/10/2025 Orders Only [address] [address] Izzy Sigala MD 01/10/[address] [address] Izzy Sigala MD 01/09/2025 11:30 AM EST Office Visit [address] [address] Izzy Sigala MD Chest pain, unspecified type (Primary Dx); Cervicalgia; Folliculitis; Esophageal stricture; Chronic anxiety; History of falling; Social isolation; Chronic neck pain with history of 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 01/09/2025 Travel from Last 3 Months Immunizations Immunization Administration Dates Next Due Influenza High-dose Quadriva [...] Sign Reading Time Taken Comments Blood Pressure 126/75 03/28/2025 2:09 PM EDT Pulse 74 03/28/2025 2:09 PM EDT Temperature 35.9 ??C (96.6 ??F) 03/28/2025 2:09 PM ED T Respiratory Rate 15 03/28/2025 2:09 PM EDT Oxygen Saturation 98% 01/09/2025 11:30 AM EST Inhaled Oxygen Concentration - - Weight 54.3 kg (119 lb 9.6 oz) 03/28/2025 2:09 P M EDT Height 165.1 cm (5' 5 ) 03/28/2025 2:09 PM EDT Body Mass Index 19.9 03/28/2025 2:09 PM EDT Plan of Treatment Health Maintenance Due Date Last Done Comments CT Colonography 1955 FIT DNA/Cologuard 1955 FIT 1955 FOBT 1955 Lipid Panel 1955 Sigmoidoscopy 1955 Hepatitis C Screening 01/14/1972 RSV Patients and Patients Aged 60 years or older (1 - Risk 60-74 years 1-dose series) 2014 COVID-19 Vaccine ( season) 2024 12/16/2021, 04/29/2021, 04/19/2021, Additional history exists Mammogram 05/10/2025 05/10/2024, 08, 07/13/2023, Additional history exists Depression Screening 11/20/2025 11/20/2024, 11/20/19 SDOH Screening 03/11/2026 03/11/2025 Alcohol/Substance Use Screening 03/28/2026 03/28/2025 Tobacco Screening 03/28/2026 03/28/2025 Colonoscopy 11/14/2026 Colorectal Cancer Screening 11/14/2026 DTaP/Tdap/Td [...] patient's age to complete this topic Meningococcal B Vaccine Aged Out No l onger eligible based on patient's age to complete [...] Procedure Name Priority Date/Time Associated Diagnosis Comments POCT WILIAM-14 URINE DRUG SCREEN Routine 02/05/2025 1:31 PM EDT Low back pain at multiple sites 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 D DIMER HIGH SENSITIVITY Routine 01/10/2025 9:36 AM EST BI MAMMOGRAM SCREENING TOMOSYNTHESIS BILATERAL Routine 05/10/2024 2:55 PM EDT from Last 3 Months or Most Recently Relevant to Health Maintenance Results * POCT WILIAM-14 Urine Drug Screen (02/05/2025 1:31 PM EDT) THC Positive Cocaine Screen, Urine Negative Opiate Screen, Urine Negative Methamphetamine Screen Urine Negative Amphetamine Screen, Urine Negative Benzodiazepines Screen, Urine Negative Barbiturate Screen, Urine Negative Methadone Screen, Urine Negative Buprenophine Screen, Urine Positive TCA, Urine Negative MDMA Urine Negative ng/mL Oxycodone Screen, Urine Negative Phencyclidine (PCP), Urine Negative Propoxyphene, Urine Negative Fentanyl, Urine Negative Urine Urine specimen obtained by clean catch procedure / Unknown 02/05/2025 1:31 PM EDT Narrative Isa Torres, BETHEL - 02/05/2025 1:31 PM EDT Lot:[id number] Exp: 07/03/2028 Lori HARRISP POINT OF CARE TEST ENTER/EDIT ORDERABLES Final Result * D Dimer High Sensitivity (01/10/2025 9:36 AM EST) D Dimer High Sensitivity <150 NG/ML [facility] Comment:D-DIMER HS REFERENCE RANGENote: Our assay reports D-Dimer Units (D- DU).The cut-off value for venous thromboembolic (VTE) disease is230 ng/mL. This value has a very high negative predictivevalue when the patient has a low to moderate clinicalprobability of VTE.The upper limit of normal is 243 ng/mL. 01/10/2025 9:36 AM EST 01/10/2025 11:48 AM EST us Izzy Sigala MD LAB BLOOD ORDERABLES Final Res ult [facility] [address] [facility] [place] [address] [phone] * BI Mammogram Screening Tomosynthesis Bilateral (05/10/2024 2:55 PM EDT) Anatomical Region Laterality Modality Breast Bilateral Mammography 05/10/2024 2:55 PM EDT Narrative 06/08/2024 9:16 AM EDT ? [facility] ? [address] ?[place] [address] ? Mammography Report ? Signed ? Patient: Kwesi,Sivan Susana ?MR#: [id number] ?? [id number] ? : 1955 ?Acct:[id number] ? Age/Sex: 69 / F ?ADM Date: 05/10/24 ? Loc: HO.MAMMO ? Attending Dr: Izzy Sigala MD ? Ordering Physician: Izzy Sigala ?Results: 1Negative ? Date of Service: 05/10/24 ?Follow Up: 1 Year From Orig ?? inal Mammogram ? Procedure(s): MM tomosynthesis screening BI ?? Accession Number(s): [id number] ? cc: Izzy Sigala ? EXAMINATION: ?? [...] 0912 ? DD/ 1455 ? TD/TT: ? Oncology Rn: ? Procedure Note Kacy Hung - 06/08/2024 [facility] [address] [place] [address] [place] [address] Mammography Report Signed Patient: Sivan Orosco#: [id number] : 4Acct:[id number] Age/Sex: 69 / FADM Date: 05/10/24 Loc: FERO Attending Dr: Izzy Sigala MD Ordering Physician: Caitie Sigalaults: 1Negative Date of Service: 05/10/24Follow Up: 1 Year From Orig inal Mammogram Procedure(s): MM tomosynthesis screening BI Accession Number(s): [id number] cc: Izzy Sigala EXAMINATION: MM SCREENING DIGITAL [...] in OV> 06/08/24 0912 DD/ 1455 TD/TT: Oncology Rn: Izzy Sigala MD IMG BI PROCEDURES Final Result from Last 3 Months or Most Recently Relevant to Health Maintenance Insurance [employer] MEDICARE REPLACEMENT HSN PARTIAL Advance Directives Documents on File Type Date Recorded Patient Product Safety Officer Expl anation Advance Directives and Living Will 01/08/2025 [facility] Care Teams Television Parts Tester Relationship Specialty Start Date End Date Izzy Sigala MD [address] [place] [phone] PCP - General Family Medicine 10/30/21 [facility] 03/01/25
--- OUTSIDE RECORDS SUMMARY | 2025-03-29 12:45 | XMS_ITS | Encounter Summary ---
Author Organization [employer] Address [address] [place] [address] 7 [place] [address] Care Team Providers Care Special Needs Librarian Name Role Phone Izzy Sigala MD Primary Care Provider [phone] Reason for Visit * Reason Comments Med Refill Encounter Details Date Type Department Care Team ([facility] st Contact Info) Description 06/30/2023 Refill [facility] [address] [place], [place] [phone] Izzy Sigala MD [address] [place] [address] History of pulmonary embolus (PE) Social History [...] (PE) documented in this encounter Care Teams Special Needs Librarian Relationship Specialty Start Date End Date Izzy Sigala MD [address] [place], [place] [phone] PCP - General Family Medicine 10/30/21 [facility] 03/01/25 documented as of this encounter
--- OUTSIDE RECORDS SUMMARY | 2025-03-29 12:45 | XMS_ITS | Encounter Summary ---
Author Organization [employer] Address [address] [facility] [address]t [place] [address] Care Team Providers Care Slitting And Shipping Supervisor Name Role Phone Izzy Sigala MD Primary Care Provider Encounter Details Date Type Department Care Team (Late st Contact Info) Description 02/02/2023 Orders Only [facility] [address] [place], [place] [phone] Izzy Sigala MD [address] [place], [place] [phone] Left hip pain (Primary Dx) Social History [...] thigh documented in this encounter Care Teams Slitting And Shipping Supervisor Relationship Specialty Start Date End Date Izzy Sigala MD [address] [place] [address] PCP - General Family Medicine 10/30/21 [facility] 03/01/25 documented as of this encounter
--- OUTSIDE RECORDS SUMMARY | 2025-03-29 12:45 | XMS_ITS | Encounter Summary ---
Author Organization [employer] Address [address] [facility] [address] [place] [address] Care Team Providers Care Truck Driver Helper Name Role Phone Izzy Sigala MD Primary Care Provider [phone] Encounter Details Date Type Department Care Team (Late st Contact Info) Description [facility] [address] [place], [place] [phone] Izzy Sigala MD [address] [place], [place] [phone] Social History Tobacco Use Types Packs/Day Years [...] on filedocumented in this encounter Care Teams Truck Driver Helper Relationship Specialty Start Date End Date Izzy Sigala MD [address] [place], [place] [phone] PCP - General Family Medicine 10/30/21 [facility] 03/01/25 documented as of this encounter
--- OUTSIDE RECORDS SUMMARY | 2025-03-29 12:45 | XMS_ITS | Encounter Summary ---
Author Organization [employer] Address [address] [place] [address] 7 [place] [address] Care Team Providers Care Policy Service Coordinator Name Role Phone Izzy Sigala MD Primary Care Provider [phone] Reason for Referral * Medications - Closed Specialty Diagnoses / Procedures Referred By Contac t Referred To Contact Diagnoses Degenerative disc disease, cervical Chronic bilateral thoracic back pain Izzy Sigala MD [address] [place] [phone] Phone: tel: fax: Referral ID Status Reason Start Date Expiration Date Visits Re quested Visits Authorized [id number] Closed 1 1 Encounter Details Date Type Department Care Team (Late st Contact Info) Description 12/03/2022 Orders Only [facility] [address] [place] [address] [phone] Izzy Sigala MD [address] [place] [address] [phone] Degenerative disc disease, cervical (Primary Dx); Chronic [...] pain documented in this encounter Care Teams Policy Service Coordinator Relationship Specialty Start Date End Date Izzy Sigala MD [address] [place] [address] PCP - General Family Medicine 10/30/21 [facility] 03/01/25 documented as of this encounter
--- OUTSIDE RECORDS SUMMARY | 2025-03-29 12:45 | XMS_ITS | Encounter Summary ---
Author Organization [employer] Address [address] [facility] 7 [place] [address] Care Team Providers Care Manager Business Banking Name Role Phone Izzy Sigala MD Primary Care Provider [phone] Reason for Visit * Reason Onset Date Comments Hospital Follow-up 03/11/2025 Encounter Details Date Type Department Care Team ([facility] st Contact Info) Description 03/11/2025 Telephone [facility] [address] [place], [place] [phone] Izzy Sigala MD [address] [place] [address] Hospital Follow-up Social History Tobacco Use Types Packs/Day Years [...] encounter Miscellaneous Notes * Telephone Encounter - Linn Mcneill - 03/11/2025 11:14 AM EDT Tc from pt sister Gina requesting a HDF appt. Hospital: [facility] Date of admission: 02/20/25 Discharge date: 02/28/25 Diagnosed: Stomach hernia Contact Gina at [phone] or pt son Darnell [phone] documented in this encounter Plan of Treatment Not on file documented as of this encounter Visit Diagnoses Not on filedocumented in this encounter Additional Health Concerns Assessment Noted Time PHQ-9 Depression Total Score: 16 025 9:39 AM EST documented as of this encounter Care Teams Manager Business Banking Relationship Specialty Start Date End Date Izzy Sigala MD [address] [place] [phone] PCP - General Family Medicine 10/30/21 [facility] 03/01/25 documented as of this encounter
--- OUTSIDE RECORDS SUMMARY | 2025-03-29 12:45 | XMS_ITS | Encounter Summary ---
Author Organization [employer] Address [address] [facility] [address] [place] [address] Care Team Providers Care Head Chopper Name Role Phone Izzy Sigala MD Primary Care Provider [phone] Encounter Details Date Type Department Care Team (Late st Contact Info) Description 03/28/2025 2:00 PM EDT Office Visit [facility] [address] [place], [place] [phone] Lyly Rocha MD [address] [place] [address] Esophageal dysmotility (Primary Dx); Folliculitis; Primary hypertension Social History Tobacco Use Types Packs/Day Years [...] 15 03/28/2025 2:09 PM EDT Oxygen Saturation - - Inhaled Oxygen Concentration - - Weight 54.3 kg (119 lb 9.6 oz) 03/28/2025 2:09 P M EDT Height 165.1 cm (5' 5 ) 03/28/2025 2:09 PM EDT Body Mass Index 19.9 03/28/2025 2:09 PM EDT documented in this encounter Progress Notes * Lyly Draper MD - 03/28/2025 2:00 PM EDT SUBJECTIVE: Sivan Orosco is a 70 y.o. year old female who presents for HDF . [facility] [place] (02/21/25 - 02/28/25) Patient with PMH of GERD presented with vomiting, abdominal pain, and inability to tolerate PO. Abdominal CT and US without acute abnormality. Cardiology team consulted, however cardiac etiology ruled out. GI team consulted for EGD, however EGD unremarkable. Barium esophagram performed and demonstrated mild esophageal dysmotility. Patient administered antinausea medication with good affect and was able to tolerate solid diet. Patient's BP significantly elevated, and patient initiated on amlodipine. Patient discharged to home. Medication changes that occurred during hospitalization include: Added Amlodipine 5 mg once daily Metoclopramide 10 mg 4 times daily as needed Morphine 15 mg every 6 hours as needed Changed None Discontinued None Patient today reports she feels much better, she tells me she even gained some weight and is very happy about it, reports metoclopramide had helped her a lot. Patient tells me she is taking his her medication as prescribed and blood pressure has been good at home Patient tells me she did follow-up with gastroenterology she will have a CT done and then a follow-up appointment Social History Social History Narrative Lives with son EtOH- glass of wine CBD vape no other drugs Problem List[1] Family History[2] Review of Systems Constitutional: Negative. HENT: Negative. Respiratory: Negative. Cardiovascular: Negative. Gastrointestinal: Negative. OBJECTIVE: Vitals: 03/28/25 1409 BP: 126/75 BP Location: Left arm Patient Position: Sitting BP Cuff Size: Adult Pulse: 74 Resp: 15 Temp: 96.6 ??F (35.9 ??C) TempSrc: Oral Weight: 119 lb 9.6 oz (54.3 kg) Height: 5' 5 (1.651 m) Physical Exam Constitutional: Appearance: Normal appearance. Cardiovascular: Rate and Rhythm: Normal rate and regular rhythm. Pulmonary: Effort: Pulmonary effort is normal. Breath sounds: Normal breath sounds. Abdominal: General: Abdomen is flat. Palpations: Abdomen is soft. Tenderness: There is no abdominal tenderness. Musculoskeletal: Right lower leg: No edema. Left lower leg: No edema. Neurological: Mental Status: She is alert. Follow Up: No follow-ups on file. Medications Ordered Prior to Encounter[3] Problem List Items Addressed This Visit Esophageal dysmotility - Primary I advised not to miss her appointments with GI and not to miss her appointments for the imaging that she needs Relevant Medications amLODIPine (Norvasc) 5 MG tablet metoclopramide (Reglan) 10 MG tablet Primary hypertension Blood pressure seems to be under control now, advised to continue with amlodipine 5 mg daily and a low-sodium diet continue to follow-up with PCP Relevant Medications amLODIPine (Norvasc) 5 MG tablet Other Visit Diagnoses Folliculitis Relevant Medications Clindamycin Phos, Once-Daily, (Clindagel) 1 % gel [1] Patient Active Problem List Diagnosis Acquired hypothyroidism Asthma Chronic anxiety Chronic thoracic back pain Chronic post-traumatic stress disorder Depressive disorder Neuropathy Obstructive sleep apnea of adult Pericardial effusion 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 History of pulmonary embolus (PE) Degenerative disc disease, cervical Gastroesophageal reflux disease without esophagitis Insomnia Constipation Acute idiopathic pericarditis Impetigo Chronic neck pain with history of 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 Pain of right thumb Encounter for osteoporosis screening in asymptomatic postmenopausal patient Mixed stress and urge urinary incontinence History of falling Anemia Chronic tension-type headache, not intractable Age-related osteoporosis without current pathological fracture Vertigo Nasal discharge Social isolation Low back pain at multiple sites Protein-calorie malnutrition, unspecified severity (CMS/HCC) Single subsegmental thrombotic pulmonary embolism without acute cor pulmonale (CMS/HCC) 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 [3] Current Outpatient Medications on File Prior to Visit Medication Sig Dispense Refill alendronate (Fosamax) 70 MG tablet TAKE 1 TABLET BY MOUTH EVERY 7 DAYS. TAKE IN THE MORNING WITH A FULL GLASS OF WATER ON AN EMPTY STOMACH AND DO NOT TAKE ANYTHING ELSE BY MOUTH OR LIE DOWN FOR THE NEXT 30 MINUTES. 12 tablet 3 buprenorphine (Butrans) 20 MCG/HR Place 1 patch on the skin 1 (one) time per week. 4 patch 5 clindamycin (Clindagel) 1 % gel Apply topically Once per day. 60 g 2 docusate sodium (Colace) 100 MG capsule TAKE 1-2 CAPSULES BY MOUTH EVERY DAY NEEDED 180 capsule 3 Emollient (CeraVe Moisturizing) cream APPLY TO ENTIRE BODY 2-4 TIMES A DAY esomeprazole (NexIUM) [address] capsule Take 40 mg by mouth Once per day. GaviLAX 17 GM/SCOOP powder TAKE 17 GRAMS (1 CAPFUL) MIXED IN LIQUID AND TAKE DAILY levothyroxine (Synthroid, Levoxyl) 75 MCG tablet Take 1 tablet (75 mcg) by mouth Once per day. 90 tablet 3 magnesium oxide (Mag-Ox) 400 (240 Mg) MG tablet TAKE 1 TABLET BY MOUTH EVERY DAY 90 tablet 3 memantine (Namenda) 5 MG tablet Take 5 mg by mouth 2 times daily. naloxone (Narcan) 4 mg/0.1 mL nasal spray Administer 1 spray (4 mg) into affected nostril(s) if needed for opioid reversal. May repeat every 2-3 minutes if needed, alternating nostrils, until medicalassistance becomes available. 2 each 3 sennosides (Senokot) 8.6 MG tablet Take 1 tablet by mouth 1 (one) time each day. sertraline (Zoloft) 100 MG tablet TAKE 2 TABLETS BY MOUTH EVERY DAY 180 tablet 3 traZODone (Desyrel) 50 MG tablet TAKE 1 TABLET BY MOUTH AT BEDTIME 90 tablet 3 [DISCONTINUED] amLODIPine (Norvasc) 5 MG tablet Take 1 tablet by mouth Once per day. [DISCONTINUED] metoclopramide (Reglan) 10 MG tablet Take 1 tablet by mouth if needed in the morning, at noon, in the evening, and at bedtime (nausea, vomiting). No current facility-administered medications on file prior to visit. documented in this encounter Miscellaneous Notes * Assessment & Plan Note - Lyly Draper MD - 03/28/2025 4:48 PM EDT Associated Problem(s): Esophageal dysmotility I advised not to miss her appointments with GI and not to miss her appointments for the imaging that she needs * Assessment & Plan Note - Lyly Draper MD - 03/28/2025 4:48 PM EDT Associated Problem(s): Primary hypertension Blood pressure seems to be under control now, advised to continue with amlodipine 5 mg daily and a low-sodium diet continue to follow-up with PCP documented in this encounter Plan of Treatment Not on file documented as of this encounter Visit Diagnoses Diagnosis Esophageal dysmotility- Primary Dyskinesia of esophagus Folliculitis Other specified disease of hair and hair follicles Primary hypertension Unspecified essential hypertension documented in this encounter Additional Health Concerns Assessment Noted Time PHQ-9 Depression Total Score: 16 025 9:39 AM EST documented as of this encounter Care Teams Head Chopper Relationship Specialty Start Date End Date Izzy Sigala MD [address] [place] [address] PCP - General Family Medicine 10/30/21 [facility] 03/01/25 documented as of this encounter
--- OUTSIDE RECORDS SUMMARY | 2025-03-29 12:45 | XMS_ITS | Clinical Summary ---
Author Organization [facility] Address [address] [place] [address] Phone Care Team Providers Care Waxer Operator Name Role Phone Izzy Sigala MD Primary Care Provider [phone] Encounters Date Type Department Care Team Description 02/13/2025 Telephone [facility] [address] [facility] [address] [place] [address] Leonel Duque MD from Last 3 Months Surgical History Surgery Date Site/Laterality Comments OTHER SURGICAL HISTORY PROCEDURE: HISTORY OTHER; COMMENT: Degenerative disc disease, cervical fusions Medical History Medical History Date Comments Pulmonary embolism (CMS/HCC V24, CMS/HCC V28) DX:Pulmonary embolism (HCC) Chronic pain DX:Chronic pain Depression DX:Depression GERD (gastroesophageal reflux disease) DX:GERD (gastroesophageal reflux disease) Constipation DX:Constipation Degenerative disc disease, cervical DX:Degenerative disc disease, cervical Insomnia DX:Insomnia Elevated transaminase level DX:E levated transaminase level Leukocytosis DX:Leukocytosis Family History Medical History Relation Name Comments Colon cancer Mother Relation Name Status Comments Mother Social History Tobacco Use Types Packs/Day Years Used Date Smoking Tobacco: Never Alcohol Use Standard Drinks/Week Comments Not Currently 0 (1 standard drink = 0.6 oz pur e alcohol) Comments Unknown Sex and Gender Information Value Date Recorded Sex Assigned at Not on file Legal Sex Female 3:42 PM EDT Gender Identity Not on file Sexual Orientation Not on file Obstetrics History Last Filed Vital Signs Vital Sign Reading Time Taken Comments Blood Pressure 130/66 06/27/2023 11:07 AM EDT Si tting L Arm Pulse 66 06/27/2023 11:07 AM EDT Temperature - - Respiratory Rate - - Oxygen Saturation - - Inhaled Oxygen Concentration - - Weight 53.1 kg (117 lb) 08/12/2023 10:41 AM EDT Height 165.1 cm (5' 5 ) 08/12/2023 10:41 AM EDT Body Mass Index 19.47 08/12/2023 10:41 AM EDT Plan of Treatment Health Maintenance Due Date Last Done Comments Breast Cancer Screening 1955 DTaP,Tdap,and Td Vaccines (1 - Tdap) 1973 Pneumococcal Vaccine: 50+ Ye ars (1 of 1 - PCV) 01/14/2004 Zoster Vaccines (1 of 2) 01/14/2004 Colorectal Cancer Screening: Colonoscopy 10/24/2022 Depression Screening 10/24/2022 Falls Risk Assessment 10/24/2022 Hepatitis C Screening 10/24/2022 Medicare Annual Wellness Visit 10/24/2022 Osteoporosis Screening (Bone Density Screening) 10/24/2022 Social Influencers of Health Screening 10/24/2022 COVID-19 Vaccine ( - 2023-2 5 season) 2024 Influenza Vaccine (Season Ended) 2025 RSV Immunization Adult Patie nts (1 - 1-dose 75+ series) 2029 HIB Vaccines Aged Out No longer eligi [...] on patient's age to complete this topic MMR Vaccines Aged Out No longer eligi ble based on patient's age to complete this topic Meningococcal ACWY Vaccine Aged Out N o longer eligible based on patient's age to complete this topic Meningococcal B Vaccine Aged Out No l onger eligible based on patient's age to complete this topic RSV Immunization Patients Un dana 20 months Aged Out No longer eligible b ased on patient's age to complete this topic Varicella Vaccines Aged Out No longer eligible based on patient's age to complete this topic Insurance [employer] MEDICARE ADVANTAGE Care Teams Waxer Operator Relationship Specialty Start Date End Date Izzy Sigala MD [address] [place] [phone] PCP - General Dump Truck Driver 08/12/22
[2025-04-01 13:59] VITALS: BMI 19.1
[2025-04-01 14:53] VITALS: BMI 19.8
--- NOTE | 2025-04-02 14:09 | P.CONAN_ITS ---
Documented by User: Cece Van NP 04/02/25 14:45 HPI - Anesthesia Eval Consult details Narrative: 70yo F for Upper Endoscopy with Dilitation [facility] admit 02/2025 with vomiting and abdominal pain. CT abdomen showed no acute pathology?right upper quadrant ultrasound was negativ e. ?LFTs stable.? Cardiology evaluated and did not suspect cardiac etiology.? GI was on consult and patient underwent EGD which was normal?and did not show any etiology suggesting?to be the cause of?symptoms.? GI recommended barium esophagram?and supportive care. ?Barium esophagram showed mild esophageal dysmotility.? With symptomatic management?symptoms improved patient tolerated?diet well?did not have any further nausea or vomiting. ?She felt ready to go home.? She was discharged home in stable condition with a plan for outpatient manometrically?study. Eval'd by cardiology during admission for pt report of chest pain. HX pericardial effusion with drain placement in 2021 - subsequent PE (no longer taking eliquis). Cards did not feel chest pain was cardiac - unlikely pericarditis PE PMFSH Active Problems Active Problems: All Active Problems Urinary urgency (Acute) Urinary frequency (Acute) Urinary incontinence (Acute) Lumbar radiculopathy (Acute) Pruritic erythematous rash (Acute) Myofascial pain (Acute) Postlaminectomy syndrome, cervical (Acute) Dysphagia (Acute) Tubular adenoma of colon (Acute) Past Medical History Medical History (Updated 04/01/25 @ 16:06 by Юлия Howard, FREDO) Pericardial effusion (~2021) Esophageal dysmotility Anemia Abdominal pain Hx of nausea and vomiting History of non-nicotine vaping WIGGINS (dyspnea on exertion) History of pericarditis H/O degenerative disc disease Dependent on walker for ambulation Poor balance Hx of fracture of arm Chronic back pain Dysphagia Tubular adenoma of colon Allergies History of COVID-19 PETER (obstructive sleep apnea) Neuropathy Hypothyroidism Chronic neck pain History of post traumatic stress disorder Depression Anxiety Asthma Family History Family History Mother Colon cancer Family/Other Colon cancer Family history of problems with anesthesia: No Surgical History Surgical History (Updated 04/01/25 @ 15:52 by Юлия Howard, RN) History of back surgery Hx of colonoscopy Hx of esophagogastroduodenoscopy Hx of appendectomy Hx of section Hx of tonsillectomy Previous back surgery History of Problems with Anesthesia: No Social History Social History (Updated 04/01/25 @ 15:44 by Юлия Howard RN) Are you a primary medicare contact specialist to a significant other at home: No Do you presently have visiting nurse or other home services: Yes (VNA, PT, OT) Alcohol intake: current Alcohol intake frequency: does not drink Patient Tobacco Use Status: Never used Tobacco Frequency of e-Cigarette/Vaping Use: was vaping CBD-quit 02/2025 Substance Use Type Other:: quit prescribed narcotics 2018 (oral) Have you been hit, kicked, punched, or otherwise hurt by someone within the past year? 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 Meds Allergies Allergy/AdvReac Type Severity Reaction Status Date / Time bupropion Allergy Severe Dizziness Verified 04/01/25 15:12 gabapentin Allergy Severe Gastrointestinal Verified 04/01/25 15:12 Hemorrhage zolpidem Allergy Severe Hallucinati Verified 04/01/25 15:12 ons clonidine Allergy Unknown Verified 04/01/25 15:12 meloxicam Allergy Unknown Verified 04/01/25 15:12 pregabalin Allergy Unknown Verified 04/01/25 15:12 Sulfa (Sulfonamide Allergy Unknown, Verified 04/01/25 15:12 Antibiotics) as achild prasozin Allergy Unknown Uncoded 04/01/25 15:12 Home Medications ?Medication ?Instructions ?Recorded ?Confirmed ?Last Taken ?Type docusate sodium 100 mg capsule 100 - 200 mg PO DAILY PRN 04/21/22 04/01/25 Unknown History Constipation levothyroxine 75 mcg tablet 75 mcg PO DAILY 04/21/22 04/01/25 04/03/25 History magnesium oxide 400 mg (241.3 mg 400 mg PO DAILY 04/21/22 04/01/25 Unknown History magnesium) tablet trazodone 50 mg tablet 100 mg PO BEDTIME PRN Insomnia 04/21/22 04/01/25 Unknown History buprenorphine 20 mcg/hour weekly 1 patch transdermal Q7D 03/14/23 04/01/25 04/02/25 History transdermal patch (Butrans) sertraline 100 mg tablet 100 mg PO BID 07/04/23 04/01/25 10/24/23 07:30 History alendronate 70 mg tablet 70 mg PO QWEEK 09/27/23 04/01/25 Unknown History memantine 5 mg tablet 5 mg PO BID 06/26/24 04/01/25 04/03/25 History amlodipine 5 mg tablet 5 mg PO DAILY 03/26/25 04/01/25 Unknown History simethicone 125 mg capsule (Gas 125 mg PO BID-QID PRN Abdominal 03/26/25 04/01/25 Unknown History Relief (simethicone)) Distention metoclopramide HCl 10 mg tablet 10 mg PO QID PRN nausea/vomiting 04/01/25 04/01/25 Unknown History morphine 15 mg immediate release 15 mg PO Q6H PRN pain 04/01/25 04/01/25 Unknown History tablet Exam Height,Weight and Vital Signs: Height 5 ft 5 in Weight 53.977 kg Pertinent Lab Results Pertinent Lab Results: CBC and BMP 02/2025 from [facility] [place] except H&H slight decrease Narrative Narrative: EKG 02/2025 Ventricular Rate: 81 BPM Atrial Rate: 81 BPM P-R Interval: 142 ms QRS Duration: 78 ms Q-T Interval: 398 ms QTC Calculation(Bazett): 462 ms P Pawlet: 52 degrees R Pawlet: 15 degrees T Pawlet: -10 degrees Normal sinus rhythm Nonspecific ST and T wave abnormality Abnormal ECG When compared with ECG of 21-Feb-2025 12:45, T wave inversion more evident in Inferior leads Nonspecific T wave abnormality now evident in Anterolateral leads Confirmed by WILLARD PATTON MD ([id number]) on 02/22/2025 8:56:53 AM Assessment and Plan Assessment Anesthesia Assessment: Chart Reviewed Final Anesthetic Review Family History of Problems with Anesthesia: No History of Problems with Anesthesia: No Documented by User: Callie Muñoz MD 04/03/25 13:01 [facility] Past Medical History Medical History (Updated 04/01/25 @ 16:06 by Юлия Howard, FREDO) Pericardial effusion (~2021) Esophageal dysmotility Anemia Abdominal pain Hx of nausea and vomiting History of non-nicotine vaping WIGGINS (dyspnea on exertion) History of pericarditis H/O degenerative disc disease Dependent on walker for ambulation Poor balance Hx of fracture of arm Chronic back pain Dysphagia Tubular adenoma of colon Allergies History of COVID-19 PETER (obstructive sleep apnea) Neuropathy Hypothyroidism Chronic neck pain History of post traumatic stress disorder Depression Anxiety Asthma Family History Family History Mother Colon cancer Family/Other Colon cancer Surgical History Surgical History (Updated 04/01/25 @ 15:52 by Юлия Howard, RN) History of back surgery Hx of colonoscopy Hx of esophagogastroduodenoscopy Hx of appendectomy Hx of section Hx of tonsillectomy Previous back surgery Social History Social History (Updated 04/01/25 @ 15:44 by Юлия Howard, RN) Are you a primary medicare contact specialist to a significant other at home: No Do you presently have visiting nurse or other home services: Yes (VNA, PT, OT) Alcohol intake: current Alcohol intake frequency: does not drink Patient Tobacco Use Status: Never used Tobacco Frequency of e-Cigarette/Vaping Use: was vaping CBD-quit 02/2025 Substance Use Type Other:: quit prescribed narcotics 2018 (oral) Have you been hit, kicked, punched, or otherwise hurt by someone within the past year? 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 Meds Allergies Allergy/AdvReac Type Severity Reaction Status Date / Time bupropion Allergy Severe Dizziness Verified 04/01/25 15:12 gabapentin Allergy Severe Gastrointestinal Verified 04/01/25 15:12 Hemorrhage zolpidem Allergy Severe Hallucinati Verified 04/01/25 15:12 ons clonidine Allergy Unknown Verified 04/01/25 15:12 meloxicam Allergy Unknown Verified 04/01/25 15:12 pregabalin Allergy Unknown Verified 04/01/25 15:12 Sulfa (Sulfonamide Allergy Unknown, Verified 04/01/25 15:12 Antibiotics) as achild prasozin Allergy Unknown Uncoded 04/01/25 15:12 Home Medications ?Medication ?Instructions ?Recorded ?Confirmed ?Last Taken ?Type docusate sodium 100 mg capsule 100 - 200 mg PO DAILY PRN 04/21/22 04/01/25 Unknown History Constipation levothyroxine 75 mcg tablet 75 mcg PO DAILY 04/21/22 04/01/25 04/03/25 History magnesium oxide 400 mg (241.3 mg 400 mg PO DAILY 04/21/22 04/01/25 Unknown History magnesium) tablet trazodone 50 mg tablet 100 mg PO BEDTIME PRN Insomnia 04/21/22 04/01/25 Unknown History buprenorphine 20 mcg/hour weekly 1 patch transdermal Q7D 03/14/23 04/01/25 04/02/25 History transdermal patch (Butrans) sertraline 100 mg tablet 100 mg PO BID 07/04/23 04/01/25 10/24/23 07:30 History alendronate 70 mg tablet 70 mg PO QWEEK 09/27/23 04/01/25 Unknown History memantine 5 mg tablet 5 mg PO BID 06/26/24 04/01/25 04/03/25 History amlodipine 5 mg tablet 5 mg PO DAILY 03/26/25 04/01/25 Unknown History simethicone 125 mg capsule (Gas 125 mg PO BID-QID PRN Abdominal 03/26/25 04/01/25 Unknown History Relief (simethicone)) Distention metoclopramide HCl 10 mg tablet 10 mg PO QID PRN nausea/vomiting 04/01/25 04/01/25 Unknown History morphine 15 mg immediate release 15 mg PO Q6H PRN pain 04/01/25 04/01/25 Unknown History tablet Exam Airway Mallampati Class: II TM Dist: >3cm Neck ROM: Poor Assessment and Plan Assessment Anesthesia Assessment: Anesthesia Plan Discussed Final Anesthetic Review NPO: Yes ASA Class: II Final Preanesthetic Review: No Changes in Pt Med Stat, Meds/Allgs Chart Reviewed, Consent Obtained/Reviewed and Anes Risks/Benef Reviewed Patient Risk: Intermediate Procedure Risk: Low Anesthetic Plan Anesthetic Plan: GA Disposition: Standard PACU
[2025-04-03 12:11] VITALS: BP 140/80; PULSE 66; RESP 18; TEMP 36.4; O2SAT 96
[2025-04-03] MEDS: Lactated Ringers 1,000 ML 100 ML IVCONT (12:35)
--- NOTE | 2025-04-03 13:06 | P.HPSUR_ITS ---
Pre-Procedural Eval Section A - 24 Hr Update-Section A only Date of Service: 04/03/25 Section B - Complete if H&P > 30 days Chief Complaint: Dysphagia, unspecified Relevant Family History (Specify if Yes): No Relevant Social History: None Present Medications: see Short Stay Collaborative assessment Medical History: Significant History (Dysphagia Tubular adenoma of colon Allergies History of COVID-19 PETER (obstructive sleep apnea) Neuropathy Hypothyroidism Chronic neck pain History of post traumatic stress disorder Depression Anxiety Asthma) History of Previous Operations: Relevant previous surgery/procedure and date(s) (Hx of colonoscopy Hx of esophagogastroduodenoscopy Hx of appendectomy Hx of section Hx of tonsillectomy Previous back surgery) Allergies: Allergies Allergy/AdvReac Type Severity Reaction Status Date / Time bupropion Allergy Severe Dizziness Verified 04/01/25 15:12 gabapentin Allergy Severe Gastrointestinal Verified 04/01/25 15:12 Hemorrhage zolpidem Allergy Severe Hallucinati Verified 04/01/25 15:12 ons clonidine Allergy Unknown Verified 04/01/25 15:12 meloxicam Allergy Unknown Verified 04/01/25 15:12 pregabalin Allergy Unknown Verified 04/01/25 15:12 Sulfa (Sulfonamide Allergy Unknown, Verified 04/01/25 15:12 Antibiotics) as achild prasozin Allergy Unknown Uncoded 04/01/25 15:12 Review of Systems Sugical H&P ROS: Negative: Constitution, Cardiovascular, Respiratory, Neurologic al, Psychiatric, Hem-Onc, Allergic/Immunologic, Gastrointestinal, Genitourinary, Musculoskeletal, Integumentary, Endocrine and Eyes/Ears/Nose/Throat Exam Surgical H&P Exam: Normal: HEENT, Normal: Heart, Normal: Lungs, Normal: Extremities, Normal: Abdomen, Normal: Skin and Normal: Neurological Plan Diagnosis/Plan: Unchanged I have reviewed the history and physical and performed a pertinent physical examination on my patient. No changes have occurred unless specified. Time Spent With Patient Time: Total time managing care of this patient today ____ minutes.
--- NOTE | 2025-04-03 13:32 | W.PM.OPN ---
Operative Note Operative Note Date of Service: 04/03/25 Narrative: Procedure Description: EGD Indication: dysphagia Anesthesia: MAC FLEXIBLE TRANSORAL UPPER GASTROINTESTINAL ENDOSCOPY UPPER ENDOSCOPY Consent: Indications for the procedure and potential complications of bleeding, perforation, reaction to medications and missed diagnosis were discussed with the patient and informed consent was obtained. Instrument: Olympus GIF H 190 J mid size upper endoscope Monitoring: Vital signs and clinical assessment, continuous EKG monitoring, Pulse oximetry, Carbon Dioxide monitoring and blood pressure monitoring were done throughout the procedure. Procedure: The patient was placed in the left lateral decubitis position and pre-procedure medications were administered and a bite block was placed. The endoscope was inserted into the mouth and advanced under direct vision to the third part of duodenum. A careful inspection was made as the upper endoscope was withdrawn including a retroflexed examination of the proximal stomach; Findings and interventions are described below. Findings: Larynx:normal Esophagus: GE junction at 40 cm, diaphragm hiatus at 40 cm, furrowing of mucosa, balloon dilation to 20 mm at LES and UES, with slight superficial tear noted at UES. bx taken as well, one site kept bleeding and treated with nexpowder Stomach: patchy erythema and fundic gland polyps . Biopsies were obtained. Grade 2 flap valve on retroflexed examination of the cardia. Duodenum: slightly granular mucosa bx taken Intervention: Biopsies as noted above, balloon dilation, nexpowder application Impression/Findings: gastritis fundic gland polyps gastritis esophgeal stricture PLAN: await bx GERD precautions
[2025-04-03 13:36] VITALS: BP 118/61; PULSE 62; RESP 18; TEMP 36.9; O2SAT 99
[2025-04-03 13:51] VITALS: BP 118/68; PULSE 67; RESP 20; O2SAT 99
[2025-04-03 14:06] VITALS: BP 153/69; PULSE 59; RESP 20; TEMP 37.1; O2SAT 97
== END 2025-04-03 14:34 | disposition home or self-care (01) ==
PROVIDERS: PCP General Practice; Visit Provider Internal Medicine Gastroenterology
PROC: (CPT 43249; principal; 2025-04-03 13:30)
DX: K22.2 Esophageal obstruction (principal); K31.7 Polyp of stomach and duodenum; K29.60 Other gastritis without bleeding; K21.9 Gastro-esophageal reflux disease without esophagitis; R13.12 Dysphagia, oropharyngeal phase; E03.9 Hypothyroidism, unspecified; J45.909 Unspecified asthma, uncomplicated; G47.33 Obstructive sleep apnea (adult) (pediatric); Z99.89 Dependence on other enabling machines and devices; Z79.899 Other long term (current) drug therapy
CPT/HCPCS: 43249; 43239; 88305; 88341; 88342; C1726; J1100; J2003; J2405; J2704

== ENCOUNTER → 2025-04-03 12:08 | Outpatient (BNV) | payer MEDICARE, MEDICAID, SELFPAY | PROVIDERS: PCP General Practice; Visit Provider Internal Medicine Gastroenterology | DX: K22.2 Esophageal obstruction (principal); R13.10 Dysphagia, unspecified; K29.70 Gastritis, unspecified, without bleeding; K31.7 Polyp of stomach and duodenum | CPT/HCPCS: 43239; 43249 ==

== ENCOUNTER 2025-04-10 14:47 | Outpatient (AMB) | payer MEDICARE, MEDICAID, SELFPAY ==
--- NOTE | 2025-04-10 14:59 | A.OFFVIS_ITS ---
Vital Signs 04/10/25 15:02 Height 5 ft 5 in Weight 120 lb 13.013 oz BMI 20.1 BP 132/74 Blood Pressure Location Rt brachial Position Sitting Pulse 68 Pulse Source Pulse Oximeter Pulse Oximetry (%) 94 Oxygen Delivery Method Room Air Intake Visit Reasons: s/p EGD w dilation Intake Note: ESTABLISHED PATIENT for GERD (esophageal stric. + dysphagia) + weight mgmt. S.P EGD. CC; Pt denies any new concerns or sx since last visit x2 weeks ago. Shuffle Board Operator Required: No Accompanied by: Family/Other Allergies bupropion Allergy (Severe, Verified 04/10/25 14:59) Dizziness gabapentin Allergy (Severe, Verified 04/10/25 14:59) Gastrointestinal Hemorrhage zolpidem Allergy (Severe, Verified 04/10/25 14:59) Hallucinations clonidine Allergy (Verified 04/10/25 14:59) Unknown meloxicam Allergy (Verified 04/10/25 14:59) Unknown pregabalin Allergy (Verified 04/10/25 14:59) Unknown Sulfa (Sulfonamide Antibiotics) Allergy (Verified 04/10/25 14:59) Unknown, as achild prasozin Allergy (Uncoded 04/10/25 14:59) Unknown HPI HPI s/p EGD w dilation: Details: LAST VISIT: Dysphagia IBS (irritable bowel syndrome) Constipation GERD (gastroesophageal reflux disease) History of fall Dizziness Plan Patient will go for upper endoscopy for possible dilation. We were able to schedule at for next week Tuesday with Dr. Tyler. Patient just hospitalized last month and dilation not performed, however patient is complaining of significant trouble swallowing. Significant postnasal drip will send her script for Zyrtec for now. Patient will be sent for CT soft tissue neck without IV co ntrast as patient is not eating or drinking much. Her kidney might be compromised and we want to do this without the contrast if possible. I will give her script for sucralfate she can take it at bedtime. Continue taking her PPI as ordered. Patient will start taking Dulcolax as she is complaining of constipation. Patient was encouraged to increase fluid intake and activity. Both patient and her friend are agreeable to plan of care and verbalizes understanding of instructions. They were given the opportunity to ask questions and all questions answered. Patient will call our office if she will have worsening symptoms. She is agreeable to this plan and verbalizes understanding of instructions. She was given the opportunity to ask questions and all questions answered. ? Thank you for allowing me to participate in her care Orders Orders CT soft tissue neck wo IV con 03/26/25 M54.2, R13.10 Medications New cetirizine (Zyrtec) 10 mg PO DAILY PRN 20 tabs 0RF allergy symptoms bisacodyl (Dulcolax (bisacodyl)) 10 mg (2 x 5 mg) PO BEDTIME 180 tabs 4RF sucralfate Please take it at noon time and at bedtime 10 mL PO BID 400 mL 3RF K21.9 ENDOSCOPY: Findings: Larynx:normal Esophagus: GE junction at 40 cm, diaphragm hiatus at 40 cm, furrowing of mucosa, balloon dilation to 20 mm at LES and UES, with slight superficial tear noted at UES. bx taken as well, one site kept bleeding and treated with nexpowder Stomach: patchy erythema and fundic gland polyps . Biopsies were obtained. Grade 2 flap valve on retroflexed examination of the cardia. Duodenum: slightly granular mucosa bx taken Intervention: Biopsies as noted above, balloon dilation, nexpowder application Impression/Findings: gastritis fundic gland polyps gastritis esophgeal stricture PLAN: await bx GERD precautions PATHOLOGY: Diagnosis A. Duodenum, biopsy: Duodenal mucosa with focally blunted villi and probable increase in intraepithelial lymphocytes (see comment). B. Stomach, biopsy: Gastric antral and body mucosa with focal minimal chronic inactive inflammation; negative for intestinal metaplasia and dysplasia. C. Esophagus, distal, biopsy: Squamous mucosa with no specific change; no columnar mucosa present. D. Esophagus, proximal, biopsy: Squamous mucosa with no specific change; no columnar mucosa present; scant detached fragments of duodenal-type epithelium noted (consistent with contaminant). Comment: (A): Immunostain for CD3 on A; addendum to follow. (B): Immunostain for H. pylori pending; addendum to follow TODAY'S VISIT Patient is here today for follow-up and to discuss upper endoscopy results. Patient had dilation to 20 mm at [facility] and you BS. In esophagus, furrowing of mucosa seen. Patient reports to be feeling much better since last seen. Currently she is taking Nexium in the morning and sucralfate in the afternoon and at bedtime. Patient still has to go for CT scan. Patient has her CT scan of the neck on Tuesday. Patient denies dyspepsia, dysphagia or odynophagia. Denies any melena, hematochezia. Denies any GI concerning symptoms today [facility] Medical History Pericardial effusion (~2021) Esophageal dysmotility Anemia Abdominal pain Hx of nausea and vomiting History of non-nicotine vaping WIGGINS (dyspnea on exertion) History of pericarditis H/O degenerative disc disease Dependent on walker for ambulation Poor balance Hx of fracture of arm Chronic back pain Dysphagia Tubular adenoma of colon Allergies History of COVID-19 PETER (obstructive sleep apnea) Neuropathy Hypothyroidism Chronic neck pain History of post traumatic stress disorder Depression Anxiety Asthma Surgical History History of back surgery Hx of colonoscopy Hx of esophagogastroduodenoscopy Hx of appendectomy Hx of section Hx of tonsillectomy Previous back surgery Family History Mother Colon cancer Family/Other Colon cancer Social History Are you a primary residential care facility manager to a significant other at home: No Do you presently have visiting nurse or other home services: Yes (VNA, PT, OT) Alcohol intake: current Alcohol intake frequency: does not drink Patient Tobacco Use Status: Never used 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 Review of Systems Const Denies weight gain and Denies weight loss ENT Reports no additional complaints, Reports dysphagia (Improved) and Denies odynophagia Card Reports no additional complaints Resp Reports no additional complaints GI Denies abdominal pain, Denies belching, Denies melena, Denies bloating, Denies change in bowel habits, Reports constipation (Improved), Reports dysphagia (Improved), Denies excessive flatus, Denies dyspepsia, Denies heartburn, Denies diarrhea, Denies loose stools, Denies nausea, Denies odynophagia and Denies vomiting Reports no additional complaints Musc Reports no additional complaints Neuro Reports no additional complaints Psych Reports no additional complaints Endo Reports no additional complaints Physical Exam Vital Signs: Last Vital Signs Pulse 68 04/10/25 15:02 BP 132/74 04/10/25 15:02 Pulse Ox 94 04/10/25 15:02 Oxygen Delivery Method Room Air 04/10/25 15:02 BMI result Body Mass Index 20.1 Const General: healthy appearing and no acute distress Nutritional Appearance: underweight Orientation/consciousness: patient oriented x3 HEENT Mouth: Normal oral and palatal mucosa present, tongue normal, oropharynx abn ormals (Redness) and other (Streaky redness in her posterior throat from postnasal drip) Resp Effort & Inspection: normal respiratory effort, able to speak in complete sentences, no tracheal deviation and symmetric chest movement Auscultation: clear to auscultation bilaterally Cardio Rate: regular rate GI Inspection: Yes normal to inspection and No distended Palpation (GI): Soft to palpation, not firm, nontender and No hepatosplenomegaly present Auscultation: normal bowel sounds General: Yes no CVA tenderness Back/Spine/Pelvis Back: no CVA tenderness Skin General skin exam: elasticity normal, turgor normal and dry skin Neuro General: patient oriented x3 Psych Appearance: grossly normal Mental Status: mental status grossly normal Assessment & Plan Assessment & Plan (1) Dysphagia: Code(s): R13.10 - Dysphagia, unspecified Category: Medical Qualifiers: Dysphagia type: oropharyngeal phase Qualified Code(s): R13.12 - Dysphagia, oropharyngeal phase (2) IBS (irritable bowel syndrome): Code(s): K58.9 - Irritable bowel syndrome, unspecified Qualifiers: Irritable bowel syndrome type: without diarrhea Qualified Code(s): K58.9 - Irritable bowel syndrome, unspecified (3) Constipation: Code(s): K59.00 - Constipation, unspecified Qualifiers: Constipation type: slow transit constipation Qualified Code(s): K59.01 - Slow transit constipation (4) GERD (gastroesophageal reflux disease): Code(s): K21.9 - Gastro-esophageal reflux disease without esophagitis Qualifiers: Esophagitis presence: esophagitis presence not specified Qualified Code(s): K21.9 - Gastro-esophageal reflux disease without esophagitis (5) Dizziness: Code(s): R42 - Dizziness and giddiness Plan Patient will continue taking esomeprazole every morning half an hour before breakfast. Continue taking sucralfate twice a day. Patient will take Dulcolax daily 1-2 tablets as needed. Increase fluid intake and activity to promote better bowel motility. Patient was encouraged to avoid dietary triggers in late night snacking. Staying upright for minimum 3 hours after meals discussed with patient. Patient will follow-up in 2 months, sooner on as needed basis. Patient is agreeable to this plan and verbalizes understanding of instructions. She was given the opportunity to ask questions and all questions answered. Thank you for allowing me to participate in her care Medications: Refilled esomeprazole magnesium 40 mg PO DAILY 90 caps 1RF K21.9 - Gastro-esophageal reflux disease without esophagitis Coding Level of Care Code Est Pt Level 4 (42605) Complex EM visit Add On G2211 Diagnoses Oropharyngeal dysphagia R13.12 Dysphagia type: oropharyngeal phase Irritable bowel syndrome without diarrhea K58.9 Irritable bowel syndrome type: without diarrhea Slow transit constipation K59.01 Constipation type: slow transit constipation Gastroesophageal reflux disease, unspecified whether esophagitis present K21.9 Esophagitis presence: esophagitis presence not specified Dizziness R42 Time Spent (min) 35 Comment 25 minutes spent with patient and additional 10 minutes spent reviewing her records
[2025-04-10 15:02] VITALS: BP 132/74; PULSE 68; O2SAT 94; BMI 20.1
--- OUTSIDE RECORDS SUMMARY | 2025-04-10 15:36 | XMS_ITS | Encounter Summary ---
Author Organization [employer] Address [address] [facility] 7 [place] [address] Care Team Providers Care Castables Worker Name Role Phone Izzy Sigala MD Primary Care Provider [phone] Encounter Details Date Type Department Care Team (Late st Contact Info) Description 10/22/2022 Orders Only [facility] [address] [place] [address] [phone] Izzy Sigala MD [address] [place], [place] [phone] Skin infection (Primary Dx); Bronchitis Social History [...] chronic documented in this encounter Care Teams Castables Worker Relationship Specialty Start Date End Date Izzy Sigala MD [address] [place] [address] [phone] PCP - General Family Medicine 10/30/21 [facility] 03/01/25 documented as of this encounter
== END 2025-04-10 15:34 | disposition home or self-care (01) ==
LOC: HO.HGI 14:48
PROVIDERS: PCP General Practice; Visit Provider Nurse Practitioner Family
DX: R13.12 Dysphagia, oropharyngeal phase (principal); K58.9 Irritable bowel syndrome, unspecified; K59.01 Slow transit constipation; K21.9 Gastro-esophageal reflux disease without esophagitis; R42 Dizziness and giddiness
CPT/HCPCS: 99214; G2211

== ENCOUNTER → 2025-04-10 14:47 | Outpatient (BNVA) | payer MEDICARE, MEDICAID, SELFPAY | PROVIDERS: PCP General Practice; Visit Provider Nurse Practitioner Family | DX: K21.9 Gastro-esophageal reflux disease without esophagitis (principal); K58.9 Irritable bowel syndrome, unspecified; K59.01 Slow transit constipation; R42 Dizziness and giddiness; R13.12 Dysphagia, oropharyngeal phase | CPT/HCPCS: 99212 ==

== ENCOUNTER 2025-04-12 10:17 | Outpatient (REF) | payer MEDICARE, MEDICAID, SELFPAY ==
--- NOTE | ~2025-04-12 | CT_ITS ---
EXAMINATION: CT SOFT TISSUE NECK WITHOUT CONTRAST CLINICAL INFORMATION: Dysphagia, unspecified. COMPARISON: None available. TECHNIQUE: Spiral CT imaging of the neck performed in axial plane without contrast. Multiplanar reformatted images were constructed from the axial data set. This CT examination was performed using dose optimization techniques as appropriate, variously including the following: *Automated exposure control *Adjustment of mA and/or kV according to patient size (this includes techniques or standardized protocols for targeted exams where dose is matched to indication/reason for exam; i.e. extremities or head) *Use of iterative reconstruction technique FINDINGS: Study is significantly limited without the benefit of IV contrast. Lymph Nodes: -Normal. No abnormal lymphadenopathy. Carotid Sheath Structures: -Mild carotid bulb calcifications bilaterally. Otherwise normal unenhanced appearance. Salivary Glands: -Normal unenhanced appearance.. Tongue Base/Floor of Mouth: -Normal Mucosal Space: -Normal unenhanced appearance. No definite lesions. -The epiglottis and aryepiglottic folds appear normal. Visceral Space: -Thyroid gland: Normal. -Normal larynx and true vocal cords. -Normal subglottic trachea. Esophageal inlet and mild superior esophagus appear normal. Retropharangeal Space: -Normal. Parapharyngeal Fat Planes: -Normal. Timber Sprinkler Spaces: -Normal. Anterior Cervical Space: -Normal. Imaged Intracranial Contents: -No mass effect or edema. No hemorrhage. The skull base is normal. Globes and Orbits: -Normal. Paranasal Sinuses/Mastoids/Tympanic Spaces: -Normally aerated bilaterally. Lung Apices and Superior Mediastinal Structures: -Imaged lung apices are clear and superior mediastinal structures are normal. -Aortic arch is normal in caliber with moderate atheromatous calcification. Bony Structures: -No suspicious bone lesions. No fractures. -Normal TM joints. 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 -There has been anterior fusion and posterior fusion of C3-C7. There are laminectomies of C4-C6. -Anterior plate and screw fixation C3-4 without complication. -C6-7 discectomy with disc prosthesis in anterior oblique endplate screws in place. No complication. CT/CT soft tissue neck wo IV con IMPRESSION: 1. Exam significantly limited without the benefit of IV contrast. 2. No evidence of mass or abnormal lymphadenopathy within the neck. 3. Extensive intact cervical fusion spanning C3-C7. See above. Electronically signed by: Byron Mace MD 04/12/2025 11:38 AM EDT
--- OUTSIDE RECORDS SUMMARY | 2025-04-12 10:55 | XMS_ITS | Encounter Summary ---
Author Organization [employer] Address [address] [facility] 7 [place] [address] Care Team Providers Care Balance Bridge Inspector Name Role Phone Izzy Sigala MD Primary Care Provider [phone] Encounter Details Date Type Department Care Team (Late st Contact Info) Description 10/22/2022 Orders Only [facility] [address] [place] [address] [phone] Izzy Sigala MD [address] [place], [place] [phone] Skin infection (Primary Dx); Bronchitis Social History [...] chronic documented in this encounter Care Teams Balance Bridge Inspector Relationship Specialty Start Date End Date Izzy Sigala MD [address] [place] [address] [phone] PCP - General Family Medicine 10/30/21 [facility] 03/01/25 documented as of this encounter
== END 2025-04-12 10:18 | disposition home or self-care (01) ==
LOC: HO.CT 10:17
PROVIDERS: PCP General Practice; Visit Provider Nurse Practitioner Family
DX: R13.10 Dysphagia, unspecified (principal); M54.2 Cervicalgia
CPT/HCPCS: 70490

== ENCOUNTER → 2025-04-12 10:19 | Outpatient (BNV) | payer MEDICARE, MEDICAID, SELFPAY | PROVIDERS: PCP General Practice; Visit Provider Radiology Diagnostic Radiology | DX: R13.10 Dysphagia, unspecified (principal); M43.22 Fusion of spine, cervical region | CPT/HCPCS: 70490 ==

== ENCOUNTER 2025-05-16 14:26 | Outpatient (REF) | payer MEDICARE, OTHER, SELFPAY ==
--- OUTSIDE RECORDS SUMMARY | 2025-05-16 14:29 | XMS_ITS | Encounter Summary ---
Author Organization [employer] Address [address] [facility] 7 [place] [address] Care Team Providers Care Care Coordination Manager Name Role Phone Izzy Sigala MD Primary Care Provider [phone] Encounter Details Date Type Department Care Team (Late Contact Info) Description 10/22/2022 Orders Only [facility] [address] [place] [address] [phone] Izzy Sigala MD [address] [place] [address] [phone] Skin infection (Primary Dx); Bronchitis Social History [...] Care Team (Late st Contact Info) Description 06/01/2025 10:40 AM EDT Office Visit [facility] [address] [place] [address] [phone] documented as of this encounter Visit Diagnoses Diagnosis Skin infection- Primary Unspecified local infection of skin and subcutaneous tissue Bronchitis Bronchitis, not specified as acute or chronic documented in this encounter Care Teams Care Coordination Manager Relationship Specialty Start Date End Date Izzy Sigala MD [address] [place] [phone] PCP - General Family Medicine 10/30/21 [facility] 03/01/25 documented as of this encounter
--- OUTSIDE RECORDS SUMMARY | 2025-05-16 14:29 | XMS_ITS | Clinical Summary ---
Author Organization [facility] Address [address] [place] [address] Phone Care Team Providers Care Sql Ssis Developer Name Role Phone Izzy Sigala MD Primary Care Provider [phone] Encounters Date Type Department Care Team Description 04/01/[address] [place] [address] Izzy Sigala MD Medical Records from Last 3 Months Surgical History Surgery [...] 01/14/2004 Zoster Vaccines (1 of 2) 01/14/2004 RSV Immunization Adult Patie nts (1 - Risk 60-74 years 1-dose series) 2014 Colorectal Cancer Screening: Colonoscopy 10/24/2022 Depression Screening 10/24/2022 Falls Risk Assessment 10/24/2022 Hepatitis C Screening 10/24/2022 Medicare Annual Wellness Visit 10/24/2022 Osteoporosis Screening (Bone Density Screening) 10/24/2022 Social Influencers of Health Screening 10/24/2022 COVID-19 Vaccine ( - 2023-2 5 season) 2024 Influenza Vaccine (Season Ended) 2025 HIB Vaccines Aged Out No longer eligi [...] topic Insurance [employer] MED[employer]VANTAGE Care Teams Sql Ssis Developer Relationship Specialty Start Date End Date Izzy Sigala MD [address] [place] [phone] PCP - General Statement Services Representative 08/12/22
== END 2025-05-16 14:27 | disposition home or self-care (01) ==
LOC: HO.MAMMO 14:26
PROVIDERS: PCP General Practice; Visit Provider General Practice
DX: Z12.31 Encounter for screening mammogram for malignant neoplasm of breast (principal)
CPT/HCPCS: 77063; 77067

== ENCOUNTER → 2025-05-16 14:30 | Outpatient (BNV) | payer MEDICARE, MEDICAID, SELFPAY | PROVIDERS: PCP General Practice; Visit Provider Internal Medicine | DX: Z12.31 Encounter for screening mammogram for malignant neoplasm of breast (principal) | CPT/HCPCS: 77063; 77067 ==

== ENCOUNTER 2025-06-12 11:15 | Outpatient (AMB) | payer MEDICARE, MEDICAID, SELFPAY ==
--- NOTE | 2025-06-12 11:16 | A.OFFVIS_ITS ---
Vital Signs 06/12/25 11:22 Height 5 ft 5 in Weight 120 lb BMI 20.0 BP 156/92 H Blood Pressure Location Rt brachial Position Sitting Pulse 72 Pulse Source Pulse Oximeter Pulse Oximetry (%) 94 Oxygen Delivery Method Room Air Intake Visit Reasons: 3 mo Intake Note: ESTABLISHED PATIENT for GERD (esophageal stric. + dysphagia) + weight mgmt. CC; C.O. chronic abd pain (epigastric) despite current tx. Pt also reports having unrelated difficulty with obtaining some of her other medications and has been very distraught. 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 Accompanied by: Self / Same As Patient Allergies bupropion Allergy (Severe, Verified 04/10/25 14:59) Dizziness gabapentin Allergy (Severe, Verified 04/10/25 14:59) Gastrointestinal Hemorrhage zolpidem Allergy (Severe, Verified 04/10/25 14:59) Hallucinations clonidine Allergy (Verified 04/10/25 14:59) Unknown meloxicam Allergy (Verified 04/10/25 14:59) Unknown pregabalin Allergy (Verified 04/10/25 14:59) Unknown Sulfa (Sulfonamide Antibiotics) Allergy (Verified 04/10/25 14:59) Unknown, as achild prasozin Allergy (Uncoded 04/10/25 14:59) Unknown HPI HPI 3 mo: Details: LAST VISIT: Dysphagia IBS (irritable bowel syndrome) Constipation GERD (gastroesophageal reflux disease) Dizziness Plan Patient will continue taking esomeprazole every morning half an hour before breakfast. Continue taking sucralfate twice a day. Patient will take Dulcolax daily 1-2 tablets as needed. Increase fluid intake and activity to promote better bowel motility. Patient was encouraged to avoid dietary triggers in late night snacking. Staying upright for minimum 3 hours after meals discussed with patient. Patient will follow-up in 2 months, sooner on as needed basis. Patient is agreeable to this plan and verbalizes understanding of instructions. She was given the opportunity to ask questions and all questions answered. ? Thank you for allowing me to participate in her care Refilled esomeprazole magnesium 40 mg PO DAILY 90 caps 1RF K21.9 TODAY'S VISIT: Patient is here today for follow-up. Patient is very tearful today. 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 Currently she is taking Nexium in the morning and also is taking sucralfate, however she is having epigastric pain. Patient is not sure if the pain is because she is so stressed out and in so much pain from not having her pain patch. Last visit we increased sucralfate so patient can take it twice a day, early afternoon and at bedtime. Her friend is no longer living with her and patient lives alone. She is with her for office visit. Patient reports that she is a good support for her. Patient did not want a call her friend to bother her to get her her script filled. Patient denies any nausea or vomiting. Reports occasional trouble swallowing. Denies choking episodes. Re ports that she is moving her bowels better now that she is taking Dulcolax. Denies melena, hematochezia, unintentional weight loss or ribbon like stools. [facility] Medical History Pericardial effusion (~2021) Esophageal dysmotility Anemia Abdominal pain Hx of nausea and vomiting History of non-nicotine vaping WIGGINS (dyspnea on exertion) History of pericarditis H/O degenerative disc disease Dependent on walker for ambulation Poor balance Hx of fracture of arm Chronic back pain Dysphagia Tubular adenoma of colon Allergies History of COVID-19 PETER (obstructive sleep apnea) Neuropathy Hypothyroidism Chronic neck pain History of post traumatic stress disorder Depression Anxiety Asthma Surgical History History of back surgery Hx of colonoscopy Hx of esophagogastroduodenoscopy Hx of appendectomy Hx of section Hx of tonsillectomy Previous back surgery Family History Mother Colon cancer Family/Other Colon cancer Social History Are you a primary healthcare risk control consultant to a significant other at home: No Do you presently have visiting nurse or other home services: Yes (VNA, PT, OT) Alcohol intake: current Alcohol intake frequency: does not drink Patient Tobacco Use Status: Never used 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 Review of Systems Const Denies weight gain and Denies weight loss ENT Reports no additional complaints, Reports dysphagia (Improved) and Denies odynophagia Card Reports no additional complaints Resp Reports no additional complaints GI Denies abdominal pain, Denies belching, Denies melena, Denies bloating, Denies change in bowel habits, Reports constipation (Improved), Reports dysphagia (Improved), Denies excessive flatus, Denies dyspepsia, Denies heartburn, Denies diarrhea, Denies loose stools, Denies nausea, Denies odynophagia and Denies vomiting Reports no additional complaints Musc Reports no additional complaints Neuro Reports no additional complaints Psych Reports no additional complaints Endo Reports no additional complaints Physical Exam Vital Signs: Last Vital Signs Pulse 72 06/12/25 11:22 BP 156/92 H 06/12/25 11:22 Pulse Ox 94 06/12/25 11:22 Oxygen Delivery Method Room Air 06/12/25 11:22 BMI result Body Mass Index 20.0 Const General: healthy appearing and no acute distress Nutritional Appearance: underweight Orientation/consciousness: patient oriented x3 HEENT Mouth: Normal oral and palatal mucosa present, tongue normal, oropharynx abnormals (Redness) and other (Streaky redness in her posterior throat from postnasal drip) Resp Effort & Inspection: normal respiratory effort, able to speak in complete sentences, no tracheal deviation and symmetric chest movement Auscultation: clear to auscultation bilaterally Cardio Rate: regular rate GI Inspection: Yes normal to inspection and No distended Palpation (GI): Soft to palpation, not firm, nontender and No hepatosplenomegaly present Auscultation: normal bowel sounds General: Yes no CVA tenderness Back/Spine/Pelvis Back: no CVA tenderness Skin General skin exam: elasticity normal, turgor normal and dry skin Neuro General: patient oriented x3 Psych Appearance: grossly normal Mental Status: mental status grossly normal Assessment & Plan Assessment & Plan (1) Dysphagia: Code(s): R13.10 - Dysphagia, unspecified Category: Medical Qualifiers: Dysphagia type: oropharyngeal phase Qualified Code(s): R13.12 - Dysphagia, oropharyngeal phase (2) Irritable bowel syndrome: Code(s): K58.9 - Irritable bowel syndrome, unspecified Qualifiers: Irritable bowel syndrome type: without diarrhea Qualified Code(s): K58.9 - Irritable bowel syndrome, unspecified (3) Constipation: Code(s): K59.00 - Constipation, unspecified Qualifiers: Constipation type: slow transit constipation Qualified Code(s): K59.01 - Slow transit constipation (4) Gastroesophageal reflux disease: Code(s): K21.9 - Gastro-esophageal reflux disease without esophagitis Qualifiers: Esophagitis presence: esophagitis presence not specified Qualified Code(s): K21.9 - Gastro-esophageal reflux disease without esophagitis (5) Dizziness: Code(s): R42 - Dizziness and giddiness Plan Will check thyroid study, vitamin B12, folate, D levels. Patient will take sucralfate and 14:00 and at bedtime. Making sure she will take at least 1 hour after she takes her evening medications. Will be sent for upper GI with barium swallow. Avoid dietary triggers in late night snacking. Staying upright for minimum 3 hours after meals discussed with patient. Patient will follow-up in 2 months, sooner on as needed basis. She is agreeable to this plan and verbalizes understanding of instructions. She was given the opportunity to ask questions and all questions answered. Thank you for allowing me to participate in her care Orders: Orders TSH reflex Free T4 Today K59.00 - Constipation, unspecified Vitamin B12 and Folate Today R19.7 - Diarrhea, unspecified FL upper GI w Ba Swallow Today K21.9 - Gastro-esophageal reflux disease without esophagitis Vitamin D 25-OH (D2 and D3) Today E55.9 - Vitamin D deficiency, unspecified Coding Level of Care Code Est Pt Level 4 (37205) Complex EM visit Add On G2211 Diagnoses Oropharyngeal dysphagia R13.12 Dysphagia type: oropharyngeal phase Irritable bowel syndrome without diarrhea K58.9 Irritable bowel syndrome type: without diarrhea Slow transit constipation K59.01 Constipation type: slow transit constipation Gastroesophageal reflux disease, unspecified whether esophagitis present K21.9 Esophagitis presence: esophagitis presence not specified Dizziness R42 Time Spent (min) 35 Comment 25 minutes spent with patient and additional 10 minutes spent reviewing her records
[2025-06-12 11:22] VITALS: BP 156/92; PULSE 72; O2SAT 94
--- OUTSIDE RECORDS SUMMARY | 2025-06-12 12:19 | XMS_ITS | Encounter Summary ---
Author Organization [employer] Address [address] [place] [address] Care Team Providers Care Distribution Spec Name Role Phone Izzy Sigala MD Primary Care Provider [phone] Encounter Details Date Type Department Care Team (Late Contact Info) Description 10/22/2022 Orders Only [facility] [address] [place] [address] [phone] Izzy Sigala MD [address] [place] [address] [phone] Skin infection (Primary Dx); Bronchitis Social History [...] Care Team (Late st Contact Info) Description 06/18/2025 1:00 PM EDT Telemedicine [facility] [address] [place] [address] [phone] Divya Neil RN documented as of this encounter Visit Diagnoses Diagnosis Skin infection- Primary Unspecified local infection of skin and subcutaneous tissue Bronchitis Bronchitis, not specified as acute or chronic documented in this encounter Care Teams Distribution Spec Relationship Specialty Start Date End Date Izzy Sigala MD [address] [place] [address] PCP - General Family Medicine 10/30/21 [facility] 03/01/25 documented as of this encounter
--- OUTSIDE RECORDS SUMMARY | 2025-06-12 12:19 | XMS_ITS | Clinical Summary ---
Author Organization [facility] Address [address] [place] [address] Care Team Providers Care Social Services Aide Name Role Phone Yeyo Anton DO Primary Care Provider Allergies Active Allergy Reactions Criticality Noted Date Comments Meloxicam 10/03/2014 GI bleed Other - See Comments 10/07/2014 Rash from certain bandaids Sulfa (Sulfonamide Antibiotics) 10/03/2014 Medications Levothyroxine 75 mcg capsule Take 75 mcg by mouth daily. 1/2 tab on Tues and Th Active tiZANidine (ZANAFLEX) 4 mg tablet Take 4 mg by mouth every 8 hours. Active sertraline (ZOLOFT) 100 mg tablet Take 100 mg by mouth daily. Active zolpidem (AMBIEN) 5 mg tablet Take 5 mg by mouth daily. Active cefdinir (OMNICEF) 300 mg capsule Take 300 mg by mouth every 12 hours Active triamcinolone (KENALOG) 0.1 % ointment Apply topically to affected area 2 times daily Do not apply to face, armpit or groin. 60 g 2 5 Active oxymorphone (OPANA ER) 20 mg ER tablet Take 20 mg by mouth 3 times daily. Active oxyCODONE (OXY-IR) 15 mg immediate release tablet Take 15 mg by mouth 3 times daily. Active senna (SENOKOT) 8.6 mg tablet Take 1 Tab by mouth daily. Active IRON, FERROUS SULFATE, ORAL Take by mouth. A ctive cyanocobalamin (VITAMIN B-12) 500 mcg tablet Take 1,000 mcg by mouth daily. Active docusate sodium (COLACE) 100 mg capsule Take 100 mg by mouth daily. Active meloxicam (MOBIC) 15 mg tabletIndications: Primary osteoarthritis involving multiple joints Take 1 Tab by mouth daily. Take with the stomach med omeprazole 30 Tab 1 6 Active omeprazole (PRILOSEC) 20 mg capsule Take 2 Caps by mouth 2 times daily. Take 30 minutes before breakfast and dinner 120 Cap 11 8 Active Active Problems Problem Noted Date Diagnosed Date Left-sided low back pain with left-sided sciatic a 06/12/2015 Cervical spondylosis with myelopathy 10/09/2014 Overview (10/09/2014): 03/02/2011; Dr Martin ([facility]); ACDF C4-6 01/14/2012; Dr Martin; bilateral cervical laminectomies C3-C7, posterior instrumentation C3-7 09/26/2012; Dr Martin; ACDF C3/4, C6/7 09/27/2012; Dr Martin; Removal posterior hardware C3-7, posterior decompression right C3-7 nerve roots (operative reports scanned in to medical record) Right shoulder pain 10/09/2014 Hypothyroidism Chronic pain syndrome Depressive disorder Insomnia Cortical senile cataract Vitreous hemorrhage (HCC-CMS) Tear film insufficiency Surgical History Surgery Date Site/Laterality Comments SECTION 11/14/1992 - 11/13/1993 APPENDECTOMY TONSILLECTOMY CERVICAL DISCECTOMY WRIST FRACTURE SURGERY 11/14/2013 - 11/13/2014 pinned SPINE SURGERY Medical History Medical History Date Comments Hypothyroidism Chronic pain syndrome Depressive disorder Insomnia Cortical senile cataract Vitreous hemorrhage (HCC-CMS) Tear film insufficiency Arthritis Keloid Psoriasis Environmental allergies Varicella History of blood transfusion Dermatitis Asthma Sleep apnea Family History Medical History Relation Comments Cancer Maternal Uncle Cancer Paternal Aunt Arthritis Sister 2 Asthma Sister 2 Autoimmune Disease Sister 2 psoriatic art hritis Depression Sister 2 Miscarriages / Stillbirths Sister 2 Relation Status Comments Father Alive Maternal Uncle Mother Paternal Aunt Sister 1 Alive Sister 2 Alive Social History Tobacco Use Types Packs/Day Years Used Date Smoking Tobacco: Former Cigarettes Q uit: 06/02/2002 Smokeless Tobacco: Never Alcohol Use Standard Drinks/Week Comments No 4 (1 standard drink = 0.6 oz pur e alcohol) Interpersonal Safety Answer Date Record ed Physically Hurt Never 06/15/2020 Verbally Threaten Not on file 06/15/2020 Comments No Sex and Gender Information Value Date Recorded Sex Assigned at Not on file Legal Sex Female 17:31 EST Gender Identity Not on file Sexual Orientation Not on file Obstetrics History Last Filed Vital Signs Vital Sign Reading Time Taken Comments Blood Pressure 118/66 10/27/2016 1017 EST Pulse 78 10/27/2016 1017 EST Temperature 37.2 C (99 F) 07/22/2016 1227 EDT Respiratory Rate 18 07/22/2016 1227 EDT Oxygen Saturation 99% 07/22/2016 1700 EDT Inhaled Oxygen Concentration - - Weight 62.6 kg (138 lb) 10/27/2016 1017 EST Height 164.5 cm (5' 4.75 ) 10/27/2016 1017 EST Body Mass Index 23.14 10/27/2016 1017 EST Plan of Treatment Health Maintenance Due Date Last Done Comments Hepatitis C Screen 1955 Current Opioid Misuse Measurement 10/03/2014 Functional Assessment 10/03/2014 Opioid Informed Consent 10/03/2014 Pill Count 10/03/2014 Prescription Agreement 10/03/2014 Review Of Systems Adverse Effects 10/03/2014 Urine Drug Screen 10/03/2014 [place] Prescription Monitoring System 10/03/2014 Fall Risk Screening 2019 COVID-19 Vaccine ( season) 2024 RSV Immunization ( o r 60+ Years) (1 - 1-dose 75+ series) 2029 Care Teams Social Services Aide Relationship Specialty Start Date End Date Yeyo Anton DO [address] [place] [id number] PCP - General 04/30/15
--- OUTSIDE RECORDS SUMMARY | 2025-06-12 12:19 | XMS_ITS | Clinical Summary ---
Author Organization [facility] Address [address] [place] [phone] Phone Care Team Providers Care Guest Service Team Leader Name Role Phone Izzy Sigala MD Primary Care Provider + Allergies Active Allergy Reactions Criticality Noted Date Comments Bupropion Hcl Dizziness 03/18/2021 Falls Clonidine Hcl Dizziness 03/18/2021 Falls Gabapentin Itching,Other (See Comments) 03/18/2021 Pedal edema Meloxicam Bleeding High 03/18/2021 Internal Prazosin Other (See Comments) 03/18/2021 Falls Pregabalin Pain Low 03/18/2021 Sulfa (Sulfonamide Antibiotics) Unknown 03/18/2021 Zolpidem Hallucinations High 03/18/2021 Auditory Medications levothyroxine (SYNTHROID, LEVOTHROID) 75 MCG tabletIndication s:Hypothyroidism , unspecified type Take 1 tablet (75 mcg total) by mouth daily. 90 tablet 1 1 Active cyclobenzaprine (FLEXERIL) 5 MG tabletIndication s:Cervicalgia Take 1-2 tablets (5-10 mg total) by mouth 3 (three) times a day as needed. 30 tablet 1 Active sertraline (ZOLOFT) 100 MG tabletIndication s:Depression, unspecified depression type,Anxiety TAKE 2 TABLETS BY MOUTH EVERY DAY 180 tablet 1 1 Active albuterol 90 mcg/actuation inhaler Inhale 2 puffs into the lungs every 4 (four) hours as needed for wheezing or shortness of breath/dyspnea. 18 g 1 Active ipratropium-albu teroL (DUONEB) 0.5-3 mg (2.5 mg base)/3 mL nebulizer solution Take 3 mL by nebulization 3 (three) times a day for 14 days. ICD 10 J45.901 126 mL 1 Active SENNA 8.6 mg tabletIndication s:Drug-induced constipation TAKE 1 TABLET BY MOUTH EVERY DAY 90 tablet 1 2 Active magnesium oxide (MAG-OX) 400 mg (241.3 mg elemental) tabletIndication s:Medication refill TAKE 1 TABLET BY MOUTH EVERY DAY 90 tablet 1 2 Active traZODone (DESYREL) 50 MG tabletIndication s:Insomnia, unspecified type TAKE 1 TO 2 TABLETS BY MOUTH EVERY DAY AT BEDTIME 180 tablet 3 2 Active Active Problems Problem Noted Date Diagnosed Date Moderate malnutrition 10/22/2021 Assessment & Plan (10/22/2021 5:12 PM EST): Rd is following Pneumonia 10/20/2021 Assessment & Plan (10/25/2021 3:30 PM EST): Afebrile. Normal white count. Slowly improving. Now off oxygen Less cough today She gives a history of dysphagia and what she thinks may have been an aspiration event prior to developing the symptoms-receiving abx seen by speech. Started duo nebs, hypersaline nebs aerobika and changed to IV antibiotic yesterday. Patient reports she is feeling improved. She does have less rhonchi and wheezes on exam Seen by PT today. Ambulating in the halls yesterday. Declined discharge today Asthma exacerbation 10/20/2021 Assessment & Plan (10/25/2021 3:30 PM EST): Treated with nebulizers and steroids. Started on prednisone forty when she was admitted. Have not weaned dose so far Thrombocytopenia 10/20/2021 Assessment & Plan (10/24/2021 5:15 PM EST): Low likely due to acute illness Back to normal yesterday Gastroesophageal reflux disease without esophagi tis 07/21/2021 Overview (07/21/2021): 07/2021 - Managed on Omeprazole 40mg daily. Assessment & Plan (07/21/2021 12:58 PM EDT): Stable on current regimen. Hypothyroidism 03/24/2021 Overview (03/24/2021): 03/2021 - Managed on Levothyroxine 75mcg daily. Assessment & Plan (10/20/2021 2:24 PM EST): -Continue Synthroid -TSH normal at 2.52 Assessment & Plan (07/21/2021 12:56 PM EDT): RF sent. Stable on current regimen. Will review records and determine when next labs are due. Assessment & Plan (03/24/2021 9:23 AM EDT): Stable on current regimen. Had blood work recently per pt report. Cervicalgia 03/24/2021 Overview (03/24/2021): 03/2021 - Managed on Butrans patch 15mcg/hr 1 patch weekly. Assessment & Plan (07/21/2021 12:57 PM EDT): Increase spasms recently. Will do trial of Flexeril 5-10mg TID PRN. Side effects reviewed. Continue home stretches and heat. Assessment & Plan (03/24/2021 9:21 AM EDT): Stable on current regimen. Drug-induced constipation 03/24/2021 Overview (03/24/2021): 03/2021 - Secondary to Butrans patch. Managed with Colace 100mg BID, Senna 8.6mg daily PRN, and Magnesium Oxide 400mg daily. Assessment & Plan (03/24/2021 9:26 AM EDT): Stable on current regimen. Vitamin D deficiency PTSD (post-traumatic stress disorder) Insomnia Overview (03/24/2021): 03/2021 - Managed on Trazodone 50mg QHS PRN. Assessment & Plan (07/21/2021 12:58 PM EDT): Stable on current regimen. Assessment & Plan (03/24/2021 9:24 AM EDT): Stable on current regimen. Depression Overview (03/24/2021): 03/2021 - Managed on Sertraline 200mg daily. Assessment & Plan (10/20/2021 2:25 PM EST): -Continue Zoloft 200 mg daily, confirmed with her pharmacy Assessment & Plan (07/21/2021 12:56 PM EDT): Stable on current regimen. Assessment & Plan (03/24/2021 9:22 AM EDT): Stable on current regimen. Chronic pain syndrome Overview (03/24/2021): 03/2021 - Managed on Butrans patch 15mcg/hr 1 patch weekly. Assessment & Plan (10/23/2021 2:06 PM EST): -Continue buprenorphine patch 15 mcg/hr, She changes her patches on . Assessment & Plan (07/21/2021 12:57 PM EDT): See plan above. Assessment & Plan (03/24/2021 9:22 AM EDT): Stable on current regimen. Anxiety Overview (03/24/2021): 03/2021 - Managed on Sertraline 200mg daily. Assessment & Plan (07/21/2021 12:57 PM EDT): Stable on current regimen. Assessment & Plan (03/24/2021 9:23 AM EDT): Stable on current regimen. Immunizations Immunization Administration Dates Next Due COVID-19 (Pre-09/05) Moderna Vaccine, mRNA, PF 0 04/29/2021,04/01/2021 Influenza High-Dose Quadrivalent Preservative Fr ee IM 10/26/2021 Family History Medical History Relation Comments Glaucoma Maternal Grandmother Colon cancer Maternal Uncle Cataracts Mother Colon cancer Mother Depression Mother Glaucoma Mother Heart attack Mother Stroke Mother Thyroid disease Mother Migraines Sister Psoriasis Sister Thyroid disease Sister Colon cancer Unspecified x4 Cousins Relation Status Comments Father Maternal Grandfather Maternal Grandmother Maternal Uncle Mother Paternal Grandfather Paternal Grandmother Sister Unspecified Social History Tobacco Use Types Packs/Day Years Used Date Smoking Tobacco: Never Smokeless Tobacco: Never Tobacco Cessation:Counseling Given: No Alcohol Use Standard Drinks/Week Comments Yes 0 (1 standard drink = 0.6 oz pur e alcohol) x1 glass of wine x2-3/wk Child or Family Care Answer Date Record ed Do you have problems with on e of the following making it difficult for you to work, study, or receive health care? No 03/18/2021 Education Answer Date Recorded Are you interested in more education? Not on aftab e 03/30/2023 Are you concerned about learning? Not on file 03/30/2023 No 03/30/2023 No 03/30/2023 Food Answer Date Recorded Worried food would run out Not on file 03/18 Within the past 6 months the food we bought just didn't last and we didn't have enough money to get more. Never True 03/2021 Paying for Meds Answer Date Recorded Do you have trouble paying for medicines? No 03/18/2021 Paying Utility Bills Answer Date Record ed Do you have trouble paying your heating or elect ricity bill? No 03/18/2021 Transportation Answer Date Recorded Has the lack of transportati on kept you from medical appointments or from getting medications? No 03/18/2021 Unemployment Answer Date Recorded Are you currently unemployed or working on a part-time or temporary basis, and looking for work? No 03/18/2021 Digital Access Answer Date Recorded No 04/09/2023 No 04/09/2023 No 04/09/2023 Reliable internet access at home? Not on file 04/09/2023 Device with a working camera? Not on file Comments Unknown Sex and Gender Information Value Date Recorded Sex Assigned at Female 10/20/2021 9:12 AM EST Legal Sex Female 11:02 AM EDT Gender Identity Female 10/20/2021 9:12 AM EST Sexual Orientation Straight 10/20/2021 9: 12 AM EST Last Filed Vital Signs Vital Sign Reading Time Taken Comments Blood Pressure 110/70 12/03/2021 2:16 PM EST Pulse 60 12/03/2021 2:16 PM EST Temperature 36.3 C (97.4 F) 12/03/2021 2:16 PM EST Respiratory Rate 18 12/03/2021 2:16 PM EST Oxygen Saturation 98% 12/03/2021 2:16 PM EST Inhaled Oxygen Concentration 28% 10/23/2021 7 :54 PM EST Weight 54.3 kg (119 lb 9.6 oz) 10/25/2021 5:59 A M EST Height 165.1 cm (5' 5 ) 10/21/2021 6:57 AM EST Body Mass Index 19.9 10/21/2021 6:57 AM EST Plan of Treatment Health Maintenance Due Date Last Done Comments Adult Td,Tdap Booster 1955 LIPID PANEL 1955 HEPATITIS C SCREENING 01/14/1972 PNEUMOCOCCAL VACCINES (50+ years) (1 of 2 - PCV) 1973 COLOGUARD 1999 COLONOSCOPY 1999 COLORECTAL CANCER SCREENING 1999 FIT TEST 1999 FOBT 1999 SIGMOIDOSCOPY 1999 VIRTUAL COLONOSCOPY 1999 ZOSTER VACCINES (1 of 2) 01/14/2004 RSV VACCINE (1 - Risk 60-74 years 1-dose series) 2014 OSTEOPOROSIS SCREENING INITI AL (ONE-TIME) 2019 DEPRESSION SCREENING 03/18/2022 03/18/2021 MAMMOGRAM 11/05/2022 11/05/2020 COVID-19 VACCINE (3 - 2023-2 5 season) 2024 04/29/2021, 04/01/2021 SMOKING STATUS SCREENING (On ce After 26 Yrs) Completed 10/20/2021 HEPATITIS A VACCINES Aged Out No long er eligible based on patient's age to complete this topic HIB VACCINES Aged Out No longer eligi ble based on patient's age to complete this topic MENINGOCOCCAL VACCINES (ACWY) Aged Out No longer eligible based on patient's age to complete this topic MENINGOCOCCAL VACCINES (B) Aged Out N o longer eligible based on patient's age to complete this topic Medical Devices Not on file Procedures Procedure Name Priority Date/Time Associated Diagnosis Comments MAMMOGRAPHY Routine 11/05/2020 from Last 3 Months or Most Recently Relevant to Health Maintenance Results * MAMMOGRAPHY FOR RESULT ENTRY ONLY (11/05/2020) Mammogram Negative, BI-RADS 2 Historical Provider MD HEALTH MAINTENANCE Final Result from Last 3 Months or Most Recently Relevant to Health Maintenance Insurance MEDICARE PART A & B [facility] FULL MEDICARE PART A & B [facility] [place] [address] [address] [place] [address] FULL MEDICARE PART A & B [facility] [address] [place] [address] FULL MEDICARE PART A & B [facility] MEDICARE REPLACEMENT FULL MEDICARE PART A & B [facility] MEDICARE REPLACEMENT Member Subscriber Plan / Payer (Ef fective 2021-Present) Name:Sivan Orosco Relation to Subscriber:Self Name:Sivan Orosco Payer ID:[id number] (NAIC) Type:Medicare Address: [facility] [id number] SAFETY [place] [id number] [facility]AC[facility] NET FULL Member Subscriber Plan / Payer (Ef fective 2021-Present) Name:Sivan Orosco Relation to Subscriber:Self Name:Sivan Orosco Payer ID:Not on file Group ID:Not on file Type:Medicaid Address: [place] [id number] [place] [id number] [facility] MEDICARE REPLACEMENT [address] [address] [place] [address] FULL MEDICARE PART A & B [facility] [address] [place] [address] FULL MEDICARE PART A & B [facility] MEDICARE REPLACEMENT [facility] FULL Advance Directives For more information, please contact: [phone] (9AM - 5PM Jocelyne/[facility], Tuesday-Tuesday) Documents on File Type Date Recorded Patient Sample Book Maker Expl anation Healthcare Proxy 10/27/2021 4:13 PM * Full Code (Latest Code Status on File) Date Activated Date Inactivated Comments 10/20/2021 2:36 PM Question Answer Comments Code Status Confirmed With: Patient Healthcare Agents on File Name Relationship Healthcare Agent Relationship Communication Darnell Li Son .Primary Health Care Agent (Proxy form on file) Care Teams Guest Service Team Leader Relationship Specialty Start Date End Date Izzy Sigala MD PCP - General Family Medicine 09/06/23 Additional Source Comments The information contained in this document represents components of the legal health record. It is not the complete legal health record.[facility]
--- OUTSIDE RECORDS SUMMARY | 2025-06-12 12:19 | XMS_ITS | Clinical Summary ---
Author Organization [facility] Address [address] [place] [address] Phone Care Team Providers Care Underwriter Name Role Phone Izzy Sigala MD Primary Care Provider Encounters Date Type Department Care Team Description 04/01/[address] [place] [address] Izzy Sigala MD Medical Records [...] series) 2014 Colorectal Cancer Screening: Colonoscopy 10/24/2022 Falls Risk Assessment 10/24/2022 Hepatitis C Screening 10/24/2022 Medicare Annual Wellness Visit 10/24/2022 Osteoporosis Screening (Bone Density Screening) 10/24/2022 Social Influencers of Health Screening 10/24/2022 COVID-19 Vaccine ( - 2023-2 5 season) 2024 Depression Screening 11/14/2024 Influenza Vaccine (#1) 2025 HIB Vaccines Aged Out No longer [...] topic Insurance [employer] MEDICARE ADVANTAGE Care Teams Underwriter Relationship Specialty Start Date End Date Izzy Sigala MD [address] [place] [phone] PCP - General Hotel Desk Clerk 08/12/22
== END 2025-06-12 11:46 | disposition home or self-care (01) ==
LOC: HO.HGI 11:15
PROVIDERS: PCP General Practice; Visit Provider Nurse Practitioner Family
DX: R13.12 Dysphagia, oropharyngeal phase (principal); K58.9 Irritable bowel syndrome, unspecified; K59.01 Slow transit constipation; K21.9 Gastro-esophageal reflux disease without esophagitis; R42 Dizziness and giddiness
CPT/HCPCS: 99214; G2211

== ENCOUNTER 2025-06-12 11:15 | Outpatient (REF) | payer MEDICARE, MEDICAID, SELFPAY ==
[2025-06-12 14:54] LABS: Folate 9.1 ng/mL (> or = 4.0); Vitamin B12 549 pg/mL (200-900)
[2025-06-16 17:24] LABS: Vitamin D 25-OH, D2 <4 ng/mL; Vitamin D 25-OH, D3 37 ng/mL; Vitamin D 25-OH, Total 37 ng/mL (30-100)
[2025-06-18 07:48] LABS: Transglutaminase Ab IgG <1.0 U/mL
== END 2025-06-12 11:16 | disposition home or self-care (01) ==
LOC: HO.LAB 11:15
PROVIDERS: Absent Provider Internal Medicine Gastroenterology; PCP General Practice; Visit Provider Nurse Practitioner Family
DX: K21.9 Gastro-esophageal reflux disease without esophagitis (principal); K29.80 Duodenitis without bleeding; K58.9 Irritable bowel syndrome, unspecified; R13.12 Dysphagia, oropharyngeal phase; K59.01 Slow transit constipation; R42 Dizziness and giddiness; R19.7 Diarrhea, unspecified; R10.33 Periumbilical pain; E55.9 Vitamin D deficiency, unspecified; G89.29 Other chronic pain
CPT/HCPCS: 36415; 82306; 82607; 82746; 84443; 86258; 86364; 99212

== ENCOUNTER 2025-07-29 14:39 | Outpatient (REF) | payer MEDICARE, MEDICAID, SELFPAY ==
--- OUTSIDE RECORDS SUMMARY | 2025-07-29 14:00 | XMS_ITS | Encounter Summary ---
Author Organization [employer] Address [address] [facility] 7 [place] [address] Care Team Providers Care Manager Strategy & Account Name Role Phone Izzy Sigala MD Primary Care Provider [phone] Reason for Visit * Reason Comments Med Refill Needs refill on meds prescribed by neurologist Encounter Details Date Type Department Care Team ([facility] st Contact Info) Description 07/29/2025 2:00 PM EDT Office Visit [facility]INE [address] [place] [address] Izzy Sigala MD [address] [place] [address] Vertigo (Primary Dx) Social History Tobacco Use Types Packs/Day Years Used Date Smoking Tobacco: Former Cigarettes Passive Smoke Exposure: Past Smokeless Tobacco: Never Alcohol Use Standard Drinks/Week Comments Never 0 (1 standard drink = 0.6 oz pur e alcohol) Depression Answer Date Recorded Patient Health Questionnaire-9 Score 10 06/24/2025 Patient Health Questionnaire-9 Score 10 06/24/2025 Last PHQ-9: Questionnaire Data Not on file 0 06/24/2025 Housing Stability Answer Date Recorded What is [...] Date Recorded Patient Health Questionnaire-2 Score 2 06/24/2025 Internet Access Answer Date Recorded Internet Access [...] Sign Reading Time Taken Comments Blood Pressure 116/56 07/29/2025 2:09 PM EDT Pulse 56 07/29/2025 2:09 PM EDT Temperature 36.9 C (98.4 F) 07/29/2025 2:09 PM EDT Respiratory Rate 16 07/29/2025 2:09 PM EDT Oxygen Saturation - - Inhaled Oxygen Concentration - - Weight 55.1 kg (121 lb 8 oz) 07/29/2025 2:09 PM EDT Height 165.1 cm (5' 5 ) 07/29/2025 2:09 PM EDT Body Mass Index 20.22 07/29/2025 2:09 PM EDT documented in this encounter Plan of Treatment Upcoming Encounters Date Type Department Care Team (Late st Contact Info) Description 08/23/2025 10:00 AM EDT Telemedicine [facility] MEDICINE [address] [place] [address] Divya Neil RN documented as of this encounter Procedures Procedure Name Priority Date/Time Associated Diagnosis Comments CBC WITH AUTO DIFFERENTIAL Routine 07/29/2025 3:05 PM EDT Vertigo LIPID PANEL, STANDARD Routine 07/29/2025 3:05 PM EDT Vertigo COMPREHENSIVE METABOLIC PANEL Routine 07/29/2025 3:05 PM EDT Vertigo documented in this encounter Results * (ABNORMAL) Comprehensive Metabolic Panel (07/29/2025 3:05 PM EDT) Sodium 141 135 - 145 mmol/L [facility] Potassium 4.4 3.3 - 5.1 mmol/L [facility] Chloride 109(H) 96 - 108 mmol/L [facility] Carbon Dioxide 26 22 - 29 mmol/L [facility] Anion Gap 10(L) 12 - 20 [facility] Urea Nitrogen (BUN) 14 9 - 16 mg/dL [facility] Creatinine, Serum 0.85 0.5 - 1.4 mg/dL [facility] Estimated Glomerular Filt Rate >60 [facility] Comment:Chronic Kidney Disea se: Estimated GFR < 60 mL/min/1.51p7Coktsp Kidney Disease: Estimated GFR < 15 mL/min/1.73m2 Glucose 95 60 - 115 mg/dL [facility] Calcium 8.9 8.4 - 10.2 mg/dL [facility] Bilirubin, Total 0.3 0.0 - 1.0 mg/dL [facility] Aspartate Amino Transferase 30 5 - 31 U/L [facility] Alanine Aminotransferase 15 0 - 31 U/L [facility] Total Protein 6.6 6.5 - 8.0 g/dL [facility] Albumin Level 4.2 3.5 - 5.0 g/dL [facility] Alkaline Phosphatase 58 39 - 117 U/L [facility] Blood Venous blood specimen / Unknown 07/29/2025 3:05 PM EDT 07/29/2025 4:08 PM EDT us Izzy Sigala MD LAB BLOOD ORDERABLES Final Res ult [facility] [address] [place] [address] [phone] * (ABNORMAL) CBC auto differential (07/29/2025 3:05 PM EDT) White Blood Count 6.3 4.8 - 10.8 X10*3/uL [facility] Red Blood Count 3.95(L) 4.20 - 5.50 X10*6/uL [facility] Hemoglobin 11.3(L) 12.0 - 16.0 g/dl [facility] Hematocrit 35.3(L) 37.0 - 47.0 % [facility] Mean Corpuscular Volume 89.4 80.0 - 98.0 fL [facility] Mean Corpuscular Hemoglobin 28.6 27.0 - 33.0 pg [facility] Mean Corpuscular HGB Conc 32.0 31.0 - 35.0 g/dl [facility] Red Cell Distribution Width 14.0 11.0 - 16.0 % [facility] Platelet Count 144(L) 160 - 400 X10*3/uL [facility] Mean Platelet Volume 10.4 9.4 - 12.3 fL [facility] Neutrophils Percent Auto 70.5 45 - 73 % [facility] Imm Gran Pct Auto 0.5(H) 0.0 - 0.4 % [facility] Lymphocytes Percent Auto 15.1(L) 20 - 40 % [facility] Monocytes Percent Auto 10.9 2 - 11 % [facility] Eosinophils Percent Auto 1.7 0 - 4 % [facility] Basophils Percent Auto 1.3 0 - 2 % [facility] NRBC Pct Auto 0.0 0.0 - 0.2 /100WBC [facility] Neutrophils Absolute Auto 4.5 2.0 - 8.3 x10*3/uL [facility] Imm Gran Abs Auto 0.03 0.00 - 0.03 X10*3/uL [facility] Lymphocytes Absolute Auto 1.0(L) 1.2 - 4.9 X10*3/uL [facility] Monocytes Absolute Auto 0.7 0.1 - 1.2 X10*3/uL [facility] Eosinophils Absolute Auto 0.1 0.0 - 0.4 X10*3/uL [facility] Basophils Absolute Auto 0.1 0.0 - 0.2 X10*3/uL [facility] NRBC Abs Auto 0.000 0.0 - 0.012 X10*3/uL [facility] Blood Venous blood specimen / Unknown 07/29/2025 3:05 PM EDT 07/29/2025 4:08 PM EDT Izzy Sigala MD LAB BLOOD ORDERABLES Final Res ult Performing Organization Address City/[facility] Co de Phone Number [facility] [address] [place] [address] [phone] * (ABNORMAL) Lipid Panel, Standard (07/29/2025 3:05 PM EDT) Triglycerides 109 <150 mg/dL [facility] Comment:Desirable Triglyceri de: less than 150 mg/dLBorderline High Triglyceride 150-199 mg/dLHigh Triglyceride: 200-499 mg/dLVery High Triglyceride: greater than or equal to 5OO mg/dL Cholesterol 190 <200 mg/dL [facility] Comment:Desirable Cholestero l: less than 200 mg/dLBorderline High Cholesterol: 200-239 mg/dLHigh Cholesterol: greater than 239 mg/dL LDL Cholesterol Calculated 122(H) <100 mg/dL [facility] Comment:Desirable LDL: less than 100 mg/dLNear Optimal/Above Optimal LDL: 110- 129 mg/dLBorderline High LDL: 130-159 mg/dLHigh LDL: 160-189 mg/dLVery High LDL: greater than or equal to 190 mg/dL HDL Cholesterol 47 >40 mg/dL [facility] Comment:Desirable HDL: great er than 40 mg/dL Note: This HDL assay may give artificially low results in patients with liver disease. Blood Venous blood specimen / Unknown 07/29/2025 3:05 PM EDT 07/29/2025 4:08 PM EDT Izzy Sigala MD LAB BLOOD ORDERABLES Final Res ult [facility] [address] [place] [phone] [phone] documented in this encounter Visit Diagnoses Diagnosis Vertigo- Primary Dizziness and giddiness documented in this encounter Additional Health Concerns Assessment Noted Time PHQ-9 Depression Total Score: 10 025 4:31 PM EDT documented as of this encounter Care Teams Manager Strategy & Account Relationship Specialty Start Date End Date Izzy Sigala MD [address] [place] [phone] PCP - General Family Medicine 10/30/21 [facility] 03/01/25 documented as of this encounter
[2025-07-29 16:19] LABS: MANUAL DIFF FLAG NO
[2025-07-29 16:26] LABS: Hematocrit 35.3 % (37.0-47.0); Hemoglobin 11.3 g/dl (12.0-16.0); Imm Gran Abs Auto 0.03 X10*3/uL (0.00-0.03); Imm Gran Pct Auto 0.5 % (0.0-0.4); Lymphocytes Absolute Auto 1.0 X10*3/uL (1.2-4.9); Mean Corpuscular HGB Conc 32.0 g/dl (31.0-35.0); Mean Corpuscular Hemoglobin 28.6 pg (27.0-33.0); Mean Corpuscular Volume 89.4 fL (80.0-98.0); NRBC Abs Auto 0.000 X10*3/uL (0.0-0.012); NRBC Pct Auto 0.0 /100WBC (0.0-0.2); Platelet Count 144 X10*3/uL (160-400); Red Blood Count 3.95 X10*6/uL (4.20-5.50); White Blood Count 6.3 X10*3/uL (4.8-10.8)
[2025-07-29 16:45] LABS: Alanine Aminotransferase 15 U/L (0-31); Albumin Level 4.2 g/dL (3.5-5.0); Alkaline Phosphatase 58 U/L (39-117); Anion Gap 10 (12-20); Aspartate Amino Transferase 30 U/L (5-31); Blood Urea Nitrogen 14 mg/dL (9-16); Calcium 8.9 mg/dL (8.4-10.2); Carbon Dioxide 26 mmol/L (22-29); Chloride 109 mmol/L (96-108); Cholesterol 190 mg/dL (<200); Estimated Glomerular Filt Rate > 60; HDL Cholesterol 47 mg/dL (>40); Potassium 4.4 mmol/L (3.3-5.1); Sodium 141 mmol/L (135-145); Total Protein 6.6 g/dL (6.5-8.0); Triglycerides 109 mg/dL (<150)
--- OUTSIDE RECORDS SUMMARY | 2025-07-29 20:06 | XMS_ITS | Encounter Summary ---
Author Organization [employer] Address [address] [facility] [address]t [place] [address] Care Team Providers Care Biztalk Architect Name Role Phone Izzy Sigala MD Primary Care Provider [phone] Encounter Details Date Type Department Care Team ([facility] st Contact Info) Description 11/04/2023 Orders Only [facility] [address] [place], [place] [phone] Izzy Sigala MD [address] [place], [place] [phone] Other cervical disc degeneration, unspecified cervical region [...] housing situation today? I have kalpanakanika jeff 08/31/[address] you [...] Info) Description 08/23/2025 10:00 AM EDT Telemedicine [facility] [address] [place] [address] Divya Neil RN documented as of this encounter Visit Diagnoses Diagnosis Other cervical disc degeneration, unspecified cervical region documented in this encounter Care Teams Biztalk Architect Relationship Specialty Start Date End Date Izzy Sigala MD [address] [place] [address] PCP - General Family Medicine 10/30/21 [facility] 03/01/25 documented as of this encounter
--- OUTSIDE RECORDS SUMMARY | 2025-07-29 20:06 | XMS_ITS | Encounter Summary ---
Author Organization [employer] Address [address] [place] [address] 7 [place] [address] Care Team Providers Care Tower Observer Name Role Phone Izzy Sigala MD Primary Care Provider [phone] Reason for Visit * Reason Comments Med Refill Encounter Details Date Type Department Care Team ([facility] Contact Info) Description 06/30/2023 Refill [facility] [address] [place] [phone] Izzy Sigala MD [address] [place] [address] [phone] History of pulmonary embolus (PE) Social History [...] Department Care Team (Late Contact Info) Description 08/23/2025 10:00 AM EDT Telemedicine [facility] [address] [place] [phone] Divya Neil RN documented as of this encounter Visit Diagnoses Diagnosis History of pulmonary embolus (PE) documented in this encounter Care Teams Tower Observer Relationship Specialty Start Date End Date Izzy Sigala MD [address] [place] [phone] PCP - General Family Medicine 10/30/21 [facility] 03/01/25 documented as of this encounter
--- OUTSIDE RECORDS SUMMARY | 2025-07-29 20:06 | XMS_ITS | Encounter Summary ---
Author Organization [employer] Address [address] [place] [address] 7 [place] [address] Care Team Providers Care Gore Inserter Name Role Phone Izzy Sigala MD Primary Care Provider [phone] Encounter Details Date Type Department Care Team (Late st Contact Info) Description 06/08/2023 Orders Only [facility] [address] [place], [place] [phone] Izzy Sigala MD [address] [place], [place] [phone] Drug toxicity (Primary Dx) Social History Tobacco [...] the medication until we see each other 8/28/23 for followup. documented in this encounter Plan of Treatment Upcoming Encounters Date Type Department Care Team (Late st Contact Info) Description 08/23/2025 10:00 AM EDT Telemedicine [facility] [address] [place] [phone] Divya Neil RN documented as of this encounter Procedures Procedure Name Priority Date/Time Associated Diagnosis Comments PHOSPHATE ( PHOSPHORUS) Routine 06/23/2023 11:21 AM EDT Drug toxicity BASIC METABOLIC PANEL Routine 06/23/2023 11:21 AM EDT Drug toxicity documented in this encounter Results * Phosphate (As Phosphorus) (06/23/2023 11:21 AM EDT) Phosphorus 3.2 2.7 - 4.5 mg/dL [facility] Blood Venous blood specimen / Unknown 06/23/2023 11:21 AM EDT 06/23/2023 11:21 AM EDT us Izzy Sigala MD LAB BLOOD ORDERABLES Final Res ult [facility] [address] [place] [phone] * (ABNORMAL) Basic Metabolic Panel (06/23/2023 11:21 AM EDT) Sodium 141 135 - 145 mmol/L [facility] Potassium 4.4 3.3 - 5.1 mmol/L [facility] Chloride 109(H) 96 - 108 mmol/L [facility] Carbon Dioxide 27 22 - 29 mmol/L [facility] Anion Gap 9(L) 12 - 20 [facility] Urea Nitrogen (BUN) 11 9 - 16 mg/dL [facility] Creatinine, Serum 0.77 0.5 - 1.4 mg/dL [facility] Estimated Glomerular Filt Rate >60 [facility] Comment:NOTE: For -Am erican individuals, multiply the result by 1.210.Chronic Kidney Disease: Estimated GFR < 60 mL/min/1.00t4Xuoeth Kidney Disease: Estimated GFR < 15 mL/min/1.73m2 Glucose 94 60 - 115 mg/dL [facility] Calcium 9.0 8.4 - 10.2 mg/dL [facility] Blood Venous blood specimen / Unknown 06/23/2023 11:21 AM EDT 06/23/2023 11:21 AM EDT us Izzy Sigala MD LAB BLOOD ORDERABLES Final Res ult [facility] [address] [place], [place] [phone] documented in this encounter Visit Diagnoses Diagnosis Drug toxicity- Primary Nonspecific abnormal toxicological findings documented in this encounter Care Teams Gore Inserter Relationship Specialty Start Date End Date Izzy Sigala MD [address] [place] [address] PCP - General Family Medicine 10/30/21 [facility] 03/01/25 documented as of this encounter
--- OUTSIDE RECORDS SUMMARY | 2025-07-29 20:06 | XMS_ITS | Encounter Summary ---
Author Organization [employer] Address [address] [facility] 7t [place] [address] Care Team Providers Care Carpet Cleaner Name Role Phone Izzy Sigala MD Primary Care Provider [phone] Encounter Details Date Type Department Care Team (Latest Contact Info) Description 07/29/2025 Travel Social History Tobacco Use Types Packs/Day [...] Info) Description 08/23/2025 10:00 AM EDT Telemedicine [facility] [address] [place] [address] Divya Neil RN documented as of this encounter Visit Diagnoses Not on filedocumented in this encounter Additional Health Concerns Assessment Noted Time PHQ-9 Depression Total Score: 10 025 4:31 PM EDT documented as of this encounter Care Teams Carpet Cleaner Relationship Specialty Start Date End Date Izzy Sigala MD [address] [place] [phone] PCP - General Family Medicine 10/30/21 [facility] 03/01/25 documented as of this encounter
--- OUTSIDE RECORDS SUMMARY | 2025-07-29 20:06 | XMS_ITS | Encounter Summary ---
Author Organization [employer] Address [address] [facility] 7 [place] [address] Care Team Providers Care Map Maker Name Role Phone Izzy Sigala MD Primary Care Provider [phone] Reason for Visit * Reason Onset Date Comments chart prep 07/26/2025 Encounter Details Date Type Department Care Team ([facility] Contact Info) Description 07/26/2025 Telephone [facility] [address] [place], [place] [phone] Izzy Sigala MD [address] [place], [place] [phone] chart prep Social History Tobacco Use Types Packs/Day Years [...] encounter Miscellaneous Notes * Telephone Encounter - Adelaide Heard [place] - 07/26/2025 11:55 AM EDT Chart Prep Labs: done Images: done Referrals: appointment pending Vaccines due: Covid, Flu, and RSV Screenings: not applicable Overdue care gaps: PHQ-9 and LASHONDA-7 documented in this encounter Plan of Treatment Upcoming Encounters Date Type Department Care Team (Late st Contact Info) Description 08/23/2025 10:00 AM EDT Telemedicine [facility] [address] [place] [address] Divya Neil, RN documented as of this encounter Visit Diagnoses Not on filedocumented in this encounter Additional Health Concerns Assessment Noted Time PHQ-9 Depression Total Score: 10 025 4:31 PM EDT documented as of this encounter Care Teams Map Maker Relationship Specialty Start Date End Date Izzy Sigala MD [address] [place] [address] PCP - General Family Medicine 10/30/21 [facility] 03/01/25 documented as of this encounter
--- OUTSIDE RECORDS SUMMARY | 2025-07-29 20:06 | XMS_ITS | Encounter Summary ---
Author Organization [employer] Address [address] [facility] 7t [place] [address] Care Team Providers Care Apartment Hotel Manager Name Role Phone Izzy Sigala MD Primary Care Provider Reason for Visit * Reason Comments Med Refill Encounter Details Date Type Department Care Team ([facility] st Contact Info) Description 07/19/2025 Refill [facility] [address] [place], [place] [phone] Izzy Sigala MD [address] [place], [place] [phone] Primary hypertension Social History Tobacco Use Types [...] Info) Description 08/23/2025 10:00 AM EDT Telemedicine [facility] [address] [place] [address] Divya Neil, FREDO documented as of this encounter Visit Diagnoses Diagnosis Primary hypertension Unspecified essential hypertension documented in this encounter Additional Health Concerns Assessment Noted Time PHQ-9 Depression Total Score: 10 025 4:31 PM EDT documented as of this encounter Care Teams Apartment Hotel Manager Relationship Specialty Start Date End Date Izzy Sigala MD [address] [place] [address] PCP - General Family Medicine 10/30/21 [facility] 03/01/25 documented as of this encounter
--- OUTSIDE RECORDS SUMMARY | 2025-07-29 20:06 | XMS_ITS | Clinical Summary ---
Author Organization [facility] Address [address] [place] [address] Care Team Providers Care Vegetable Picker Name Role Phone Yeyo Anton DO Primary [...] myelopathy 10/09/2014 Overview (10/09/2014): 03/02/2011; Dr Martin ([facility]); ACDF C4-6 01/14/2012; Dr Martin; bilateral cervical [...] - 1-dose 75+ series) 2029 Care Teams Vegetable Picker Relationship Specialty Start Date End Date Yeyo Anton DO [address] [place] [phone] PCP - General 04/30/15
--- OUTSIDE RECORDS SUMMARY | 2025-07-29 20:06 | XMS_ITS | Encounter Summary ---
Author Organization [employer] Address [address] [facility] 7t [place] [address] Care Team Providers Care Master Motorcycle Technician Name Role Phone Izzy Sigala MD Primary Care Provider [phone] Reason for Referral * Consultation (Routine) - Closed Specialty Diagnoses / Procedures Referred By Contac t Referred To Contact Behavioral Health Diagnoses Anxiety Izzy Sigala MD [address] [place] [address] Phone: tel: fax: Referral ID Status Reason Start Date Expiration Date V isits Requested Visits Authorized [id number] Closed Specialty Services Required 11/20/2024 11/20/2025 1 1 Encounter Details Date Type Department Care Team (Late st Contact Info) Description 11/20/2024 Orders Only [facility] [address] [place], [place] [phone] Izzy Sigala MD [address] [place], [place] [phone] Anxiety (Primary Dx) Social History Tobacco Use [...] of Assessment Author 16 11/20/2024 9:39 AM Krsita Carbone LICSW * How difficult have these [...] Info) Description 08/23/2025 10:00 AM EDT Telemedicine [facility] [address] [place] [address] Divya Neil RN Scheduled Referrals Name Type Priority Associated Diagnoses Order Schedule Referral to Behavioral Health Outpatient Referral Routine Anxiety Expected: 11/20/2024 (Approximate), Expires: 11/20/2025 documented as of this encounter Visit Diagnoses Diagnosis Anxiety- Primary Anxiety state, unspecified documented in this encounter Additional Health Concerns Assessment Noted Time PHQ-9 Depression Total Score: 16 025 9:39 AM EST documented as of this encounter Care Teams Master Motorcycle Technician Relationship Specialty Start Date End Date Izzy Sigala MD [address] [place] [address] PCP - General Family Medicine 10/30/21 [facility] 03/01/25 documented as of this encounter
--- OUTSIDE RECORDS SUMMARY | 2025-07-29 20:06 | XMS_ITS | Encounter Summary ---
Author Organization [employer] Address [address] [place] [address] 7 [place] [address] Care Team Providers Care Production Honing Machine Operator Name Role Phone Izzy Sigala MD Primary Care Provider [phone] Encounter Details Date Type Department Care Team (Late Contact Info) Description 04/08/2023 [facility] [address] [place] [address] Izzy Sigala MD [address] [place] [phone] Social History Tobacco Use Types Packs/Day Years [...] Info) Description 08/23/2025 10:00 AM EDT Telemedicine [facility] [address] [place] [address] Divya Neil RN documented as of this encounter Visit Diagnoses Not on filedocumented in this encounter Care Teams Production Honing Machine Operator Relationship Specialty Start Date End Date Izzy Sigala MD [facility] [place] [address] PCP - General Family Medicine 10/30/21 [facility] 03/01/25 documented as of this encounter
--- OUTSIDE RECORDS SUMMARY | 2025-07-29 20:06 | XMS_ITS | Clinical Summary ---
Author Organization [id number] Address [address] [place] [address] 7[address] [place] [address] Care Team Providers Care Electrical And Instrument Mechanic Name Role Phone Izzy Sigala MD Primary Care Provider [phone] Allergies Active Allergy Reactions Criticality Noted Date [...] LIQUID AND TAKE DAILY 07/04/20 23 Active esomeprazole (NexIUM) [address] capsule Take 40 mg by mouth Once per day. 01/31/20 24 Active docusate sodium (Colace) 100 MG capsule TAKE 1-2 CAPSULES BY MOUTH EVERY DAY NEEDED 180 capsule 3 04/23/20 24 Active naloxone (Narcan) 4 mg/0.1 mL nasal sprayIndication s:Chronic neck pain with history of 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 Administer 1 spray (4 mg) into affected nostril(s) if needed for opioid reversal. May repeat every 2-3 minutes if needed, alternating nostrils, until medical assistance becomes available. 2 each 3 08/23/20 24 2024 Active clindamycin (Clindagel) 1 % gelIndications: Folliculitis Apply topically Once per day. 60 g 2 01/09/20 25 2025 Active metoclopramide (Reglan) 10 MG tabletIndicatio ns:Esophageal dysmotility Take 1 tablet (10 mg) by mouth if needed in the morning, at noon, in the evening, and at bedtime (nausea, vomiting). 28 tablet 1 03/28/20 25 Active sertraline (Zoloft) 100 MG tablet TAKE 2 TABLETS BY MOUTH EVERY DAY 180 tablet 3 04/15/20 25 Active levothyroxine (Synthroid, Levoxyl) 75 MCG tablet TAKE 1 TABLET (75 MCG) BY MOUTH ONCE PER DAY. 90 tablet 3 04/15/20 25 Active magnesium oxide (Mag-Ox) 400 (240 Mg) MG tablet TAKE 1 TABLET BY MOUTH EVERY DAY 90 tablet 3 05/03/20 25 Active Clindamycin Phos, Once-Daily, 1 % gelIndications: Folliculitis APPLY 1 APPLICATION TOPICALLY ONCE PER DAY. 75 mL 05/07/20 25 Active Bisacodyl EC 5 MG EC tablet Take 10 mg by mouth at bedtime. 03/26/20 25 Active sucralfate (Carafate) 1 GM/10ML suspension TAKE 10 MLS BY MOUTH 2 TIMES A DAY. 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 Do not crush, chew, or split. Do not start before June 28, 2025. 56 tablet 06/28/20 25 2024 Active traZODone (Desyrel) 50 MG tablet TAKE 1 TABLET BY MOUTH AT BEDTIME 90 tablet 3 07/09/20 25 Active alendronate (Fosamax) 70 MG tabletIndicatio ns:Localized osteoporosis without current pathological fracture TAKE 1 TABLET BY MOUTH EVERY 7 DAYS. TAKE IN THE MORNING WITH A FULL GLASS OF WATER ON AN EMPTY STOMACH AND DO NOT TAKE ANYTHING ELSE BY MOUTH OR LIE DOWN FOR THE NEXT 30 MINUTES 12 tablet 3 07/26/20 25 Active memantine (Namenda) 5 MG tablet Take 1 tablet (5 mg) by mouth 2 times daily. 180 tablet 3 07/29/20 25 Active amLODIPine (Norvasc) 2.5 MG tablet Take 2 tablets (5 mg) by mouth Once per day. 180 tablet 3 07/29/20 25 2025 Active memantine (Namenda) 5 MG tablet Take 5 mg by mouth 2 times daily. 06/12/20 24 2024 Discontinued(R eorder (will not trigger notification to Pharmacy)) alendronate (Fosamax) 70 MG tabletIndicatio ns:Localized osteoporosis without current pathological fracture TAKE 1 TABLET BY MOUTH EVERY 7 DAYS. TAKE IN THE MORNING WITH A FULL GLASS OF WATER ON AN EMPTY STOMACH AND DO NOT TAKE ANYTHING ELSE BY MOUTH OR LIE DOWN FOR THE NEXT 30 MINUTES. 12 tablet 3 09/11/20 24 2024 Discontinued traZODone (Desyrel) 50 MG tablet TAKE 1 TABLET BY MOUTH AT BEDTIME 90 tablet 3 09/28/20 24 2024 Discontinued amLODIPine (Norvasc) 5 MG tabletIndicatio ns:Primary hypertension Take 1 tablet (5 mg) by mouth Once per day. 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 Do not start before June 28, 2025. 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 Susana knows that she had a good response to long-acting morphine in the hospital. Will adjust medication regimen from current Butrans 20mc weekly to long-acting morphine. Plan: 06/25/25 place Butrans 20mcg patch 07/02/25 place Butrans 10mcg patch 07/05/25 begin MS Contin 15mg BID 07/09/25 remove Butrans 10 mcg patch, continue MS Contin 15mg BID 07/12/25 notify MANAGER PROFESSIONAL DEVELOPMENT nurse of degree of pain and next refill can be queued Pt also vapes and uses CBD gummies for pain, and would like to seek a medical marijuana license. I told her that I cannot provide her with that Assessment & Plan (06/26/2025 9:51 AM EDT): Pain regimen is not functioning well for at least past several months. Susana knows that she had a good response to long-acting morphine in the hospital. Will adjust medication regimen from current Butrans 20mc weekly to long-acting morphine. Plan: 06/25/25 place Butrans 20mcg patch 07/02/25 place Butrans 10mcg patch 07/05/25 begin MS Contin 15mg BID 07/09/25 remove Butrans 10 mcg patch Pt also vapes and uses CBD gummies for pain, and would like to seek a medical marijuana license. 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 Assessment & Plan (06/22/2024 8:23 AM EDT): Discussed her recent Butrans withdrawal, had history of allergic reaction to one patch property technician, also she wants to switch pickup of patches to [facility] - called pharmacy to confirm that they continue to stock SOPHIE patches, and that she will pick them up here Assessment & Plan (04/20/2023 1:00 PM EDT): Continue Butran 20mcg every 72 hours, refills placed for next due date 05/02/23 at [facility] in [place], [place] Dronabinol SULEMA submitted to help with [...] viral Resolving, breathing is returning to baseline Degenerative disc disease, cervical 11/18/2022 Insomnia 11/18/2022 [...] with marijuana gummies if helpful Saw derm CORPORATE GENERAL MANAGER at [facility] [place] few weeks ago, they recommend mometasone, eucerin, [...] 11/28/202403/2025 Tear film insufficiency 11/28/2024 05/0 03/2025 Nasal discharge 07/14/2023 06/03/2025 Impetigo 11/23/2022 06/03/2025 Anxiety 11/18/2022 11/28/2024 Overview (06/22/2024): 03/2021 - Managed on Sertraline 200mg daily. Assessment & Plan (06/22/2024 8:31 AM EDT): Declines [facility] referral for therapy, will continue to offer and would benefit from increased coping strategies Encounters Date Type Department Care Team Description 07/29/2025 2:00 PM EDT Office Visit [facility] [address] [place] [address] Izzy Sigala MD Vertigo (Primary Dx) 07/29/2025 Travel 07/26/2025 Telephone [facility] [address] [place] [address] Izzy Sigala MD chart prep 07/26/2025 Refill [facility] [address] [place] [address] Izzy Sigala MD Localized osteoporosis without current pathological fracture 07/19/2025 Refill [facility] [address] [place] [address] Izzy Sigala MD Primary hypertension 07/11/2025 Telephone [facility] [address] [place] [address] Izzy Sigala MD Nurse Triage 07/09/2025 Refill [facility] [address] [place] [address] Izzy Sigala MD Vascular dementia, unspecified severity, without behavioral disturbance, psychotic disturbance, mood disturbance, and anxiety (CMS/HCC) 07/08/2025 2:00 PM EDT Office Visit [facility] [address] [place] [address] Izzy Sigala MD 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 (Primary Dx); Chronic bilateral thoracic back pain; Chronic left-sided low back pain with left-sided sciatica; Chronic neck pain with history of 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 07/08/2025 Refill [facility] [address] [place] [address] Izzy Sigala MD 07/08/2025 Refill [facility] [address] [place] [address] Lyly Rocha MD Primary hypertension 07/08/2025 Travel 07/05/2025 Telephone [facility] [address] [place] [address] Izzy Sigala MD chart prep 07/01/[address] [address] Izzy Sigala MD Medication Question 06/26/[address] [address] Divya Neil RN Bridge plan for pain 06/24/2025 3:30 PM EDT Office Visit [address] [address] Izzy Sigala MD Chronic neck pain with history of 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 (Primary Dx); skilled nursing (current) use of opiate analgesic 06/24/2025 Travel 06/21/2025 Telephone [facility] [address] [place] [phone] Izzy Sigala MD Chart Prep 06/18/2025 1:00 PM EDT Telemedicine [address] [address] Divya Neil, FREDO skilled nursing (current) use of opiate analgesic 06/18/[address] [address] Divya Neil, FREDO Decreased pain relief 06/18/2025 Travel 06/12/2025 Orders Only GENERIC EXTERNAL DATA DEPARTMENT Provider, Generic External Data 06/01/2025 10:40 AM EDT Office Visit [facility] [address] [place] [phone] Izzy Sigala MD Onychomycosis (Primary Dx); Cervicalgia; Folliculitis; Primary hypertension; History of pulmonary embolus (PE); Acquired hypothyroidism; Age-related osteoporosis without current pathological fracture; Esophageal dysmotility; Chronic neck pain with history of 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; Obstructive sleep apnea of adult 06/01/2025 Travel 05/29/2025 Refill [facility] [address] [place] [phone] Izzy Sigala MD Cervicalgia 05/16/2025 Orders Only [address] [address] Izzy Sigala MD 05/06/2025 Refill [place] [address] [place] [address] Lyly Rocha MD Folliculitis 05/02/2025 Refill [facility] [address] [place] [address] Izzy Sigala MD 05/01/2025 Travel from Last 3 Months Immunizations Immunization [...] 16 07/29/2025 2:09 PM EDT Oxygen Saturation 99% 06/01/2025 10:29 AM EDT Inhaled Oxygen Concentration - - Weight 55.1 kg (121 lb 8 oz) 07/29/2025 2:09 PM EDT Height 165.1 cm (5' 5 ) 07/29/2025 2:09 PM EDT Body Mass Index 20.22 07/29/2025 2:09 PM EDT Plan of Treatment Upcoming Encounters Date Type Department Care Team (Late st Contact Info) Description 08/23/2025 10:00 AM EDT Telemedicine [facility] [address] [place] [phone] Divya Neil, FREDO Health Maintenance Due Date Last Done Comments CT Colonography 1955 FIT DNA/Cologuard 1955 FIT 1955 FOBT 1955 Sigmoidoscopy 1955 Hepatitis C Screening 01/14/1972 RSV Patients and Patients Aged 60 years or older (1 - Risk 60-74 years 1-dose series) 2014 COVID-19 Vaccine ( season) 2025 12/16/2021, 04/29/2021, 04/19/2021, Additional history exists Influenza Vaccine (#1) 2025 , 08/26/2023, 08/05/2022, Additional history exists Depression Monitoring 12/25/2025 06/24/2025, 025 SDOH Screening 03/11/2026 03/11/2025 Alcohol/Substance Use Screening 03/28/2026 03/28/2025 Mammogram 05/16/2026 05/16/2025, 04/15, 07/13/2023, Additional history exists Tobacco Screening 07/29/2026 07/29/2025 Colonoscopy 11/14/2026 Colorectal Cancer Screening 11/14/2026 Lipid Panel 07/29/2030 07/29/2025 DTaP/Tdap/Td Vaccines (2 - Td or Tdap) 11/27/2034 11/27/2024 Pneumococcal Vaccine: 50+ Years Completed 04/20/2023 Zoster Vaccines Completed 06/23/2023, 04/20/2023 HIB Vaccines Aged Out No longer eligi [...] Procedure Name Priority Date/Time Associated Diagnosis Comments COMPREHENSIVE METABOLIC PANEL Routine 07/29/2025 3:05 PM EDT Vertigo CBC WITH AUTO DIFFERENTIAL Routine 07/29/2025 3:05 PM EDT Vertigo LIPID PANEL, STANDARD Routine 07/29/2025 3:05 PM EDT Vertigo TISSUE TRANSGLUTAMINASE AB, IGA Routine 06/12/2025 12:38 PM EDT TISSUE TRANSGLUTAMINASE AB, IGG Routine 06/12/2025 12:38 PM EDT VITAMIN D 25-OH (D2 AND D3) Routine 06/12/2025 12:38 PM EDT GLIADIN (DEAMIDATED) AB (IGG, IGA) Routine 06/12/2025 12:38 PM EDT VITAMIN B12/FOLATE, SERUM PANEL Routine 06/12/2025 12:38 PM EDT TSH W/REFLEX TO FT4 Routine 06/12/2025 1 2:38 PM EDT BI MAMMOGRAM SCREENING TOMOSYNTHESIS BILATERAL Routine 05/16/2025 2:30 PM EDT from Last 3 Months Results * (ABNORMAL) CBC auto differential (07/29/2025 3:05 PM EDT) White Blood Count 6.3 4.8 - 10.8 X10*3/uL [facility] Red Blood Count 3.95(L) 4.20 - 5.50 X10*6/uL [facility] Hemoglobin 11.3(L) 12.0 - 16.0 g/dl [facility] Hematocrit 35.3(L) 37.0 - 47.0 % [facility] Mean Corpuscular Volume 89.4 80.0 - 98.0 fL [facility] Mean Corpuscular Hemoglobin 28.6 27.0 - 33.0 pg [facility] Mean Corpuscular HGB Conc 32.0 31.0 - 35.0 g/dl [facility] Red Cell Distribution Width 14.0 11.0 - 16.0 % [facility] Platelet Count 144(L) 160 - 400 X10*3/uL [facility] Mean Platelet Volume 10.4 9.4 - 12.3 fL [facility] Neutrophils Percent Auto 70.5 45 - 73 % [facility] Imm Gran Pct Auto 0.5(H) 0.0 - 0.4 % [facility] Lymphocytes Percent Auto 15.1(L) 20 - 40 % [facility] Monocytes Percent Auto 10.9 2 - 11 % [facility] Eosinophils Percent Auto 1.7 0 - 4 % [facility] Basophils Percent Auto 1.3 0 - 2 % [facility] NRBC Pct Auto 0.0 0.0 - 0.2 /100WBC [facility] Neutrophils Absolute Auto 4.5 2.0 - 8.3 x10*3/uL [facility] Imm Gran Abs Auto 0.03 0.00 - 0.03 X10*3/uL [facility] Lymphocytes Absolute Auto 1.0(L) 1.2 - 4.9 X10*3/uL [facility] Monocytes Absolute Auto 0.7 0.1 - 1.2 X10*3/uL [facility] Eosinophils Absolute Auto 0.1 0.0 - 0.4 X10*3/uL [facility] Basophils Absolute Auto 0.1 0.0 - 0.2 X10*3/uL [facility] NRBC Abs Auto 0.000 0.0 - 0.012 X10*3/uL [facility] Blood Venous blood specimen / Unknown 07/29/2025 3:05 PM EDT 07/29/2025 4:08 PM EDT us Izzy Sigala MD LAB BLOOD ORDERABLES Final Res ult [facility] [address] [place] [phone] [phone] * (ABNORMAL) Lipid Panel, Standard (07/29/2025 3:05 PM EDT) Triglycerides 109 <150 mg/dL [facility] Comment:Desirable Triglyceri de: less than 150 mg/dLBorderline High Triglyceride 150-199 mg/dLHigh Triglyceride: 200-499 mg/dLVery High Triglyceride: greater than or equal to 5OO mg/dL Cholesterol 190 <200 mg/dL [facility] Comment:Desirable Cholestero l: less than 200 mg/dLBorderline High Cholesterol: 200-239 mg/dLHigh Cholesterol: greater than 239 mg/dL LDL Cholesterol Calculated 122(H) <100 mg/dL [facility] Comment:Desirable LDL: less than 100 mg/dLNear Optimal/Above Optimal LDL: 110- 129 mg/dLBorderline High LDL: 130-159 mg/dLHigh LDL: 160-189 mg/dLVery High LDL: greater than or equal to 190 mg/dL HDL Cholesterol 47 >40 mg/dL [facility] Comment:Desirable HDL: great er than 40 mg/dL Note: This HDL assay may give artificially low results in patients with liver disease. Blood Venous blood specimen / Unknown 07/29/2025 3:05 PM EDT 07/29/2025 4:08 PM EDT us Izzy Sigala MD LAB BLOOD ORDERABLES Final Res ult [facility] [address] [place] [phone] * (ABNORMAL) Comprehensive Metabolic Panel (07/29/2025 3:05 PM EDT) Sodium 141 135 - 145 mmol/L [facility] Potassium 4.4 3.3 - 5.1 mmol/L [facility] Chloride 109(H) 96 - 108 mmol/L [facility] Carbon Dioxide 26 22 - 29 mmol/L [facility] Anion Gap 10(L) 12 - 20 [facility] Urea Nitrogen (BUN) 14 9 - 16 mg/dL [facility] Creatinine, Serum 0.85 0.5 - 1.4 mg/dL [facility] Estimated Glomerular Filt Rate >60 [facility] Comment:Chronic Kidney Disea se: Estimated GFR < 60 mL/min/1.23a6Zgbwig Kidney Disease: Estimated GFR < 15 mL/min/1.73m2 Glucose 95 60 - 115 mg/dL [facility] Calcium 8.9 8.4 - 10.2 mg/dL [facility] Bilirubin, Total 0.3 0.0 - 1.0 mg/dL [facility] Aspartate Amino Transferase 30 5 - 31 U/L [facility] Alanine Aminotransferase 15 0 - 31 U/L [facility] Total Protein 6.6 6.5 - 8.0 g/dL [facility] Albumin Level 4.2 3.5 - 5.0 g/dL [facility] Alkaline Phosphatase 58 39 - 117 U/L [facility] Blood Venous blood specimen / Unknown 07/29/2025 3:05 PM EDT 07/29/2025 4:08 PM EDT us Izzy Sigala MD LAB BLOOD ORDERABLES Final Res ult [facility] [address] [place] [phone] * VITAMIN D 25-OH (D2 AND D3) (06/12/2025 12:38 PM EDT) Vitamin D, 25-OH, D2 <4 ng/mL [facility] Comment:This test was develo ped and its analytical performancecharacteristics have been determined by [employer] [place], [place]. It hasnot been cleared or approved by the U.S. Food and DrugAdministration. This assay has been validated pursuantto the CLIA regulations and is used for clinicalpurposes.THIS TEST WAS PERFORMED AT:[id number] [place] [id number] W. MASON,MD,PHD Vitamin D, 25-OH, D3 37 ng/mL [facility] Comment:This test was develo ped and its analytical performancecharacteristics have been determined by [employer] [place], [place]. It hasnot been cleared or approved by the U.S. Food and DrugAdministration. This assay has been validated pursuantto the CLIA regulations and is used for clinicalpurposes. Vitamin D, 25-OH, Total 37 30 - 100 ng/mL [facility] Comment:Vitamin D, 25-Hydrox y reports concentrations of twocommon forms, 25-OHD2 and 25-OHD3. 25-OHD3 indicatesboth endogenous production and supplementation.25-OHD2 is an indicator of exogenous sources such asdiet or supplementation. Therapy is based onmeasurement of Total 25-OHD, with levels <20 ng/mLindicative of Vitamin D deficiency, while levelsbetween 20 ng/mL and 30 ng/mL suggest insufficiency.Optimal levels are > or = 30 ng/mL.For additional information, please refer [email or web address].[employer]/faq/VNC580(This link is being provided for informational/educational purposes only.) 06/12/2025 12:3 8 PM EDT 06/12/2025 12:45 PM EDT us Generic External Data Provider LAB BLOOD ORDERAB LES Final Result [facility] [address] [place] [phone] * Vitamin B12 (Cobalamin) and Folate Panel, Serum (06/12/2025 12:38 PM EDT) Vitamin B12 549 200 - 900 pg/mL [facility] Comment:NORMAL 200-900 PG/ML INDETERMINATE 160-199 PG/ML DEFICIENT < 160 PG/ML Folate 9.1 > or = 4.0 ng/mL [facility] Comment:Reference Values:> o r = 4.0 ng/mL< 4.0 ng/mL suggests folate deficiency Methotrexate, aminopterin and folinic acid(leucovorin) are chemotherapeutic agents whose molecularstructures are similar to folate; therefore, the Architectfolate assay cannot be used for patients using these drugs. 06/12/2025 12:3 8 PM EDT 06/12/2025 12:45 PM EDT us Generic External Data Provider LAB BLOOD ORDERAB LES Final Result Performing Organization Address [facility] [[email or web address]] Co de Phone Number [facility] [address] [place] [phone] * TSH with Reflex to Free T4 (06/12/2025 12:38 PM EDT) TSH reflex Free T4 1.87 0.32 - 4.0 uIU/mL [facility] 06/12/2025 12:3 8 PM EDT 06/12/2025 12:45 PM EDT Generic External Data Provider LAB BLOOD ORDERAB LES Final Result Performing Organization Address [facility] de Phone Number [facility] [address] [place] [phone] * Tissue Transglutaminase (tTG) Antibody (IgG) (06/12/2025 12:38 PM EDT) Tissue Transglutaminase Antibody IgG <1.0 U/mL [facility] Comment:Value Interpretation ----- <15.0 Antibody not detected> or = 15.0 Antibody detectedTHIS TEST WAS PERFORMED AT:[facility] [place] [phone] CLEANING MD 06/12/2025 12:3 8 PM EDT 06/12/2025 12:45 PM EDT Generic External Data Provider LAB BLOOD ORDERAB LES Final Result Performing Organization Address [facility] [[email or web address]] Co de Phone Number [facility] [address] [place] [phone] * (ABNORMAL) Gliadin (Deamidated) Antibody (IgA,IgG) (06/12/2025 12:38 PM EDT) Gliadin (Deamidated) Ab (IgA) 197.7(A) U/mL [facility] Comment:Value Interpretation ----- <15.0 Antibody not detected> or = 15.0 Antibody detected Gliadin (Deaminated) Antibody IgG 26.1(A) U/mL [facility] Comment:Value Interpretation ----- <15.0 Antibody not detected> or = 15.0 Antibody detectedTHIS TEST WAS PERFORMED AT:[facility] [place] [phone] CLEANING MD 06/12/2025 12:3 8 PM EDT 06/12/2025 12:45 PM EDT Generic External Data Provider LAB BLOOD ORDERAB LES Final Result Performing Organization Address [facility] de Phone Number [facility] [address] [place] [phone] * Tissue Transglutaminase Antibody, IgA (06/12/2025 12:38 PM EDT) Transglutaminase IgA 3.4 U/mL [facility] Comment:Value Interpretation ----- <15.0 Antibody not detected> or = 15.0 Antibody detectedTHIS TEST WAS PERFORMED AT:[facility] [address] [phone] CLEANING MD 06/12/2025 12:3 8 PM EDT 06/12/2025 12:45 PM EDT Generic External Data Provider LAB BLOOD ORDERAB LES Final Result Performing Organization Address [facility] de Phone Number [facility] [address] [place] [phone] * BI Mammogram Screening Tomosynthesis Bilateral (05/16/2025 2:30 PM EDT) Anatomical Region Laterality Modality Breast Bilateral Mammography 05/16/2025 2:30 PM EDT Narrative 05/28/2025 4:56 PM EDT [address] [place] [address] Mammography Report Signed Patient: Sivan Orosco MR#: [id number] 260 : 1955 Acct:[id number] Age/Sex: 70 / F ADM Date: 05/16/25 Loc: HO.MAMMO Attending Dr: Izzy Sigala MD Ordering Physician: Izzy Sigala Results: 1Negative Date of Service: 05/16/25 Follow Up: 1 Year From Orig inal Mammogram Procedure(s): MM tomosynthesis screening BI Accession Number(s): [id number] cc: Izzy Sigala EXAMINATION: MM SCREENING DIGITAL BREAST TOMOSYNTHESIS, BILATERAL CLINICAL INFORMATION: Screening. Asymptomatic. COMPARISON: Mammography: Comparison is made with available priors TECHNIQUE: Digital breast mammography with tomosynthesis is performed in both the craniocaudal and mediolateral oblique views along with computer-aided detection (CAD). FINDINGS: The breasts are heterogeneously dense, which [...] target due date for their next mammogram. Electronically signed by: Yadi Ceron DO 05/28/2025 04:51 PM EDT Dictated By: Yadi Ceron DO Signed By: <Electronically signed by Yadi Ceron DO in OV> 05/28/25 1651 DD/ 1430 TD/TT: 05/16/25 1500 Parts Salvager: Procedure Note Donotuseinterpreter, Image - 05/28/[address] [place] [address] Mammography Report Signed Patient: Sivan Orosco CMR#: [id number] : [id number] Age/Sex: 70 / FADM Date: 05/16/25 Loc: HO.MAMMO Attending Dr: Izzy Sigala MD Ordering Physician: Caitie Sigalaults: 1Negative Date of Service: 05/16/25Follow Up: 1 Year From Orig inal Mammogram Procedure(s): MM tomosynthesis screening BI Accession Number(s): [id number] cc: Izzy Sigala EXAMINATION: MM SCREENING DIGITAL BREAST TOMOSYNTHESIS, BILATERAL CLINICAL INFORMATION: Screening. Asymptomatic. COMPARISON: Mammography: Comparison is made with available priors TECHNIQUE: Digital breast mammography with tomosynthesis is performed in both the craniocaudal and mediolateral oblique views along with computer-aided detection (CAD). FINDINGS: The breasts are heterogeneously dense, which [...] target due date for their next mammogram. 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
--- OUTSIDE RECORDS SUMMARY | 2025-07-29 20:06 | XMS_ITS | Encounter Summary ---
Author Organization [employer] Address [address] [facility] 7 [place] [address] Care Team Providers Care Internet Technology Manager Name Role Phone Izzy Sigala MD Primary Care Provider [phone] Reason for Visit * Reason Comments Med Refill Encounter Details Date Type Department Care Team ([facility] st Contact Info) Description 07/09/2025 Refill [facility] MEDICINE [address] [place], [place] [phone] Izzy Sigala MD 230 [place], [place] [phone] Vascular dementia, unspecified severity, without behavioral disturbance, psychotic disturbance, mood disturbance, and anxiety (CMS/HCC) Social History Tobacco Use Types Packs/Day Years [...] Info) Description 08/23/2025 10:00 AM EDT Telemedicine [facility]INE [address] [place] [address] Divya Neil, RN documented as of this encounter Visit Diagnoses Diagnosis Vascular dementia, unspecified severity, without behavioral disturbance, psychotic disturbance, mood disturbance, and anxiety (CMS/HCC) documented in this encounter Additional Health Concerns Assessment Noted Time PHQ-9 Depression Total Score: 10 025 4:31 PM EDT documented as of this encounter Care Teams Internet Technology Manager Relationship Specialty Start Date End Date Izzy Sigala MD [address] [place] [address] PCP - General Family Medicine 10/30/21 [facility] 03/01/25 documented as of this encounter
--- OUTSIDE RECORDS SUMMARY | 2025-07-29 20:06 | XMS_ITS | Clinical Summary ---
Author Organization [facility] Address [address] [place] [phone] Phone Care Team Providers Care Job Placement Counselor Name Role Phone Izzy Sigala MD Primary [...] DEPRESSION SCREENING 03/18/2022 03/18/2021 MAMMOGRAM 11/05/2022 11/05/2020 INFLUENZA VACCINE (#1) 2025 10/26/2021 COVID-19 VACCINE (3 - 2024-2 6 season) 2025 04/29/2021, 04/01/2021 SMOKING STATUS SCREENING (On ce [...] Maintenance Insurance MEDICARE PART A & B [employer] O MEDICARE REPLACEMENT HEALTH SAFETY NET FULL MEDICARE PART A & B [facility] NET FULL MEDICARE PART A & B [facility] MEDICARE REPLACEMENT [facility] FULL MEDICARE PART A & [facility] FULL MEDICARE PART A & B [facility] MEDICARE REPLACEMENT [facility] SAFETY NET FULL MEDICARE PART A & B [facility] MEDICARE REPLACEMENT [facility] NET FULL Member Subscriber Plan / Payer (Ef fective 2021-Present) Name:Sivan Orosco Relation to Subscriber:Self Name:Sivan Orosco Payer ID:Not on file Group ID:Not on file Type:Medicaid Address: [place] [id number] MEDICARE PART A & B [facility] MEDICARE [place] [address] [address] [place] [address] FULL MEDICARE PART A & B [facility] MEDICARE [place] [address] [place] [address] FULL MEDICARE PART A & B [facility] MEDICARE REPLACEMENT [facility] FULL Advance Directives For more information, please contact: [phone] (9AM - 5PM [facility], Tuesday-Tuesday) Documents on File Type Date Recorded Patient Spaghetti Press Helper Expl anation Healthcare Proxy 10/27/2021 4:13 PM * Full Code (Latest Code Status on File) Date Activated Date Inactivated Comments 10/20/2021 2:36 PM Question Answer Comments Code Status Confirmed With: Patient Healthcare Agents on File Name Relationship Healthcare Agent Relationship Communication Darnell Li Son .Primary Health Care Agent (Proxy form on file) Care Teams Job Placement Counselor Relationship Specialty Start Date End Date Izzy Sigala MD PCP - General Family Medicine 09/06/23 Additional Source Comments The information contained in this document represents components of the legal health record. It is not the complete legal health record.[facility]
--- OUTSIDE RECORDS SUMMARY | 2025-07-29 20:06 | XMS_ITS | Encounter Summary ---
Author Organization [employer] Address [address] [facility] 7t [place] [address] Care Team Providers Care Geothermal Sheet Metal Worker Name Role Phone Izzy Sigala MD Primary Care Provider [phone] Reason for Visit * Reason Comments Med Refill Encounter Details Date Type Department Care Team ([facility] st Contact Info) Description 07/08/2025 Refill [facility] MEDICINE [address] [place], [place] [phone] Lyly Rocha MD [address] [place] [address] Primary hypertension Social History Tobacco Use Types [...] Info) Description 08/23/2025 10:00 AM EDT Telemedicine [facility] MEDICINE 230 [place] [address] Divya Neil, RN documented as of this encounter Visit Diagnoses Diagnosis Primary hypertension Unspecified essential hypertension documented in this encounter Additional Health Concerns Assessment Noted Time PHQ-9 Depression Total Score: 10 025 4:31 PM EDT documented as of this encounter Care Teams Geothermal Sheet Metal Worker Relationship Specialty Start Date End Date Izzy Sigala MD [address] [place] [address] PCP - General Family Medicine 10/30/21 [facility] 03/01/25 documented as of this encounter
--- OUTSIDE RECORDS SUMMARY | 2025-07-29 20:06 | XMS_ITS | Encounter Summary ---
Author Organization [employer] Address [address] [place] [address] 7t [place] [address] Care Team Providers Care Rn Vascular Name Role Phone Izzy Sigala MD Primary Care Provider [phone] Encounter Details Date Type Department Care Team (Late Contact Info) Description 02/02/2023 Orders Only [facility] MEDICINE [address] [place] [address] [phone] Izzy Sigala MD [address] [place] [phone] Left hip pain (Primary Dx) Social History [...] 08/23/2025 10:00 AM EDT Telemedicine [facility]INE [address] [place] [address] Divya Neil, RN documented as of this encounter Visit Diagnoses Diagnosis Left hip pain- Primary Pain in joint, pelvic region and thigh documented in this encounter Care Teams Rn Vascular Relationship Specialty Start Date End Date Izzy Sigala MD 230 [place] [address] PCP - General Family Medicine 10/30/21 [facility] 03/01/25 documented as of this encounter
--- OUTSIDE RECORDS SUMMARY | 2025-07-29 20:06 | XMS_ITS | Encounter Summary ---
Author Organization [employer] Address [address] [facility] 7t [place] [address] Care Team Providers Care Sustainability Director Name Role Phone Izzy Sigala MD Primary Care Provider [phone] Encounter Details Date Type Department Care Team (Late Contact Info) Description 10/22/2022 Orders Only [facility] MEDICINE [address] [place] [address] [phone] Izzy Sigala MD [address] [place] [address] [phone] Skin infection (Primary Dx); Bronchitis Social History [...] Info) Description 08/23/2025 10:00 AM EDT Telemedicine [facility] MEDICINE [address] [place] [address] [phone] Divya Neil RN documented as of this encounter Visit Diagnoses Diagnosis Skin infection- Primary Unspecified local infection of skin and subcutaneous tissue Bronchitis Bronchitis, not specified as acute or chronic documented in this encounter Care Teams Sustainability Director Relationship Specialty Start Date End Date Izzy Sigala MD 230 [place] [address] PCP - General Family Medicine 10/30/21 [facility] 03/01/25 documented as of this encounter
--- OUTSIDE RECORDS SUMMARY | 2025-07-29 20:06 | XMS_ITS | Clinical Summary ---
Author Organization [facility] [employer] Address [address] [place] [address] Phone Care Team Providers Care Central Office Frame Wirer Name Role Phone Izzy Sigala MD Primary Care Provider [phone] Surgical History Surgery Date Site/Laterality Comments OTHER [...] 10/24/2022 Social Influencers of Health Screening 10/24/2022 Depression Screening 11/14/2024 COVID-19 Vaccine (1 - 2023-2 5 season) 2025 Influenza Vaccine (#1) 2025 HIB Vaccines Aged [...] topic Insurance A[employer]NA MEDICARE ADVANTAGE Care Teams Central Office Frame Wirer Relationship Specialty Start Date End Date Izzy Sigala MD [address] [place] [address] PCP - General Showroom Salesperson 08/12/22
--- OUTSIDE RECORDS SUMMARY | 2025-07-29 20:06 | XMS_ITS | Encounter Summary ---
Author Organization [employer] Address [address] [facility] 7t [place] [address] Care Team Providers Care Animal Eviscerator Name Role Phone Izzy Sigala MD Primary Care Provider [phone] Encounter Details Date Type Department Care Team ([facility] st Contact Info) Description 04/24/[address] [facility] MEDICINE [address] [place], [place] [phone] Izzy Sigala MD [address] [place], [place] [phone] Social History Tobacco Use Types Packs/Day Years [...] encounter Miscellaneous Notes * Telephone Encounter - Richelle Davis - 04/24/2025 9:17 AM EDT Tc from Mariel PT, Symptom: Pain - Severe Outcome: Schedule an urgent appointment (within 1 hour) or talk to a nurse or provider soon Reason: Caller denied all higher acuity questions The caller accepted this outcome. [phone] pt [phone] Mariel documented in this encounter Plan of Treatment Upcoming Encounters Date Type Department Care Team (Late st Contact Info) Description 08/23/2025 10:00 AM EDT Telemedicine [facility] MEDICINE [address] [place] [address] Divya Neil RN documented as of this encounter Visit Diagnoses Not on filedocumented in this encounter Additional Health Concerns Assessment Noted Time PHQ-9 Depression Total Score: 16 025 9:39 AM EST documented as of this encounter Care Teams Animal Eviscerator Relationship Specialty Start Date End Date Izzy Sigala MD [address] [place] [address] PCP - General Family Medicine 10/30/21 [facility] 03/01/25 documented as of this encounter
--- OUTSIDE RECORDS SUMMARY | 2025-07-29 20:06 | XMS_ITS | Encounter Summary ---
Author Organization [employer] Address [address] [facility] 7t [place] [address] Care Team Providers Care Physician Practice Manager Name Role Phone Izzy Sigala MD Primary Care Provider [phone] Reason for Visit * Reason Comments Med Refill Encounter Details Date Type Department Care Team ([facility] st Contact Info) Description 07/26/[address] [facility] MEDICINE 230 [place], [place] [phone] Izzy Sigala MD 230 [place], [place] [phone] Localized osteoporosis without current pathological fracture Social History Tobacco Use Types Packs/Day Years [...] 10:00 AM EDT Telemedicine [facility] MEDICINE [address] [place] [address] Divya Neil, FREDO documented as of this encounter Visit Diagnoses Diagnosis Localized osteoporosis without current pathological fracture documented in this encounter Additional Health Concerns Assessment Noted Time PHQ-9 Depression Total Score: 025 4:31 PM EDT documented as of this encounter Care Teams Physician Practice Manager Relationship Specialty Start Date End Date Izzy Sigala MD [address] [place] [address] PCP - General Family Medicine 10/30/21 [facility] 03/01/25 documented as of this encounter
--- OUTSIDE RECORDS SUMMARY | 2025-07-29 20:06 | XMS_ITS | Encounter Summary ---
Author Organization [employer] Address [address] [facility] 7t [place] [address] Care Team Providers Care Club Lounge Attendant Name Role Phone Izzy Sigala MD Primary Care Provider [phone] Encounter Details Date Type Department Care Team ([facility] st Contact Info) Description 12/22/2023 Orders Only [facility] MEDICINE 230 [place], [place] [phone] Izzy Sigala MD 230 [place], [place] [phone] Chronic neck pain with history of cervical [...] Info) Description 08/23/2025 10:00 AM EDT Telemedicine [facility] MEDICINE [address] [place] [address] Divya Neil RN documented as of this encounter Visit Diagnoses Diagnosis Chronic neck pain with history of 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- Primary documented in this encounter Care Teams Club Lounge Attendant Relationship Specialty Start Date End Date Izzy Sigala MD [address] [place] [address] PCP - General Family Medicine 10/30/21 [facility] 03/01/25 documented as of this encounter
--- OUTSIDE RECORDS SUMMARY | 2025-07-29 20:07 | XMS_ITS | Encounter Summary ---
Author Organization [employer] Address [address] [place] [address] 7 [place] [address] Care Team Providers Care License Issuer Name Role Phone Izzy Sigala MD Primary Care Provider [phone] Reason for Referral * Medications - Closed Specialty Diagnoses / Procedures Referred By Contac t Referred To Contact Diagnoses Degenerative disc disease, cervical Chronic bilateral thoracic back pain Izzy Sigala MD [address] [place] [address] Phone: tel: fax: Referral ID Status Reason Start Date Expiration Date Visits Re quested Visits Authorized [id number] Closed 1 1 Encounter Details Date Type Department Care Team (Late st Contact Info) Description 12/03/2022 Orders Only [facility] MEDICINE [address] [place], [place] [phone] Izzy Sigala MD [address] [place], [place] [phone] Degenerative disc disease, cervical (Primary Dx); Chronic [...] AM EDT Telemedicine [facility] MEDICINE [address] [place] [address] Divya Neil RN documented as of this encounter Visit Diagnoses Diagnosis Degenerative disc disease, cervical- Primary Chronic bilateral thoracic back pain documented in this encounter Care Teams License Issuer Relationship Specialty Start Date End Date Izzy Sigala MD [address] [place] [address] PCP - General Family Medicine 10/30/21 [facility] 03/01/25 documented as of this encounter
== END 2025-07-29 14:40 | disposition home or self-care (01) ==
LOC: HO.HHCL 14:39
PROVIDERS: PCP General Practice; Visit Provider General Practice
DX: R42 Dizziness and giddiness (principal); Z13.6 Encounter for screening for cardiovascular disorders
CPT/HCPCS: 36415; 80053; 80061; 85025

== ENCOUNTER 2025-08-13 11:14 | Outpatient (AMB) | payer MEDICARE, MEDICAID, SELFPAY ==
--- NOTE | 2025-08-13 11:23 | MHC.OFFVIS ---
Vital Signs 08/13/25 11:24 Height 5 ft 5 in Weight 124 lb BMI 20.6 BP 128/78 Blood Pressure Location Rt radial Position Sitting Pulse 58 Pulse Source Pulse Oximeter Pulse Oximetry (%) 98 Oxygen Delivery Method Room Air Intake Visit Reasons: 2mo Intake Note: ESTABLISHED PATIENT for GERD (esophageal stric. + dysphagia) + weight mgmt. CC; Pt denies any new GI changes or sx at this time. Pt reports that she has been improving in all areas overall and is doing well at the moment. Pt currently on regimen with Ensure supplement and is tolerating well. Shape Brick Molder Required: No Accompanied by: Self / Same As Patient Allergies bupropion Allergy (Severe, Verified 08/13/25 11:23) Dizziness gabapentin Allergy (Severe, Verified 08/13/25 11:23) Gastrointestinal Hemorrhage zolpidem Allergy (Severe, Verified 08/13/25 11:23) Hallucinations clonidine Allergy (Verified 08/13/25 11:23) Unknown meloxicam Allergy (Verified 08/13/25 11:23) Unknown pregabalin Allergy (Verified 08/13/25 11:23) Unknown Sulfa (Sulfonamide Antibiotics) Allergy (Verified 08/13/25 11:23) Unknown, as achild prasozin Allergy (Uncoded 08/13/25 11:23) Unknown HPI HPI 2mo: Details: LAST VISIT Dysphagia Irritable bowel syndrome Constipation Gastroesophageal reflux disease Dizziness Plan Will check thyroid study, vitamin B12, folate, D levels. Patient will take sucralfate and 14:00 and at bedtime. Making sure she will take at least 1 hour after she takes her evening medications. Will be sent for upper GI with barium swallow. Avoid dietary triggers in late night snacking. Staying upright for minimum 3 hours after meals discussed with patient. Patient will follow-up in 2 months, sooner on as needed basis. She is agreeable to this plan and verbalizes understanding of instructions. She was given the opportunity to ask questions and all questions answered. ? Thank you for allowing me to participate in her care Orders TSH reflex Free T4 Today K59.00 Vitamin B12 and Folate Today R19.7 FL upper GI w Ba Swallow Today K21.9 Vitamin D 25-OH (D2 and D3) Today E55.9 TODAY'S VISIT Patient is here today for follow-up. Patient reports that she has been doing well since last visit. She is taking Nexium in the morning and sucralfate bedtime. Her symptoms of acid reflux are suppressed. Patient denies dyspepsia, dysphagia or odynophagia. Her pain management is under control. Patient currently is taking morphine, no longer on the patch. Patient was not getting her patches and was not getting a good control. Patient reports that she continues to be constipated and takes Dulcolax. Patient denies melena, hematochezia, unintentional weight loss or ribbon like stools. Patient reports that she has been doing fairly well and denies any GI concerning symptoms. Patient reports that her appetite is coming back. Patient is trying to eat more and drinking protein shakes. [facility] Medical History Pericardial effusion (~2021) Esophageal dysmotility Anemia Abdominal pain Hx of nausea and vomiting History of non-nicotine vaping WIGGINS (dyspnea on exertion) History of pericarditis H/O degenerative disc disease Dependent on walker for ambulation Poor balance Hx of fracture of arm Chronic back pain Dysphagia Tubular adenoma of colon Allergies History of COVID-19 PETER (obstructive sleep apnea) Neuropathy Hypothyroidism Chronic neck pain History of post traumatic stress disorder Depression Anxiety Asthma Surgical History History of back surgery Hx of colonoscopy Hx of esophagogastroduodenoscopy Hx of appendectomy Hx of section Hx of tonsillectomy Previous back surgery Family History Mother Colon cancer Family/Other Colon cancer Social History Are you a primary critical care nurse specialist to a significant other at home: No Do you presently have visiting nurse or other home services: Yes (VNA, PT, OT) Alcohol intake: current Alcohol intake frequency: does not drink Patient Tobacco Use Status: Never used 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 Review of Systems Const Denies weight gain and Denies weight loss ENT Reports no additional complaints, Denies dysphagia and Denies odynophagia Card Reports no additional complaints Resp Reports no additional complaints GI Denies abdominal pain, Denies belching, Denies melena, Denies bloating, Denies change in bowel habits, Reports constipation (Improved), Denies dysphagia, Denies excessive flatus, Denies dyspepsia, Denies heartburn, Denies diarrhea, Denies loose stools, Denies nausea, Denies odynophagia and Denies vomiting Reports no additional complaints Musc Reports no additional complaints Neuro Reports no additional complaints Psych Reports no additional complaints Endo Reports no additional complaints Physical Exam Vital Signs: Last Vital Signs Pulse 58 08/13/25 11:24 BP 128/78 08/13/25 11:24 Pulse Ox 98 08/13/25 11:24 Oxygen Delivery Method Room Air 08/13/25 11:24 BMI result Body Mass Index 20.6 Const General: healthy appearing and no acute distress Nutritional Appearance: underweight Orientation/consciousness: patient oriented x3 HEENT Mouth: Normal oral and palatal mucosa present, tongue normal, oropharynx abnormals (Redness) and other (Streaky redness in her posterior throat from postnasal drip) Resp Effort & Inspection: normal respiratory effort, able to speak in complete sentences, no tracheal deviation and symmetric chest movement Auscultation: clear to auscultation bilaterally Cardio Rate: regular rate GI Inspection: Yes normal to inspection and No distended Palpation (GI): Soft to palpation, not firm, nontender and No hepatosplenomegaly present Auscultation: normal bowel sounds General: Yes no CVA tenderness Back/Spine/Pelvis Back: no CVA tenderness Skin General skin exam: elasticity normal, turgor normal and dry skin Neuro General: patient oriented x3 Psych Appearance: grossly normal Mental Status: mental status grossly normal Assessment & Plan Assessment & Plan (1) Dysphagia: Code(s): R13.10 - Dysphagia, unspecified Category: Medical Qualifiers: Dysphagia type: oropharyngeal phase Qualified Code(s): R13.12 - Dysphagia, oropharyngeal phase (2) Duodenitis: Code(s): K29.80 - Duodenitis without bleeding Category: Medical (3) Gastroesophageal reflux disease: Code(s): K21.9 - Gastro-esophageal reflux disease without esophagitis Qualifiers: Esophagitis presence: esophagitis presence not specified Qualified Code(s): K21.9 - Gastro-esophageal reflux disease without esophagitis (4) Constipation: Code(s): K59.00 - Constipation, unspecified Qualifiers: Constipation type: slow transit constipation Qualified Code(s): K59.01 - Slow transit constipation Plan Patient will continue current treatment with PPI and sucralfate. Continue simethicone as needed. Patient was encouraged to avoid dietary triggers in late night snacking. Staying upright for minimum 3 hours after meals discussed with patient. Patient will continue taking Dulcolax and take Colace as needed. Patient was encouraged to try high calorie diet. List of meal preps and shakes to help patient gain weight given to patient. Patient will follow-up in 6 months, sooner on as needed basis. She is agreeable to this plan and verbalizes understanding of instructions. She was given the opportunity to ask questions and all questions answered. Thank you for allowing me to participate in her care Medications: New docusate sodium 100 - 200 mg (1 - 2 x 100 mg) PO DAILY PRN 60 caps 3RF Constipation Refilled sucralfate TAKE 10 MLS BY MOUTH 2 TIMES A DAY. PLEASE TAKE IT AT NOON TIME AND AT BEDTIME 420 mL 3RF K21.9 - Gastro-esophageal reflux disease without esophagitis bisacodyl (Dulcolax (bisacodyl)) 10 mg (2 x 5 mg) PO BEDTIME 180 tabs 4RF esomeprazole magnesium 40 mg PO DAILY 90 caps 1RF K21.9 - Gastro-esophageal reflux disease without esophagitis Coding Level of Care Code Est Pt Level 4 (58403) Diagnoses Oropharyngeal dysphagia R13.12 Dysphagia type: oropharyngeal phase Duodenitis K29.80 Gastroesophageal reflux disease, unspecified whether esophagitis present K21.9 Esophagitis presence: esophagitis presence not specified Slow transit constipation K59.01 Constipation type: slow transit constipation Time Spent (min) 35 Comment 25 minutes spent with patient and additional 10 minutes spent reviewing her records
[2025-08-13 11:24] VITALS: BP 128/78; PULSE 58; O2SAT 98; BMI 20.6
--- OUTSIDE RECORDS SUMMARY | 2025-08-13 12:39 | XMS_ITS | Encounter Summary ---
Author Organization [employer] Address [address] [facility] 7t [place] [address] Care Team Providers Care Red Hat Linux Engineer Name Role Phone Izzy Sigala MD Primary Care Provider [phone] Encounter Details Date Type Department Care Team ([facility] st Contact Info) Description 11/04/2023 Orders Only [facility] [address] [place], [place] [phone] Izzy Sigala MD [address] [place], [place] [phone] Other cervical disc degeneration, unspecified cervical region [...] Info) Description 08/23/2025 10:00 AM EDT Telemedicine [facility] [address] [place] [phone] Divya Neil RN 10/18/2025 2:30 PM EST Office Visit [facility] [address] [place] [phone] Izyz Sigala MD [address] [place] [phone] documented as of this encounter Visit Diagnoses Diagnosis Other cervical disc degeneration, unspecified cervical region documented in this encounter Care Teams Red Hat Linux Engineer Relationship Specialty Start Date End Date Izzy Sigala MD [address] [place] [phone] PCP - General Family Medicine 10/30/21 [facility] 03/01/25 documented as of this encounter
--- OUTSIDE RECORDS SUMMARY | 2025-08-13 12:39 | XMS_ITS | Encounter Summary ---
Author Organization [employer] Address [address] [facility] 7 [place] [address] Care Team Providers Care Lead Radiation Therapist Name Role Phone Izzy Sigala MD Primary Care Provider [phone] Reason for Visit * Reason Comments Med Refill Encounter Details Date Type Department Care Team ([facility] st Contact Info) Description 07/09/2025 Refill [facility] [address] [place], [place] [phone] Izzy Sigala MD [address] [place], [place] [phone] Vascular dementia, unspecified severity, without behavioral disturbance, [...] Telemedicine [facility] [address] [place] [address] Divya Neil RN 10/18/2025 2:30 PM EST Office Visit [facility] [address] [place] [phone] Izzy Sigala MD [address] [place] [phone] documented as of this encounter Visit Diagnoses Diagnosis Vascular dementia, unspecified severity, without behavioral disturbance, psychotic disturbance, mood disturbance, and anxiety (CMS/HCC) ([facility]) documented in this encounter Additional Health Concerns Assessment Noted Time PHQ-9 Depression Total Score: 025 4:31 PM EDT documented as of this encounter Care Teams Lead Radiation Therapist Relationship Specialty Start Date End Date Izzy Sigala MD [address] [place] [phone] PCP - General Family Medicine 10/30/21 [facility] 03/01/25 documented as of this encounter
--- OUTSIDE RECORDS SUMMARY | 2025-08-13 12:39 | XMS_ITS | Encounter Summary ---
Author Organization [employer] Address [address] [facility] 7t [place] [address] Care Team Providers Care Music Manager Name Role Phone Izzy Sigala MD Primary Care Provider [phone] Encounter Details Date Type Department Care Team (Late st Contact Info) Description 10/22/2022 Orders Only [facility] [address] [place] [address] [phone] Izzy Sigala MD [address] [place] [phone] [phone] Skin infection (Primary Dx); Bronchitis Social History [...] Info) Description 08/23/2025 10:00 AM EDT Telemedicine [facility] [address] [place] [address] [phone] Divya Neil RN 10/18/2025 2:30 PM EST Office Visit [address] [phone] Izzy Sigala MD [address] [place] [address] documented as of this encounter Visit Diagnoses Diagnosis Skin infection- Primary Unspecified local infection of skin and subcutaneous tissue Bronchitis Bronchitis, not specified as acute or chronic documented in this encounter Care Teams Music Manager Relationship Specialty Start Date End Date Izzy Sigala MD [address] [place] [address] PCP - General Family Medicine 10/30/21 [facility] 03/01/25 documented as of this encounter
--- OUTSIDE RECORDS SUMMARY | 2025-08-13 12:39 | XMS_ITS | Encounter Summary ---
Author Organization [employer] Address [address] [place] [address] 7 [place] [address] Care Team Providers Care In Service Coordinator Name Role Phone Izzy Sigala MD Primary Care Provider [phone] Reason for Visit * Reason Comments Med Refill Encounter Details Date Type Department Care Team (Late Contact Info) Description 06/30/2023 Refill [facility] [address] [place] [address] [phone] Izzy Sigala MD [address] [place] [address] [phone] History of pulmonary embolus (PE) Social History [...] Info) Description 08/23/2025 10:00 AM EDT Telemedicine [address] [address] Divya Neil RN 10/18/2025 2:30 PM EST Office Visit [address] [phone] Izzy Sigala MD [address] [place] [address] documented as of this encounter Visit Diagnoses Diagnosis History of pulmonary embolus (PE) documented in this encounter Care Teams In Service Coordinator Relationship Specialty Start Date End Date Izzy Sigala MD [address] [place] [address] PCP - General Family Medicine 10/30/21 [facility] 03/01/25 documented as of this encounter
--- OUTSIDE RECORDS SUMMARY | 2025-08-13 12:39 | XMS_ITS | Encounter Summary ---
Author Organization [employer] Address [address] [facility] 7t [place] [address] Care Team Providers Care Reading Interventionist Name Role Phone Izzy Sigala MD Primary Care Provider [phone] Encounter Details Date Type Department Care Team ([facility] st Contact Info) Description 04/24/2025 Telephone [facility] [address] [place], [place] [phone] Izzy Sigala MD [address] [place], [place] [phone] Social History Tobacco Use Types Packs/Day Years [...] acuity questions The caller accepted this outcome. [phone] pt [phone] Mariel documented in this encounter Plan of Treatment Upcoming Encounters Date Type Department Care Team (Late st Contact Info) Description 08/23/2025 10:00 AM EDT Telemedicine [facility] [address] [place] [phone] Divya Neil RN 10/18/2025 2:30 PM EST Office Visit [facility] [address] [place] [phone] Izzy Sigala MD [address] [place] [phone] documented as of this encounter Visit Diagnoses Not on filedocumented in this encounter Additional Health Concerns Assessment Noted Time PHQ-9 Depression Total Score: 16 025 9:39 AM EST documented as of this encounter Care Teams Reading Interventionist Relationship Specialty Start Date End Date Izzy Sigala MD [address] [place] [address] PCP - General Family Medicine 10/30/21 [facility] 03/01/25 documented as of this encounter
--- OUTSIDE RECORDS SUMMARY | 2025-08-13 12:39 | XMS_ITS | Clinical Summary ---
Author Organization [employer] Address [address] [place] [address] 7[address] [place] [address] Care Team Providers Care Sheriff Deputy Name Role Phone Izzy Sigala MD Primary Care Provider [phone] Allergies Active Allergy Reactions Criticality Noted Date [...] TIME AND AT BEDTIME 05/04/20 25 Active traZODone (Desyrel) 50 MG tablet TAKE [...] 180 tablet 3 07/29/20 25 2025 Active morphine CR (MS Contin) 15 MG 12 hr tabletIndicatio ns:Chronic neck pain with history of 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,custodial (current) use of opiate analgesic Take 1 tablet (15 mg) by mouth 2 times daily for 28 days. Do not crush, chew, or split. 56 tablet 07/31/20 25 2024 Active morphine (MSIR) 15 MG tabletIndicatio ns:Chronic neck pain with history of 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,joint terminal attack controller (current) use of opiate analgesic Take 0.5 tablets (7.5 mg) by mouth 2 times daily for 28 days. Take with 15mg ER morphine dose 28 tablet 07/31/20 25 2024 Active memantine (Namenda) 5 MG tablet Take [...] 12 tablet 3 09/11/20 24 2024 Discontinued amLODIPine (Norvasc) 5 MG tabletIndicatio ns:Primary hypertension Take 1 tablet (5 mg) by mouth Once per day. 90 tablet 03/28/20 25 2024 Discontinued(D ose adjustment) morphine CR (MS Contin) 15 MG 12 hr tabletIndicatio ns:Chronic neck pain with history of 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,custodial (current) use of opiate analgesic Take 1 tablet (15 mg) by mouth 2 times daily for 28 days. Do not crush, chew, or split. Do not start before June 28, 2025. 56 tablet 06/28/20 25 2024 Discontinued(R eorder (will not trigger notification to Pharmacy)) buprenorphine (Butrans) 10 MCG/HRIndicatio ns:Chronic neck pain with history of 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,joint terminal attack controller (current) use of opiate analgesic Place 1 patch on the skin 1 (one) time per week for 28 days. Do not start before June 28, 2025. 4 patch 06/28/202024 Discontinued(T herapy completed) Active Problems Problem Noted [...] Spondylosis, unspecified 02/21/2025 Moderately severe major depression (CMS/HCC) Protein-calorie malnutrition, unspecified severi ty 08/23/2024 Assessment & Plan (11/28/2024 10:13 AM EST): Start Ensure supplementation 1can/day per GI and hospice home health aide recommendations Single subsegmental thrombot ic pulmonary embolism without acute cor pulmonale (CMS/HCC) 08/23/2024 joint terminal attack controller (current) use of opiate analgesic 08/14 Overview (07/31/2025): Dx: chronic neck pain Tx: MS Contin 15mg BID and Morphine IR 7.5mg BID (transitioned from Butrans 20mcg in 06/2025) [...] continue MS Contin 15mg BID 07/12/25 notify HEALTH UNIT SUPERVISOR nurse of degree of pain and next [...] history of allergic reaction to one patch gardener florist, also she wants to switch pickup of patches to [facility] - called pharmacy to confirm that they continue to stock SOPHIE patches, and that she can grape picker tomorrow Assessment & Plan (06/22/2024 8:23 AM EDT): Discussed her recent Butrans withdrawal, had history of allergic reaction to one patch gardener florist, also she wants to switch pickup of patches to [facility] - called pharmacy to confirm that they continue to stock SOPHIE patches, and that she will pick them up here Assessment & Plan (04/20/2023 1:00 PM EDT): Continue Butran 20mcg every 72 hours, refills placed for next due date 05/02/23 at [facility] in [place], [place] Dronabinol SULEMA submitted to help with [...] with marijuana gummies if helpful Saw derm PLANT PROTECTION SUPERVISOR at [facility] few weeks ago, they recommend mometasone, eucerin, [...] back pain 12/16/2021 Chronic post-traumatic stress disorder 2 Depressive disorder 12/16/2021 Neuropathy 12/16/2021 Assessment & [...] Encounters Date Type Department Care Team Description 07/31/[address] [facility] [address] [place] [phone] Izzy Sigala MD Results 07/29/2025 2:00 PM EDT Office Visit [facility] [address] [place] [address] Izzy Sigala MD Chronic neck pain with history of 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 (Primary Dx); Vertigo; custodial (current) use of opiate analgesic 07/29/2025 Travel 07/26/[address] [facility] [address] [place] [phone] Izzy Sigala MD chart prep 07/26/[address] [facility] [address] [place] [address] [phone] Izzy Sigala MD Localized osteoporosis without current pathological fracture 07/19/[address] [facility] [address] [place] [address] Izzy Sigala MD Primary hypertension 07/11/[address] [facility] [address] [place] [address] Izzy Sigala MD Nurse Triage 07/09/[address] [facility] [address] [place] [phone] Izzy Sigala MD Vascular dementia, unspecified severity, without behavioral disturbance, psychotic disturbance, mood disturbance, and anxiety (CMS/HCC) 07/08/2025 2:00 PM EDT Office Visit [facility] [address] [place] [address] Izyz Sigala MD custodial (current) use of opiate analgesic (Primary Dx); Chronic bilateral thoracic back pain; Chronic left-sided low back pain with left-sided sciatica; Chronic neck pain with history of 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 07/08/[address] [facility] [address] [place] [address] Izzy Sigala MD 07/08/[address] [facility] [address] [place] [address] 12065 Lyly Rocha MD Primary hypertension 07/08/2025 Travel 07/05/[address] [address] Izzy Sigala MD chart prep 07/01/[address] [address] Izzy Sigala MD Medication Question 06/26/[address] [address] Divya Neil RN Bridge plan for pain 06/24/2025 3:30 PM EDT Office Visit [address] [address] Izzy Sigala MD Chronic neck pain with history of 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 (Primary Dx); joint terminal attack controller (current) use of opiate analgesic 06/24/2025 Travel 06/21/[address] [facility] [address] [place] [address] Izzy Sigala MD Chart Prep 06/18/2025 1:00 PM EDT Telemedicine [address] [address] Divya Neil, RN custodial (current) use of opiate analgesic 06/18/[address] [address] Divya Neil, RN Decreased pain relief 06/18/2025 Travel 06/12/2025 Orders Only GENERIC EXTERNAL DATA DEPARTMENT Provider, Generic External Data 06/01/2025 10:40 AM EDT Office Visit [facility] [address] [place] [address] Izzy Sigala MD Onychomycosis (Primary Dx); Cervicalgia; Folliculitis; Primary hypertension; History of pulmonary embolus (PE); Acquired hypothyroidism; Age-related osteoporosis without current pathological fracture; Esophageal dysmotility; Chronic neck pain with history of 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; Obstructive sleep apnea of adult 06/01/2025 Travel 05/29/[address] [facility] [address] [place] [address] Izzy Sigala MD Cervicalgia 05/16/2025 Orders Only [facility] [address] [place] [address] Izzy Sigala MD from Last 3 Months Immunizations Immunization Administration [...] 10:00 AM EDT Telemedicine [facility] [address] [place] [address] Divya Neil RN 10/18/2025 2:30 PM EST Office Visit [facility] [address] [place] [address] [place] [address] Izzy Sigala MD [address] [place] [address] Health Maintenance Due Date Last Done Comments [...] Blood Count 6.3 4.8 - 10.8 X10*3/uL [facility] Red Blood Count 3.95(L) 4.20 - 5.50 X10*6/uL [facility] Hemoglobin 11.3(L) 12.0 - 16.0 g/dl [facility] Hematocrit 35.3(L) 37.0 - 47.0 % [facility] Mean Corpuscular Volume 89.4 80.0 - 98.0 fL [facility] Mean Corpuscular Hemoglobin 28.6 27.0 - 33.0 pg [facility] Mean Corpuscular HGB Conc 32.0 31.0 - 35.0 g/dl [facility] Red Cell Distribution Width 14.0 11.0 - 16.0 % [facility] Platelet Count 144(L) 160 - 400 X10*3/uL [facility] Mean Platelet Volume 10.4 9.4 - 12.3 fL [facility] Neutrophils Percent Auto 70.5 45 - 73 % [facility] Imm Gran Pct Auto 0.5(H) 0.0 - 0.4 % [facility] Lymphocytes Percent Auto 15.1(L) 20 - 40 % [facility] Monocytes Percent Auto 10.9 2 - 11 % [facility] Eosinophils Percent Auto 1.7 0 - 4 % [facility] Basophils Percent Auto 1.3 0 - 2 % [facility] NRBC Pct Auto 0.0 0.0 - 0.2 /100WBC [facility] Neutrophils Absolute Auto 4.5 2.0 - 8.3 x10*3/uL [facility] Imm Gran Abs Auto 0.03 0.00 - 0.03 X10*3/uL [facility] Lymphocytes Absolute Auto 1.0(L) 1.2 - 4.9 X10*3/uL [facility] Monocytes Absolute Auto 0.7 0.1 - 1.2 X10*3/uL [facility] Eosinophils Absolute Auto 0.1 0.0 - 0.4 X10*3/uL [facility] Basophils Absolute Auto 0.1 0.0 - 0.2 X10*3/uL [facility] NRBC Abs Auto 0.000 0.0 - 0.012 X10*3/uL [facility] Blood Venous blood specimen / Unknown 07/29/2025 3:05 PM EDT 07/29/2025 4:08 PM EDT Izzy Sigala MD LAB BLOOD ORDERABLES Final Res ult Performing Organization Address [facility] Co de Phone Number [facility] [address] [place] [address] [phone] * (ABNORMAL) Lipid Panel, Standard (07/29/2025 3:05 PM EDT) Triglycerides 109 <150 mg/dL [facility] Comment:Desirable Triglyceri de: less than 150 mg/dLBorderline High Triglyceride 150-199 mg/dLHigh Triglyceride: 200-499 mg/dLVery High Triglyceride: greater than or equal to 5OO mg/dL Cholesterol 190 <200 mg/dL [facility] Comment:Desirable Cholestero l: less than 200 mg/dLBorderline High Cholesterol: 200-239 mg/dLHigh Cholesterol: greater than 239 mg/dL LDL Cholesterol Calculated 122(H) <100 mg/dL [facility] Comment:Desirable LDL: less than 100 mg/dLNear Optimal/Above Optimal LDL: 110- 129 mg/dLBorderline High LDL: 130-159 mg/dLHigh LDL: 160-189 mg/dLVery High LDL: greater than or equal to 190 mg/dL HDL Cholesterol 47 >40 mg/dL [facility] Comment:Desirable HDL: great er than 40 mg/dL Note: This HDL assay may give artificially low results in patients with liver disease. Blood Venous blood specimen / Unknown 07/29/2025 3:05 PM EDT 07/29/2025 4:08 PM EDT Izzy Sigala MD LAB BLOOD ORDERABLES Final Res ult Performing Organization Address City/[facility]/ZIP Co de Phone Number [facility] [address] [place] [address] [phone] * (ABNORMAL) Comprehensive Metabolic Panel (07/29/2025 3:05 PM EDT) Sodium 141 135 - 145 mmol/L [facility] Potassium 4.4 3.3 - 5.1 mmol/L [facility] Chloride 109(H) 96 - 108 mmol/L [facility] Carbon Dioxide 26 22 - 29 mmol/L [facility] Anion Gap 10(L) 12 - 20 [facility] Urea Nitrogen (BUN) 14 9 - 16 mg/dL [facility] Creatinine, Serum 0.85 0.5 - 1.4 mg/dL [facility] Estimated Glomerular Filt Rate >60 [facility] Comment:Chronic Kidney Disea se: Estimated GFR < 60 mL/min/[id number] Kidney Disease: Estimated GFR < 15 mL/min/1.73m2 Glucose 95 60 - 115 mg/dL [facility] Calcium 8.9 8.4 - 10.2 mg/dL [facility] Bilirubin, Total 0.3 0.0 - 1.0 mg/dL [facility] Aspartate Amino Transferase 30 5 - 31 U/L [facility] Alanine Aminotransferase 15 0 - 31 U/L [facility] Total Protein 6.6 6.5 - 8.0 g/dL [facility] Albumin Level 4.2 3.5 - 5.0 g/dL [facility] Alkaline Phosphatase 58 39 - 117 U/L [facility] Blood Venous blood specimen / Unknown 07/29/2025 3:05 PM EDT 07/29/2025 4:08 PM EDT us Izzy Sigala MD LAB BLOOD ORDERABLES Final Res ult [facility] [address] [place] [address] [phone] * VITAMIN D 25-OH (D2 AND D3) (06/12/2025 12:38 PM EDT) Vitamin D, 25-OH, D2 <4 ng/mL [facility] Comment:This test was develo ped and its analytical performancecharacteristics have been determined by [employer] [place], [place]. It hasnot been cleared or approved by the U.S. Food and DrugAdministration. This assay has been validated pursuantto the CLIA regulations and is used for clinicalpurposes.THIS TEST WAS PERFORMED AT:[employer] [id number] [place] [address]OOKXXVTSCOT CRENSHAW MD,PHD Vitamin D, 25-OH, D3 37 ng/mL [facility] Comment:This test was develo ped and its analytical performancecharacteristics have been determined by [employer] [place], [place]. It hasnot been cleared or approved by the U.S. Food and DrugAdministration. This assay has been validated pursuantto the CLIA regulations and is used for clinicalpurposes. Vitamin D, 25-OH, Total 37 30 - 100 ng/mL [facility] Comment:Vitamin D, 25-Hydrox y reports concentrations [...] = 30 ng/mL.For additional information, please refer tohttp://education.[employer].Co/faq/RML591(This link is being provided for informational/educational purposes only.) 06/12/2025 12:3 8 PM EDT 06/12/2025 12:45 PM EDT us Generic External Data Provider LAB BLOOD ORDERAB LES Final Result [facility] [address] [place] [phone] * Vitamin B12 (Cobalamin) and Folate Panel, Serum (06/12/2025 12:38 PM EDT) Pathologist [facility] Vitamin B12 549 200 - 900 pg/mL [facility] Comment:NORMAL 200-900 PG/ML INDETERMINATE 160-199 PG/ML DEFICIENT < 160 PG/ML Folate 9.1 > or = 4.0 ng/mL [facility] Comment:Reference Values:> o r = 4.0 ng/mL< 4.0 ng/mL suggests folate deficiency Methotrexate, aminopterin and folinic acid(leucovorin) are chemotherapeutic agents whose molecularstructures are similar to folate; therefore, the Architectfolate assay cannot be used for patients using these drugs. 06/12/2025 12:3 8 PM EDT 06/12/2025 12:45 PM EDT Generic External Data Provider LAB BLOOD ORDERAB LES Final Result Performing Organization Address [facility] de Phone Number [facility] [address] [place] [phone] * TSH with Reflex to Free T4 (06/12/2025 12:38 PM EDT) [facility] TSH reflex Free T4 1.87 0.32 - 4.0 uIU/mL [facility] 06/12/2025 12:3 8 PM EDT 06/12/2025 12:45 PM EDT Generic External Data Provider LAB BLOOD ORDERAB LES Final Result Performing Organization Address [facility] Co de Phone Number [facility] [address] [place] [phone] * Tissue Transglutaminase (tTG) Antibody (IgG) (06/12/2025 12:38 PM EDT) [facility] Tissue Transglutaminase Antibody IgG <1.0 U/mL [facility] Comment:Value Interpretation ----- <15.0 Antibody not detected> or = 15.0 Antibody detectedTHIS TEST WAS PERFORMED AT:[facility] [address] [id number] CLEANING MD 06/12/2025 12:3 8 PM EDT 06/12/2025 12:45 PM EDT Generic External Data Provider LAB BLOOD ORDERAB LES Final Result Performing Organization Address [facility] Co de Phone Number [facility] [address] [place] [address] [phone] * (ABNORMAL) Gliadin (Deamidated) Antibody (IgA,IgG) (06/12/2025 12:38 PM EDT) Gliadin (Deamidated) Ab (IgA) 197.7(A) U/mL [facility] Comment:Value Interpretation ----- <15.0 Antibody not detected> or = 15.0 Antibody detected Gliadin (Deaminated) Antibody IgG 26.1(A) U/mL [facility] Comment:Value Interpretation ----- <15.0 Antibody not detected> or = 15.0 Antibody detectedTHIS TEST WAS PERFORMED AT:[facility] [address] [phone] CLEANING MD 06/12/2025 12:3 8 PM EDT 06/12/2025 12:45 PM EDT Generic External Data Provider LAB BLOOD ORDERAB LES Final Result Performing Organization Address [facility] Co de Phone Number [facility] [address] [place] [address] [phone] * Tissue Transglutaminase Antibody, IgA (06/12/2025 12:38 PM EDT) Transglutaminase IgA 3.4 U/mL [facility] Comment:Value Interpretation ----- <15.0 Antibody not detected> or = 15.0 Antibody detectedTHIS TEST WAS PERFORMED AT:[employer] [place] [phone] CLEANING MD 06/12/2025 12:3 8 PM EDT 06/12/2025 12:45 PM EDT us Generic External Data Provider LAB BLOOD ORDERAB LES Final Result [facility] [address] [place] [address] [phone] * BI Mammogram Screening Tomosynthesis Bilateral (05/16/2025 2:30 PM EDT) Anatomical Region Laterality Modality Breast Bilateral Mammography 05/16/2025 2:30 PM EDT Narrative 05/28/2025 4:56 PM EDT [facility] [address] [place] [address] Mammography Report Signed Patient: Sivan Orosco MR#: [id number] : 1955 Acct:[id number] Age/Sex: 70 / F ADM Date: 05/16/25 Loc: HO.MAMMO Attending Dr: Izzy Sigala MD Ordering Physician: Izzy Sigala Results: 1Negative Date of Service: 05/16/25 Follow Up: 1 Year From Orig inal Mammogram Procedure(s): MM tomosynthesis screening BI Accession Number(s): [id number] cc: Izzy Sigala EXAMINATION: MM SCREENING DIGITAL [...] Yadi Ceron DO 05/28/2025 04:51 PM EDT RP Dictated By: Yadi Ceron DO Signed By: <Electronically signed by Yadi Ceron DO in OV> 05/28/25 1651 DD/ 1430 TD/TT: 05/16/25 1500 Hide Puller: Procedure Note Donotuseinterpreter, Image - 05/28/2025 [facility] [address] [place] [address] Mammography Report Signed Patient: Sivan Orosco CMR#: [id number] : 1955cct:[id number] Age/Sex: 70 / FADM Date: 05/16/25 Loc: HO.MAMMO Attending Dr: Izzy Sigala MD Ordering Physician: Caitie Sigalaults: 1Negative Date of Service: 05/16/25Follow Up: 1 Year From Orig inal Mammogram Procedure(s): MM tomosynthesis screening BI Accession Number(s): [id number] cc: Izzy Sigala EXAMINATION: MM SCREENING DIGITAL [...] DO Signed By: <Electronically signed by Yadi Cerno DO in OV> 05/28/25 1651 DD/ 1430 TD/TT: 05/16/25 1500 Hide Puller: Izzy Sigala MD IMG BI PROCEDURES Final Result from Last 3 Months Insurance [employer] MEDICARE REPLACEMENT [facility] Advance Directives Documents on File Type Date Recorded Patient Balance Bridge Inspector Expl anation Advance Directives and Living Will 01/08/2025 [facility] Care Teams Sheriff Deputy Relationship Specialty Start Date End Date Izzy Sigala MD [address] [place] [phone] PCP - General Family Medicine 10/30/21 [facility] 03/01/25
--- OUTSIDE RECORDS SUMMARY | 2025-08-13 12:39 | XMS_ITS | Encounter Summary ---
Author Organization [employer] Address [address] [place] [address] [address] [place] [address] Care Team Providers Care Oracle Technical Developer Name Role Phone Izzy Sigala MD Primary Care Provider [phone] Encounter Details Date Type Department Care Team (Late Contact Info) Description 02/02/2023 Orders Only [facility] [address] [place] [address] [phone] Izzy Sigala MD [address] [place] [phone] Left hip pain (Primary Dx) Social History [...] Info) Description 08/23/2025 10:00 AM EDT Telemedicine [facility] [address] [place] [phone] Divya Neil, RN 10/18/2025 2:30 PM EST Office Visit [facility] [address] [place] [phone] Izzy Sigala MD [address] [place] [phone] documented as of this encounter Visit Diagnoses Diagnosis Left hip pain- Primary Pain in joint, pelvic region and thigh documented in this encounter Care Teams Oracle Technical Developer Relationship Specialty Start Date End Date Izzy Sigala MD [address] [place] [phone] PCP - General Family Medicine 10/30/21 [facility] 03/01/25 documented as of this encounter
--- OUTSIDE RECORDS SUMMARY | 2025-08-13 12:39 | XMS_ITS | Encounter Summary ---
Author Organization [employer] Address [address] [facility] [address] [facility] 7t [place] [address] Care Team Providers Care Knitter Machine Name Role Phone Izzy Sigala MD Primary Care Provider [phone] Encounter Details Date Type Department Care Team ([facility] st Contact Info) Description 12/22/2023 Orders Only [facility] [address] [place], [place] [phone] Izzy Sigala MD [address] [place], [place] [phone] Chronic neck pain with history of cervical [...] 08/23/2025 10:00 AM EDT Telemedicine [facility] [address] [place] [phone] Divya Neil RN 10/18/2025 2:30 PM EST Office Visit [facility] [address] [place] [phone] Izzy Sigala MD [address] [place] [phone] documented as of this encounter Visit Diagnoses Diagnosis Chronic neck pain with history of 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- Primary documented in this encounter Care Teams Knitter Machine Relationship Specialty Start Date End Date Izzy Sigala MD [address] [place] [phone] PCP - General Family Medicine 10/30/21 [facility] 03/01/25 documented as of this encounter
--- OUTSIDE RECORDS SUMMARY | 2025-08-13 12:39 | XMS_ITS | Encounter Summary ---
Author Organization [employer] Address [address] [place] [address] 7 [place] [address] Care Team Providers Care Harness Maker Name Role Phone Izzy Sigala MD Primary Care Provider [phone] Encounter Details Date Type Department Care Team (Late Contact Info) Description 04/08/2023 [facility] [employer] [address] [place], [place] [phone] Izzy Sigala MD [address] [place] [address] [phone] Social History Tobacco Use Types Packs/Day Years [...] Info) Description 08/23/2025 10:00 AM EDT Telemedicine [facility] MED[facility]INE [address] [place] [address] [phone] Divya Neil RN 10/18/2025 2:30 PM EST Office Visit [facility] [address] [place] [address] [phone] Izzy Sigala MD [address] [place] [address] documented as of this encounter Visit Diagnoses Not on filedocumented in this encounter Care Teams Harness Maker Relationship Specialty Start Date End Date Izzy Sigala MD [address] [place] [address] PCP - General Family Medicine 10/30/21 [facility] 03/01/25 documented as of this encounter
--- OUTSIDE RECORDS SUMMARY | 2025-08-13 12:39 | XMS_ITS | Encounter Summary ---
Author Organization [employer] Address [address] [facility] 7t [place] [address] Care Team Providers Care Systems Navigator Name Role Phone Izzy Sigala MD Primary Care Provider [phone] Reason for Visit * Reason Comments Med Refill Encounter Details Date Type Department Care Team ([facility] st Contact Info) Description 07/08/2025 Refill [facility] [address] [place], [place] [phone] Lyly Rocha MD [address] [place] [address] Primary hypertension Social History Tobacco Use Types [...] Info) Description 08/23/2025 10:00 AM EDT Telemedicine [facility]INE [address] [place] [phone] Divya Neil RN 10/18/2025 2:30 PM EST Office Visit [facility] [address] [place] [phone] Izzy Sigala MD [address] [place] [phone] documented as of this encounter Visit Diagnoses Diagnosis Primary hypertension Unspecified essential hypertension documented in this encounter Additional Health Concerns Assessment Noted Time PHQ-9 Depression Total Score: 025 4:31 PM EDT documented as of this encounter Care Teams Systems Navigator Relationship Specialty Start Date End Date Izzy Sigala MD [address] [place] [phone] PCP - General Family Medicine 10/30/21 [facility] 03/01/25 documented as of this encounter
--- OUTSIDE RECORDS SUMMARY | 2025-08-13 12:39 | XMS_ITS | Encounter Summary ---
Author Organization [employer] Address [address] [place] [address] 7 [place] [address] Care Team Providers Care Events Traffic Controller Name Role Phone Izzy Sigala MD Primary Care Provider [phone] Encounter Details Date Type Department Care Team (Late st Contact Info) Description 06/08/2023 Orders Only [facility] [address] [place], [place] [phone] Izzy Sigala MD [address] [place], [place] [phone] Drug toxicity (Primary Dx) Social History Tobacco [...] 08/23/2025 10:00 AM EDT Telemedicine [facility] [address] [place] [address] Divya Neil RN 10/18/2025 2:30 PM EST Office Visit [facility] [address] [place] [phone] Izzy Sigala MD [address] [place] [address] documented as of this encounter Procedures Procedure Name Priority Date/Time Associated Diagnosis Comments PHOSPHATE ( PHOSPHORUS) Routine 06/23/2023 11:21 AM EDT Drug toxicity BASIC METABOLIC PANEL Routine 06/23/2023 11:21 AM EDT Drug toxicity documented in this encounter Results * Phosphate (As Phosphorus) (06/23/2023 11:21 AM EDT) Phosphorus 3.2 2.7 - 4.5 mg/dL [facility] Blood Venous blood specimen / Unknown 06/23/2023 11:21 AM EDT 06/23/2023 11:21 AM EDT us Izzy Sigala MD LAB BLOOD ORDERABLES Final Res ult [facility] [address] [place] [phone] * (ABNORMAL) Basic Metabolic Panel (06/23/2023 11:21 AM EDT) Sodium 141 135 - 145 mmol/L [facility] Potassium 4.4 3.3 - 5.1 mmol/L [facility] Chloride 109(H) 96 - 108 mmol/L [facility] Carbon Dioxide 27 22 - 29 mmol/L [facility] Anion Gap 9(L) 12 - 20 [facility] Urea Nitrogen (BUN) 11 9 - 16 mg/dL [facility] Creatinine, Serum 0.77 0.5 - 1.4 mg/dL [facility] Estimated Glomerular Filt Rate >60 [facility] Comment:NOTE: For -Am erican individuals, multiply the result by 1.210.Chronic Kidney Disease: Estimated GFR < 60 mL/min/1.42j7Qfprbo Kidney Disease: Estimated GFR < 15 mL/min/1.73m2 Glucose 94 60 - 115 mg/dL [facility] Calcium 9.0 8.4 - 10.2 mg/dL [facility] Blood Venous blood specimen / Unknown 06/23/2023 11:21 AM EDT 06/23/2023 11:21 AM EDT us Izzy Sigala MD LAB BLOOD ORDERABLES Final Res ult Performing Organization Address City/State/[facility] Co de Phone Number [facility] [address] [place] [phone] documented in this encounter Visit Diagnoses Diagnosis Drug toxicity- Primary Nonspecific abnormal toxicological findings documented in this encounter Care Teams Events Traffic Controller Relationship Specialty Start Date End Date Izzy Sigala MD [address] [place] [address] PCP - General Family Medicine 10/30/21 [facility] 03/01/25 documented as of this encounter
--- OUTSIDE RECORDS SUMMARY | 2025-08-13 12:39 | XMS_ITS | Clinical Summary ---
Author Organization [facility] [employer] Address [address] [place] [address] Phone Care Team Providers Care Core Blower Operator Name Role Phone Izzy Sigala MD Primary Care Provider [phone] Surgical History Surgery Date Site/Laterality Comments OTHER [...] Last Done Comments Breast Cancer Screening 1954 Colorectal Cancer Screening: Colonoscopy 1954 DTaP,Tdap,and Td Vaccines (1 - Tdap) 1973 Pneumococcal Vaccine: 50+ Ye ars (1 of 1 - PCV) 01/14/2004 Zoster Vaccines (1 of 2) 01/14/2004 RSV Immunization Adult Patie nts (1 - Risk 60-74 years 1-dose series) 2014 Falls Risk Assessment 10/24/2022 Hepatitis C Screening [...] topic Insurance [employer] MEDICARE ADVANTAGE Care Teams Core Blower Operator Relationship Specialty Start Date End Date Izzy Sigala MD [address] [place] [phone] PCP - General Processing Spec 08/12/22
--- OUTSIDE RECORDS SUMMARY | 2025-08-13 12:39 | XMS_ITS | Encounter Summary ---
Author Organization [employer] Address [address] [facility] 7t [place] [address] Care Team Providers Care Circular Gang Saw Operator Name Role Phone Izzy Sigala MD Primary Care Provider [phone] Reason for Referral * Consultation (Routine) - Closed Specialty Diagnoses / Procedures Referred By Contac t Referred To Contact Behavioral Health Diagnoses Anxiety Izzy Sigala MD [address] [place] [address] Phone: tel: fax: Referral ID Status Reason Start Date Expiration Date V isits Requested Visits Authorized [id number] Closed Specialty Services Required 11/20/2024 11/20/2025 1 1 Encounter Details Date Type Department Care Team (Late st Contact Info) Description 11/20/2024 Orders Only [facility] [address] [place], [place] [phone] Izzy Sigala MD [address] [place], [place] [phone] Anxiety (Primary Dx) Social History Tobacco Use [...] AM EDT Telemedicine [facility] [address] [place] [phone] Divya Neil RN 10/18/2025 2:30 PM EST Office Visit [facility] [address] [place] [phone] Izzy Sigala MD [address] [place] [phone] Scheduled Referrals Name Type Priority Associated Diagnoses Order Schedule Referral to Behavioral Health Outpatient Referral Routine Anxiety Expected: 11/20/2024 (Approximate), Expires: 11/20/2025 documented as of this encounter Visit Diagnoses Diagnosis Anxiety- Primary Anxiety state, unspecified documented in this encounter Additional Health Concerns Assessment Noted Time PHQ-9 Depression Total Score: 16 025 9:39 AM EST documented as of this encounter Care Teams Circular Gang Saw Operator Relationship Specialty Start Date End Date Izzy Sigala MD [address] [place] [address] PCP - General Family Medicine 10/30/21 [facility] 03/01/25 documented as of this encounter
--- OUTSIDE RECORDS SUMMARY | 2025-08-13 12:39 | XMS_ITS | Clinical Summary ---
Author Organization [facility] Address [address] [place] [phone] Phone Care Team Providers Care Sales Associate Cashier Name Role Phone Izzy Sigala MD Primary [...] NET FULL MEDICARE PART [facility] & [facility] NET FULL MEDICARE PART A & B [facility] HMO MEDICARE REPLACEMENT [facility] FULL MEDICARE PART A & [facility] FULL MEDICARE PART A & B [facility] MEDICARE REPLACEMENT [facility] NET FULL MEDICARE PART A & B [facility] MEDICARE REPLACEMENT [facility] NET FULL Member Subscriber Plan / Payer (Ef fective 2021-Present) Name:Sivan Orosco Relation to Subscriber:Self Name:Sivan Orosco Payer ID:Not on file Group ID:Not on file Type:Medicaid Address: [place] [id number] MEDICARE PART A & B [facility] MEDICARE [place] [address] [place] [address] FULL MEDICARE PART A & B [facility] MEDICARE [place] [address] [place] [address] FULL MEDICARE PART A & B [facility] MEDICARE REPLACEMENT [facility] FULL Advance Directives For more information, please contact: [phone] (9AM - 5PM [facility], Tuesday-Tuesday) Documents on File Type Date Recorded Patient Tier Over Expl anation Healthcare Proxy 10/27/2021 4:13 PM * Full Code (Latest Code Status on File) Date Activated Date Inactivated Comments 10/20/2021 2:36 PM Question Answer Comments Code Status Confirmed With: Patient Healthcare Agents on File Name Relationship Healthcare Agent Relationship Communication Darnell Li Son .Primary Health Care Agent (Proxy form on file) Care Teams Sales Associate Cashier Relationship Specialty Start Date End Date Izzy Sigala MD PCP - General Family Medicine 09/06/23 Additional Source Comments The information contained in this document represents components of the legal health record. It is not the complete legal health record.[facility]
--- OUTSIDE RECORDS SUMMARY | 2025-08-13 12:39 | XMS_ITS | Encounter Summary ---
Author Organization [employer] Address [address] [facility] 7t [place] [address] Care Team Providers Care Turret Press Operator Name Role Phone Izzy Sigala MD Primary Care Provider [phone] Reason for Visit * Reason Comments Med Refill Encounter Details Date Type Department Care Team ([facility] st Contact Info) Description 07/19/2025 Refill [facility] [address] [place], [place] [phone] Izzy Sigala MD [address] [place], [place] [phone] Primary hypertension Social History Tobacco Use Types [...] 08/23/2025 10:00 AM EDT Telemedicine [facility] [address] [place] [phone] Divya Neil RN 10/18/2025 2:30 PM EST Office Visit [facility] [address] [place] [address] Izzy Sigala MD [address] [place] [address] documented as of this encounter Visit Diagnoses Diagnosis Primary hypertension Unspecified essential hypertension documented in this encounter Additional Health Concerns Assessment Noted Time PHQ-9 Depression Total Score: 025 4:31 PM EDT documented as of this encounter Care Teams Turret Press Operator Relationship Specialty Start Date End Date Izzy Sigala MD [address] [place] [address] PCP - General Family Medicine 10/30/21 [facility] 03/01/25 documented as of this encounter
--- OUTSIDE RECORDS SUMMARY | 2025-08-13 12:39 | XMS_ITS | Encounter Summary ---
Author Organization [employer] Address [address] [place] [address] 7 [place] [address] Care Team Providers Care Pleater Name Role Phone Izzy Sigala MD Primary Care Provider [phone] Reason for Referral * Medications - Closed Specialty Diagnoses / Procedures Referred By Contac t Referred To Contact Diagnoses Degenerative disc disease, cervical Chronic bilateral thoracic back pain Izzy Sigala MD [address] [place] [address] Phone: tel: fax: Referral ID Status Reason Start Date Expiration Date Visits Re quested Visits Authorized [id number] Closed 1 1 Encounter Details Date Type Department Care Team (Late st Contact Info) Description 12/03/2022 Orders Only [facility] [address] [place], [place] [phone] Izzy Sigala MD [address] [place], [place] [phone] Degenerative disc disease, cervical (Primary Dx); Chronic [...] Info) Description 08/23/2025 10:00 AM EDT Telemedicine [facility] [address] [place] [phone] Divya Neil RN 10/18/2025 2:30 PM EST Office Visit [facility] [address] [place] [phone] Izzy Sigala MD [address] [place] [address] [phone] documented as of this encounter Visit Diagnoses Diagnosis Degenerative disc disease, cervical- Primary Chronic bilateral thoracic back pain documented in this encounter Care Teams Pleater Relationship Specialty Start Date End Date Izzy Sigala MD [address] [place] [address] [phone] PCP - General Family Medicine 10/30/21 [facility] 03/01/25 documented as of this encounter
== END 2025-08-13 11:45 | disposition home or self-care (01) ==
LOC: HO.HGI 11:15
PROVIDERS: PCP General Practice; Visit Provider Nurse Practitioner Family
DX: R13.12 Dysphagia, oropharyngeal phase (principal); K29.80 Duodenitis without bleeding; K21.9 Gastro-esophageal reflux disease without esophagitis; K59.01 Slow transit constipation
CPT/HCPCS: 99214

== ENCOUNTER → 2025-08-13 11:14 | Outpatient (BNVA) | payer MEDICARE, MEDICAID, SELFPAY | PROVIDERS: PCP General Practice; Visit Provider Nurse Practitioner Family | DX: R13.12 Dysphagia, oropharyngeal phase (principal); K29.80 Duodenitis without bleeding; K21.9 Gastro-esophageal reflux disease without esophagitis; K59.01 Slow transit constipation | CPT/HCPCS: 99212 ==